=== PATIENT | male | born 1965 | race Caucasian/White ===

== ENCOUNTER → 2021-04-23 14:31 | Outpatient (REF) | payer MEDICARE, MEDICAID, SELFPAY ==
--- NOTE | 2021-04-23 14:40 | ECG_ITS ---
Test Reason : CONDUCTION DELAY Blood Pressure : / mmHG Vent. Rate : 085 BPM Atrial Rate : 085 BPM P-R Int : 212 ms QRS Dur : 104 ms QT Int : 354 ms P-R-T Axes : 072 047 037 degrees QTc Int : 421 ms Sinus rhythm with 1st degree A-V block Cannot rule out Anterior infarct , age undetermined Abnormal ECG When compared with ECG of 30-NOV-2019 16:30, No significant change was found Referred By: Zoltan Riley Electronically Signed By:LINDA MENDES MD
== END ==
LOC: HO.CARD 14:31
PROVIDERS: PCP Internal Medicine; Visit Provider Psychiatry & Neurology Psychiatry
DX: I45.9 Conduction disorder, unspecified (principal); Z51.81 Encounter for therapeutic drug level monitoring
CPT/HCPCS: 93005

== ENCOUNTER → 2022-10-01 12:12 | Outpatient (REF) | payer MEDICARE, MEDICAID, SELFPAY ==
--- NOTE | 2022-10-01 12:21 | ECG_ITS ---
Test Reason : F98.8 Blood Pressure : / mmHG Vent. Rate : 079 BPM Atrial Rate : 079 BPM P-R Int : 198 ms QRS Dur : 102 ms QT Int : 368 ms P-R-T Axes : 040 036 012 degrees QTc Int : 421 ms Normal sinus rhythm Cannot rule out Anterior infarct (cited on or before 23-APR-2021) Abnormal ECG When compared with ECG of 23-APR-2021 14:49, No significant change was found Referred By: Zoltan Riley Electronically Signed By:LINDA MENDES MD
== END ==
LOC: HO.CARD 12:12
PROVIDERS: PCP Family Medicine; Visit Provider Psychiatry & Neurology Psychiatry
DX: Z86.79 Personal history of other diseases of the circulatory system (principal); F98.8 Other specified behavioral and emotional disorders with onset usually occurring in childhood and adolescence
CPT/HCPCS: 93005

== ENCOUNTER → 2023-04-10 12:49 | Outpatient (BNVA) | payer MEDICARE, MEDICAID, SELFPAY | PROVIDERS: PCP Family Medicine; Visit Provider Psychiatry & Neurology Psychiatry ==

== ENCOUNTER 2023-06-01 14:02 | Outpatient (AMB) | payer OTHER, SELFPAY ==
--- NOTE | 2023-06-01 12:57 | A.OFFPSYCH_ITS ---
Intake Intake Visit Reasons: depression Allergies bee pollen [BEE STINGS] Allergy (Severe, Unverified 06/21/20 14:45) ANAPHYLAXIS morphine [MORPHINE] Allergy (Mild, Unverified 06/21/20 14:45) not effective- per pt. bupropion [From WELLBUTRIN] Adverse Reaction (Severe, Unverified 06/21/20 14:45) PATIENT BECOME DEPRESSED HPI- Psychiatric Chief Complaint: depression HPI Narrative: Patient is a 58-year-old male history of recurrent depression mood instability consistent with ADD and depression versus some atypical bipolar disorder question past substance induced mood instability now presenting status post surgery for acoustic neuroma. The patient had had balance problems and is status post a surgery at [facility] he he is generally doing okay has been home he is getting intensive physical therapy working on walking and balance in spite of above mood has generally been okay some periods of chronic dysphoria but is please with successful surgery. Current difficulties with attention concentration Past Psychiatric History: History of ADD and depression mood instability question drug-induced for Mental Status Exam Mental Status Exam Narrative: Mental Status Exam Narrative: Appearance: Sitting in chair bandage on head Behavior: Cooperative psychomotor: Speech: Clear hesitant somewhat slow Thought proccess logical Thought content: Gratitude for recent treatment Mood: Described as okay some anxiety Affect: Appropriate to mood SI:denies HI:denies VH/AH:none Delusions: Insight/judgment: Memory/cog: Impaired working attention and short-term memory at this time Telehealth Telehealth Location of provider rendering services: practice address Location of patient: address on file Patient Identification confirmed using: Name, : Yes Telehealth method: video Patient verbally consented to treatment: Yes Patient verbally consented to billing insurance company: Yes Minutes spent on Phone/Video with Pt.: 21 Assessment and Plan Assessment & Plan (1) ADD (attention deficit disorder) without hyperactivity: Status: Acute Code(s): F98.8 - Other specified behavioral and emotional disorders with onset usually occurring in childhood and adolescence (2) Major depression, recurrent, chronic: Status: Acute Code(s): F33.9 - Major depressive disorder, recurrent, unspecified (3) Status post excision of acoustic neuroma: Status: Acute Code(s): Z98.890 - Other specified postprocedural states; Z86.018 - Personal history of other benign neoplasm Plan S start him modafinil secondary to lethargy has been helpful previously. Continue lamotrigine discontinue if adverse effect patient call prior to next appointment if any mood related did or other physical changes Medications: New modafinil start 1/2 tab x 3 days then inc to 50 2 x day as tolerated 50 mg (1/2 x 100 mg) PO BID 30 tabs 1RF Counseling and coordination of Care Details-Self Mgmt counseling: Issues related to managing current medical difficulties Medication management counseling: Effectiveness and Dosing range Diagnosis and Prognosis Counseling: Impact of diagnosis on life functions Details: I spent [25] minutes reviewing the record, seeing the patient and documenting in the medical record. Counseling provided to the patient/caregiver as outlined below. Addressed patient/caregiver concerns regarding current medication regime including effective adherence. Addressed patient/caregiver concerns regarding diagnosis and prognosis including accuracy of diagnosis, prognosis over time, impact of diagnosis. Addressed patient/caregiver concerns regarding impact of recent stressors. [facility] Medical History (Updated 07/08/23 @ 16:40 by Zoltan Riley MD) Major depression, recurrent, chronic ADD (attention deficit disorder) without hyperactivity Surgical History (Updated 07/08/23 @ 16:40 by Zoltan Riley MD) Status post excision of acoustic neuroma Social History: Patient grew up with hyperactivity some difficulty in school has history of ADD. 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 Has been on disability has not been working. Chronic interpersonal difficulty with his no children has been quite active in recovery Substance History: History of the alcohol abuse and past cocaine sober times years Coding Level of Care Code Tele Est Pt Level 4 (36847) Diagnoses ADD (attention deficit disorder) without hyperactivity F98.8 Major depression, recurrent, chronic F33.9 Status post excision of acoustic neuroma Z98.890; Z86.018
== END 2023-06-01 14:03 | disposition home or self-care (01) ==
LOC: HO.HOP 14:02
PROVIDERS: PCP Family Medicine; Visit Provider Psychiatry & Neurology Psychiatry
DX: F33.1 Major depressive disorder, recurrent, moderate (principal); F98.8 Other specified behavioral and emotional disorders with onset usually occurring in childhood and adolescence; Z86.018 Personal history of other benign neoplasm
CPT/HCPCS: 99214

== ENCOUNTER → 2023-06-01 14:02 | Outpatient (BNVA) | payer OTHER, SELFPAY | PROVIDERS: PCP Family Medicine; Visit Provider Psychiatry & Neurology Psychiatry ==

== ENCOUNTER 2023-12-16 17:19 | Outpatient (AMB) | payer MEDICARE, MEDICAID, SELFPAY ==
--- NOTE | 2023-12-16 11:17 | MHC.OFFVISPS ---
Intake Intake Visit Reasons: depression Allergies bee pollen [BEE STINGS] Allergy (Severe, Unverified 06/21/20 14:45) ANAPHYLAXIS morphine [MORPHINE] Allergy (Mild, Unverified 06/21/20 14:45) not effective- per pt. bupropion [From WELLBUTRIN] Adverse Reaction (Severe, Unverified 06/21/20 14:45) PATIENT BECOME DEPRESSED Medication List - Last Reconciled 12/16/23 by Zoltan Riley MD amitriptyline mg PO aspirin 81 mg PO DAILY atorvastatin 20 mg PO DAILY clonazepam 1 mg PO BEDTIME PRN doxazosin 2 mg PO DAILY lamotrigine 200 mg PO BID lidocaine 5% 1 patch topical DAILY modafinil 50 mg (1/2 x 100 mg) PO BID omeprazole 40 mg PO BID HPI- Psychiatric Chief Complaint: depression HPI Narrative: pt has been doing ok looking to perhaps get job has recovered much from acoustic neuroma much better balance able to drive his had a recent CVA he has been caretaking home looking to become employed again will be having iron infusion patient continues to feel Lamictal is helpful was on modafinil previously has restarted at lower dose Past Psychiatric History: History of ADD and depression mood instability question drug-induced for Mental Status Exam Mental Status Exam Narrative: Mental Status Exam Narrative: Appear casually dressed Behavior: Cooperative psychomotor: Speech: Clear normal volume Thought proccess logical Thought content: Going back to work recent CVA his Mood: Described as okay Affect: Appropriate to mood SI:denies HI:denies VH/AH:none Delusions: Insight/judgment: Good insight Memory/cog: Intact as grossly observed Telehealth Telehealth Location of provider rendering services: practice address Location of patient: address on file Patient Identification confirmed using: Name, : Yes Telehealth method: video Patient verbally consented to treatment: Yes Patient verbally consented to billing insurance company: Yes Minutes spent on Phone/Video with Pt.: 21 Assessment and Plan Assessment & Plan (1) Major depression, recurrent, chronic: Status: Acute Code(s): F33.9 - Major depressive disorder, recurrent, unspecified (2) ADD (attention deficit disorder) without hyperactivity: Status: Acute Code(s): F98.8 - Other specified behavioral and emotional disorders with onset usually occurring in childhood and adolescence (3) Status post excision of acoustic neuroma: Status: Acute Code(s): Z98.890 - Other specified postprocedural states; Z86.018 - Personal history of other benign neoplasm Plan Continue Lamictal modafinil has generally not done well on antidepressants seems motivated engaged alert mood seems stable. He is looking to return to some form of work this has been longstanding somewhat of a block for him He does have chronic pain related to multiple surgeries neck and spine trying to sort out returned to work situation Medications: Refilled lamotrigine 200 mg PO BID 60 tabs 2RF Counseling and coordination of Care Medication management counseling: Effectiveness Diagnosis and Prognosis Counseling: Adequacy of current interventions Details: I spent [] minutes reviewing the record, seeing the patient and documenting in the medical record. Counseling provided to the patient/caregiver as outlined below. Addressed patient/caregiver concerns regarding current medication regime including effective adherence. Addressed patient/caregiver concerns regarding diagnosis and prognosis including accuracy of diagnosis, prognosis over time, impact of diagnosis. Addressed patient/caregiver concerns regarding impact of recent stressors. [facility] Medical History (Updated 07/08/23 @ 16:40 by Zoltan Riley MD) Major depression, recurrent, chronic ADD (attention deficit disorder) without hyperactivity Surgical History (Updated 07/08/23 @ 16:40 by Zoltan Riley MD) Status post excision of acoustic neuroma Social History: Patient grew up with hyperactivity some difficulty in school has history of ADD. 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 Has been on disability has not been working. Chronic interpersonal difficulty with his no children has been quite active in recovery Substance History: History of the alcohol abuse and past cocaine sober times years Coding Level of Care Code Tele Est Pt Level 3 (20401) Diagnoses Major depression, recurrent, chronic F33.9 ADD (attention deficit disorder) without hyperactivity F98.8 Status post excision of acoustic neuroma Z98.890; Z86.018
== END 2023-12-16 17:19 | disposition home or self-care (01) ==
LOC: HO.HOP 17:19
PROVIDERS: PCP Family Medicine; Visit Provider Psychiatry & Neurology Psychiatry
DX: F33.1 Major depressive disorder, recurrent, moderate (principal); F98.8 Other specified behavioral and emotional disorders with onset usually occurring in childhood and adolescence; Z86.018 Personal history of other benign neoplasm
CPT/HCPCS: 99213

== ENCOUNTER → 2023-12-16 17:19 | Outpatient (BNVA) | payer MEDICARE, MEDICAID, SELFPAY | PROVIDERS: PCP Family Medicine; Visit Provider Psychiatry & Neurology Psychiatry ==

== ENCOUNTER 2024-04-25 10:14 | Outpatient (AMB) | payer OTHER, SELFPAY ==
--- NOTE | 2024-04-25 10:33 | MHC.OFFVISPS ---
Intake Intake Visit Reasons: depression Allergies bee pollen [BEE STINGS] Allergy (Severe, Unverified 06/21/20 14:45) ANAPHYLAXIS morphine [MORPHINE] Allergy (Mild, Unverified 06/21/20 14:45) not effective- per pt. bupropion [From WELLBUTRIN] Adverse Reaction (Severe, Unverified 06/21/20 14:45) PATIENT BECOME DEPRESSED Medication List - Last Reconciled 04/25/24 by Zoltan Riley MD amitriptyline mg PO aspirin 81 mg PO DAILY atorvastatin 20 mg PO DAILY clonazepam 1 mg PO BEDTIME PRN lamotrigine 200 mg PO BID lidocaine 5% 1 patch topical DAILY modafinil 50 mg (1/2 x 100 mg) PO BID omeprazole 40 mg PO BID topiramate 25 mg PO BID ubrogepant (Ubrelvy) mg PO HPI- Psychiatric Chief Complaint: depression HPI Narrative: Pt seen in f/u mood has been down overwhelmed at times had cva able to walk around the house some periods of confusion easily overwhelmed has been having omgoing casey has been smoking mj has been taking topamax for CASEY by [facility] neuro can feel overwhelmed at times with his phy sx taking care of neelam his periods of feeling overwhelmed has not done well on antidep in the past Past Psychiatric History: History of ADD and depression mood instability question drug-induced for Mental Status Exam Mental Status Exam Narrative: Mental Status Exam Narrative: Appear casually dressed Behavior: Cooperative some hearing difficulty psychomotor: Speech: Clear normal volume Thought proccess logical Thought content: overwhelmed with casey pain Mood: Described as okay can be overwhelmed at times Affect: Appropriate to mood SI:denies states future oriented HI:denies VH/AH:none Delusions: Insight/judgment: Good insight Memory/cog: Intact as grossly observed Assessment and Plan Assessment & Plan (1) Major depression, recurrent, chronic: Status: Acute Code(s): F33.9 - Major depressive disorder, recurrent, unspecified (2) ADD (attention deficit disorder) without hyperactivity: Status: Acute Code(s): F98.8 - Other specified behavioral and emotional disorders with onset usually occurring in childhood and adolescence (3) Status post excision of acoustic neuroma: Status: Acute Code(s): Z98.890 - Other specified postprocedural states; Z86.018 - Personal history of other benign neoplasm Plan restart guanfacine 0.5-1 bedtime bp 130/74 p 72 cont lamictal discussed amitrip use of topamax for pain managed by nueuro and pcp future oriented guanfacine may be helpful sleep anxiety not an option for tms consuder spravato Medications: New guanfacine 0.5 - 1 mg (0.5 - 1 x 1 mg) PO BEDTIME 30 tabs 3RF Refilled lamotrigine 200 mg PO BID 60 tabs 2RF Counseling and coordination of Care Pt. Self Management counseling: Breathing and Med illness tx adherence Details-Self Mgmt counseling: issues related to chronic pain Details-Med Mgmt counseling: pt has been managing dealing with chronic pain issues Diagnosis and Prognosis Counseling: Adequacy of current interventions Details: I spent [38] minutes reviewing the record, seeing the patient and documenting in the medical record. Counseling provided to the patient/caregiver as outlined below. Addressed patient/caregiver concerns regarding current medication regime including effective adherence. Addressed patient/caregiver concerns regarding diagnosis and prognosis including accuracy of diagnosis, prognosis over time, impact of diagnosis. Addressed patient/caregiver concerns regarding impact of recent stressors. [facility] Medical History (Updated 07/08/23 @ 16:40 by Zoltan Riley MD) Major depression, recurrent, chronic ADD (attention deficit disorder) without hyperactivity Surgical History (Updated 07/08/23 @ 16:40 by Zoltan Riley MD) Status post excision of acoustic neuroma Social History: Patient grew up with hyperactivity some difficulty in school has history of ADD. 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 Has been on disability has not been working. Chronic interpersonal difficulty with his no children has been quite active in recovery Substance History: History of the alcohol abuse and past cocaine sober times years Coding Level of Care Code Est Pt Level 3 (98893) Therapy 30m w/E&M (45920) Diagnoses Major depression, recurrent, chronic F33.9 ADD (attention deficit disorder) without hyperactivity F98.8 Status post excision of acoustic neuroma Z98.890; Z86.018
== END 2024-04-25 14:44 | disposition home or self-care (01) ==
LOC: HO.HOP 10:14
PROVIDERS: PCP Family Medicine; Visit Provider Psychiatry & Neurology Psychiatry
DX: F33.9 Major depressive disorder, recurrent, unspecified (principal); F98.8 Other specified behavioral and emotional disorders with onset usually occurring in childhood and adolescence; Z98.890 Other specified postprocedural states; Z86.018 Personal history of other benign neoplasm
CPT/HCPCS: 90833; 99213

== ENCOUNTER → 2024-04-25 10:14 | Outpatient (BNVA) | payer OTHER, SELFPAY | PROVIDERS: PCP Family Medicine; Visit Provider Psychiatry & Neurology Psychiatry | DX: F33.9 Major depressive disorder, recurrent, unspecified (principal); F98.8 Other specified behavioral and emotional disorders with onset usually occurring in childhood and adolescence; Z98.890 Other specified postprocedural states; Z86.018 Personal history of other benign neoplasm | CPT/HCPCS: 99212 ==

== ENCOUNTER 2024-08-30 14:26 | Outpatient (AMB) | payer OTHER, SELFPAY ==
--- NOTE | 2024-08-30 15:21 | MHC.OFFVISPS ---
Intake Intake Visit Reasons: depression Allergies bee pollen [BEE STINGS] Allergy (Severe, Unverified 06/21/20 14:45) ANAPHYLAXIS morphine [MORPHINE] Allergy (Mild, Unverified 06/21/20 14:45) not effective- per pt. bupropion [From WELLBUTRIN] Adverse Reaction (Severe, Unverified 06/21/20 14:45) PATIENT BECOME DEPRESSED Medication List - Last Reconciled 08/30/24 by Zoltan Riley MD alfuzosin ER 10 mg PO DAILY amitriptyline mg PO aspirin 81 mg PO DAILY atorvastatin 20 mg PO DAILY clonazepam 1 mg PO BEDTIME PRN guanfacine 0.5 - 1 mg (0.5 - 1 x 1 mg) PO BEDTIME lamotrigine 200 mg PO BID lidocaine 5% 1 patch topical DAILY modafinil 50 mg (1/2 x 100 mg) PO BID omeprazole 40 mg PO BID testosterone 40.5 mg topical QAM topiramate 50 mg PO BID ubrogepant (Ubrelvy) mg PO HPI- Psychiatric Chief Complaint: depression HPI Narrative: Patient seen psychiatric follow-up. Patient has been under tremendous stress his who is status post CVA at times has somewhat bizarre behavior and poor judgment. Patient at times unsure what to do. He has discussed this it appears with his psychiatrist Dr. Dee Ortiz. He and his sleep separately they have chronic marital dissatisfaction. The patient has been trying to make his own apartment in the house. The patient has never really responded well to antidepressant treatment. He has done best on Lamictal and previously with modafinil for energy and help with focus the patient has been on disability times years. He is status post surgery for acoustic neuroma also has multiple chronic pain syndromes related to his spine Past Psychiatric History: History of ADD and depression mood instability question drug-induced for Mental Status Exam Mental Status Exam Narrative: Mental Status Exam Narrative: Appear casually dressed Behavior: Cooperative some hearing difficulty psychomotor: Speech: Clear normal volume Thought proccess logical Thought content: overwhelmed with living situation how to deal his who is status post CVA Intermittently hopeless helpless Mood: Depressed Affect: Appropriate to mood SI:denies states future oriented HI:denies VH/AH:none Delusions: Insight/judgment: Good insight Memory/cog: Intact as grossly observed Assessment and Plan Assessment & Plan (1) ADD (attention deficit disorder) without hyperactivity: Status: Acute Code(s): F98.8 - Other specified behavioral and emotional disorders with onset usually occurring in childhood and adolescence (2) Major depression, recurrent, chronic: Status: Acute Code(s): F33.9 - Major depressive disorder, recurrent, unspecified (3) Status post excision of acoustic neuroma: Status: Acute Code(s): Z98.890 - Other specified postprocedural states; Z86.018 - Personal history of other benign neoplasm Plan Restart modafinil continue lamotrigine clonazepam no evidence of abuse or tolerance Has not typically responded to antidepressants may benefit from consideration of spravato TMS was not helpful Would benefit from coaching/therapy to help deal with issues stress related to living with his who is now more erratic and dependent. Patient remains sober Medications: Changed From modafinil start 1/2 tab x 3 days then inc to 50 2 x day as tolerated 50 mg (1/2 x 100 mg) PO BID 30 tabs 1RF F98.8 - Other specified behavioral and emotional disorders with onset usually occurring in childhood and adolescence, F33.9 - Major depressive disorder, recurrent, unspecified To modafinil start 1/2 tab x 3 days then inc to 50 2 x day as tolerated if agitated stop 50 - 100 mg (0.5 - 1 x 100 mg) PO QAM 30 tabs 1RF F98.8 - Other specified behavioral and emotional disorders with onset usually occurring in childhood and adolescence, F33.9 - Major depressive disorder, recurrent, unspecified Counseling and coordination of Care Details-Self Mgmt counseling: Issues related to current stressors living with his disabled and his own sense of hopelessness helplessness Medication management counseling: Effectiveness and Side effects Diagnosis and Prognosis Counseling: Adequacy of current interventions Details: I spent [39] minutes reviewing the record, seeing the patient and documenting in the medical record. Counseling provided to the patient/caregiver as outlined below. Addressed patient/caregiver concerns regarding current medication regime including effective adherence. Addressed patient/caregiver concerns regarding diagnosis and prognosis including accuracy of diagnosis, prognosis over time, impact of diagnosis. Addressed patient/caregiver concerns regarding impact of recent stressors. [facility] Medical History (Updated 07/08/23 @ 16:40 by Zoltan Riley MD) Major depression, recurrent, chronic ADD (attention deficit disorder) without hyperactivity Surgical History (Updated 07/08/23 @ 16:40 by Zoltan Riley MD) Status post excision of acoustic neuroma Social History: Patient grew up with hyperactivity some difficulty in school has history of ADD. 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 Has been on disability has not been working. Chronic interpersonal difficulty with his no children has been quite active in recovery Substance History: History of the alcohol abuse and past cocaine sober times years Coding Level of Care Code Est Pt Level 3 (29676) Therapy 30m w/E&M (91236) Diagnoses ADD (attention deficit disorder) without hyperactivity F98.8 Major depression, recurrent, chronic F33.9 Status post excision of acoustic neuroma Z98.890; Z86.018
== END 2024-08-30 15:27 | disposition home or self-care (01) ==
LOC: HO.HOP 14:26
PROVIDERS: PCP Family Medicine; Visit Provider Psychiatry & Neurology Psychiatry
DX: F98.8 Other specified behavioral and emotional disorders with onset usually occurring in childhood and adolescence (principal); F33.9 Major depressive disorder, recurrent, unspecified; Z98.890 Other specified postprocedural states; Z86.018 Personal history of other benign neoplasm
CPT/HCPCS: 90833; 99213

== ENCOUNTER → 2024-08-30 14:26 | Outpatient (BNVA) | payer OTHER, SELFPAY | PROVIDERS: PCP Family Medicine; Visit Provider Psychiatry & Neurology Psychiatry | DX: F33.9 Major depressive disorder, recurrent, unspecified (principal); F98.8 Other specified behavioral and emotional disorders with onset usually occurring in childhood and adolescence; Z73.3 Stress, not elsewhere classified; Z63.0 Problems in relationship with spouse or partner; Z98.890 Other specified postprocedural states; Z86.018 Personal history of other benign neoplasm; Z71.89 Other specified counseling | CPT/HCPCS: 99212 ==

== ENCOUNTER 2024-11-28 16:21 | Inpatient (IN) | payer MEDICARE, OTHER, MEDICAID, SELFPAY ==
--- NOTE | ~2024-11-28 | CT_ITS ---
.EXAMINATION: CT HEAD WITHOUT CONTRAST CLINICAL INFORMATION: mse changes COMPARISON: CT dated February 26, 2018. TECHNIQUE: Contiguous axial imaging was performed from the skull base to vertex without intravenous administration of contrast. This CT examination was performed using dose optimization techniques as appropriate, variously including the following: *Automated exposure control *Adjustment of mA and/or kV according to patient size (this includes techniques or standardized protocols for targeted exams where dose is matched to indication/reason for exam; i.e. extremities or head) *Use of iterative reconstruction technique DLP: 871 mGy-cm FINDINGS: Status post right craniectomy and cranioplasty, right occipital and right mastoid. Well corticated irregularities in the left superior orbit. There is a 5 mm intracranial and likely extra-axial focal calcification in the left anterior cranial fossa. There is a microcystic encephalomalacia involving the left frontal lobe/frontal rectus and orbital frontal gyri. Focal encephalomalacia right frontal rectus gyrus. No acute intracranial hemorrhage, mass effect, midline shift, hydrocephalus or herniation. Calcified plaques in the V4 segments right vertebral artery and cavernous segments both ICAs. No air-fluid levels in the included paranasal sinuses. Tympanic cavities are aerated. Left mastoid cells are aerated and well pneumatized. Sellar/suprasellar region demonstrated no gross masses or focal hemorrhage. There is dehiscence versus noncalcified anterior margin of the sella turcica. Old traumatic deformity, nasal bones.. CT/CT head/brain wo IV con IMPRESSION: No acute intracranial hemorrhage. Probable old frontal contusions, left greater than right with old traumatic deformities, nasal bones and left frontal superior orbital wall Status post craniectomy and cranioplasty, right occipital posterior right mastoid. Electronically signed by: Gallito Song MD 12/05/2024 11:45 AM EST
[2024-11-28 16:34] VITALS: BP 130/72; PULSE 88; O2SAT 97
[2024-11-28 16:36] VITALS: BP 111/72; PULSE 87; RESP 16; TEMP 37.1; O2SAT 95; BMI 25.8
[2024-11-28 17:08] LABS: Appearance Urine Clear; Color Urine Yellow; Glucose Urine UA Negative (Negative); Leukocyte Esterase Urine Small (1+) (Negative); Nitrite Urine Negative (Negative); PH 6.5 (5.0-9.0); Specific Gravity - Urine 1.025 (1.005-1.025); UMIC TRIGGER UACC YES; Urine Blood Negative (Negative); Urine Ketones Negative (Negative); Urine Protein Trace mg/dL (Neg-Trace)
[2024-11-28 17:14] LABS: Bacteria Urine None Seen (None Seen); Hyaline Casts Urine 0-2 /LPF (0-2); RBC Urine 0-2 /HPF (0-2); Squamous Epithelial Cell Urine 0-2 /HPF (0-2); UACC Culture Trigger YES; WBC Urine 0-5 /HPF (0-5)
--- NOTE | 2024-11-28 17:48 | ED_ITS ---
HPI - Psych General Chief Complaint: Psychiatric Symptoms Stated Complaint: crisis depressed anxious thoughts, selfharm Time Seen by Provider: 11/28/24 17:34 Source: patient and EMS Mode of arrival: EMS Limitations: no limitations History of Present Illness ED Provider: DR. García HPI Narrative: A 59-year-old male brought in by EMS accompanied by the police for evaluation of depression and aggression. Patient stated that he has been taking care of his who had a stroke 15 months ago patient expressed difficulty to care for his and stressed out and anxious, stated that he found on her phone she is texting another person which made the patient more upset. No SI, no HI, no hallucination. Related Data Home Medications ?Medication ?Instructions ?Recorded ?Confirmed atorvastatin 20 mg tablet 20 mg PO DAILY 09/09/22 04/25/24 lidocaine 5 % topical patch 1 patch topical DAILY 09/09/22 09/09/22 omeprazole 40 mg capsule,delayed 40 mg PO BID 09/09/22 09/09/22 release amitriptyline 10 mg tablet mg PO 12/16/23 04/25/24 aspirin 81 mg tablet,delayed 81 mg PO DAILY 12/16/23 04/25/24 release ubrogepant 100 mg tablet (Ubrelvy) mg PO 04/25/24 04/25/24 alfuzosin 10 mg tablet,extended 10 mg PO DAILY 08/30/24 08/30/24 release 24 hr testosterone 40.5 mg topical QAM 08/30/24 08/30/24 topiramate 50 mg tablet 50 mg PO BID 08/30/24 08/30/24 Previous Rx's ?Medication ?Instructions ?Recorded guanfacine 1 mg tablet 0.5 - 1 mg (0.5 - 1 x 1 mg) PO 07/12/24 BEDTIME #30 tabs clonazepam 1 mg tablet 1 mg PO BEDTIME PRN insomnia #30 10/17/24 tabs lamotrigine 200 mg tablet 200 mg PO BID #120 tabs 11/10/24 modafinil 100 mg tablet 100 mg PO QAM #30 tabs 11/10/24 Allergies Allergy/AdvReac Type Severity Reaction Status Date / Time bee pollen [BEE STINGS] Allergy Severe ANAPHYLAXIS Verified 11/28/24 16:53 morphine [MORPHINE] Allergy Mild not Verified 11/28/24 16:53 effective- per pt. tizanidine Allergy Unknown Verified 11/28/24 16:53 bupropion [From WELLBUTRIN] AdvReac Severe PATIENT Verified 11/28/24 16:53 BECOME DEPRESSED Review of Systems Review of Systems: All other systems are reviewed and are negative Constitutional: Reports as per HPI and Reports no additional constitutional complaints Eyes: Reports as per HPI and Reports no additional eye complaints Reports system reviewed and no additional complaints, except as documented Cardiovascular: Reports as per HPI and Reports no additional cardiovascular complaints Respiratory: Reports as per HPI and Reports no additional respiratory complaints Gastrointestinal: Reports as per HPI and Reports no additional gastrointestinal complaints Genitourinary: Reports no additional female genitourinary complaints Musculoskeletal: Reports no additional musculoskeletal complaints Skin/Breast: Reports system reviewed and no additional complaints, except as docu Psychiatric: Reports no additional psychiatric complaints Endocrine: Reports no additional endocrine complaints Hematologic/Lymphatic: Reports no additional hematologic/lymphatic complaints Allergic/Immunologic: Reports no additional allergic/immunologic complaints Reports system reviewed and no additional complaints, except as documented and Reports Abnormal speech present [facility] Past Medical History Medical History Major depression, recurrent, 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 Blood pressure elevated. Heart rate normal. Respiratory rate normal. Temperature normal. Oxygen saturation normal. Appearance: Alert. Oriented X3. No acute distress. Head: Normal external exam. Normocephalic. Atraumatic. No Cochran signs noted. No raccoon eyes noted Eyes: PERRLA. EOMI. Conjunctiva and sclera normal. Eyelids normal. ENT: TM's Normal. Pharynx normal. Uvula midline. Moist mucous membranes. No trismus noted. No drooling noted. No muffled voice noted. Neck: Normal inspection. Neck supple. FROM. No adenopathy. Thyroid Normal. No meningeal signs. No neck mass noted. CVS: Normal heart rate and rhythm. Heart sound normal. No murmurs noted. Pulses normal throughout. Respiratory: No respiratory distress. Painless inspiration. Breath sounds normal. No wheezes/rales/rhonchi noted. Chest nontender. No accessory muscle usage noted or decreased air movement noted. Abdomen: Soft and nontender. Bowel sounds normal in all 4 quadrants. No distention noted. No organomegaly noted. No visible injury noted. Back: No CVA tenderness. Full range of motion noted. Skin: Skin warm and dry. Normal skin color. Normal skin turgor. No rashes/lesions/lacerations noted. Extremities: No lower extremity edema. Extremities exhibit normal range of motion. Extremities nontender. Neuro: Oriented X 3. Cranial nerve exam: II-XII are grossly intact No motor deficit. No sensory deficit. Reflexes normal. Patient Orientation: Person, Place, Time and Situation, okay hygiene and grooming. Fair eye contact, attentive, no tics or tremors. Level of Consciousness: Awake, Appropriate and Alert Patient Behavior: Appropriate, Guarded, Cooperative and Anxious Mood Description: Constricted, Blunted and Apprehensive Affect Description: Constricted, Blunted and Apprehensive Patient Cognition Impaired: No Ability to Follow Directions: Excellent Speech Pattern: Clear, Appropriate and Spontaneous Speech, nonpressured, spontaneous with regular rate and rhythm, normal volume and prosody. No dysarthria. Memory Description: Intact, Immediate Intact and Short Term Intact Hallucinations: None Delusions: Not Present Thought Process: Intact Thought Content: positive for Intact, positive for Logical, denies Suicidal Id eation and denies Homicidal Ideation. Depressive Symptoms: Not present. Judgement and Insight: Limited but adequate. Course Reevaluation(s) Reevaluation #1: 59-year-old male came in for evaluation of stress and depression with no SI or HI, will start physician observation, medical clearance and care team evaluation. Time: 19:00 Medical Decision Making Differential Diagnosis Differential Diagnoses: The differential diagnosis associated with the presentation includes (Electrolyte derangement, severe anemia, medical clearance, substance abuse.) Admission/Observation Consideration of admission/observation: Escalation of care including admission/observation considered Lab Data MDM Lab Attestation statement: I reviewed the patient's lab results. Labs: Lab Results 11/28/24 Range/Units 16:59 Urine Color Yellow Urine Appearance Clear Urine pH 6.5 (5.0-9.0) Ur Specific [place] 1.025 (1.005-1.025) Urine Protein Trace (Neg-Trace) mg/dL Urine Glucose (UA) Negative (Negative) mg/dL Urine Ketones Negative (Negative) mg/dL Urine Blood Negative (Negative) Urine Nitrite Negative (Negative) Ur Leukocyte Esterase Small (1+) H (Negative) Urine RBC 0-2 (0-2) /HPF Urine WBC 0-5 (0-5) /HPF Ur Squamous Epith Cells 0-2 (0-2) /HPF Urine Bacteria None Seen (None Seen) Hyaline Casts 0-2 (0-2) /LPF Discharge Plan Discharge Clinical Impression: Depression, ADD (attention deficit disorder) without hyperactivity Patient Disposition: Still a Patient Prescriptions: No Action guanfacine 1 mg tablet 0.5 - 1 mg PO BEDTIME Qty: 30 1RF clonazepam 1 mg tablet 1 mg PO BEDTIME PRN (Reason: insomnia) Qty: 30 1RF lamotrigine 200 mg tablet 200 mg PO BID Qty: 120 1RF modafinil 100 mg tablet 100 mg PO QAM Qty: 30 1RF lidocaine 5 % adhesive patch,medicated 1 patch topical DAILY omeprazole 40 mg capsule,delayed release(DR/EC) 40 mg PO BID atorvastatin 20 mg tablet 20 mg PO DAILY Ubrelvy 100 mg tablet PO amitriptyline 10 mg tablet PO aspirin 81 mg tablet,delayed release (DR/EC) 81 mg PO DAILY testosterone 20.25 mg/1.25 gram (1.62 %) gel in metered-dose pump 40.5 mg topical QAM alfuzosin 10 mg tablet extended release 24 hr 10 mg PO DAILY topiramate 50 mg tablet 50 mg PO BID Print Language: Georgian
[2024-11-28 17:54] LABS: Amphetamine Screen Urine Not Detected (Not Detect); Barbiturates, Urine Not Detected (Not Detect); Benzodiazepines Screen Urine Not Detected (Not Detect); Buprenorphine Scr Not Detected (Not Detect); Cannabinoid Screen Urine POSITIVE (Not Detect); Cocaine Screen Urine Not Detected (Not Detect); Fentanyl, urine Not Detected (Not Detect); Methadone Screen, Urine Not Detected (Not Detect); Opiate Screen Urine Not Detected (Not Detect); Oxycodone Screen Urine Not Detected (Not Detect); Phencyclidine Screen Urine Not Detected (Not Detect)
[2024-11-28 18:16] LABS: MANUAL DIFF FLAG NO
[2024-11-28 18:21] LABS: Basophils Absolute Auto 0.1 X10*3/uL (0.0-0.2); Basophils Percent Auto 0.9 % (0-2); Eosinophils Absolute Auto 0.2 X10*3/uL (0.0-0.4); Hematocrit 44.9 % (42.0-52.0); Hemoglobin 14.8 g/dl (14.0-18.0); Imm Gran Abs Auto 0.02 X10*3/uL (0.00-0.03); Imm Gran Pct Auto 0.3 % (0.0-0.4); Lymphocytes Absolute Auto 2.5 X10*3/uL (1.2-4.9); Lymphocytes Percent Auto 31.7 % (20-40); Mean Corpuscular Hemoglobin 29.2 pg (27.0-33.0); Mean Corpuscular Volume 88.6 fL (80.0-98.0); Mean Platelet Volume 10.1 fL (9.4-12.4); Monocytes Absolute Auto 0.5 X10*3/uL (0.1-1.2); Monocytes Percent Auto 6.5 % (2-11); Neutrophils Absolute Auto 4.7 x10*3/uL (2.0-8.3); Neutrophils Percent Auto 58.6 % (45-73); Platelet Count 216 X10*3/uL (160-400); Red Blood Count 5.07 X10*6/uL (4.60-5.80); Red Cell Distribution Width 13.7 % (11.0-16.0); White Blood Count 7.9 X10*3/uL (4.8-10.8)
[2024-11-28 18:36] LABS: Anion Gap 11 (12-20); Blood Urea Nitrogen 13 mg/dL (9-16); Calcium 9.3 mg/dL (8.4-10.2); Carbon Dioxide 24 mmol/L (22-29); Chloride 112 mmol/L (96-108); Creatinine Clr Calc Pharmacy 89.5; Estimated Glomerular Filt Rate > 60; Ethanol < 10 mg/dL; Glucose Random 121 mg/dL (60-115); Potassium 3.8 mmol/L (3.3-5.1); Sodium 143 mmol/L (135-145)
[2024-11-28] MEDS: Acetaminophen 325 MG TABLET 975 MG PO (19:15)
--- NOTE | 2024-11-28 20:20 | MHC.CM.ED ---
Addendum entered by Bibi Murphy 11/28/24 20:28: Pt states his has daily [employer] services. 2 hours daily. Original Note: Received consult from Dr. Marina. Pt is being cared for in [facility] and CARE team has recommended [facility]. Pt has concerns about his at home. She had a stroke 15 months ago and he has been her caregiver. He has concerns about her medications. CARE team state they will call his . No need for CM consult at this time. CM recommended police well check if there are concerns. Pt is requesting elder services, however patient is 58 years old. CM explained that Elder services will not manage her medications tonight and in the morning. Explained that his would need to come to the ED. Explained that services cannot be arranged for someone that is not a patient. Again stressed that his should come to the ED for care. CARE team will call . Care team is aware that CM will help if needed. Dr. Marina to cancel consult at this time.
--- OUTSIDE RECORDS SUMMARY | 2024-11-28 21:15 | XMS_ITS | Data Portability ---
Author Organization 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 The headaches improves with marijuana and Tylenol/NSAIDs which he uses multiple times per day. Patient likely has posttraumatic headaches with features of migraines complicated with rebound headaches from frequent NSAID use. 07/2023 MRI brain with and without contrast: Interval postoperative findings related to right suboccipital craniectomy for resection of a right vestibular schwannoma. A 3 mm enhancing focus at the fundus of the right internal auditory canal likely represents residual tumor. An additional area of heterogeneous T2 hyperintense signal and enhancement within the right jugular bulb possibly represents thrombus or less likely additional schwannoma/eber anglioma. Not available 07/22/2023 09:33:29 09/03/2023 09/03/2023 58yo m HLD, ADD, history of substance abuse (currently in recovery), depression, 2 cervical fusion, 2 lumbar fusion, 03/13/23 rt schwannoma removal and CSF leak presents with a new type of headaches that has been unrelenting since the surgery. The headaches improves with marijuana and Tylenol/NSAIDs which he had been using multiple times per day. Patient likely has posttraumatic headaches with features of migraines complicated with rebound headaches from frequent NSAID use. Good response to amitryp, will inc gently. 07/2023 MRI brain with and without contrast: Interval postoperative findings related to right suboccipital craniectomy for resection of a right vestibular schwannoma. A 3 mm enhancing focus at the fundus of the right internal auditory canal likely represents residual tumor. An additional area of heterogeneous T2 hyperintense signal and enhancement within the right jugular bulb possibly represents thrombus or less likely additional schwannoma/eber anglioma. Not available 09/03/2023 09:39:03 12/03/2023 12/03/2023 58yo m HLD, ADD, history of substance abuse (currently in recovery), depression, 2 cervical fusion, 2 lumbar fusion, 03/13/23 rt schwannoma removal and CSF leak presents with a new type of headaches that has been unrelenting since the surgery. The headaches improves with marijuana and Tylenol/NSAIDs which he had been using multiple times per day. Patient likely has posttraumatic headaches with features of migraines complicated with rebound headaches from frequent NSAID use. Good response to amitryp, but not now anymore. Will add topamax - SEs discussed; also discussed adding nerve blocks, but pt prefers PO meds for now as traveling here would be a problem. Sumatriptan with suboptimal response. Will switch to naratriptan. SEs discussed. 07/2023 MRI brain with and without contrast: Interval postoperative findings related to right suboccipital craniectomy for resection of a right vestibular schwannoma. A 3 mm enhancing focus at the fundus of the right internal auditory canal likely represents residual tumor. An additional area of heterogeneous T2 hyperintense signal and enhancement within the right jugular bulb possibly represents thrombus or less likely additional schwannoma/beer anglioma. Not available 12/03/2023 17:01:45 03/28/2024 03/28/2024 58yo m HLD, ADD, history of substance abuse (currently in recovery), depression, 2 cervical fusion, 2 lumbar fusion, 03/13/23 rt schwannoma removal and CSF leak presents with a new type of headaches that has been unrelenting since the surgery. The headaches improves with marijuana and Tylenol/NSAIDs which he had been using multiple times per day. Patient likely has posttraumatic headaches with features of migraines complicated with rebound headaches from frequent NSAID use. Good intial response to amitryp, but not on it anymore due to liver enzyme elevation. Increased topamax to 50mg/day about 3 days ago, will see how this would help with the CASEY. But now having daily 5/10 CASEY. Discussed adding nerve blocks, but pt prefers PO meds for now as traveling here would be a problem. 07/2023 MRI brain with and without contrast: Interval postoperative findings related to right suboccipital craniectomy for resection of a right vestibular schwannoma. A 3 mm enhancing focus at the fundus of the right internal auditory canal likely represents residual tumor. An additional area of heterogeneous T2 hyperintense signal and enhancement within the right jugular bulb possibly represents thrombus or less likely additional schwannoma/eber anglioma. Not available 03/28/2024 14:18:08 Plan of Treatment Reminders Order Date Submit Date Provider Last Modified By Organization Details Last Modified Time Details Appointments None recorded. Lab None recorded. Referral None recorded. Procedures None recorded. Surgeries None recorded. Imaging None recorded. Medication Orders topiramate 25 mg tablet 2023 024 [facility] #[id number], [address] [place] [address], [id number], 14:11:58 Ubrelvy 100 mg tablet 2023 024 [facility], [address] [place] [address], [address], 4 14:12:00 hydroxyzine HCl 10 mg tablet 2023 024 [facility], [address] [place] [address], [address], 4 14:11:59 amitriptyli ne 10 mg tablet 2023 024 [facility], [address] [place] [address], [address], 4 11:27:08 topiramate 25 mg tablet 2023 024 [facility] #0957, [address] [place] [address], [address], 4 15:30:01 naratriptan 2.5 mg tablet 2023 024 [facility], [address] [place] [address], [address], 4 11:31:19 amitriptyli ne 10 mg tablet 2022 023 [facility], [address] [place] [address], [address], 3 09:39:06 sumatriptan 100 mg tablet 2022 023 [facility] #0957, [address] [place] [address], [address], 4 11:31:29 amitriptyli ne 10 mg tablet 2022 023 [facility], [address] [place] [address], [address], 3 10:39:05 Patient TargetsNo targets recorded. Patient InstructionsNo instructions recorded. Reason for Referral None Reported. Results Created Date Observation Date Name Description Value Unit Range Abnormal Flag Note LastModifiedBy Organization Detail LastModifiedTime 07/09/20 23 03/17/2023 CT, brain , w/o contr ast No observ ation record ed. [email or web address] Not Available 2022 14:26:03 Result Notes None recorded. Problems Name Problem SNOMED Code Status Onset Date Resolution Date Notes Provider Name and Address Organization Details Recorded Time Posttraumatic headache 24917953 Active 2022 PARISA APPIAH MD [address] [place] [address], [phone], [facility] 3 10:32:30 Schwannoma 147283886 Active 2022 PARISA APPIAH MD [address] [place] [address], [phone] 8, [facility] 3 09:32:58 Drug withdrawal headache 85371569 Active 2022 PARISA APPIAH MD [address] [place] [address], [phone] 8, [facility] 3 09:33:14 Migraine 74494503 Active 2023 PARISA APPIAH MD [address] [place] [address], [phone] 8, [facility] 4 14:20:18 Problem Notes None recorded. Procedures Surgical History None recorded. Imaging Results Imaging Date Name Status LastModified by Organiz ation Details LastModified Time 03/17/2023 CT, brain, w/o contrast completed [email or web address] Information not available 07/09/2023 14:26:03 Procedure Notes None recorded. Medical Equipment None Reported. Allergies Allergen ID Allergen Name Allergen Category Reaction Reaction Severity Criticality Documentation Date Start Date Code Code System Note Provider Name and Address Organization Details Recorded Time [id number] bupropion Not available Not available Not available Not available 07/21/2023 95533 RxNitin APPIAH MD [address] [place] [address], [phone] 8, [facility] 3 09:56:32 [id number] tizanidin e medicatio n Not available Not available Not available 07/21/2023 [id number] RxNitin APPIAH MD [address] [place] [address], [phone] 8, [facility] 3 09:56:42 [id number] tamsulosi n medicatio n Not available Not available Not available 07/21/2023 [id number] RxNitin APPIAH MD [address] [place] [address], [address] 8, [facility] 3 09:56:53 Medications Name Sig Start Date Stop Date Status Note LastModified by Organization Details LastModified Time prednisone 10 mg tablet TAKE 2 TABS ON 03/29 AND 1 TAB ON 03/30 active Not Available Not Available No t Available atorvastati n 20 mg tablet TAKE 1 TABLET BY MOUTH EVERY DAY IN THE EVENING active Not Available Not Available No t Available lamotrigine 200 mg tablet TAKE 1 TABLET BY MOUTH TWICE A DAY active Not Available Not Available No t Available doxazosin 1 mg tablet TAKE 1 TABLET BY MOUTH EVERY DAY FOR 30 DAYS active Not Available Not Available No t Available sumatriptan 100 mg tablet TAKE 1/2 TO 1 TABLET AT ONSET OF MIGRAINE, LIMIT TO 2 TABS PER WEEK active Not Available Not Available No t Available prednisone 20 mg tablet TAKE 2 TABLET BY MOUTH DAILY FOR 2 DAYS active Not Available Not Available No t Available prednisone 5 mg tablet active Not Available Not Available Not Available clonazepam 1 mg tablet TAKE 1 TABLET (1 MG) ORALLY BEDTIME NEEDED FOR INSOMNIA active Not Available Not Available No t Available topiramate 25 mg tablet TAKE 1 TABLET TWICE A DAY BY ORAL ROUTE FOR 90 DAYS. active Not Available Not Available No t Available valacyclovi r 500 mg tablet active Not Available Not Available Not Available omeprazole 40 mg capsule,del ayed release TAKE 1 CAPSULE BY MOUTH TWICE A DAY DIRECTED active Not Available Not Available No t Available aspirin 81 mg tablet,martha yed release TAKE 1 TABLET BY MOUTH EVERY DAY active Not Available Not Available No t Available amoxicillin 500 mg tablet TAKE 1 TABLET BY MOUTH THREE TIMES A DAY UNTIL FINISHED active Not Available Not Available No t Available ketorolac 0.5 % eye drops active Not Available Not Available Not Available hydromorpho ne 2 mg tablet 07/21 completed Not Available Not Available Not Available famotidine 20 mg tablet TAKE 1 TABLET BY MOUTH TWICE A DAY active Not Available Not Available No t Available dexamethaso ne 1 mg tablet active Not Available Not Available Not Available amitriptyli ne 10 mg tablet TAKE 1 TABLET BY MOUTH AT BEDTIME FOR 1 WEEK, THEN INCREASE TO TAKE 2 TABLETS BY MOUTH AT BEDTIME 2023 active Not Available Not Available Not Avai lable meclizine 25 mg tablet active Not Available Not Available Not Available cephalexin 500 mg capsule TAKE 4 CAPSULES (2,000 MG TOTAL) BY MOUTH ONCE NEEDED 1 HOUR BEFORE DENTAL APPOINTME NT active Not Available Not Available No t Available lidocaine 5 % topical patch APPLY 1 PATCH EVERY DAY BY TOPICAL ROUTE DIRECTED active Not Available Not Available No t Available ibuprofen 200 mg tablet TAKE 2 TABLETS BY MOUTH EVERY 6 HOURS NEEDED FOR PAIN active Not Available Not Available No t Available Banophen 25 mg capsule TAKE 1 CAPSULE BY MOUTH 3 TIMES A DAY active Not Available Not Available No t Available bisacodyl 5 mg tablet,martha yed release TAKE 1 TABLET BY MOUTH DAILY NEEDED. active Not Available Not Available No t Available epinephrine 0.3 mg/0.3 mL injection, auto-inject or INJECT 0.3 MG NEEDED BY INJECTION ROUTE FOR 30 DAYS. active Not Available Not Available No t Available hydroxyzine HCl 10 mg tablet TAKE 1 TABLET BY MOUTH TWICE A DAY active Not Available Not Available No t Available ondansetron 4 mg disintegrat ing tablet active Not Available Not Available N ot Available fluticasone propionate 50 mcg/actuati on nasal spray,suspe nsion SPRAY 1 SPRAY INTO EACH NOSTRIL EVERY DAY DIRECTED active Not Available Not Available No t Available naratriptan 2.5 mg tablet TAKE 1 TABLET BY MOUTH EVERY DAY NEEDED FOR MIGRAINE MAX 2 TABS/WEEK active Not Available Not Available No t Available doxycycline hyclate 100 mg tablet TAKE 1 TAB BY MOUTH TWICE A DAY X 2 WEEKS, THEN TAKE 1 TABLET EVERY DAY active Not Available Not Available No t Available metoclopram janelle 10 mg tablet active Not Available Not Available Not Available doxazosin 2 mg tablet TAKE 1 TABLET BY MOUTH EVERY DAY active Not Available Not Available No t Available oxycodone 5 mg tablet TAKE 1 TABLET (5 MG TOTAL) BY MOUTH EVERY 4 HOURS NEEDED active Not Available Not Available No t Available modafinil 100 mg tablet START 1/2 TAB (50MG) DAILY X 3 DAYS THEN INCREASE TO 1/2 TABLET (50MG) 2 TIMES X DAY TOLERATED active Not Available Not Available No t Available neomycin 3.5 mg/g-polymy janay B 10,000 unit/g-dexa meth 0.1 % eye oint APPLY INTO BOTH EYES EVERY NIGHT active Not Available Not Available No t Available atomoxetine 40 mg capsule TAKE 1 CAPSULE BY MOUTH EVERY MORNING active Not Available Not Available No t Available alfuzosin ER 10 mg tablet,exte nded release 24 hr TAKE 1 TABLET BY MOUTH EVERYDAY AT BEDTIME active Not Available Not Available No t Available chlorhexidi ne gluconate 0.12 % mouthwash SWISH 15 ML (UNDILUTE D) BY MOUTH FOR 30 SECONDS, THEN SPIT (AFTER BREAKFAST AND BEFORE BEDTIME) active Not Available Not Available No t Available Ubrelvy 100 mg tablet TAKE 1 TABLET BY MOUTH NEEDED ONSET OF HEADACHE. MAY REPEAT ONCE. TOTAL DIALY DOSE IS 200 MG active Not Available Not Available No t Available Vitals None Recorded Social History None recorded. Functional Status None recorded. Mental Status None recorded. Family History Nothing Reported. Medical History No medical history recorded. Past Encounters Encounter ID Performer Location Encounter Start Date Encounter Closed Date Diagnosis/Indication Diagnosis SNOMED-CT Code Diagnosis ICD10 Code Diagnosis Note [id number] PARISA APPIAH MD [facility] [address] [place] [address] 07/21/2023 09:39:14 07/21/2023 12:02:03 Posttraumatic headache [id number] G44.309 Discussed options including trying oral medication s and nerve blocks. Patient would like to try the oral medication s 1st. We will try amitriptyl ine, side effects including drowsiness and weight gain discussed with the patient today.He has daily headaches so prefer not to use abortive medication s. However since he is continuing to use Tylenol or NSAID multiple times per day, after further discussion we decided to try sumatripta n as an abortive to see if he could limit the use of Tylenol/NS AIDs. I am hoping that the sumatripta n would abort his headache for the rest of the day so that he would not have to use Tylenol or NSAIDs. Patient will try this and let me know. Schwannoma [id number] D36 .10 He has a residual tumor on MRI. [place] [facility] Drug withd sofía headache 12201256 G44.40 Discussed management of rebound headaches. He will try to limit over-the-c ounter pain medication s as tolerated. - encouraged adequate hydration (64oz water) if no contraindi cations- discussed keeping a regular sleep schedule, exercise regularly and eating healthy (avoid MSG, artificial sweeteners ). I also provided a handout on how stress and environmen morales factors including diet can affect headaches, informatio n on proper sleep hygiene and a headache diary to keep track of her symptoms.- identify and avoid triggers- may use tinted eye glasses that are specific to filter out blue lights while using computers to reduce light sensitivit y. Also may change the computer setting to help reduce eye strain- use [employer] kevin to keep track of the barometric pressure changes and may use their earplugs ($20) to help with these changes- continue stress relieving activities - yoga (yoga kevin, yoga studio kevin), meditation (headspace kevin, calm kevin), tawana chi (tawana chi for beginners kevin)etc- discussed the pathophysi ology of migraines. Educated patient on rebound headache and limited abortive medication to less than 2 times per week. This visit was conducted using two-way, real-time telehealth video conference . The patient was in their home. Physician, Dr. Appiah was located at her home. Instructio ns were reviewed with the patient and verbal consent was obtained. I informed the patient that they can see me in person if needed. They are of moderate risk. I personally spent a total of 60 minutes on care for this patient on the date of the encounter. This includes face-to-fa ce time during the visit as well as non-face-t o-face time spent on chart review, documentat ion, and care coordinati on. Greater than 50% of this time as spent in discussing patient's symptoms, reviewing differenti al diagnosis, education, reassuranc e and coordinati ng care. This note was generated using a voice recognitio n program. Please excuse any transcript ion errors which may have been overlooked during review. Sometimes these errors may affect the content or meaning of a given sentence. Please be aware of such errors and do not hesitate to call our office for any clarificat ion [id number] PARISA APPIAH MD [facility]UR[facility]ICE [address] [place] [address] 09/03/2023 08:56:40 09/03/2023 10:14:51 Posttraumatic headache [id number] G44.309 Discussed options including trying oral medication s and nerve blocks. Patient with good improvemen t in intensity and freq with amitriptyl ine, will inc gently, side effects including drowsiness and weight gain discussed with the patient today.He has daily headaches so prefer not to use abortive medication s. However he is continuing to use naproxen daily. Discussed weaning himself off of naproxen slowly. Drug withd sofía headache [id number] G44.40 Discussed management of rebound headaches. He will try to limit over-the-c ounter pain medication s as tolerated. - encouraged adequate hydration (64oz water) if no contraindi cations- discussed keeping a regular sleep schedule, exercise regularly and eating healthy (avoid MSG, artificial sweeteners ). I also provided a handout on how stress and environmen morales factors including diet can affect headaches, informatio n on proper sleep hygiene and a headache diary to keep track of her symptoms.- identify and avoid triggers- may use tinted eye glasses that are specific to filter out blue lights while using computers to reduce light sensitivit y. Also may change the computer setting to help reduce eye strain- use [employer] kevin to keep track of the barometric pressure changes and may use their earplugs ($20) to help with these changes- continue stress relieving activities - yoga (yoga kevin, yoga studio kevin), meditation (headspace kevin, calm kevin), tawana chi (tawana chi for beginners kevin)etc- discussed the pathophysi ology of migraines. Educated patient on rebound headache and limited abortive medication to less than 2 times per week. This visit was conducted using two-way, real-time telehealth video conference . The patient was in their home. Physician, Dr. Appiah was located at her home. Instructio ns were reviewed with the patient and verbal consent was obtained. I informed the patient that they can see me in person if needed. They are of moderate risk. I personally spent a total of 45 minutes on care for this patient on the date of the encounter. This includes face-to-fa ce time during the visit as well as non-face-t o-face time spent on chart review, documentat ion, and care coordinati on. Greater than 50% of this time as spent in discussing patient's symptoms, reviewing differenti al diagnosis, education, reassuranc e and coordinati ng care. This note was generated using a voice recognitio n program. Please excuse any transcript ion errors which may have been overlooked during review. Sometimes these errors may affect the content or meaning of a given sentence. Please be aware of such errors and do not hesitate to call our office for any clarificat ion Schwannoma [id number] D36 .10 He has a residual tumor on MRI. [place] [facility] He may need another MRI sooner than 1 year. Pt will schedule an apt to discuss with surgeon. [id number] PARISA APPIAH MD [facility] [address] [place] [address] 12/03/2023 10:37:03 12/03/2023 17:24:10 Posttraumatic headache [id number] G44.309 Discussed options including trying oral medication s and nerve blocks. Patient with good initial improvemen t in intensity and freq with amitriptyl ine, will add topamax side effects including drowsiness and weight gain discussed with the patient today.He has daily headaches so prefer not to use abortive medication s. However he is continuing to use naproxen daily. Discussed weaning himself off of naproxen slowly. Drug withd sofía headache [id number] G44.40 Discussed management of rebound headaches. He will try to limit over-the-c ounter pain medication s as tolerated. - encouraged adequate hydration (64oz water) if no contraindi cations- discussed keeping a regular sleep schedule, exercise regularly and eating healthy (avoid MSG, artificial sweeteners ). I also provided a handout on how stress and environmen morales factors including diet can affect headaches, informatio n on proper sleep hygiene and a headache diary to keep track of her symptoms.- identify and avoid triggers- may use tinted eye glasses that are specific to filter out blue lights while using computers to reduce light sensitivit y. Also may change the computer setting to help reduce eye strain- use [employer] kevin to keep track of the barometric pressure changes and may use their earplugs ($20) to help with these changes- continue stress relieving activities - yoga (yoga kevin, yoga studio kevin), meditation (headspace kevin, calm kevin), tawana chi (tawana chi for beginners kevin)etc- discussed the pathophysi ology of migraines. Educated patient on rebound headache and limited abortive medication to less than 2 times per week. This visit was conducted using two-way, real-time telehealth video conference . The patient was in their home. Physician, Dr. Appiah was located at her home. Instructio ns were reviewed with the patient and verbal consent was obtained. I informed the patient that they can see me in person if needed. They are of moderate risk. I personally spent a total of 45 minutes on care for this patient on the date of the encounter. This includes face-to-fa ce time during the visit as well as non-face-t o-face time spent on chart review, documentat ion, and care coordinati on. Greater than 50% of this time as spent in discussing patient's symptoms, reviewing differenti al diagnosis, education, reassuranc e and coordinati ng care. This note was generated using a voice recognitio n program. Please excuse any transcript ion errors which may have been overlooked during review. Sometimes these errors may affect the content or meaning of a given sentence. Please be aware of such errors and do not hesitate to call our office for any clarificat ion Schwannoma [id number] D36 .10 He has a residual tumor on MRI. [place] [facility] He may need another MRI sooner than 1 year. Pt will schedule an apt to discuss with surgeon. [id number] PARISA APPIAH MD [facility] NEUR[facility] [address] [place] [address] 03/28/2024 12:57:06 03/28/2024 14:58:32 Posttraumatic headache [id number] G44.309 Discussed options including trying oral medication s and nerve blocks. Patient with good initial improvemen t in intensity and freq with amitriptyl ine, however discontinu ed it liver. Of note patient also take marijuana and Tylenol (patient reports that Tylenol is rare now). We have just increased Topamax to 25 mg b.i.d. side effects including drowsiness and weight loss discussed with the patient today. Liver enzyme elevation, so will avoid cyprohepta dine. Will add hydroxyzin e.He has daily headaches so prefer not to use abortive medication s. However he is continuing to use naproxen daily. Discussed weaning himself off of naproxen slowly. Tried sumatripta n and naratripta n with no response. Will try ubrelvy 100mg prn Drug withd sofía headache [id number] G44.40 Discussed management of rebound headaches. He will try to limit over-the-c ounter pain medication s as tolerated. - encouraged adequate hydration (64oz water) if no contraindi cations- discussed keeping a regular sleep schedule, exercise regularly and eating healthy (avoid MSG, artificial sweeteners ). I also provided a handout on how stress and environmen morales factors including diet can affect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
--- OUTSIDE RECORDS SUMMARY | 2024-11-28 21:16 | XMS_ITS | Patient Health Record ---
Author Organization [facility] Address [address] [place] [address] Support Name Relationship Address Phone JOB GALLEGOS Guarantor Unknown Reason For Referral No Information Medications Medication SIG (Take, Route, Frequency, Duration) Notes Start Date End Date Status AndroGel 75MG EXT CR ORAL QAM for -3 [facility] 05/12/2012 Active AndroGel 50MG JERMAINE External EVERY M ORNING for -3 [facility] 03/15/2012 Active Unique 180 MG 1 ORAL daily for -3 [facility] 02/20/2012 Active Adderall 30MG 1 ORAL DAILY for -3 [facility] 02/12/2012 Active Flonase 50MCG 2 Nasal daily for -3 [facility] 02/20/2012 Active LaMICtal 200MG 1 ORAL daily for -3 [facility] 02/12/2012 Active EpiPen 2-Diego 0.3 MG/0.3ML Intramuscula for -3 [facility] 02/02 Active Problems Problem Type SNOMED Code ICD Code Onset Dates Problem Status W/U Status Risk Notes Problem Hyperlipidemia (89455482) Other and unspecified hyperlipidemia (272.4) Active confirmed Major Problem Depressive disorder (51669730) Depressive disorder, not elsewhere classified (311) Active confirmed Major Problem Child attention deficit disorder (disorder) (481324919) Attention deficit disorder of childhood without mention of hyperactivity (314.00) Active confirmed Major Problem Essential hypertension (77410310) Unspecified essential hypertension (401.9) Active confirmed Major Problem Backache (413075056) Unspecified backache (724.5) Active confirmed Diag Problem Osteoarthritis (971088011) Osteoarthrosis, unspecified whether generalized or localized, unspecified site (715.90) Active confirmed Major Problem Joint pain (finding) (20451834) Pain in joint, site unspecified (489.40) Active confirmed Diag Problem Malaise and fatigue (886572812) Other malaise and fatigue (780.79) Active confirmed Diag Problem Cough (16070378) Cough (786.2) Active confirmed Diag Problem Allergy (925599856) Allergy, unspecified not elsewhere classified (995.3) Active confirmed Diag Plan Of Treatment No Information Insurance Providers Payer Name Payer Address Payer Phone Subscriber Number Group Number Insured Name Patient Relationship to Insured Coverage Start Date Coverage End Date [facility] [address] [facility] [place] [address] [id number] JOB BARRIOS Self - patient is the insured
--- OUTSIDE RECORDS SUMMARY | 2024-11-28 21:16 | XMS_ITS | Data Portability ---
Author Organization [facility], Main Office Address [address] [facility] [address] [place] [id number] Care Team Providers Care Ammunition Specialist Name Role Phone MAHAD BELCHER Orthopedic Surgeon [facility] Physi reba Therapist KELLEN COE Neurosurgeon [phone] COSMO RILEY Psychiatrist [facility] GASTRO[facility]OLOG[facility] E Business Project Manager [phone] [facility] (PEDS & ADULT) Sleep Medicine [facility] Pain Management DELMIS ANGELES Orthopedic Surgeon [employer] [place] [employer] Counselor ERIC MARQUIS Neurosurgeon WINSOME COLON Phys. Med. & Rehab [phone] RYAN DEGROOT Primary Care Provider [phone] ALMA RENEE Ship Painter Helper Anne Marie ALMANZA Raw Cheese Worker PARISA HOLGUIN Neurologist VERONIKA ASKEW Orthopedic Surgeon NIELS OWEN Neurosurgeon Assessment Encounter Date Assessment Date Assessment LastModified by Organization Details LastModified Time 03/11/2024 03/11/2024 Discussed with patient the signs/symptoms warranted for a return to office visit and/or an ER visit. Patient understood and agreed with the plan. Not available 03/10/2024 13:45:33 04/29/2024 04/29/2024 Most of the patient? s laboratory workup has been normal; however, due to his fatigue, I conducted an EKG that showed a questionable heart block and some non specific t-wave changes but seem to be old. To ensure safety, I have ordered a stress echocardiogram. It is reassuring he denies any symptoms like chest pain, shortness of breath, or palpitations, which. I am also contemplating the use of a development analyst but will consider waiting till his stress echo. There is a need to review his psychiatric medications and those prescribed for his headaches with a specialist, as they may influence the heart block. It? s unclear exactly which medications he is currently taking, and he has expressed a desire to reassess his medication regimen with a new neurologist, to whom I have referred him. I've requested that he obtains and shares his medical records, including imaging, as I currently lack access to them. Additionally, he is taking multiple medications for his headaches, so it seems prudent for a neurologist to tailor his treatment specifically. I have encouraged him to continue using his CPAP machine for sleep apnea, as it may be contributing to his fatigue. I also urged him to maintain regular follow-ups with his mental health provider, given the potential impact of mental health on his fatigue. While I have added some new tests to further explore his fatigue, his most recent lab work from February does not indicate a need for immediate repetition. I have spent 45 minutes on this encounter. The time documented represents time spent on the day of the encounter preparing for and completing the visit. Time spent performing a physical exam, obtaining history from the patient, counseling/educa ting the patient in possible diagnosis and treatment options. This time is independent of any additional procedures/diagn ostic testing/interpre tations. [email or web address] Not available 05/01/2024 23:46:38 05/10/2024 05/10/2024 Scalp Lump: Assessment: The patient describes a hard lump on the scalp with discomfort and occasional pain, affecting his sleep. Plan: Re-ordered ultrasound of the scalp. Per Patient requests a referral placed for a second opinion from Dr. Marquis. Borderline Testosterone: Assessment: Testosterone levels are on the lower side of normal, which the patient believes is the cause of his symptoms. Plan: No hormone replacement therapy indicated at this time. Recommended lifestyle modifications including regular exercise and improving sleep habits. Per his request a referral to a urologist will be placed to see if Testosterone replacement is needed, given his history of benign prostatic hyperplasia (BPH) and concerns regarding testosterone levels. [email or web address] Not available 05/10/2024 12:40:14 07/13/2024 07/13/2024 Ramesh recently underwent an MRI with his neurosurgical ENT team regarding his schwannoma, and he reports that the team in [place] did not find anything concerning. However, he continues to feel unsteady when walking. He mentioned that he raised this issue with his neurosurgeon, who suggested discussing vestibular therapy with me. Today, I attempted to perform the Moraima-Hallpike maneuver and the HINTS exam, but due to his cervical fusion, it was challenging to elicit any signs or symptoms of nystagmus, and none were observed during the exam. We reviewed his medications and noted that he was taking both alfuzosin and doxazosin. 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 The doxazosin was initially prescribed by me, and his urologist later added alfuzosin ER. I also performed an EKG, which showed no significant changes. A stress echo has already been ordered, and he is currently on the waiting list. I have asked my staff to follow up on the scheduling of this test. His previous lab work and neurological exams were reassuring. I went ahead and referred him to vestibular therapy, but caution is advised due to his cervical fusion. He has an upcoming neurology appointment, and I recommended that he discuss his ongoing symptoms with them. We can also consider a referral to ENT if needed, although he is already under the care of an ENT specialist for his schwannoma. I suggested he review his medications with both his psychiatrist and neurologist due to their sedating effects. His tinnitus has been longstanding and is well-known to his ENT specialist. I suggested considering tinnitus retraining therapy as a potential treatment option. I provided him with fall prevention strategies, given his increased risk of falls due to unsteadiness. Given the complexity of his medical history, it is crucial that he continue discussions with his neurologist, especially since he is also experiencing headaches. Regarding the sensation in the back of his scalp, he discussed this with his neurosurgeon, who did not express immediate concern, referencing a recent ultrasound that indicated it could be related to the screw from his previous surgery. However, his neurosurgeon has reached out to follow up on this matter. For his orthostatic symptoms, I emphasized the importance of staying hydrated. I will follow up with him once we have the results of his stress echo. I have spent 45 minutes on this encounter. The time documented represents time spent on the day of the encounter preparing for and completing the visit. Time spent performing a physical exam, obtaining history from the patient, counseling/educa ting the patient in possible diagnosis and treatment options. This time is independent of any additional procedures/diagn ostic testing/interpre tations. [email or web address] Not available 07/13/2024 19:19:08 Plan of Treatment Reminders Order Date Submit Date Provider Last Modified By Organization Details Last Modified Time Details Appointments None record ed. Lab hepati c functi on panel, serum 2023 [facility], [address], [place], [address], 12:06:33 borrel ia burgdo rferi IgG + IgM + total panel, IA, serum 2023 [facility] (Centralized Electronic Ordering - All Locations), Patient Can Go To The Location Of Their Choice, 12:06:37 testos terone , free + total, serum 2023 024 [facility] (Centralized Electronic Ordering - All Locations), Patient Can Go To The Location Of Their Choice, 12:06:36 shbg (sex hormon e-bind ing globul in), serum 2023 024 [facility] (Centralized Electronic Ordering - All Locations), Patient Can Go To The Location Of Their Choice, 12:06:37 urinal ysis, dipsti ck 2023 [email or web address] In-Office Order, Internal Use Only DO Not Attach Compendium DO Not Attach Compendium, Do Not Delete/merge, [id number] 4 11:01:47 urinal ysis, comple te 2023 024 [facility], [address], [address], [place], [address], 4 10:07:02 PSA, total, serum or plasma 2023 024 [facility], [address], [address], [place], [address], 4 08:16:43 Referral physic al therap ist referr al 2023 024 [facility], [address], [place], [address], 4 09:55:14 physic al therap ist referr al - Please see for BPPV 2023 024 Not available 4 12:42:07 physic al therap ist referr al - Please see for should er Laurence morales # of Visits : ` 2023 024 [email or web address] Not available 5 09:34:57 neurol ogical surgeo n referr viviana arrington to see Dr. Marquis for second opinio n. 2023 024 krys Marquis MD, [address], [facility] [address], [place], [address], 4 15:06:40 urolog ist referr viviana alvarado for low T. 2023 024 [email or web address] [facility], [address] [place], [address], 4 09:57:46 neurol ogist referr viviana cook for second opinio n.Bob royal for Dr. Timmons . 2023 024 krys [facility], [address] [place] [address], [place], [address], 4 14:43:58 Procedures None record ed. Surgeries None record ed. Imaging electr ocardi ogram 2023 024 [facility]ENTER In-Office Order, Internal Use Only DO Not Attach Compendium DO Not Attach Compendium, Do Not Delete/merge, [id number] 4 13:43:32 XR, should er 2023 024 [facility], [address] [place] [address], [address], 4 14:41:05 US, head, soft tissue - Refrigerator Crater ior right scalp hard lump that is crackl es and crunch 2023 024 krys [facility], [address] [place] [address], [address], 4 11:42:35 stress echoca rdiogr am - av block with t wave change s. 2023 024 blanca [facility] (Outt Non-Invasive Cardiology Scheduling), [address] [place] [address], [address], 5 15:24:44 electr ocardi ogram 2023 024 [email or web address] In-Office Order, Internal Use Only DO Not Attach Compendium DO Not Attach Compendium, Do Not Delete/merge, [id number] 4 15:37:43 Medication Orders meloxi cam 15 mg tablet 2023 024 CENTER [id number], [address] [place], [address], 4 11:53:11 Patient TargetsNo targets recorded. Patient Instructions Encounter Date Encounter Id Patient Instructions Last Modified By Organization Details Last Modified Time 03/11/2024 [id number] blood in the urine: care instructions Not available 03/11/2024 11:01:44 04/29/2024 [id number] headache: care instructions [email or web address] Not available 04/29/2024 15:32:55 heart blocks: care instructions [email or web address] Not available 04/29/2024 15:33:50 07/13/2024 [id number] dizziness: care instructions [email or web address] Not available 07/13/2024 11:40:48 orthostatic vitals* [email or web address] Not available 07/20/2024 08:40:56 benign paroxysmal positional vertigo (bppv): care instructions [email or web address] Not available 07/13/2024 11:40:48 Reason for Referral Neurologist Referral for Hea dacsandra patient looking for second opinion.Looking for Dr. Timmons. Referring Physician: Ryan Degroot [facility], Encounter Date: 04/29/2024 Urologist Referral for Testo sterone level below reference range patient concern for low T. Referring Physician: Ryan Degroot [facility], Encounter Date: 05/10/2024 Neurological Surgeon Referra l for Disorder of skull patient requesting to see Dr. Marquis for second opinion. Referring Physician: Ryan Degroot [facility], Encounter Date: 05/10/2024 Physical Therapist Referral for Pain of right shoulder joint Please see for shoulder painTotal # of Visits: ` Referring Physician: Family Isra Raya, Encounter Date: 05/25/2024 Physical Therapist Referral for Benign paroxysmal positional vertigo Please see for BPPV Referring Physician: Ryan Degroot [facility], Encounter Date: 07/13/2024 Physical Therapist Referral for At increased risk for falls Referring Physician: Ryan Degroot [facility], Encounter Date: 07/13/2024 Results Created Date Observation Date Name Description Value Unit Range Abnormal Flag Note LastModifiedBy Organization Detail LastModifiedTime 03/04/20 24 03/04/2024 CMP14 +EGFR glucose 92 mg/dL 70-99 Not Available [facility] ([facility]) [address] [facility], [place], [address], 03/07/2024 10:05:52 03/04/20 24 03/04/2024 CMP14 +EGFR BUN 15 mg/dL 8-27 Not Available [facility] ([facility]) [address] [place], [address], 03/07/2024 10:05:52 03/04/20 24 03/04/2024 CMP14 +EGFR creatinine 0.97 mg/dL 0.76-1 .27 Not Available [facility] ([facility]) [address] [facility], [place], [address], 03/07/2024 10:05:52 03/04/20 24 03/04/2024 CMP14 +EGFR eGFR 89 mL/mi n/1.7 3 >59 Not Available [facility] ([facility]) [address] [facility], [place], [address], 03/07/2024 10:05:52 03/04/20 24 03/04/2024 CMP14 +EGFR BUN/creatini ne ratio 15 10-24 Not Available [facility] ([facility]) [address] [place] [place], [address], 03/07/2024 10:05:52 03/04/20 24 03/04/2024 CMP14 +EGFR sodium 144 mmol/ L 134-14 4 Not Available [facility] ([facility]) [address] [facility], [place], [address], 03/07/2024 10:05:52 03/04/20 24 03/04/2024 CMP14 +EGFR potassium 4.9 mmol/ L 3.5-5. 2 Not Available [facility] ([facility]) [address] [place] [place], [address], 03/07/2024 10:05:52 03/04/20 24 03/04/2024 CMP14 +EGFR chloride 106 mmol/ L 96-106 Not Available [facility] ([facility]) [address] [place], [address], 03/07/2024 10:05:52 03/04/20 24 03/04/2024 CMP14 +EGFR carbon dioxide, total 24 mmol/ L Not Available [facility] ([facility]) [address], [place], [address], 03/07/2024 10:05:52 03/04/20 24 03/04/2024 CMP14 +EGFR calcium 9.3 mg/dL 8.6-10 .2 Not Available [facility] ([facility]) [address], [place], [address], 03/07/2024 10:05:52 03/04/20 24 03/04/2024 CMP14 +EGFR protein, total 6.5 g/dL 6.0-8. 5 Not Available [facility] ([facility]) [address] [facility], [place], [address], 03/07/2024 10:05:52 03/04/20 24 03/04/2024 CMP14 +EGFR albumin 4.5 g/dL 3.8-4. 9 Not Available [facility] ([facility]) [address] [facility], [place], [address], 03/07/2024 10:05:52 03/04/20 24 03/04/2024 CMP14 +EGFR globulin, total 2.0 g/dL 1.5-4. 5 Not Available [facility] ([facility]) [address] [facility], [place], [address], 03/07/2024 10:05:52 03/04/20 24 03/04/2024 CMP14 +EGFR A/G ratio 2.3 1.2-2. 2 above high normal Not Available [facility] ([facility]) [address] [facility], [place], [address], 03/07/2024 10:05:52 03/04/20 24 03/04/2024 CMP14 +EGFR bilirubin, total 0.5 mg/dL 0.0-1. 2 Not Available [facility] ([facility]) [address] [facility] [place], [address], 03/07/2024 10:05:52 03/04/20 24 03/04/2024 CMP14 +EGFR alkaline phosphatase 75 IU/L 44-121 Not Available [facility]) [address] [facility], [place], [address], 03/07/2024 10:05:52 03/04/20 24 03/04/2024 CMP14 +EGFR AST (SGOT) 37 IU/L 0-40 Not Available [facility] ([facility]) [address] [facility], [place], [address], 03/07/2024 10:05:52 03/04/20 24 03/04/2024 CMP14 +EGFR ALT (SGPT) 108 IU/L 0-44 above high normal Not Available [facility] ([facility]) [address] [place], [address], 03/07/2024 10:05:52 03/04/20 24 03/05/2024 CBC WITH DIFFE RENTI AL/PL ATELE T WBC 4.9 x10e3 /uL 3.4-10 .8 Not Available [facility] ([facility]) [address] [place], [address], 03/07/2024 10:05:54 03/04/20 24 03/05/2024 CBC WITH DIFFE RENTI AL/PL ATELE T RBC 5.31 x10e6 /uL 4.14-5 .80 Not Available [facility] ([facility]) [address] [place], [address], 03/07/2024 10:05:54 03/04/20 24 03/05/2024 CBC WITH DIFFE RENTI AL/PL ATELE T hemoglobin 15.1 g/dL 13.0-1 7.7 Not Available [facility] ([facility]) [address] [facility], [place], [address], 03/07/2024 10:05:54 03/04/20 24 03/05/2024 CBC WITH DIFFE RENTI AL/PL ATELE T hematocrit 48.7 % 37.5-5 1.0 Not Available [facility] ([facility]) [address] [facility], [place], [address], 03/07/2024 10:05:54 03/04/20 24 03/05/2024 CBC WITH DIFFE RENTI AL/PL ATELE T MCV 92 fL 79-97 Not Available [facility] ([facility]) [address] [facility], [place], [address], 03/07/2024 10:05:54 03/04/20 24 03/05/2024 CBC WITH DIFFE RENTI AL/PL ATELE T MCH 28.4 pg 26.6-3 3.0 Not Available [facility] ([facility]) [address] [facility], [place], [address], 03/07/2024 10:05:54 03/04/20 24 03/05/2024 CBC WITH DIFFE RENTI AL/PL ATELE T MCHC 31.0 g/dL 31.5-3 5.7 below low normal Not Available [facility] ([facility]) [address] [facility], [place], [address], 03/07/2024 10:05:54 03/04/20 24 03/05/2024 CBC WITH DIFFE RENTI AL/PL ATELE T RDW 14.6 % 11.6-1 5.4 Not Available [facility] ([facility]) [address] [facility], [place], [address], 03/07/2024 10:05:54 03/04/20 24 03/05/2024 CBC WITH DIFFE RENTI AL/PL ATELE T platelets 210 x10e3 /uL 150-45 0 Not Available [facility] ([facility]) [address] [facility], [place], [address], 03/07/2024 10:05:54 03/04/20 24 03/05/2024 CBC WITH DIFFE RENTI AL/PL ATELE T neutrophils 55 % not estab. Not Available [facility] ([facility]) [address] [facility], [place], [address], 03/07/2024 10:05:54 03/04/20 24 03/05/2024 CBC WITH DIFFE RENTI AL/PL ATELE T lymphs 35 % not estab. Not Available [facility] ([facility]) [address] [facility], [place], [address], 03/07/2024 10:05:54 03/04/20 24 03/05/2024 CBC WITH DIFFE RENTI AL/PL ATELE T monocytes 7 % not estab. Not Available [facility] ([facility]) [address] [facility], [place], [address], 03/07/2024 10:05:54 03/04/20 24 03/05/2024 CBC WITH DIFFE RENTI AL/PL ATELE T eos 2 % not estab. Not Available [facility] ([facility]) [address] [facility], [place], [address], 03/07/2024 10:05:54 03/04/20 24 03/05/2024 CBC WITH DIFFE RENTI AL/PL ATELE T basos 1 % not estab. Not Available [facility] ([facility]) [address] [facility], [place], [address], 03/07/2024 10:05:54 03/04/20 24 03/05/2024 CBC WITH DIFFE RENTI AL/PL ATELE T immature cells BRINE ROOM LABORER Not Available [facility] ([facility]) [address] [facility], [place], [address], 03/07/2024 10:05:54 03/04/20 24 03/05/2024 CBC WITH DIFFE RENTI AL/PL ATELE T neutrophils (absolute) 2.7 x10e3 /uL 1.4-7. 0 Not Available [facility] ([facility]) [address] [facility], [place], [address], 03/07/2024 10:05:54 03/04/20 24 03/05/2024 CBC WITH DIFFE RENTI AL/PL ATELE T lymphs (absolute) 1.7 x10e3 /uL 0.7-3. 1 Not Available [facility] ([facility]) [address] [facility], [place], [address], 03/07/2024 10:05:54 03/04/20 24 03/05/2024 CBC WITH DIFFE RENTI AL/PL ATELE T monocytes(ab solute) 0.4 x10e3 /uL 0.1-0. 9 Not Available [facility] ([facility]) [address] [facility], [place], [address], 03/07/2024 10:05:54 03/04/20 24 03/05/2024 CBC WITH DIFFE RENTI AL/PL ATELE T eos (absolute) 0.1 x10e3 /uL 0.0-0. 4 Not Available [facility] ([facility]) [address] [place], [address], 03/07/2024 10:05:54 03/04/20 24 03/05/2024 CBC WITH DIFFE RENTI AL/PL ATELE T baso (absolute) 0.1 x10e3 /uL 0.0-0. 2 Not Available [facility] ([facility]) [address] [place], [address], 03/07/2024 10:05:54 03/04/20 24 03/05/2024 CBC WITH DIFFE RENTI AL/PL ATELE T immature granulocytes 0 % not estab. Not Available [facility] ([facility]) [address] [place], [address], 03/07/2024 10:05:54 03/04/20 24 03/05/2024 CBC WITH DIFFE RENTI AL/PL ATELE T immature grans (abs) 0.0 x10e3 /uL 0.0-0. 1 Not Available [facility] ([facility]) [address] [facility], [place], [address], 03/07/2024 10:05:54 03/04/20 24 03/05/2024 CBC WITH DIFFE RENTI AL/PL ATELE T NRBC BRINE ROOM LABORER Not Available [facility] ([facility]) [address] [facility], [place], [address], 03/07/2024 10:05:54 03/04/20 24 03/05/2024 CBC WITH DIFFE RENTI AL/PL ATELE T hematology comments: BRINE ROOM LABORER Not Available [facility] ([facility]) [address] [facility], [place], [address], 03/07/2024 10:05:54 03/04/20 24 03/04/2024 LIPID PANEL cholesterol, total 154 mg/dL 100-19 9 Not Available [facility] ([facility]) [address] [facility], [place], [address], 03/07/2024 10:05:57 03/04/20 24 03/04/2024 LIPID PANEL triglyceride s 116 mg/dL 0-149 Not Available [facility]) [address] [facility], [place], [address], 03/07/2024 10:05:57 03/04/20 24 03/04/2024 LIPID PANEL HDL cholesterol 45 mg/dL >39 Not Available [facility]) [address] [facility], [place], [address], 03/07/2024 10:05:57 03/04/20 24 03/04/2024 LIPID PANEL VLDL cholesterol reba 21 mg/dL 5-40 Not Available [facility]) [address] [place], [address], 03/07/2024 10:05:57 03/04/20 24 03/04/2024 LIPID PANEL LDL chol calc ([facility]) 88 mg/dL 0-99 Not Available [facility]) [address] [place], [address], 03/07/2024 10:05:57 03/04/20 24 03/04/2024 LIPID PANEL comment: BRINE ROOM LABORER Not Available [facility] ([facility]) [address] [place], [address], 03/07/2024 10:05:57 03/04/20 24 03/04/2024 IRON AND TIBC iron bind.cap.(TI BC) 308 ug/dL 250-45 0 Not Available [facility] ([facility]) [address] [place], [address], 03/07/2024 10:05:57 03/04/20 24 03/04/2024 IRON AND TIBC UIBC 215 ug/dL 111-34 3 Not Available [facility] ([facility]) [address] [place], [address], 03/07/2024 10:05:57 03/04/20 24 03/04/2024 IRON AND TIBC iron 93 ug/dL 38-169 Not Available [facility] ([facility]) [address] [place], [address], 03/07/2024 10:05:57 03/04/20 24 03/04/2024 IRON AND TIBC iron saturation 30 % 15-55 Not Available [facility] ([facility]) [address] [place], [address], 03/07/2024 10:05:57 03/04/20 24 03/05/2024 HEMOG LOBIN A1C hemoglobin A1C 6.0 % 4.8-5. 6 above high normal Predi abete s: 5.7 - 6.4 Diabe leora: >6.4 Glyce chey contr ol for adult s with diabe leora: <7.0 Not Available [facility] ([facility]) [address] [place], [address], 03/07/2024 10:05:59 03/04/20 24 03/07/2024 SOLUB LE TRANS NACHO N VACUUM PLASTIC FORMING MACHINE OPERATOR TOR soluble transferrin receptor 16.5 nmol/ L 12.2-2 7.3 Not Available [facility] ([facility]) [address] [place], [address], 03/07/2024 10:05:59 03/04/20 24 03/04/2024 TSH RFX ON ABNOR MAL TO FREE T4 TSH 1.640 uIU/m L 0.450- 4.500 Not Available [facility] ([facility]) [address] [place], [address], 03/07/2024 10:06:00 03/04/20 24 03/04/2024 NACHO TIN ferritin 134 NG/mL 30-400 Not Available [facility] ([facility]) [address] [place], [address], 03/07/2024 10:06:01 03/04/20 24 03/05/2024 RETIC ULOCY TE COUNT reticulocyte count 1.2 % 0.6-2. 6 Not Available [facility] ([facility]) [address] [place], [address], 03/07/2024 10:06:02 03/11/20 24 03/12/2024 PROST ATE-S PECIF IC AG prostate specific Ag 2.4 NG/mL 0.0-4. 0 Brandee ECLIA metho dolog y. Accor ding to the Ameri can Urolo gical Assoc iatio n, Serum PSA shoul d decre ase and remai n at undet ectab le level s after radic al prost atect colleen. The AUA defin es bioch emica l recur rence as an initi al PSA value 0.2 ng/mL or great er follo wed by a subse quent confi rmato ry PSA value 0.2 ng/mL or great er. Value s obtai adalgisa with diffe rent assay metho ds or kits canno t be used inter [facility] eay . Resul ts canno t be inter prete d as absol ty evide nce of the prese nce or absen ce of [facility] se. Not Available [facility] ([facility]) [address] [facility], [place], [address], 03/12/2024 08:16:43 03/11/2003/12/2024 URINA LYSIS , COMPL ETE specific gravity 1.025 1.005- 1.030 Not Available [facility] ([facility]) [address] [place], [address], 03/15/2024 10:07:02 03/11/20 24 03/12/2024 URINA LYSIS , COMPL ETE pH 6.0 5.0-7. 5 Not Available [facility] ([facility]) [address] [place], [address], 03/15/2024 10:07:02 03/11/20 24 03/12/2024 URINA LYSIS , COMPL ETE urine-color Yellow yellow Not Available [facility] ([facility]) [address] [place], [address], 03/15/2024 10:07:02 03/11/20 24 03/12/2024 URINA LYSIS , COMPL ETE appearance Clear clear Not Available [facility] ([facility]) [address] [place], [address], 03/15/2024 10:07:02 03/11/20 24 03/12/2024 URINA LYSIS , COMPL ETE WBC esterase Negati ve negati ve Not Available [facility] ([facility]) [address] [place], [address], 03/15/2024 10:07:02 03/11/20 24 03/12/2024 URINA LYSIS , COMPL ETE protein Negati ve negati ve/tra ce Not Available [facility] ([facility]) [address] [place], [address], 03/15/2024 10:07:02 03/11/20 24 03/12/2024 URINA LYSIS , COMPL ETE glucose Negati ve negati ve Not Available [facility] ([facility]) [address] [place], [address], 03/15/2024 10:07:02 03/11/20 24 03/12/2024 URINA LYSIS , COMPL ETE ketones Negati ve negati ve Not Available [facility] ([facility]) [address] [place], [address], 03/15/2024 10:07:02 03/11/20 24 03/12/2024 URINA LYSIS , COMPL ETE occult blood Negati ve negati ve Not Available [facility] ([facility]) [address] [place], [address], 03/15/2024 10:07:02 03/11/20 24 03/12/2024 URINA LYSIS , COMPL ETE bilirubin Negati ve negati ve Not Available [facility] ([facility]) [address] [place], [address], 03/15/2024 10:07:02 03/11/20 24 03/12/2024 URINA LYSIS , COMPL ETE urobilinogen ,semi-qn 0.2 mg/dL 0.2-1. 0 Not Available [facility] ([facility]) [address] [place], [address], 03/15/2024 10:07:02 03/11/20 24 03/12/2024 URINA LYSIS , COMPL ETE nitrite, urine Negati ve negati ve Not Available [facility] ([facility]) [address] [facility], [place], [address], 03/15/2024 10:07:02 03/11/20 24 03/12/2024 URINA LYSIS , COMPL ETE microscopic examination Commen t Micro scopi c follo ws if indic ated. Not Available [facility] ([facility]) [address] [facility], [place], [address], 03/15/2024 10:07:02 03/11/20 24 03/12/2024 URINA LYSIS , COMPL ETE microscopic examination See below: Micro scopi c was indic ated and was perfo rmed. Not Available [facility] ([facility]) [address] [facility], [place], [address], 03/15/2024 10:07:02 03/11/20 24 03/12/2024 URINA LYSIS , COMPL ETE WBC None seen /hpf 0 - 5 Not Available [facility] ([facility]) [address] [facility], [place], [address], 03/15/2024 10:07:02 03/11/20 24 03/12/2024 URINA LYSIS , COMPL ETE RBC 0-2 /hpf 0 - 2 Not Available [facility] ([facility]) [address] [facility], [place], [address], 03/15/2024 10:07:02 03/11/20 24 03/12/2024 URINA LYSIS , COMPL ETE epithelial cells (non renal) 0-10 /hpf 0 - 10 Not Available [facility] ([facility]) [address] [facility], [place], [address], 03/15/2024 10:07:02 03/11/20 24 03/12/2024 URINA LYSIS , COMPL ETE epithelial cells (renal) [employer] Not Available [facility] ([facility]) [address] [facility], [place], [address], 03/15/2024 10:07:02 03/11/20 24 03/12/2024 URINA LYSIS , COMPL ETE casts None seen /lpf none seen Not Available [facility] ([facility]) [address], [place], [address], 03/15/2024 10:07:02 03/11/20 24 03/12/2024 URINA LYSIS , COMPL ETE cast type [employer] Not Available [facility] ([facility]) [address], [place], [address], 03/15/2024 10:07:02 03/11/20 24 03/12/2024 URINA LYSIS , COMPL ETE crystals [employer] Not Available [facility] ([facility]) [address] [facility], [place], [address], 03/15/2024 10:07:02 03/11/20 24 03/12/2024 URINA LYSIS , COMPL ETE crystal type [employer] Not Available [facility] ([facility]) [address], [place], [address], 03/15/2024 10:07:02 03/11/20 24 03/12/2024 URINA LYSIS , COMPL ETE mucus threads [employer] Not Available [facility] ([facility]) [address] [facility], [place], [address], 03/15/2024 10:07:02 03/11/20 24 03/12/2024 URINA LYSIS , COMPL ETE bacteria None seen none seen/f ew Not Available [facility] ([facility]) [address] [facility], [place], [address], 03/15/2024 10:07:02 03/11/20 24 03/12/2024 URINA LYSIS , COMPL ETE yeast [employer] Not Available [facility] ([facility]) [address] [facility], [place], [address], 03/15/2024 10:07:02 03/11/20 24 03/12/2024 URINA LYSIS , COMPL ETE trichomonas [employer] Not Available [facility] ([facility]) [address] [facility], [place], [address], 03/15/2024 10:07:02 03/11/20 24 03/12/2024 URINA LYSIS , COMPL ETE comment [employer] Not Available [facility] ([facility]) [address] [facility], [place], [address], 03/15/2024 10:07:02 03/11/20 24 03/11/2024 urina lysis , dipst ick Leukocytes Negati ve Not Available In-Office Order Internal Use Only DO Not Attach Compendium DO Not Attach Compendium, Do Not Delete/merge, 03/10/2024 13:45:36 03/11/20 24 03/11/2024 urina lysis , dipst ick Nitritie negati ve Not Available In-Office Order Internal Use Only DO Not Attach Compendium DO Not Attach Compendium, Do Not Delete/merge, 03/10/2024 13:45:36 03/11/20 24 03/11/2024 urina lysis , dipst ick Urobilinogen .2 Not Available In-Of fice Order Internal Use Only DO Not Attach Compendium DO Not Attach Compendium, Do Not Delete/merge, 03/10/2024 13:45:36 03/11/20 24 03/11/2024 urina lysis , dipst ick Protein Negati ve Not Available In-Office Order Internal Use Only DO Not Attach Compendium DO Not Attach Compendium, Do Not Delete/merge, 03/10/2024 13:45:36 03/11/20 24 03/11/2024 urina lysis , dipst ick pH 6.0 Not Available In-Office Order Internal Use Only DO Not Attach Compendium DO Not Attach Compendium, Do Not Delete/merge, 03/10/2024 13:45:36 03/11/20 24 03/11/2024 urina lysis , dipst ick Blood Negati ve Not Available In-Office Order Internal Use Only DO Not Attach Compendium DO Not Attach Compendium, Do Not Delete/merge, 03/10/2024 13:45:36 03/11/20 24 03/11/2024 urina lysis , dipst ick Specific [place] 1.020 Not Available In-Off ice Order Internal Use Only DO Not Attach Compendium DO Not Attach Compendium, Do Not Delete/merge, 03/10/2024 13:45:36 03/11/20 24 03/11/2024 urina lysis , dipst ick Ketone Negati ve Not Available In-Office Order Internal Use Only DO Not Attach Compendium DO Not Attach Compendium, Do Not Delete/merge, 03/10/2024 13:45:36 03/11/20 24 03/11/2024 urina lysis , dipst ick Bilirubin Negati ve Not Available In-Office Order Internal Use Only DO Not Attach Compendium DO Not Attach Compendium, Do Not Delete/merge, 03/10/2024 13:45:36 03/11/20 24 03/11/2024 urina lysis , dipst ick Glucose Negati ve Not Available In-Office Order Internal Use Only DO Not Attach Compendium DO Not Attach Compendium, Do Not Delete/merge, 03/10/2024 13:45:36 03/11/20 24 03/11/2024 urina lysis , dipst ick Appearance Clear Not Available In-Offi ce Order Internal Use Only DO Not Attach Compendium DO Not Attach Compendium, Do Not Delete/merge, 03/10/2024 13:45:36 03/11/20 24 03/11/2024 urina lysis , dipst ick Color Dark Yellow Not Available In-Office Order Internal Use Only DO Not Attach Compendium DO Not Attach Compendium, Do Not Delete/merge, 03/10/2024 13:45:36 05/03/20 24 05/03/2024 HEPAT IC FUNCT ION PANEL (7) protein, total 6.8 g/dL 6.0-8. 5 normal Not Available [facility] ([facility]) [address] [facility], [place], [address], 05/04/2024 12:06:32 05/03/20 24 05/03/2024 HEPAT IC FUNCT ION PANEL (7) albumin 4.4 g/dL 3.8-4. 9 normal Not Available [facility] ([facility]) [address] [facility], [place], [address], 05/04/2024 12:06:32 05/03/20 24 05/03/2024 HEPAT IC FUNCT ION PANEL (7) bilirubin, total 0.3 mg/dL 0.0-1. 2 normal Not Available [facility] ([facility]) [address] [facility], [place], [address], 05/04/2024 12:06:32 05/03/20 24 05/03/2024 HEPAT IC FUNCT ION PANEL (7) alkaline phosphatase 83 IU/L 44-121 normal Not Available [facility] ([facility]) [address] [facility], [place], [address], 05/04/2024 12:06:32 05/03/20 24 05/03/2024 HEPAT IC FUNCT ION PANEL (7) AST (SGOT) 15 IU/L 0-40 normal Not Available [facility] ([facility]) [address] [facility], [place], [address], 05/04/2024 12:06:32 05/03/20 24 05/03/2024 HEPAT IC FUNCT ION PANEL (7) ALT (SGPT) 25 IU/L 0-44 normal Not Available [facility] ([facility]) [address] [place], [address], 05/04/2024 12:06:32 05/03/20 24 05/04/2024 HEPAT IC FUNCT ION PANEL (7) bilirubin, direct 0.11 mg/dL 0.00-0 .40 normal Not Available [facility] ([facility]) [address] [place], [address], 05/04/2024 12:06:32 07/30/20 24 05/04/2024 TESTO STERO NE,FR EE AND TOTAL testosterone 317 NG/dL 264-91 6 normal Adult male refer ence inter channing is based on a popul ation of healt hy nonob miguelina males (BMI <30) betwe en 19 and 39 years old. Josafat gabriel et.al . JCEM 2017, 102;1 161-1 173. PMID: 25931 103. Not Available [facility] ([facility]) [address] [place], [address], 05/04/2024 12:06:36 05/03/20 24 05/04/2024 TESTO STERO NE,FR EE AND TOTAL free testosterone (direct) 4.5 pg/mL 6.6-18 .1 below low normal Not Available [facility] ([facility]) [address] [place], [address], 05/04/2024 12:06:36 05/03/20 24 05/04/2024 LYME DISEA SE SEROL OGY W/REF JG lyme total antibody anusha Negati ve negati ve Lyme antib odies not detec gala. Refle x testi ng is not indic ated. No labor atory evide nce of infec tion with B. burgd orfer i (Lyme disea se). Negat meenu resul ts may occur in patie nts recen tly infec gala (less than or equal to 14 days) with B. burgd orfer i. If recen t infec tion is suspe cted, repea t testi ng on a new sampl e colle cted in 7 to 14 days is recom toribio d. Not Available [facility] ([facility]) [address] [place], [address], 05/04/2024 12:06:36 05/03/20 24 05/04/2024 SEX HORM VERENICE NG GLOB, SERUM sex horm binding glob, serum 35.7 nmol/ L 19.3-7 6.4 Not Available [facility] ([facility]) [address] [place], [address], 05/04/2024 12:06:37 05/03/20 24 05/04/2024 HEPAT IC FUNCT ION PANEL (7) protein, total 6.8 g/dL 6.0-8. 5 normal Not Available [facility] ([facility]) [address] [place], [address], 05/04/2024 18:06:01 05/03/20 24 05/04/2024 HEPAT IC FUNCT ION PANEL (7) albumin 4.5 g/dL 3.8-4. 9 normal Not Available [facility] ([facility]) [address] [place], [address], 05/04/2024 18:06:01 05/03/20 24 05/04/2024 HEPAT IC FUNCT ION PANEL (7) bilirubin, total 0.3 mg/dL 0.0-1. 2 normal Not Available [facility] ([facility]) [address] [place] [place], [address], 05/04/2024 18:06:01 05/03/20 24 05/04/2024 HEPAT IC FUNCT ION PANEL (7) bilirubin, direct <0.10 mg/dL 0.00-0 .40 Not Available [facility] ([facility]) [address] [place] [place], [address], 05/04/2024 18:06:01 05/03/20 24 05/04/2024 HEPAT IC FUNCT ION PANEL (7) alkaline phosphatase 86 IU/L 44-121 normal Not Available [facility] ([facility]) [address] [place], [address], 05/04/2024 18:06:01 05/03/20 24 05/04/2024 HEPAT IC FUNCT ION PANEL (7) AST (SGOT) 15 IU/L 0-40 normal Not Available [facility] ([facility]) [address] [place], [address], 05/04/2024 18:06:01 05/03/20 24 05/04/2024 HEPAT IC FUNCT ION PANEL (7) ALT (SGPT) 24 IU/L 0-44 normal Not Available [facility] ([facility]) [address] [facility], [place], [address], 05/04/2024 18:06:01 05/03/20 24 05/04/2024 ACUTE HEPAT ITIS hep A Ab, IgM Negati ve negati ve Not Available [facility] ([facility]) [address] [facility], [place], [address], 05/04/2024 18:06:02 05/03/20 24 05/04/2024 ACUTE HEPAT ITIS HBsAg screen Negati ve negati ve Not Available [facility] ([facility]) [address] [facility], [place], [address], 05/04/2024 18:06:02 05/03/20 24 05/04/2024 ACUTE HEPAT ITIS hep B core Ab, IgM Negati ve negati ve Not Available [facility] ([facility]) [address] [facility], [place], [address], 05/04/2024 18:06:02 05/03/20 24 05/04/2024 ACUTE HEPAT ITIS HCV Ab Non Reacti ve non reacti ve Not Available [facility] ([facility]) [address] [facility], [place], [address], 05/04/2024 18:06:02 05/03/20 24 05/04/2024 ACUTE HEPAT ITIS interpretati on: Commen t Not infec gala with HCV unles s early or acute infec tion is suspe cted (whic h may be delay ed in an immun ocomp romis ed indiv idual ), or other evide nce exist s to indic ate HCV infec tion. Not Available [facility] ([facility]) [address] [facility], [place], [address], 05/04/2024 18:06:02 05/03/20 24 05/04/2024 ANTI- ROSALES H MUSCL E/BRYANNA OCHON D. actin (smooth muscle) antibody 15 units 0-19 Negat meenu 0 - 19 Weak posit meenu 20 - 30 Moder ate to stron g posit meenu >30 Actin Antib odies are found in 52-85 % of patie nts with autoi mmune hepat itis or chron ic activ e hepat itis and in 22% of patie nts with prima ry bilia ry cirrh osis. Not Available [facility] ([facility]) [address] [place], [address], 05/04/2024 18:06:02 05/03/20 24 05/04/2024 ANTI- ROSALES H MUSCL E/BRYANNA OCHON D. mitochondria l (M2) antibody <20.0 units 0.0-20 .0 Negat meenu 0.0 - 20.0 Equiv ocal 20.1 - 24.9 Posit meenu >24.9 Mitoc hondr ial (M2) Antib odies are found in 90-96 % of patie nts with prima ry bilia ry cirrh osis. Not Available [facility] ([facility]) [address] [place], [address], 05/04/2024 18:06:02 05/03/20 24 05/04/2024 GGT GGT 40 IU/L 0-65 normal Not Available [facility] ([facility]) [address] [place], [address], 05/04/2024 18:06:03 05/03/20 24 05/04/2024 CERUL OPLAS MIN ceruloplasmi n 23.1 mg/dL 16.0-3 1.0 Not Available [facility] ([facility]) [address] [place], [address], 05/04/2024 18:06:03 04/29/20 24 04/29/2024 elect alejandra chambersgr am No observ ation record ed. [email or web address] In-Office Order Internal Use Only DO Not Attach Compendium DO Not Attach Compendium, Do Not Delete/merge, [id number] 04/29/2024 16:41:54 04/29/20 cathy bowling am No observ ation record ed. barbara In-Office Order Internal Use Only DO Not Attach Compendium DO Not Attach Compendium, Do Not Delete/merge, [id number] 05/01/2024 16:35:43 05/10/20 24 11/06/2022 MRI, brain , w/wo contr ast No observ ation record ed. [email or web address] Not Available 2023 12:21:34 05/10/20 24 04/21/2024 CT, head + brain , w/o contr ast No observ ation record ed. [email or web address] Not Available 2023 12:21:34 05/10/20 24 03/30/2024 MRI, brain , w/wo contr ast No observ ation record ed. barbara Not Available 2023 12:21:33 05/10/20 24 04/21/2024 CT, venog joycelyn, head, w/wo contr ast No observ ation record ed. [email or web address] Not Available 2023 12:21:34 05/10/20 24 06/29/2023 MRI, brain , w/wo contr ast No observ ation record ed. barbara Not Available 2023 12:21:35 05/10/20 24 01/09/2023 MRI, cervi reba spine , w/o contr ast No observ ation record ed. [email or web address] Not Available 2023 12:21:35 05/10/20 24 06/11/2023 XR, skull No observ ation record ed. barbara [facility] [address] , [place], [address], 05/10/2024 12:21:10 05/10/20 24 04/05/2024 US, renal No observ ation record ed. barbara Not Available 2023 12:21:36 05/27/20 24 05/27/2024 XR, shoul mauro, 2 or more view Should er 2 Views Right, 2 views Reason : pain withou t recent injury . Histor y of should er injury 12 years ago. COMPAR MICHELA: 024 FINDIN GS: No fractu re or disloc ation. No arthri tic change of the glenoh umeral joint. Normal AC joint and portio ns of the clavic le includ ed on the exam. No calcif icatio n of the rotato r cuff. Partia lly visual ized ACDF hardwa re. IMPRES BIANKA: No acute fractu re or disloc ation seen involv ing the right should er. No interv al change . I have person ally review ed the images and I agree with this report . WSN: [id number] Orderi ng Physic charlotte: Rhiannon Degroot Dictat ed By: Case Garza MD Dictat ed Date/T darren: 2:35 pm Review ed By: Giorgio augustin MD, [place] Signed By: Giorgio augustin MD, [place] Signed Date/T darren: 2:40 pm Transc ribed By: ILEANA Transc ribed Date/T darren: 2:24 pm Patien t Class: Outpat ient [facility] (Outpt Imaging) [address] [place], [address], 05/30/2024 17:33:04 05/27/20 24 05/27/2024 XR, shoul mauro No observ [facility]ion [email or web address] [address] [place], [address], 05/27/2024 16:43:44 06/01/20 24 06/01/2024 US, head, soft tissu e No observ ation record ed. [email or web address] Not Available 2023 09:18:34 06/01/20 24 06/01/2024 US, head + neck, soft tissu e US Soft Tissue Head/N senait Reason : P13.1 OTHER INJURI ES TO SKULL; Clinic al Questi on(s): Other: COMPAR MICHELA: 024 CT head. 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 [employer] ed ultras ound was perfor med at area of palpab le concer n in the right event marketing assistant ior scalp, which corres ponds with a small pocket of fluid measur ing 0.9 x 0.3 x 0.9 cm, surrou nding a portio n of the cranio plasty plate. IMPRES BIANKA: Small pocket of fluid measur ing up to 0.9 cm surrou nding a portio n of the cranio plasty plate corres ponds with area of palpab le concer n in the right event marketing assistant ior scalp. WSN: [id number] Orderi ng Physic charlotte: Rhiannon Degroot Dictat ed By: Jonny Solorio MD Dictat ed Date/T darren: 3:34 pm Review ed By: Jonny Solorio MD Signed By: Jonny Solorio MD Signed Date/T darren: 3:34 pm Transc ribed By: ILEANA Transc ribed Date/T darren: 3:32 pm Patien t Class: Outpat ient [facility] ([facility]) [address] [place] [address], [address], 06/01/2024 18:31:03 07/13/20 24 07/13/2024 elect rocar diogr am No observ ation record ed. krys In-Office Order Internal Use Only DO Not Attach Compendium DO Not Attach Compendium, Do Not Delete/merge, [id number] 07/15/2024 13:43:51 07/13/20 elect rocar diogr am No observ ation record ed. [email or web address] In-Office Order Internal Use Only DO Not Attach Compendium DO Not Attach Compendium, Do Not Delete/merge, [id number] 07/15/2024 13:47:19 07/15/20 elect rocar diogr am No observ ation record ed. krys In-Office Order Internal Use Only DO Not Attach Compendium DO Not Attach Compendium, Do Not Delete/merge, [id number] 07/15/2024 13:43:36 Result Notes None recorded. Problems Name Problem SNOMED Code Status Onset Date Resolution Date Notes Provider Name and Address Organization Details Recorded Time Adult health examinat ion Completed 201305/15/2014 RECORDED 12/23/19 14 2:04PM BY HALEIGH STODDARD MA, ANNOTATI ON/ADDEN DUM Not Available [facility] 4 05:23:46 History of non-drug allergy 363333197 Completed 201205/15/2014 RECORDED 03/21/20 13 9:09AM BY HALEIGH STODDARD MA, ANNOTATI ON/ADDEN DUM Not Available [facility] 4 05:23:46 Follow-u p encounte r Completed 201305/15/2014 RECORDED 12/07/19 14 3:05PM BY GASPER DIETZ MA, ANNOTATI ON/ADDEN DUM Not Available [facility] 4 05:23:46 Impotenc e of organic origin Completed 201305/15/2014 RECORDED 02/08/20 14 11:20AM BY GASPER DIETZ MA, ANNOTATI ON/ADDEN DUM Not Available [facility] 4 05:23:46 Malaise and fatigue 295259796 Completed 201305/15/2014 RECORDED 12/23/19 14 2:04PM BY HALEIGH STODDARD MA, ANNOTATI ON/ADDEN DUM Not Available [facility] 4 05:23:46 Influenz a vaccine needed 25950020951 06 Completed 201205/15/2014 RECORDED 09/07/20 13 2:08PM BY GASPER DIETZ MA, OFFICE VISIT Not Available [facility] 4 05:23:46 Hyperlip idemia 68458445 Completed 201305/15/2014 RECORDED 02/08/20 14 11:20AM BY GASPER DIETZ MA, ANNOTATI ON/ADDEN DUM Not Available [facility] 4 05:23:46 Laborato ry procedur e performe d 573886449 Completed 201305/15/2014 RECORDED 02/08/20 14 11:20AM BY GASPER DIETZ MA, ANNOTATI ON/ADDEN DUM Not Available [facility] 4 05:23:47 Renewal of prescrip tion Completed 201205/15/2014 RECORDED 03/21/20 13 9:09AM BY HALEIGH STODDARD MA, ANNOTATI ON/ADDEN DUM Not Available [facility] 4 05:23:47 Nausea 230737138 Completed 201305/15/2014 RECORDED 12/23/19 14 2:04PM BY HALEIGH STODDARD MA, ANNOTATI ON/ADDEN DUM Not Available [facility] 4 05:23:47 Neoplasm of uncertai n behavior of skin 71373789 Completed 201305/15/2014 RECORDED 02/08/20 14 11:21AM BY GASPER DIETZ MA, ANNOTATI ON/ADDEN DUM Not Available [facility] 4 05:23:47 Knee pain Completed 201205/15/2014 RECORDED 09/27/20 13 7:52AM BY GASPER DIETZ MA, ANNOTATI ON/ADDEN DUM Not Available [facility] 4 05:23:47 Dyspnea 322685751 Completed 201305/15/2014 RECORDED 02/08/20 14 11:20AM BY GASPER DIETZ MA, ANNOTATI ON/ADDEN DUM Not Available [facility] 4 05:23:47 Hernia of anterior abdomina l wall 900898967 Completed 201305/15/2014 IMPRESSI ON: NOT SURE IF DIASTAIS RECTI OR VENTRAL HERNIA. SURGERY TO FURTHER ASSESS; RECORDED 02/08/20 14 11:22AM BY GASPER DIETZ MA, ANNOTATI ON/ADDEN DUM Not Available [facility] 4 05:23:47 Bipolar affectiv e disorder , current episode depressi on 444963569 Active 2021 Constance Benjamin, [place] null, [facility] 2 10:45:57 Alcohol abuse 92392989 Completed 03/02/2024 Ryan Degroot MD [address] [facility] [address], [place], [address] , [facility] 4 13:22:47 Constipa tion 01239169 Completed 03/02/2024 Ryan Degroot MD [address] [facility] [address], [place], [address] , [facility] 4 13:24:42 Cervical disc disorder 363923699 Active Not Available [facility] 3 13:13:41 Fatigue 14672707 Completed 03/02/2024 Ryan Degroot MD [address] [facility] [address], [place], [address] , [facility] 4 08:21:49 Muscle spasm of cervical muscle of neck 36947998487 4 Active Not Available [facility] 3 13:13:41 Greater trochant karma pain syndrome 0632092 Active Not Available [facility] 3 13:13:42 Acute allergic reaction 946031243 Completed 03/02/2024 Ryan Degroot MD [address] [facility] [address], [place], [address] , [facility] 4 13:22:58 Motion sickness 88956376 Active 2022 LILIANE Galarza, [facility] 4 13:08:31 Hyperlip idemia 48867456 Active 2021 LILIANE Galarza, [facility] 2 10:45:57 Puncture wound of finger 588702948 Completed 03/11/2022 Ryan Degroot MD [address] [facility] [address], [place], [address] , [facility] 2 18:09:28 History of cocaine abuse [id number] 9106 Active 2016 Not Available [facility] 3 13:13:41 Alcoholi c hepatiti s 426724875 Completed 201605/01/2024 Ryan Degroot MD [address] [facility] [address], [place], [address] , [facility] 4 23:28:46 Dependen ce on continuo us positive airway pressure ventilat ion 472123231 Active 2017 Not Available [facility] 3 13:13:41 Pederson' s esophagu s 849660819 Active 2017 Not Available [facility] 3 13:13:41 Elevated blood-pr essure reading without diagnosi s of hyperten bianka 786120539 Completed 201803/02/2024 Ryan Degroot MD [address] [facility] [address], [place], [address] , [facility] 4 13:24:49 Lumbar radiculo alvarado 350333798 Active 2018 Not Available [facility] 3 13:13:41 Pain in lower limb 47201214 Completed 201803/11/2022 Ryan Degroot MD [address] [facility] [address], [place], [address] , [facility] 2 18:09:41 Allergic rhinitis 05484586 Active 2019 Not Available [facility] 3 13:13:42 Primary erectile dysfunct ion 870828607 Completed 202003/11/2022 Ryan Degroot MD [address] [facility] [address], [place], [address] , [facility] 2 18:09:33 Dyspnea on exertion 19570252 Active 2020 Not Available [facility] 3 13:13:42 Attentio n deficit hyperact ivity disorder , predomin antly inattent meenu type 76177367 Active 2020 Barrett Lloyd PA-C [address] [facility] [address], [place], [address] , [facility] 1 15:25:23 Iron deficien cy anemia 01519272 Completed 202105/01/2024 Ryan Degroot MD [address] [facility] [address], [place], [address] , [facility] 4 23:27:26 Microcyt osis 756643204 Completed 202003/02/2024 Ryan Degroot MD [address] [facility] [address], [place], [address] , 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 84639096482 9105 Active 2021 Dottie Moyer MA null, [facility] 3 14:28:12 History of cervical spine fusion 06007003429 Active 2022 Not Available [facility] 3 13:13:41 Dizzines s 449047942 Active 2022 cannot be billed with benign paropzys mal position al vertigo Hemalatha Lujan yessenia, [facility] 4 13:46:52 Bilatera l tinnitus 91688753254 02 Active 2022 Not Available [facility] 3 13:13:42 Encephal omalacia 42703728 Active 2022 Not Available [facility] 3 13:13:42 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 729167110 Active 2022 Not Available [facility] 3 13:13:42 Schwanno liliane 468622843 Active 2022 LILIANE Galarza, [facility] 4 13:08:31 Adult health examinat ion Completed 201304/18/2014 RECORDED 12/23/19 14 2:04PM BY HALEIGH STODDARD MA, QUINTON ON/ADDEN DUM Not Available [facility] 4 14:04:15 Anxiety state 887749387 Active 2013 LILIANE Jiménez, [facility] 8 11:13:34 Arthropa thy of knee joint 867568720 Active 2013 Not Available [facility] 3 13:13:41 History of non-drug allergy 768361418 Completed 201204/18/2014 RECORDED 03/21/20 13 9:09AM BY HALEIGH STODDARD MA, ANNOTATI ON/ADDEN DUM Not Available [facility] 4 14:04:15 Bipolar I disorder 063640069 Completed 201303/02/2024 Ryan Degroot MD [address] [address], [place], [address] , [facility] 4 13:24:16 Chronic pain syndrome 208321735 Active 2013 Not Available [facility] 3 13:13:41 Follow-u p encounte r Completed 201304/18/2014 RECORDED 12/07/19 14 3:05PM BY GASPER DIETZ MA, ANNOTATI ON/ADDEN DUM Not Available [facility] 4 14:04:15 Impotenc e of organic origin Completed 201304/18/2014 RECORDED 02/08/20 14 11:20AM BY GASPER DIETZ MA, QUINTON ON/ADDEN DUM Not Available [facility] 4 14:04:15 Malaise and fatigue 784119221 Completed 201304/18/2014 RECORDED 12/23/19 14 2:04PM BY HALEIGH STODDARD MA, QUINTON ON/ADDEN DUM Not Available [facility] 4 14:04:15 Influenz a vaccine needed 29846943760 06 Completed 201204/18/2014 RECORDED 09/07/20 13 2:08PM BY GASPER DIETZ MA, OFFICE VISIT Not Available [facility] 4 14:04:15 Gastroes ophageal reflux disease 827759843 Completed 202103/02/2024 Ryan Degroot MD [address] [facility] [address], [place], [address] , [facility] 4 13:24:53 Gastroes ophageal reflux disease 481752218 Completed 201304/18/2014 RECORDED 02/08/20 14 11:22AM BY GASPER DIETZ MA, ESPERANZAATI ON/ADDEN DUM Ryan Degroot MD [address] [facility] [address], [place], [address] , [facility] 4 13:24:53 History of peptic ulcer 510632054 Active 2013 Not Available [facility] 3 13:13:41 Hyperlip idemia 62599857 Completed 201304/18/2014 RECORDED 02/08/20 14 11:20AM BY GASPER DIETZ MA, ANNOTATI ON/ADDEN DUM Not Available [facility] 4 14:04:16 Testicul ar hypofunc tion 916276307 Completed 201303/11/2022 Ryan Degroot MD [address] [facility] [address], [place], [address] , [facility] 2 18:09:22 Laborato ry procedur e performe d 871719482 Completed 201304/18/2014 RECORDED 02/08/20 14 11:20AM BY GASPER DIETZ MA, ANNOTATI ON/ADDEN DUM Not Available [facility] 4 14:04:16 Single major depressi ve episode Active 2013 Not Available [facility] 3 13:13:41 Renewal of prescrip tion Completed 201204/18/2014 RECORDED 03/21/20 13 9:09AM BY HALEIGH STODDARD MA, ANNOTATI ON/ADDEN DUM Not Available [facility] 4 14:04:16 Nausea 401667130 Completed 201304/18/2014 RECORDED 12/23/19 14 2:04PM BY HALEIGH STODDARD MA, ANNOTATI ON/ADDEN DUM Not Available [facility] 4 14:04:16 Neoplasm of uncertai n behavior of skin 28609923 Completed 201304/18/2014 RECORDED 02/08/20 14 11:21AM BY GASPER DIETZ MA, ANNOTATI ON/ADDEN DUM Not Available [facility] 4 14:04:16 Obsessiv e-compul sive disorder 265041067 Active 2013 Gasper lema MA null, [facility] 8 11:13:33 Obstruct meenu sleep apnea syndrome 72558475 Active 2013 LILIANE Jiménez, [facility] 8 11:13:55 Knee pain Completed 201204/18/2014 RECORDED 09/27/20 13 7:52AM BY GASPER DIETZ MA, ANNOTATI ON/ADDEN DUM Not Available [facility] 4 14:04:17 Dyspnea 609915164 Completed 201304/18/2014 RECORDED 02/08/20 14 11:20AM BY GASPER DIETZ MA, ANNOTATI ON/ADDEN DUM Not Available [facility] 4 14:04:17 Hernia of anterior abdomina l wall 548539613 Completed 201304/18/2014 IMPRESSI ON: NOT SURE IF DIASTAIS RECTI OR VENTRAL HERNIA. SURGERY TO FURTHER ASSESS; RECORDED 02/08/20 14 11:22AM BY GASPER DIETZ MA, ANNOTATI ON/ADDEN DUM Not Available [facility] 4 14:04:17 Cervical arthriti s 755655290 Active 2022 severe b/l C3/C4, and right C4-C5, mild/mod b/l C7-T1 Not Available [facility] 3 13:13:41 Prediabe leora 304741934 Active 2022 Ryan Degroot MD [address], [place], [address] , 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 4 13:25:44 Cerebros armin fluid otorrhea 21796302 Completed 202203/02/2024 Ryan Degroot MD [address], [place], [address] , [facility] 4 13:24:26 Nondepen dent alcohol abuse in joneatrium healthrene n 494529904 Active 2023 Ryan Degroot MD [address], [place], [address] , [facility] 4 08:21:14 History of alcoholi c hepatiti s 75722046022 634970 Active 2023 Ryan Degroot MD [address], [place], [address] , [facility] 4 23:28:43 Problem Notes None recorded. 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 completed Nathaly Miner [facility] 2 09:11:29 01/20 revision of left total prosthetic knee arthroplasty completed Nathaly Miner [facility] 2 13:34:54 06/18 Hemorrhoidectomy completed Daniela Morales [facility] 1 14:36:46 03/18 injection into lumbar epidural space completed Daniela Morales [facility] 1 16:00:07 03/12 capsule endoscopy completed Daniela Morales [facility] 1 15:59:04 01/09 excision of cervical intervertebral disc completed Alpa Dixon RN [facility] 1 13:18:07 12/19 Colonoscopy completed Daniela Morales [facility] 1 11:34:41 12/19 esophagogastroduodenoscopy completed Fausto Morales [facility] 1 11:34:57 12/21 injection completed Daniela Morales [facility] 9 11:29:11 07/27 local anesthetic lesser occipital nerve block completed Gasper lema MA [facility] 8 15:01:36 07/27 injection of anesthetic agent into greater occipital nerve completed Gasper lema MA [facility] 8 15:02:03 05/26 injection into lumbar epidural space completed Daniela Morales [facility] 8 13:28:20 03/31 Njx aa&/strd gr ocpl nrv completed Lara Whiteside [facility] 8 11:52:06 03/18 Inject trigger points 3/> completed Lara Whiteside [facility] 8 16:26:41 01/22 Incise nerve back of head completed Mellisa Morales [facility] 8 15:11:51 07/02 Total knee arthroplasty completed Gasper lema MA [facility] 7 13:45:59 01/16 Arthrd ant kwame/xoral c1-c2 completed Rosa Isela Newsome MA [facility] 6 15:22:00 01/03 Arthrd ant ntrbd min dsc lum completed Gasper lema MA [facility] 6 15:12:38 10/03 Joint Injection completed Mitch Womack MD [address] [facility] [address], [facility] [place], [address] , [facility] 5 09:46:19 09/18 Corticosteroid Injection completed Mitch Womack MD [address], [place], [address] , [facility] 5 10:51:43 01/22 Corticosteroid Injection completed Mitch Womack MD [address], [place], [address] , [facility] 5 10:34:10 10/11 Joint Injection completed Mitch Womack MD [address], [place], [address] , [facility] 5 10:34:01 08/05 Arthrd ant kwame/xoral c1-c2 completed Gasper lema MA [facility] 5 09:40:12 10/05 Arthrd ant ntrbd min dsc lum completed Gasper lema MA [facility] 5 09:40:12 Cholecystectomy completed Gasper lema MA [facility] 4 14:25:22 Carpal tunnel surgery completed Lauren Morgan [facility] 1 08:08:15 Tracheostomy completed Luna Godoy MA [facility] 1 14:18:22 Eye Surgery completed Luna Godoy MA [facility] 1 14:18:22 Imaging Results Imaging Date Name Status LastModified by Organization Details LastModified Time 04/29/2024 electrocardiogram completed [email or web address] In- Office Order Internal Use Only DO Not Attach Compendium DO Not Attach Compendium, Do Not Delete/merge, [id number] 04/29/2024 16:41:54 04/29/2024 electrocardiogram completed [email or web address] In-Offi ce Order Internal Use Only DO Not Attach Compendium DO Not Attach Compendium, Do Not Delete/merge, [id number] 05/01/2024 16:35:43 11/06/2022 MRI, brain, w/wo contrast completed Information not available 05/10/2024 12:21:34 04/21/2024 CT, head + brain, w/o contrast completed Information not available 05/10/2024 12:21:34 03/30/2024 MRI, brain, w/wo contrast completed Information not available 05/10/2024 12:21:33 04/21/2024 CT, venogram, head, w/wo contrast completed Information not available 05/10/2024 12:21:34 06/29/2023 MRI, brain, w/wo contrast completed Information not available 05/10/2024 12:21:35 01/09/2023 MRI, cervical spine, w/o contrast completed Information not available 05/10/2024 12:21:35 06/11/2023 XR, skull completed [email or web address] [facility] [address] [place], [address], 05/10/2024 12:21:10 04/05/2024 US, renal completed Information no t available 05/10/2024 12:21:36 05/27/2024 XR, shoulder, 2 or more view completed [facility] [address] [place], [address], 05/30/2024 17:33:04 05/27/2024 XR, shoulder completed [email or web address] [facility] [address] [facility], [place], [address], 05/27/2024 16:43:44 06/01/2024 US, head, soft tissue completed [email or web address] Information not available 06/02/2024 09:18:34 06/01/2024 US, head + neck, soft tissue completed [facility] ([facility] [address] [place], [address], 06/01/2024 18:31:03 07/13/2024 electrocardiogram completed [email or web address] In-Offi ce Order Internal Use Only DO Not Attach Compendium DO Not Attach Compendium, Do Not Delete/merge, [id number] 07/15/2024 13:43:51 07/13/2024 electrocardiogram completed [email or web address] In- Office Order Internal Use Only DO Not Attach Compendium DO Not Attach Compendium, Do Not Delete/merge, [id number] 07/15/2024 13:47:19 07/15/2024 electrocardiogram completed [email or web address] In-Offi ce Order Internal Use Only DO Not Attach Compendium DO Not Attach Compendium, Do Not Delete/merge, [id number] 07/15/2024 13:43:36 Procedure Notes None recorded. Medical Equipment None Reported. Allergies Allergen ID Allergen Name Allergen Category Reaction Reaction Severity Criticality Documentation Date Start Date Code Code System Note Provider Name and Address Organization Details Recorded Time 72078 honey bee venom environme nt anaphylax is Not available Not available 05/15/20142021 08254 7 RxNorm Other react ions and sever ities : 'Unkn own'. LILIANE Galarza [facility] 4 10:00:42 54723 tamsulosi n medicatio n Not available Not available Not available 09/04/20212021 52848 RxNorm Other react ions and sever ities : 'Hypo tensi on'. LILIANE Galarza [facility] 4 10:00:42 33849 tizanidin e medicatio n Not available Not available Not available 09/04/20212021 41770 RxNorm Other react ions and sever ities : 'Hypo tensi on'. LILIANE Galarza [facility] 4 10:00:42 76342 honey bee venom medicatio n anaphylax is Not available Not available 02/21/2022 91845 7 RxNorm LILIANE Galarza [facility] 4 13:07:59 99645 bupropion Not available other severe Not available 03/12/20222013 33542 RxNorm LILIANE Galarza [facility] 2 10:53:22 76586 bupropion hydrochlo ride medicatio n Not available Not available Not available 12/23/20232022 34436 4 RxNorm LILIANE Galarza, [facility] 4 13:08:38 5023 No known allergy (situatio n) Not available Not available Not available Not available 04/18/20142011 89877 6003 SNOMED COMME NT: RECOR DED 10/12 11:26 AM BY FRANCE LEMA MA, ANNOT ATION /ADDE NDUM; LILIANE Galaraz, [facility] 4 13:07:59 5024 Wellbutri n medicatio n other severe Not available 04/18/20142013 90652 RxNorm LILIANE Galarza, [facility] 4 13:07:59 Medications Name Sig Start Date Stop Date Status Note LastModified by Organization Details LastModified Time meloxicam 15 mg tabs active Not Available Not Available Not Available gabapenti n 400 mg caps 1 po three times daily active Not Available Not Available No t Available amphetami ne/dextro amphetami ne 15 mg tabs active Not Available Not Available Not Available omeprazol e 40 mg cpdr active Not Available Not Available Not Available vyvanse 30 mg caps active Not Available Not Available Not Available epipen 2-lele 0.3 mg/0.3ml soaj 04/19 completed Not Available Not Available Not Available naltrexon e hcl 50 mg tabs 1 po daily, as needed active Not Available Not Available No t Available vyvanse 20 mg caps 1 po daily active Not Available Not Available No t Available lithium carbonate 150 mg caps active Not Available Not Available Not Available escitalop joycelyn oxalate 10 mg tabs 1 po daily active Not Available Not Available No t Available transderm -scop 1 mg/3days pt72 as needed active Not Available Not Available No t Available liothyron ine sodium 25 mcg tabs active Not Available Not Available Not Available aripipraz ole 10 mg tabs 1 po daily 10/15 completed Not Available Not Available Not Available clonidine hcl 0.1 mg tabs as needed active Not Available Not Available No t Available brintelli x 20 mg tabs 1 po daily active Not Available Not Available No t Available gabapenti n 300 mg caps active Not Available Not Available Not Available clonazepa m 0.5 mg tabs active Not Available Not Available Not Available guanfacin e hcl 1 mg tabs active Not Available Not Available Not Available lithium carbonate er 300 mg tbcr active Not Available Not Available Not Available oxycodone hcl 10 mg tabs active Not Available Not Available Not Available gabapenti n 600 mg tabs active Not Available Not Available Not Available lamotrigi ne 150 mg tabs 1 po daily active Not Available Not Available No t Available carisopro dol 350 mg tablet TAKE 1 TABLET THREE TIMES A DAY 10/15 completed Not Available Not Available Not Available celecoxib 200 mg capsule TAKE 1 CAPSULE BY MOUTH TWICE A DAY 10/21 completed Not Available Not Available Not Available cyclobenz aprine 10 mg tablet 02/04 completed Not Available Not Available Not Available Miralax 17 gram/dose oral powder Take 17 g every day by oral route for 30 days. 08/03 completed patient is having issues with constipa tion and said you prescrib ed this medicati on for him some years ago for the same issue Not Available Not Available Not Available lamotrigi ne 150 mg tablet Take 2 tablets every day by oral route for 30 days. 07/09 completed Not Available Not Available Not Available clonidine HCl 0.1 mg tablet Take 1 tablet every day by oral route at dinner for 30 days. 08/03 completed Not Available Not Available Not Available prednison e 10 mg tablet 07/06 completed Not Available Not Available Not Available venlafaxi ne ER 75 mg capsule,e xtended release 24 hr Take 1 capsule every day by oral route for 30 days. 10/14 completed Not Available Not Available Not Available gabapenti n 600 mg tablet active Not Available Not Available Not Available atorvasta tin 20 mg tablet TAKE 1 TABLET BY MOUTH EVERY DAY IN THE EVENING 2024 active Not Available Not Available Not Avai lable lamotrigi ne 200 mg tablet TAKE 1 TABLET BY MOUTH TWICE A DAY active Not Available Not Available No t Available tizanidin e 2 mg tablet TAKE 1 TAB BY MOUTH EVERY 6 HOURS NEEDED FOR PAIN 09/04 completed Not Available Not Available Not Available Adderall 15 mg tablet Take 1 tablet twice a day by oral route. active Not Available Not Available No t Available Vitamin C 500 mg tablet TAKE 1 TABLET BY MOUTH EVERY DAY 11/15 completed Not Available Not Available Not Available trazodone 50 mg tablet 08/03 completed Not Available Not Available Not Available polyethyl millicent glycol 3350 17 gram oral powder packet Take 17 g by oral route as needed. active Not Available Not Available No t Available cetirizin e 10 mg tablet Take 10 mg by oral route. 03/11 completed Not Available Not Available Not Available doxazosin 1 mg tablet TAKE 1 TABLET BY MOUTH EVERY DAY FOR 30 DAYS active Not Available Not Available No t Available aspirin 325 mg tablet Take by oral route for 14 days. 05/09 completed Not Available Not Available Not Available ibuprofen 800 mg tablet TAKE ONE TABLET THREE TIMES A DAY NEEDED OPPOSITE OF NARCOTIC S 01/22 completed per discharg e summary Not Available Not Available Not Available methylphe nidate 10 mg tablet 02/04 completed Not Available Not Available Not Available ranitidin e 300 mg tablet Take 1 tablet every day by oral route at bedtime for 30 days. 11/13 completed Not Available Not Available Not Available sumatript an 100 mg tablet TAKE 1/2 TO 1 TABLET AT ONSET OF MIGRAINE , LIMIT TO 2 TABS PER WEEK 07/13 completed Not Available Not Available Not Available tretinoin 0.025 % topical cream Apply 1 applicat ion every day by topical route for 30 days. 09/04 completed Not Available Not Available Not Available ondansetr on HCl 8 mg tablet 05/25 completed Not Available Not Available Not Available meloxicam 15 mg tablet TAKE 1 TABLET EVERY DAY BY ORAL ROUTE WITH MEAL(S) FOR 30 DAYS. 07/13 completed Not Available Not Available Not Available naltrexon e 50 mg tablet Take 1 tablet every day by oral route as needed for 30 days. 07/09 completed Not Available Not Available Not Available prednison e 20 mg tablet TAKE 2 TABLET BY MOUTH DAILY FOR 2 DAYS 12/22 completed Not Available Not Available Not Available clonazepa m 0.5 mg tablet Take 2 tablets every day by oral route at bedtime for 30 days. 04/19 completed Not Available Not Available Not Available prednison e 5 mg tablet Take 1 tablet every day by oral route. 06/10 completed Not Available Not Available Not Available clonazepa m 1 mg tablet TAKE 1 TABLET BY MOUTH AT BEDTIME NEEDED FOR INSOMNIA active Not Available Not Available No t Available venlafaxi ne ER 150 mg capsule,e xtended release 24 hr 08/03 completed Not Available Not Available Not Available topiramat e 25 mg tablet TAKE 1 TABLET TWICE A DAY BY ORAL ROUTE FOR 90 DAYS. 07/13 completed Not Available Not Available Not Available tretinoin 0.05 % topical cream Apply 1 applicat ion every day by topical route for 30 days. active Not Available Not Available No t Available valacyclo vir 500 mg tablet Take 1 tablet every 12 hours by oral route. 03/11 completed Not Available Not Available Not Available sulfameth oxazole 800 mg-trimet hoprim 160 mg tablet Take 1 tablet every 12 hours by oral route for 14 days. 09/04 completed Not Available Not Available Not Available peg-elect rolyte solution 420 gram oral solution TAKE DIRECTED 12/31 completed Not Available Not Available Not Available omeprazol e 40 mg capsule,d elayed release 40 mg by oral route. 07/06 completed Not Available Not Available Not Available aspirin 81 mg tablet,de layed release TAKE 1 TABLET BY MOUTH EVERY DAY 2024 active Not Available Not Available Not Avai lable tramadol 50 mg tablet TAKE 1 TABLET EVERY 12 HOURS NEEDED FOR MODERATE PAIN 10/21 completed Not Available Not Available Not Available acetamino phen 500 mg tablet Take 500 mg every 4 hours by oral route. 12/22 completed Not Available Not Available Not Available sildenafi l 100 mg tablet 30 MINUTES PRIOR TO INTERCOU RSE, PRN 09/07 completed RECORDED 09/07/20 13 2:12PM BY GASPER DIETZ MA, OFFICE VISIT; Not Available Not Available Not Available amoxicill in 500 mg tablet TAKE 1 TABLET BY MOUTH THREE TIMES A DAY UNTIL FINISHED 10/21 completed Not Available Not Available Not Available lamotrigi ne 25 mg tablet Take 2 tablets every day by oral route for 30 days. 07/09 completed Not Available Not Available Not Available oxycodone 15 mg tablet Take 1 tablet 4 times a day by oral route for 30 days. 2014 active Not Available Not Available Not Avai lable nortripty line 25 mg capsule 08/03 completed Not Available Not Available Not Available oxycodone -acetamin ophen 5 mg-325 mg tablet active Not Available Not Available Not Available hydrocort isone 2.5 % topical cream with perineal applicato r APPLY A THIN LAYER TO THE AFFECTED AREA(S) BY TOPICAL ROUTE 2 4 TIMES DAILY NEEDED 12/22 completed Not Available Not Available Not Available hydromorp daysi 2 mg tablet Take 1 tablet every 4 hours by oral route as needed. 12/22 completed Not Available Not Available Not Available famotidin e 20 mg tablet TAKE 1 TABLET BY MOUTH TWICE A DAY 04/29 completed Not Available Not Available Not Available amitripty line 25 mg tablet 08/03 completed Not Available Not Available Not Available modafinil 200 mg tablet Take 200 mg twice a day by oral route. 07/13 completed on hold Not Available Not Available Not Available oxycodone -acetamin ophen 10 mg-325 mg tablet Take 1 tablet 3 times a day by oral route. 2013 active Not Available Not Available Not Avai lable tamsulosi n 0.4 mg capsule TAKE ONE CAPSULE DAILY 09/04 completed Not Available Not Available Not Available gabapenti n 800 mg tablet Take 1 tablet 3 times a day by oral route for 30 days. 08/03 completed Not Available Not Available Not Available dicyclomi ne 20 mg tablet 04/19 completed Not Available Not Available Not Available Synthroid 25 mcg tablet Take 1 tablet every day by oral route. active Not Available Not Available No t Available dexametha sone 1 mg tablet 06/10 completed Not Available Not Available Not Available amitripty line 10 mg tablet 2 po q hs active Not Available Not Available No t Available meclizine 25 mg tablet Take 1 tablet 3 times a day by oral route as needed. 12/22 completed Not Available Not Available Not Available baclofen 10 mg tablet 11/15 completed Not Available Not Available Not Available cephalexi n 500 mg capsule 2000 mg every 24 hours by oral route. 03/12 completed Not Available Not Available Not Available ferrous sulfate 325 mg (65 mg iron) tablet Take 1 tablet every day by oral route. 05/14 completed Not Available Not Available Not Available lidocaine 5 % topical patch Apply by topical route for 30 days. active Not Available Not Available No t Available guanfacin e 1 mg tablet TAKE 1/2 TO 1 TABLET BY MOUTH AT BEDTIME active Not Available Not Available No t Available Effexor 37.5 mg tablet Take 1 tablet twice a day by oral route as directed for 30 days. 08/03 completed Not Available Not Available Not Available ibuprofen 200 mg tablet po prn active Not Available Not Available Not Available docusate sodium 100 mg capsule 100 mg twice a day by oral route. 07/06 completed Not Available Not Available Not Available Senokot 8.6 mg tablet 2 {tbl}s twice a day by oral route. 07/06 completed Not Available Not Available Not Available gabapenti n 300 mg capsule Take 1 capsule twice a day by oral route for 30 days. 10/21 completed Not Available Not Available Not Available Banophen 25 mg capsule TAKE 1 CAPSULE BY MOUTH 3 TIMES A DAY 12/22 completed Not Available Not Available Not Available aspirin,b uffered (calcium carb-mag- aluminum) 81 mg oral del rel tablet 81 mg twice a day by oral route. 03/05 completed Not Available Not Available Not Available bisacodyl 5 mg tablet,de layed release 5 mg every 24 hours by oral route. 07/06 completed Not Available Not Available Not Available gabapenti n 100 mg capsule Take 3.5 capsules 3 times a day by oral route. 07/09 completed Not Available Not Available Not Available Transderm -Scop 1 mg over 3 days transderm al patch Apply 1 patch every 72 hours by transder mal route as needed. 04/19 completed Not Available Not Available Not Available epinephri ne 0.3 mg/0.3 mL injection , auto-inje ctor INJECT 0.3 MG NEEDED BY INJECTIO N ROUTE FOR 30 DAYS. active Not Available Not Available No t Available oxycodone -acetamin ophen 7.5 mg-325 mg tablet TAKE ONE TABLET EVERY 6 HOURS NEEDED FOR PAIN 07/04 completed Not Available Not Available Not Available methylpre dnisolone 4 mg tablets in a dose pack TAKE 6 TABLETS ON DAY 1 DIRECTED ON PACKAGE AND DECREASE BY 1 TAB EACH DAY FOR A TOTAL OF 6 DAYS 05/09 completed Not Available Not Available Not Available clomipram ine 25 mg capsule 10/14 completed Not Available Not Available Not Available hydromorp daysi 4 mg tablet Take by oral route for 4 days. 10/21 completed Not Available Not Available Not Available hydroxyzi ne HCl 10 mg tablet TAKE 1 TABLET BY MOUTH TWICE A DAY active Not Available Not Available No t Available guanfacin e 2 mg tablet Take 0.5 tablets every day by oral route at bedtime. 03/12 completed Not Available Not Available Not Available ondansetr on 4 mg disintegr ating tablet Place 4 mg every 6 hours by oral route as needed. 05/25 completed Not Available Not Available Not Available fluticaso ne propionat e 50 mcg/actua tion nasal spray,[employer] pension SPRAY 1 SPRAY INTO EACH NOSTRIL EVERY DAY DIRECTED 2023 active Not Available Not Available Not Avai lable naratript an 2.5 mg tablet TAKE 1 TABLET BY MOUTH EVERY DAY NEEDED FOR MIGRAINE MAX 2 TABS/WEE K 07/13 completed Not Available Not Available Not Available doxycycli ne hyclate 100 mg tablet TAKE 1 TABLET BY MOUTH TWICE A DAY FOR 2 WEEKS, THEN TAKE 1 TABLET EVERY DAY active Not Available Not Available No t Available docusate sodium 100 mg tablet Take 1 tablet twice a day by oral route as directed . 10/21 completed Not Available Not Available Not Available metoclopr amide 10 mg tablet 10 mg every 6 hours by oral route. 07/06 completed Not Available Not Available Not Available doxazosin 2 mg tablet TAKE 1 TABLET BY MOUTH EVERY DAY active Not Available Not Available No t Available amoxicill in 875 mg-potass ium clavulana te 125 mg tablet Take 1 tablet twice a day by oral route for 5 days. 04/19 completed Not Available Not Available Not Available Adderall 10 mg tablet Take 1 tablet twice a day by oral route. active Not Available Not Available No t Available oxycodone 5 mg tablet Take by oral route for 3 days. 06/10 completed Not Available Not Available Not Available modafinil 100 mg tablet 1po bid 07/13 completed 05/10/24 STILL ON HOLD Not Available Not Available Not Available Fish Oil 500 mg capsule Take by oral route. active Not Available Not Available No t Available neomycin 3.5 mg/g-poly myxin B 10,000 unit/g-de xameth 0.1 % eye oint APPLY INTO BOTH EYES EVERY NIGHT 03/26 completed Not Available Not Available Not Available Lexapro 10 mg tablet Take 1 tablet every day by oral route. active Not Available Not Available No t Available atomoxeti ne 18 mg capsule Take 1 capsule every day by oral route for 90 days. 11/15 completed Not Available Not Available Not Available atomoxeti ne 40 mg capsule 1 {capsule } by oral route. 12/22 completed Not Available Not Available Not Available atomoxeti ne 60 mg capsule Take 1 capsule every day by oral route for 90 days. 03/12 completed on hold Not Available Not Available Not Available Vitamin D3 25 mcg (1,000 unit) tablet Take 1 tablet 4 times a day by oral route. active Not Available Not Available No t Available alfuzosin ER 10 mg tablet,ex tended release 24 hr TAKE 1 TABLET BY MOUTH EVERYDAY AT BEDTIME active Not Available Not Available No t Available topiramat e 50 mg tablet Take 1 tablet twice a day by oral route for 30 days. 11/13 completed Not Available Not Available Not Available senna 8.6 mg capsule Take 2 capsules every day by oral route. 03/11 completed Not Available Not Available Not Available AndroGel 1 % 12.5 mg/1.25 gram per pump actuation transderm al gel DAILY active RECORDED 09/15/20 12 5:10PM BY LISA KEITA, ANNOTATI ON/ADDEN DUM; Not Available Not Available Not Available duloxetin e 30 mg capsule,d elayed release DAILY 12/22 completed RECORDED 12/23/19 14 2:08PM BY HALEIGH STODDARD MA, OFFICE VISIT; Not Available Not Available Not Available Cymbalta 60 mg capsule,d elayed release DAILY 12/06 completed RECORDED 12/07/19 14 3:13PM BY GASPER DIETZ MA, OFFICE VISIT; Not Available Not Available Not Available chlorhexi dine gluconate 0.12 % mouthwash SWISH 15 ML (UNDILUT ED) BY MOUTH FOR 30 SECONDS, THEN SPIT (AFTER BREAKFAS T AND BEFORE BEDTIME) 10/21 completed Not Available Not Available Not Available acetamino phen 500 mg , 2 tabs by mouth every 8 hours 02/21 completed Not Available Not Available Not Available dexametha sone 1 mg see taper 06/10 completed Not Available Not Available Not Available hydromorp daysi 2 mg , 1 to 2 tablets by mouth every 4 hours as needed 02/21 completed Not Available Not Available Not Available B Complex active Not Available Not Radha ilable Not Available bupropion HCl DAILY 12/22 completed RECORDED 12/23/19 14 2:08PM BY HALEIGH STODDARD MA, OFFICE VISIT;PE R PSYCHIAT RY Not Available Not Available Not Available multivita min active Not Available Not Available Not Available Adderall DAILY 09/07 completed RECORDED 09/07/20 13 2:14PM BY GASPER DIETZ MA, OFFICE VISIT;PS YCH PRESCRIB ES Not Available Not Available Not Available Multivita min 50 Plus Take 1 tablet daily active Not Available Not Available No t Available tretinoin -emollien t cmb9-skin cleanser 1 0.05 % topical combo pack 03/12 completed Not Available Not Available Not Available melatonin 300 mcg tablet Take 1 tablet every day by oral route at bedtime. active Not Available Not Available No t Available Vyvanse 30 mg capsule Take 1 capsule every day by oral route for 30 days. 08/03 completed Not Available Not Available Not Available Vyvanse 50 mg capsule 08/03 completed Not Available Not Available Not Available oxycodone 10 mg tablet Take 1 tablet twice a day by oral route for 30 days. 2014 active Not Available Not Available Not Avai lable ibuprofen 800 mg tablet-ir ritants counter irritants combo no.2 kit 800 mg every 8 hours by miscell. route. 01/22 completed Not Available Not Available Not Available Lamictal XR 300 mg tablet,ex tended release Take 1 tablet every day by oral route. active Not Available Not Available No t Available testoster one 20.25 mg/1.25 gram per pump act.(1.62 %) transderm al gel USE 2 PUMPS TOPICALL Y DAILY DIRECTED 07/13 completed Not Available Not Available Not Available oxycodone 5 mg tablet,or al ONLY (not feeding tubes) 5 mg every 4 hours by oral route. 07/06 completed Not Available Not Available Not Available AndroGel 1.62 % (20.25 mg/1.25 gram) transderm al gel packet Apply 1 packet every day by transder mal route. active Not Available Not Available No t Available Linzess 290 mcg capsule Take 1 capsule every day by oral route as needed for 30 days. 07/09 completed Not Available Not Available Not Available L-Methylf olate 15 mg tablet Take 1 tablet every day by oral route. active Not Available Not Available No t Available Super B Maxi Complex active Not Available Not Available Not Available Vraylar 1.5 mg capsule TAKE 1 CAPSULE BY MOUTH EVERY DAY 05/14 completed Not Available Not Available Not Available Trintelli x 20 mg tablet Take 1 tablet every day by oral route in the morning. 11/13 completed Not Available Not Available Not Available Linzess 72 mcg capsule 02/04 completed Not Available Not Available Not Available lidocaine 5 % topical patch-adh esive silicone combo pack 05/25 completed Not Available Not Available Not Available Ubrelvy 100 mg tablet TAKE 1 TABLET BY MOUTH NEEDED ONSET OF HEADACHE . MAY REPEAT ONCE. TOTAL DIALY DOSE IS 200 MG 07/13 completed Not Available Not Available Not Available Fluzone Quad (PF) 60 mcg (15 mcg x 4)/0.5 mL IM syringe PHARMACY ADMINIST ERED 11/15 completed Not Available Not Available Not Available lidocaine 5 % topical patch-zaki stic bandage, combinati on package 03/12 completed Not Available Not Available Not Available Vitals Date Recorded Body height Body mass index (BMI) Body weight Heart rate Oxygen saturation Oxygen saturation in Arterial blood by Pulse oximetry Body temperature Systolic blood pressure Diastolic blood pressure Provider Name and Address Organization Details Last Updated DateTime 4 170.18 cm 28.9 kg/m2 89797.4 g 64 /min 97 % 97 % 98.3 [degF] 147 mm[Hg] 73 mm[Hg] Ivana Hough LPN [facility] 4 10:45:52 Date Recorded Body height Body mass index (BMI) Body weight Heart rate Oxygen saturation Oxygen saturation in Arterial blood by Pulse oximetry Body temperature Systolic blood pressure Diastolic blood pressure Provider Name and Address Organization Details Last Updated DateTime 4 170.18 cm 28.2 kg/m2 91636.6 3 g 81 /min 96 % 96 % 98.5 [degF] 117 mm[Hg] 79 mm[Hg] Lorena Hager MA [facility] 4 14:28:25 Date Recorded Body height Body mass index (BMI) Body weight Heart rate Oxygen saturation Oxygen saturation in Arterial blood by Pulse oximetry Body temperature Systolic blood pressure Diastolic blood pressure Provider Name and Address Organization Details Last Updated DateTime 4 170.18 cm 28.3 kg/m2 66066.2 2 g 90 /min 97 % 97 % 98 [degF] 136 mm[Hg] 72 mm[Hg] Gasper degroot MA [facility] 4 11:27:22 Date Recorded Body height Body mass index (BMI) Body weight Oxygen saturation Oxygen saturation in Arterial blood by Pulse oximetry Heart rate Body temperature Systolic blood pressure Diastolic blood pressure Provider Name and Address Organization Details Last Updated DateTime 4 170.18 cm 28.2 kg/m2 28809.0 3 g 97 % 97 % 90 /min 98.3 [degF] 119 mm[Hg] 69 mm[Hg] Constance Benjamin MA [facility] 4 09:58:53 Date Recorded Body height Body mass index (BMI) Body weight Heart rate Oxygen saturation Oxygen saturation in Arterial blood by Pulse oximetry Body temperature Provider Name and Address Organization Details Last Updated DateTime 4 170.18 cm 28 kg/m2 42816.0 3 g 87 /min 96 % 96 % 97.9 [degF] Gasper degroot MA [facility] 4 11:26:14 Date Recorded Heart rate Heart rate Heart rate Systolic blood pressure Diastolic blood pressure Systolic blood pressure Diastolic blood pressure Systolic blood pressure Diastolic blood pressure Provider Name and Address Organization Details Last Updated DateTime 4 75 /min 83 /min 78 /min 132 mm[Hg] 86 mm[Hg] 120 mm[Hg] 66 mm[Hg] 100 mm[Hg] 60 mm[Hg] Shannon aguilar MA [facility] 4 12:42:12 Date Recorded Systolic blood pressure Diastolic blood pressure Provider Name and Address Organization Details Last Updated DateTime 07/13/2024 124 mm[Hg] 62 mm[Hg] Ryan Degroot MD [address], [address], [facility] 07/13/2024 11:40:35 Social History Question Answer Notes LastModified by Organizat ion Details LastModified Time Tobacco Smoking Status Never Smoker Gasper Gonzalez MA null, [facility] 05/15/2014 14:16:23 Do You Have An Advance Directive? Yes HCP Information not available 06/04/2022 What Is Your Level Of Alcohol Consumption? None Information not available 11/21/2020 Is Blood Transfusion Acceptable In An Emergency? Yes Information not available 09/18/2015 What Is Your Level Of Caffeine Consumption? None Information not available 11/21/2020 How Much Tobacco Do You Chew? None Information not available 09/18/2015 Are You Currently Employed? No Disability Information not available 05/15/2014 What Type Of Diet Are You Following? REGULAR Enjoys Baking Information not available 11/16/2018 Which Illicit Or Recreational Drugs Have You Used? Cocaine (hospital Visit 05/29/2017) [email or web address] Information not available 06/01/2017 Do You Or Have You Ever Used E-cigarettes Or Vape? Never Used Electronic Cigarettes Information not available 06/04/2022 What Is Your Occupation? Former [employer] Information not available 11/21/2020 Live Alone Or With Others? With Others (Myla) Information not available 06/04/2022 Do You Take Precautions To Prevent Distracted Driving? Yes Information not available 09/18/2015 How Often Do You Need To Have Someone Help You When You Read Instructions, Pamphlets, Or Other Written Material From Your Doctor Or Pharmacy? Never Information not available 09/18/2015 Have You Served In The ? No Information not available 10/14/2018 Have You Or Anyone In Your Household Had Any Of The Following Symptoms In The Last 14 Days: Sore Throat, Cough, Chills, Body Aches For Unknown Reasons, Shortness Of Breath For Unknown Reasons, Loss Of Smell, Loss Of Taste, Fever At Or Greater Than 100 Degrees Fahrenheit? No Information not available 11/21/2020 Are You Or Anyone In Your Household A Health Care Provider Or Emergency Responder? No Information not available 11/21/2020 To The Best Of Your Knowledge Have You Been In Close Proximity To Any Individual Who Tested Positive For COVID-19? No Information not available 11/21/2020 *AWV ONLY* Are You Presently Prescribed Opioid Medication By PCP Or Specialist? If YES -Provider Assess The Benefit For Other, Non-opioid Pain Therapies Instead, Even If The Patient Does Not Have OUD But Is Possibly At Risk. No Information not available 11/21/2020 Have You Recently Traveled To A COVID-19 High Risk Area Or Gathering In The Last 10 Days? No Information not available 11/21/2020 What Was The Date Of Your Most Recent Tobacco Screening? 03/02/2024 [email or web address] Information not available 03/02/2024 How Many Children Do You Have? 0 Information not available 11/21/2020 Do You Use Protection During Sex? No Information not available 09/18/2015 Seat Belts Used Routinely Yes Information not available 06/04/2022 Are You Sexually Active? Yes Information not available 05/15/2014 Smoke Alarm In Home Yes Information not available 06/04/2022 At What Age Did You Start Smoking Tobacco? 0 Information not available 09/18/2015 Are You Passively Exposed To Smoke? No Information not available 09/18/2015 Do You Or Have You Ever Used Smokeless Tobacco? Never Used Smokeless Tobacco Information not available 11/21/2020 How Much Tobacco Do You Smoke? No Information not available 05/15/2014 Do You Use Any Illicit Or Recreational Drugs? No Information not available 05/10/2024 Do You Use Sunscreen Routinely? Yes Information not available 11/21/2020 How Many Years Have You Smoked Tobacco? 0 Information not available 09/18/2015 Do You Or Have You Ever Used Any Other Forms Of Tobacco Or Nicotine? No Information not available 06/04/2022 Sex: Unknown Functional Status Question Answer Note LastModified by Organization D etails LastModified Time Are you able to walk? YESASSIST Information not available 06/04/2022 Are you able to care for yourself? Yes Information not available 05/15/2014 What is your exercise level? None Information not available 11/21/2020 Mental Status None recorded. Family History Relationship Description Onset Age of this Age Resolved Age Notes LastModified by Organization Details LastModified Time Mother Malignant neoplasm of uterus Not available 2021 08:28:52 Mother Malignant neoplasm of skin Not available 2021 08:28:52 Mother Essential hypertension Not available 08:28:52 Mother Cerebrovascu lar accident [email or web address] Not available 06/2018 11:54:52 Sister Congestive heart failure 68 70 [email or web address] Not available 2017 11:53:58 Medical History Condition Response Depression N Headaches/Migraines N Arthritis N Acid Reflux (GERD) N Ear or Hearing Problems N Allergies N Head Injury/Concussion N ADHD Y High Cholesterol Y Anemia N Mental Illness N Reflux/GERD N Immunizations Vaccine Type Date Status Note Provider Nam e and Address Organization Details Recorded Time Influenza, split virus, quadrivalent, preservative 0 completed Not Available [facility] 07/06/2023 15:35:09 COVID-19, mRNA, LNP-S, PF, 30 mcg/0.3 mL dose 1 completed Not Available [facility] 07/06/2023 15:35:09 COVID-19, mRNA, LNP-S, PF, 30 mcg/0.3 mL dose 1 completed Not Available [facility] 07/06/2023 15:35:09 Influenza, split virus, quadrivalent, PF 0 completed Not Available [facility] 07/06/2023 15:35:09 Influenza, MDCK, trivalent, PF 5 completed [facility] 07/06/2023 15:35:09 pneumococcal polysaccharide PPV23 5 completed Not Available [facility] 07/06/2023 15:35:09 Influenza, split virus, quadrivalent, PF 7 completed Not Available [facility] 07/06/2023 15:35:09 Influenza, split virus, quadrivalent, PF 9 completed Not Available [facility] 07/06/2023 15:35:09 Influenza, split virus, trivalent, PF 4 completed Not Available [facility] 07/06/2023 15:35:09 Influenza, split virus, quadrivalent, PF 7 completed Not Available [facility] 07/06/2023 15:35:09 COVID-19, mRNA, LNP-S, PF, 30 mcg/0.3 mL dose, gonzalo-sucrose 2 completed Not Available [facility] 07/06/2023 15:35:09 Tdap 6 completed Not Available [facility] 07/06/2023 15:35:09 Influenza, split virus, quadrivalent, PF 1 completed Not Available [facility] 07/06/2023 15:35:09 Influenza, split virus, quadrivalent, PF 8 completed Not Available [facility] 07/06/2023 15:35:09 Influenza, MDCK, quadrivalent, PF 2 completed [facility] 07/06/2023 15:35:09 COVID-19, mRNA, LNP-S, bivalent, PF, 50 mcg/0.5 mL or 25mcg/0.25 mL dose 2 completed Not Available [facility] 07/06/2023 15:35:09 Influenza, MDCK, quadrivalent, PF 3 completed LILIANE Galarza, [facility] 03/02/2024 13:06:31 COVID-19, mRNA, LNP-S, PF, gonzalo-sucrose, 30 mcg/0.3 mL 3 completed LILIANE Galarza, [facility] 03/02/2024 13:06:31 Influenza, split virus, trivalent, preservative 3 completed Not Available [facility] 07/06/2023 15:35:09 Influenza, split virus, trivalent, PF 4 completed Ryan Degroot MD [address], [address], [facility] 07/13/2024 19:08:38 Past Encounters Encounter ID Performer Location Encounter Start Date Encounter Closed Date Diagnosis/Indication Diagnosis SNOMED-CT Code Diagnosis ICD10 Code Diagnosis Note [id number] [facility] [address] [facility] [place] [address] 09/15/2012 00:00:00 [id number] [facility] [facility] [address] [facility] [place] [address] 11/15/2012 00:00:00 [id number] [employer] [facility] [address] [facility] [place] [address] 09/07/2013 00:00:00 [id number] [employer] [facility] [address] [facility] [place] [address] 09/19/2013 00:00:00 [id number] [employer] [facility] [address] [facility] [place] [address] 09/27/2013 00:00:00 [id number] [facility] [facility] [address] [facility] [place] [address] 10/12/2013 00:00:00 [id number] [employer] [facility] [address] [facility] [place], [place] [address] 12/06/2013 00:00:00 [id number] [employer] [address] [facility] [place], [place] [address] 12/22/2013 00:00:00 [id number] [employer] [address] [facility] [place], [place] [address] 02/07/2014 00:00:00 [id number] Gasper lema MA Main Office [address] [facility] [address] [place] [address] 05/15/2014 13:56:41 05/15/2014 14:49:22 Obstructive sleep apnea syndrome [id number] Noted to have history of CHRISTINA which is being treated with CPAP. Also wiht deviated septum. Difficulty tolerating the CPAP. [id number] Mitch Womack MD Main Office [address] [facility] [address] [place] [address] 07/31/2014 10:52:18 07/31/2014 11:08:05 Needs influenza immunization [id number] Haleigh Cesaroit Main Office [address] [place] [address] [place] [address] 08/07/2014 13:16:48 08/07/2014 14:21:04 Pre-surgery evaluation [id number] Dr. Coe on August 17, 2014. Anterior cervical spinal fusion. Cervical d isc disorder [id number] [facility] [id number] Mitch Womack MD Main Office [address] [facility] [address] [place] [address] 08/28/2014 11:33:42 08/28/2014 12:28:29 Chronic pain syndrome 579220800 Cervical d isc disorder 230075565 [id number] Nora Orozco Main Office [address] [address] [place] [address] 09/11/2014 13:53:41 09/11/2014 14:35:44 Cervical disc disorder 039797195 [id number] Laura Yeung Main Office [address] [address] [place] [address] 10/11/2014 09:27:38 10/11/2014 10:37:11 Greater trochanteric pain syndrome 8184558 [id number] Mitch Womack MD Main Office [address] [address] [place] [address] 10/25/2014 10:44:41 10/25/2014 11:32:04 Chronic pain syndrome 879104192 Gastroesop hageal reflux disease 619476726 [id number] Haleigh Stoddard Main Office [address] [address] [place] [address] 01/22/2015 09:48:59 01/22/2015 10:52:19 Chronic pain syndrome 911855066 Greater tr ochanteric pain syndrome 3099338 Acute carmen rgic reaction 691390981 [id number] Mitch Womack MD Main Office [address] [address] [place] [address] 08/08/2015 13:29:33 08/15/2015 12:40:59 [id number] Mitch Womack MD Main Office [address] [address] [place] [address] 09/18/2015 10:12:30 09/18/2015 10:55:10 Greater trochanteric pain syndrome 6414158 M70.62 Exposure t o sexually transmissible disorder 277516828 Z20.2 [id number] Mitch Womack MD Main Office [address] [address] [place] [address] 10/03/2015 09:27:44 10/03/2015 09:59:31 Greater trochanteric pain syndrome 9711722 M70.62 [id number] Mitch Womack MD Main Office [address] [address] [place] [address] 02/21/2016 15:01:01 02/21/2016 16:05:33 Adult health examination 783132822 Z00.00 Single ekaterina or depressive episode 911450472 F32.9 Acute carmen rgic reaction 450414334 T78.40XD Bee sting allergy Administra tion of diphtheria, pertussis, and tetanus vaccine 456990754 Z23 Cervical d isc disorder 509476089 M50.90 Hyperlipidemia 69303823 E78.0 Fatigue 69885496 R53.83 [id number] Mitch Womack MD Main Office [address] [address] [place] [address] 02/25/2016 15:08:20 02/25/2016 16:22:23 Puncture wound of finger 351366165 S61.231A Cervical d isc disorder 358039675 M50.90 [id number] Mitch Womack MD Main Office [address] [address] [place] [address] 10/15/2016 13:31:16 10/15/2016 14:48:55 Needs influenza immunization 179324549 Z23 Arthropath y of knee joint 218688094 M12.862 Fatigue 01241401 R53.83 [id number] Mitch Womack MD Main Office [address] [address] [place] [address] 06/02/2017 11:01:14 06/03/2017 14:32:44 [id number] Mitch Womack MD Main Office [address] [address] [place] [address] 08/03/2017 13:36:48 08/03/2017 14:43:20 Needs influenza immunization 630644286 Z23 Chronic te nsion-type headache 538080987 G44.229 [id number] Mitch Womack MD Main Office [address] [address] [place] [address] 08/11/2017 10:32:48 08/11/2017 11:17:47 Right inguinal hernia 269240972 K40.90 + noticeable bulging on right, mildly tender. Hernia of abdominal wall 796442304 K43.6 Ventral hernia, has been presents for years according to patient, + tender to palpation, causing pain now. Most visible if he is flexing abd muscles/ trying to sit from a prone position. Arthropath y of knee joint 550840971 M12.861 Chronic knee pain, establishe d with [facility] but needs a referral due to new insurance. [id number] Mitch Womack MD Main Office [address] [address] [place] [address] 11/13/2017 10:53:46 11/13/2017 12:14:24 Adult health examination 972028623 Z00.00 Obstructiv e sleep apnea syndrome 23593429 G47.33 Hyperlipidemia 75847212 E78.5 Major depr essive disorder 012874655 F32.[address] Riley for psych [id number] Estrada Rahman MD Main Office [address] [facility] [address] [place] [address] 04/19/2018 10:39:33 04/19/2018 11:52:43 Iron deficiency anemia 91884919 D50.9 WIll confirm results and start iron/vitma in C. Confirm H. pylori clearance. Reassess labs in 2-3 months and investigat e further (refer back to GI) if labs are persistent ly abnormal. History of bacterial infection 1577696006 39873 Z86.19 Chronic gastritis 253611 9 K29.50 On high dose PPI. If stool is heme positive, pt will need to f/u with GI. [id number] Malinda perez Main Office [address] [address] [place] [address] 07/09/2018 08:28:08 07/09/2018 09:20:43 Needs influenza immunization 362609436 Z23 Constipation 58420933 K5 9.09 Anemia 409161354 D64.89 will recheck labs. [id number] Mitch Womack MD Main Office [address] [address] [place] [address] 10/14/2018 13:51:11 10/14/2018 15:05:03 Frontal headache 026779235 R51 Continue with pain management for now, to see neuro, ? candidate for botox. Will use medical marijuana as needed as this provides pain relief. Consider massage, stretching . Check ESR to R/O temporal arteritits . Recommend opthalmolo gy ov, pt will make appt himself. Radicular syndrome of lower limbs 31022603 M54.10 continue with pain mgt who has been treating, will review with neurologis t at upcoming ov. [id number] Hemalatha Lujan Main Office [address] [address] [place] [address] 11/16/2018 09:35:17 11/16/2018 10:33:22 Adult health examination 958341430 Z00.00 HM UTD Gastroesop hageal reflux disease 941965345 K21.9 will increase med to BID to see if it helps. Chronic he adache disorder 122926466 G43.719 Having chronic daily headaches, has neuro appt next month but has been on daily headche meds before without success. He notes headache is debilitati ng and he does vape medical marijuana as needed. Anemia 430665173 D64.89 H/H normal but iron still low will recheck labs in 6 months. patient to re-start iron daily. Hyperlipidemia 44154494 E78.5 Muscle spa sm of cervical muscle of neck 4280238888 04 M62.838 chronic neck pain, hx cervical fusion. tried intensive PT but it was making sx worse. Chronic pain syndrome 37 0929661 G89.4 Chronic pain that he notes is debilitati ng. Has had multiple injections and seen pain management in the past. Suggest he contact pain management again. Arthropath y of knee joint 643844045 M12.861 Chronic knee pain, establishe d with [facility] but needs a referral due to new insurance. 2 patellofem oral replacemen ts- wont do full replacemen ts. Cervical d isc disorder 372830351 M50.90 History of spinal fusion 5775834793 9107 Z98.1 lumbar abd cervical. has chronic nerve damage and pain, left leg, left foot, headaches. Hip pain 96231901 M25.55 1 M25.552 bilateral hip pain due to back pain, he wonders if he can get injections today but Dr. Womack is not in today. He will call pain management . [id number] Sheri Lloyd PA-C Main Office [address] [facility] [address] [place] [address] 02/04/2019 09:06:41 02/04/2019 10:00:51 Elevated blood-pressure reading without diagnosis of hypertension 982594317 R03.0 Pt. will test BP and notify us if over 140/90 range. F/u will be set up. Iron defic iency anemia 44315714 D50.9 stable labs. Last colonoscop y was unremarkab le last year. Continue Ferrous sulfate. [id number] Mitch Womack MD Main Office [address] [facility] [address] [place] [address] 04/08/2019 10:45:14 04/08/2019 12:12:13 Hepatitis C screening 457643543 Z11.59 Lumbar radiculopathy 128 123592 M54.16 Left S1 distributi on [id number] Sheri Lloyd PA-C Main Office [address] [facility] [address] [place] [address] 06/24/2019 08:48:34 06/24/2019 10:05:22 Chronic pain syndrome 383491721 G89.4 Lumbar radiculopathy 128 318496 M54.16 L5-S1 radiculopa thy, multiple back surgeries. Will start gabapentin at 300 mg at HS for 1 week and increase to 300 mg BID. F/u 1 month. PT. will be referred to Dr. Marquis for neurosurgi reba eval. [id number] Dolly Meyers Main Office [address] [address] [place] [address] 07/06/2019 10:36:42 07/06/2019 11:15:54 Needs influenza immunization 949323754 Z23 [id number] Mitch Womack MD Main Office [address] [address] [place] [address] 08/08/2019 10:25:40 08/08/2019 11:26:35 Pain in lower limb 30556541 M79.604 M79.605 Lumbar radiculopathy 128 196779 M54.16 [id number] Rosa Isela Newsome MA Main Office [address] [address] [place] [address] 08/22/2019 15:14:54 08/22/2019 16:39:09 Cervical disc disorder 154034204 M50.90 Pt. is having evaluation restarted based on cessation of his disability by the employer. Camila Johnson. hand weakness. Pt. is seeing Dr. Friedman for occipital botox injections . Will be asked to address this issue with her and see if he needs to be referred for PT/OT to try to strengthen the arm/hand. Might need nerve conduction study. Pt. is in agreement with this referral. [id number] [facility] [address] [address] [place] [address] 11/16/2020 07:19:49 11/20/2020 14:35:47 Loss of appetite 16259140 R63.0 Fatigue 24010617 R53.83 Screening for cardiovascular system disease 514673524 Z13.6 Primary er ectile dysfunction 411912508 N52.9 Dyspnea on exertion 6084 5006 R06.09 [id number] Barrett Lloyd PA-C Main Office [address] [facility] [address] [place] [address] 11/21/2020 14:03:52 11/21/2020 16:21:25 Adult health examination 267816929 Z00.00 Hyperlipidemia 27903884 E78.5 stable, cont med as dir Anxiety state 559122536 F41.1 see below Varicella vaccination 68 547380 Z23 History of spinal fusion 5654371042 9107 Z98.1 cervical & lumbar - seen by Dr. Marquis - rev last note 07.23 - pt c/o worsening sxs L hand and L foot - last seen by pmr . - will get second opinion c pssp Body mass index 30+ - obesity 690843563 E66.9 Z68.30 Major depr essive disorder 790498057 F32.2 scored very high on aye/phq - cont med as per psychiatri st, cont counsellor bi-wkly - pt very worried about his acute on chronic musculoske letal problems as well as recent WILKINS / newly dx'd ELISABETH Attention deficit hyperactivity disorder, predominantly inattentive type 59278260 F90.0 cont stimulant as per psychiatri st Dyspnea on exertion 6084 5006 R06.09 pending stress test, will get ekg today - will give copy to pt to give to psychiatri (who had asked for it) ---- ekg c no acute changes, no sig. change from ekg 11..14 Iron defic iency anemia 64202265 D50.9 occ brbpr - will get gi re-eval -- meanwhile, rec otc iron supp c vit c 500mg daily, as well as colace 1 tab qd ---- ? ELISABETH contributi ng to above WILKINS [id number] Mitch Womack MD Telehealt h [address] [facility] [address] [place] [address] 12/14/2020 08:28:36 12/17/2020 10:41:29 Bipolar affective disorder, current episode depression 113321273 F31.30 Nausea and vomiting 1693 1999 R11.2 Arthropath y of knee joint 727606445 M12.862 [id number] Ryan Degroot MD Main Office [address] [facility] [address] [place] [address] 12/31/2020 13:47:43 12/31/2020 14:45:30 Pre-surgery testing 966160006 Z01.89 1. Pre-Surgic al Evaluation /Surgical Clearance for cervical fusion scheduled for 01/09/21 under general anesthesia . -- Clinical cardiac predictor( s): Anemia, HLD, CHRISTINA -- Surgical risk level: Moderate -- Functional Status: EXCELLENT -- Revised Cardiac Risk Index (RCRI) for Pre-Operat meenu Risk: 0 -- ANDERS Score: 0 % Risk of myocardial infarction or cardiac arrest, intraopera tively or up to 30 days post-op -- Vitals and previous labs reviewed -- Imaging: Not indicated -- EKG: Not indicated -- Labs ordered per previous PCP (CBC, BMP, PT/PTT/INR ) and for anemia. -- Informed patient NPO at midnight -- Advised to avoid aspirin and NSAIDS -- Plan of care discussed with patient. -- Medical clearance: Stable to proceed for procedure. Patient is at low/modera te risk for cardiopulm onary complicati ons with planned procedure based on comorbidit ies, good exertional tolerance and overall procedure risk.Patie nt should be followed up with Hematology after surgery for chronic anemia. I discussed case with dietitian consultant hematologi st Dr. Vides 01/01/21 who reviewed his labs and felt he can precede with procedure and be followed up after referral was placed. Anemia due to unknown mechanism 71927939 D64.9 Patient has labs pending from PCP this includes CBC will have additional labs ordered to evaluate anemia further. Addendum 01/01/21, labs reviewed, still suggesting some anemia case discussed with dietitian consultant hematologfelicia Vides 01/01/21 as patient has been on Iron since 2018 and still has anemia, hematologfelicia chamberlain advised patient can proceed but should be followed up sometime after his surgery thus a referral was placed as he has long standing anemia with changes in RBC morphology , has been on iron since 2018, has had GI workup EGD and colonoscop y most recent in 2020 (esophagit is and hemorrhoid ). He has been on correction PPI tx as he also has hx GERD and H. Pylori (completed tx). Has had GI work up has hx of barrets (resolved) , followed by GI, was also refered to colorectal in 2019 for hemorrhoid . He continues to have persistent anemia I think anemia could be due to other possible hematologi reba disorder? and hence the referral. I don't see any colorectal notes will have medical records follow up as he was refered by GI. [id number] Barrett Lloyd PA-C Main Office [address] [facility] [address] [place] [address] 05/09/2021 13:40:07 05/09/2021 14:24:58 Increased frequency of urination 444371828 R35.0 negative urinary dipstick makes uti less likely, unlikely bph c no nocturia, so suspect his sxs are d/t underlying constipati on - see below Constipation 86699205 K5 9.00 mild - moderate - see above - trial c mag citrate or senna x 1-2 nights to see if helps c bowel function and then improves above sxs - then resume colace as dir, stay well hydrated if no sig help then consider further w/u for both - TH visit next wk did have nl colon 3.21 [id number] [facility] [facility] [address] [place] [address] 05/14/2021 08:26:04 05/14/2021 15:13:03 Constipation 25133764 K59.00 no sig help senna, prog getting worse - rec mag citrate to see if this helps to clean him out and then improve his sxs - then resume colace as dir (1-2 tabs qd), stay well hydrated, and consider senna 1-2 tabs hs prn no bm x 2 days if no sig help then call us - consider further w/u for both bowels and urine did have nl colon 3.21 [id number] Barrett Lloyd [facility] [address] [facility] [address] [place] [address] 05/21/2021 13:12:30 05/21/2021 16:03:30 Lower abdominal pain 29637821 R10.[address] a/p to further evaluate lower abd pain, constipati on, change in stool quality, hematochez ia Constipation 30161920 K5 9.00 rec increase miralax to bid, and if no sig bm by day then take prn 1-2 senna hs Change in stool consistency 963355179 R19.5 did have last colon 3.21, but see above - will check CT a/p for further eval Hematochezia 635206776 K 92.[address] above Hemorrhoids 92035499 K64 .9 internal and external - no sig help c otc - will give stronger steroid cream and get colorectal eval [id number] Laura Valdez RN Main Office [address] [place] [address] 06/21/2021 09:57:43 07/18/2021 10:49:09 [id number] Davion Melton MD Main Office [address] [place] [address] 07/04/2021 10:57:49 07/04/2021 12:03:43 Needs influenza immunization 071007384 Z23 Orthostati c hypotension 26779295 I95.1 He was instructed to hold his tamsulosin and tizanidine and increase his fluid and salt intake and follow hi blood pressure. He will return in 2 weeks but will call sooner if he experience s near-synco pe or syncope. Syncope 289229112 R55 May have been secondary to meds given to him after his surgery. (tizanidin e and tamsulosin ). [id number] Davion Melton MD Tele[facility] [address] [address] [place] [address] 07/25/2021 12:22:18 07/25/2021 14:08:59 Acute prostatitis 93831333 N41.0 Will treat empiricall y and will refer to urology if no improvemen t. Near syncope 699102458 R 55 He has not had any further episodes after stopping the tizanidine and tamsulosin . [id number] Barrett Lloyd PA-C Main Office [address] [place] [address] 09/04/2021 10:56:10 09/04/2021 12:26:03 Fatigue 98068413 R53.83 Iron defic iency anemia 63551932 D50.9 seen by gi and hem - cont f/u c specialist s, will recheck labs d/t worsening of fatigue Sleep apnea 38946697 G47 .30 h/o apnea > 10 yrs ago - recalls AHI 6 - will get re-eval - ? cause of his fatigue Pain of le ft knee region 1834012585 53963 M25.562 s/p arthroscop y c neos recently - now c crepitus, pt concerned - enc pt to cont f/u c neos, but consider 2nd opinion if no resolution of pt concerns Constipation 82136240 K5 9.00 better lately on miralax qd [id number] Ryan Degroot MD Main Office [address] [facility] [address] [place] [address] 01/23/2022 13:10:53 01/27/2022 10:36:43 [id number] Ryan Degroot MD Main Office [address] [facility] [address] [place] [address] 02/21/2022 12:54:57 02/21/2022 13:37:20 Allergic reaction to bee sting 179200904 T63.444S Greater tr ochanteric pain syndrome 0826171 M70.61 M70.62 Postoperative visit 1836 23883 Z09 Cont care as per ortho. History of left total knee replacement 5683152570 170015 Z96.652 Doing well, good mobility Fatigue 66045139 R53.83 Hyperlipidemia 40245347 E78.5 Nocturia 802393548 R35.1 Anemia due to unknown mechanism 87166736 D64.9 Patient has labs pending from PCP this includes CBC will have additional labs ordered to evaluate anemia further. Addendum 01/01/21, labs reviewed, still suggesting some anemia case discussed with dietitian consultant james Vides 01/01/21 as patient has been on Iron since 2018 and still has anemia, james chamberlain advised patient can proceed but should be followed up sometime after his surgery thus a referral was placed as he has long standing anemia with changes in RBC morphology , has been on iron since 2018, has had GI workup EGD and colonoscop y most recent in 2020 (esophagit is and hemorrhoid ). He has been on correction PPI tx as he also has hx GERD and H. Pylori (completed tx). Has had GI work up has hx of barrets (resolved) , followed by GI, was also refered to colorectal in 2019 for hemorrhoid . He continues to have persistent anemia I think anemia could be due to other possible hematologi reba disorder? and hence the referral. I don't see any colorectal notes will have medical records follow up as he was refered by GI. [id number] Ryan Degroot MD Main Office [address] [facility] [place] [address] 03/12/2022 10:28:58 03/12/2022 11:24:02 Adult health examination 727441574 Z00.00 Patient was counseled on healthy diet, exercise and nutrition due to Body mass index is 28.9 kg/m??. Last PSADate: 09/17/12Re sult: 1.2Plan: ordered, reminded to do labs Last Colonoscop y:Date: 12/19/20Res ult: 5mm polypPlan: Per GI repeat 5yrs Vaccines:T dAP: 02/20/16Shi ngrix: Script providedPC V20: not dueInfluen za: 07/04/21Cov id: 12/27/20, 01/17/21, note had 1 booster, advised to get second booster. Reminder to get routine labs today Immunizati on status reviewed. Will screen based on risk factors. Regular dental and ophtho care advised as well as seat belt and sunscreen use. Distracted driving discussed. Medication reconciled . Varicella vaccination 68 422184 Z23 Bipolar af fective disorder, current episode depression 783168763 F31.30 Follows therapist. Denies homicidal or suicidal Ideation. Body mass index 25-29 - overweight 579659572 E66.3 Z68.25 - Diet and exercise discussed- Encouraged to loose weight- Avoid starchy and fatty food- Encouraged use of green vegetables and fruits Overweight 330228895 E66 .3 Allergic rhinitis 436249 04 J30.9 cw to use flonase. Arthropath y of knee joint 640364985 M12.862 Hyperlipidemia 91080569 E78.5 [id number] Ryan Degroot MD Main Office [address] [place] [address] 05/08/2022 10:23:08 05/10/2022 13:32:15 [id number] Ryan Degroot MD Main Office [address] [facility] [address] [place] [address] 05/22/2022 08:52:16 05/22/2022 16:03:37 [id number] Hemalatha Lujan Main Office [address] [facility] [address] [place] [address] 06/04/2022 08:28:41 06/05/2022 10:01:08 Transition of care from emergency department to self-care 8210194914 57553 Z76.89 ED notes reviewed. Lightheadedness 57912812 8 R42 worked up in ED, suspected dehydratio n, symptoms resolved.I suspect sx multifacto rial.Given reassuring MRI finding, I do not suspect sinister pathology. Cw hydration. Questions and concerned addressed. Nausea 309609342 R11.0 EPS signs risk discussed. [id number] Estrada Rahman MD Main Office [address] [facility] [address] [place] [address] 10/21/2022 14:17:23 10/21/2022 15:12:11 Encephalomalacia 56652227 G93.89 Has history of head injury as likely explanatio n. History of cervical spine fusion 0601855156 101 Z98.1 Last MRI showed possible disease progressio n outside of hardware from previous fusion. Need to make sure this has not progressed . Dizziness 771798026 R42 Question is this is cardiogeni c vs neurogenic . Based on history and exam findings I am more concerned for neurologic process. Will rule out inner ear disease and cervical spine stenosis with imaging. If unremarkab le and episodes recur will consider cardiac assessemen t. Bilateral tinnitus 30256 72089 102 H93.13 Has ENT appt scheduled. No previous IAC imaging done. Unsteady w hen standing 497910387 R26.81 Concern for cervical spine stenosis. [id number] Ryan Degroot MD Main Office [address] [facility] [address] [place] [address] 03/24/2023 11:44:06 03/26/2023 17:40:46 [id number] Ryan Degroot MD Main Office [address] [facility] [address] [place] [address] 06/10/2023 14:59:29 06/10/2023 15:25:20 Skin lesion 68653481 L98.9 [id number] Sheridian Lolyd PA-C Main Office [address] [facility] [address] [place] [address] 12/23/2023 13:00:02 12/23/2023 13:29:44 Benign prostatic hyperplasia with outflow obstruction 671693067 N40.1 recommend to see urologist due to ongoing issues with urination. Check uronalysis and reflex culture. Dysuria-fr equency syndrome 3077491 R30.0 [id number] Ryan Degroot MD Main Office [address] [facility] [address] [place] [address] 03/02/2024 13:03:18 03/02/2024 13:50:45 Adult health examination 785367153 Z00.00 Patient was counseled on healthy diet, exercise and nutrition due to Body mass index is 29.1 kg/m??. Last PSADate: 03/19/22Res ult: 2.5Plan: followed by urologist Last Colonoscop y:Date: 12/19/20Res ult: 5mm polypPlan: Per GI repeat 5yrs Vaccines:T dAP: 02/21/16Zos ter Rec: Script provided [id number] : not [id number]: 08/14/15, Likely given 2/2 to hx of etoh use.Influe nza: yearly flu encouraged Covid: encourage updated vaccineRSV : Script given. Reminder to get routine labs today Immunizati on status reviewed. Will screen based on risk factors. Regular dental and ophtho care advised as well as seat belt and sunscreen use. Distracted driving discussed. Medication reconciled . Varicella vaccination 68 387556 Z23 Bipolar af fective disorder, current episode depression 731082968 F31.30 Denies homicidal or suicidal Ideation.E ncouraged, psychother apy. Body mass index 25-29 - overweight 428810716 E66.3 Z68.25 - Diet and exercise discussed- Encouraged to loose weight- Avoid starchy and fatty food- Encouraged use of green vegetables and fruits Overweight 731445267 E66 .3 Hyperlipidemia 21717700 E78.5 Pederson's esophagus 3029 07415 K22.70 Benign pro static hyperplasia with outflow obstruction 235434254 N40.1 Iron defic iency anemia 76557579 D50.9 Prediabetes 131975611 R7 3.03 Fatigue 95918904 R53.83 Z00.00 Administra tion of viral vaccine 39605944 Z29.11 Skin lesion 67149413 L98 .9 [id number] LISA BELTRE Main Office [address] [address] [place] [address] 03/11/2024 10:34:07 03/11/2024 11:04:39 Blood in urine 40614859 R31.9 x1yr of noticing a pink hue in his urine-symp toms of urinary urgency-de nies of any dysuria, increase frequency, or trauma to the area-A1C of 6.0, eGFR of 89-will order PSA-follow s with urology; has an US of the prostate next week [id number] Ryan Degroot MD Main Office [address] [address] [place] [address] 04/29/2024 14:22:41 04/29/2024 15:37:43 Cervico-occipital neuralgia [id number] M54.81 Headache 81195866 R51.9 Fatigue 34383036 R53.83 Z00.00 Nondepende nt alcohol abuse in remission [id number] F10.11 Abnormal l iver function 35756562 K76.89 Reminded to get labs done. EKG: T wave abnormal 164 518806 R94.31 First degr ee atrioventricular block [id number] I44.0 [id number] Hemalatha Lujan Main Office [address] [address] SHY ABEBA LILIANE [address] 05/10/2024 11:11:23 05/10/2024 12:07:47 Testosterone level below reference range 367375892 R89.1 Disorder of skull 275564 008 P13.1 [id number] Ryan Degroot MD Main Office [address] [address] SH[place] ABEBA LILIANE [phone] 05/25/2024 09:50:48 05/25/2024 10:28:38 Pain of right shoulder joint [id number] 1310138 M25.511 -He will use otc tylenol 1gm every 6hr as needed.-Me loxicam prn for break through pain.-Also advised otc lidocane patch.-Tx per ortho. Transition of care from emergency department to self-care [id number] 61565 Z76.89 ED notes reviewed. [id number] Ryan Degroot MD Main Office [address] [facility] [place] [address] 07/13/2024 11:16:20 07/13/2024 12:42:07 Unsteady when walking 74742523 R26.89 Benign par oxysmal positional vertigo 953526445 H81.10 Dizziness 403719776 R42 Bilateral tinnitus 56649 85169 102 H93.13 Unsteady w hen standing 815711383 R26.81 At [facility] ed risk for falls 612622403 Z91.81 Needs infl uenza immunization 917959264 Z23 19 YEARS AND OLDER ONLY Health Concerns Section Related Observation LastModified by Organization Detai ls LastModified Time None Recorded Concern Status LastModified by Organization Details LastModified Time None Recorded Advance Directives Directive Y: HCP Payers Encounter Date Sequence Insurance Name Policy Number Policy Rich Covered Member ID Rich Member ID Guarantor Name 03/11/2024 1 [facility] - DOS ON OR AFTER 2023 - ONE CARE (MEDICARE REPLACEMENT/AD VANTAGE - HMO) Gene A Archambeau [id number] Gene A Archambeau 04/29/2024 1 [facility] [employer] - DOS ON OR AFTER 2023 - ONE CARE (MEDICARE REPLACEMENT/AD VANTAGE - HMO) Gene A Archambeau [id number] Gene A Archambeau 05/10/2024 1 [facility] [employer] - DOS ON OR AFTER 2023 - ONE CARE (MEDICARE REPLACEMENT/AD VANTAGE - HMO) Gene A Archambeau [id number] Gene A Archambeau 05/25/2024 1 [facility] - DOS ON OR AFTER 2023 - ONE CARE (MEDICARE REPLACEMENT/AD VANTAGE - HMO) Ramesh Thomas Archambeau [id number] Ramesh Thomas Archambeau 07/13/2024 1 [facility] - DOS ON OR AFTER 2023 - ONE CARE (MEDICARE REPLACEMENT/AD VANTAGE - HMO) Ramesh Thomas Archambeau [id number] Ramesh Thomas Archambeau Notes Date Note Type Note Provider Name and Address Organization Details Recorded Time 03/11/2024 text/html Ramesh is a 59yr o ld M who presents for pink hue in his urine. Noticed a like hue of pink in his urine x1yr. Symptoms of increase urgency and a weak stream. Pt requests PSA labs. Follows with urology and is scheduled to have US performed on Thursday. Denies of any changes in medication, trauma to the area, dysuria, or increase in frequency. LISA BELTRE [address] [address], [place], [address], [facility] 03/11/2024 11:09:45 04/29/2024 text/html FatigueReported bypatient.Severity:sle ep at 11, wakes up a few time has christina does not use CPAP. Context:problems/stres s at work or home Modifying Factors:taking vitamins;new stressors in life Associated Symptoms:no drug/alcohol withdrawal; no anxiety; no snoring; no recent change in weight;depressionNotes :Notes sleep could be better.HeadacheReporte d bypatient.Location:occ ipital Quality:not the worst headache ever;not similar to previous headaches Onset/Timing:still present; occur daily Aggravating factors:cough, sneezing. Alleviating factors:resting. Associated Symptoms:no vomiting; no sensitivity to light; no confusion; no slurred speech; no preceeding aura; no double vision; normal feeling/sensation; no motor paralysis; no dizziness; no nosebleeds; no hoarseness; no sore throat;nausea;loss of hearing(Old on right side.)Notes:cough sneeze, palpable Ramesh presents today to discuss various health concerns, with his most pressing issue being headaches. He has been under the care of a neurologist but wishes to switch to a more local provider. Post-surgery for a schwannoma, he has experienced headaches that originate from the back of his head and move to the front, which are intermittent and palpable upon touch. These headaches can be severe and debilitating. He has undergone multiple imaging studies post-surgery, which he reports have been mostly normal, although specific results are not available at this time. Aaron also confirms regular use of his CPAP machine for sleep apnea and has followed up with his neurosurgeon, who advised continuing care under a neurologist. Additionally, he is under psychiatric care with Gala Riley for his mental health; his bipolar disorder is considered a working diagnosis, with ongoing assessments indicating potential ADHD, anxiety, and depression. He denies any thoughts of self-harm or harming others. He notes occasional sleep disturbances, compounded by home stressors, particularly caring for his who suffered a stroke. Regarding his headaches, Aaron notes exacerbation during coughing and sneezing. He was previously sent to the emergency room to rule out a CSF leak, which was not confirmed. Ryan Degroot MD [address], [address], [facility] 05/01/2024 23:46:58 05/10/2024 text/html The patient pres ents with concerns of low testosterone, characterized by significant fatigue and reduced energy levels. He reports a noticeable decrease in muscle mass and concurrent depressive symptoms. Additionally, the patient experiences compromised sleep quality, which he attributes to pain in the skull. Despite these symptoms, he denies any loss of libido. He mentions ongoing headaches, which have impeded his ability to exercise. Although he is currently under the care of a neurologist, he seeks a second opinion regarding his headaches. He also reports a palpable hard lump measuring 2 x 2 centimeters located approximately 2 inches distal to a surgical scar on his scalp. The lump produces a crackling sound when manipulated, suggestive of possible postoperative subcutaneous emphysema. He has had an X-ray and MRI performed, and previously, an ultrasound was ordered but not completed. Hemalatha casas [facility] 05/18/2024 14:20:17 05/25/2024 text/html Emergency Depart ment Follow-Up RecordReported bypatient.Discharge Informationname of ED [facility]; emergency department discharge date: (Please enter in format 'MM/DD/YYYY') (05/16/24); date of follow-up phone call: (Please enter in format 'MM/DD/YYYY') (05/25/24)Notes:The patient is scheduled to see a neurologist for headaches in July. A second opinion with a neurosurgeon was declined per neurosurgeon for his scalp lump. The patient plans to follow up with his previous neurosurgeon, with an appointment scheduled on 06/30. An ultrasound has been ordered and is scheduled for next week for his skull. He will be seeing a urologist this Thursday for concerns of low testosterone. The patient injured his rigth shoulder and is under the care of Dr. Askew, with an MRI scheduled for the followed by a planned injection. He had an X-ray and initially sought care in the ED after waking up with pain. Ryan Degroot MD [address], [address], [facility] 05/25/2024 10:31:40 07/13/2024 text/html DizzinessReporte d bypatient.Quality:unst eadiness Severity:some effect on daily activities Duration:intermittent episodes lasting:; second Onset/Timing:actual date of onset: Context:non-smoker Associated Symptoms:no double vision; no dysphagia; no slurred speech; no blurred vision; no vision changes; no foggy vision; no blindness; no spots in field of vision; no eye pain; no hearing loss; no difficulty understanding speech; no ear discharge; no pressure in ears; no earache; no syncope; no loss of consciousness; no vomiting; no weak limbs; no facial numbness; no difficulty with speech; no tingling around the mouth; normal stools; no sensation of heart racing; no history of hypertension; no history of diabetes; no seizure; no facial weakness; no tingling of fingers; no audible eye movements;anxiety or unsteady feelings;headache;naus ea;history of falls The patient presented for evaluation due to balance issues over the last four months, feeling off-balance. He has difficulty catching himself if he is about to fall and feels less coordinated. His symptoms improved after schwannoma surgery but have recently worsened. He has had no falls but has experienced some stumbling, which occurs irrespective of the time of day. The patient describes his symptoms as unsteadiness without associated dizziness or leg weakness. He notes that uneven surfaces exacerbate his symptoms. He denies experiencing vertigo, changes in vision, or significant leg pain. There has been a recent change in his medications, and he has no family history of memory concerns. Socially, he lives in a two-story home but sleeps on the main floor and does not consume alcohol. Despite these challenges, he maintains functionality in his daily activities. Neurologically, he experiences headaches but no loss of consciousness, numbness, or tingling sensations down his legs. He denies chest pain, palpitations, and hearing loss, but reports tinnitus and no visual impairments. Psychiatrically, he reports some depression but no anxiety and follows up with a psychotherapist. He has an ENT in [place] and has had an MRI, which he reports looked good. He has discussed these issues with his ENT, who was not concerned, and his neurosurgeon has recommended vestibular therapy for this. Ryan Degroot MD [address] [facility] [address], [place], [address], [facility] 07/13/2024 19:22:41
--- NOTE | 2024-11-28 21:53 | PC.NURSE ---
Patient needed to be physically restrained due to head banging and continuously wrapping things around head and neck. PO meds had previously been offered and patient told nurse she would shove them down my fucking throat if offered again. Patient was then found in the bathroom with brenton wrapped around neck; did willingly leave the bathroom with securities presence. However once patient entered room, patient began head banging and spitting at staff. At that point patient was physically moved onto a mattress on the bed, and restrained. Medications: Lorazepam, Haldol, and Benadryl were administered in both left and right thigh. At this exact time patient continues to be disruptive by banging the sides of the bed and screaming. Patient is a 1:1 will continue to evaluate the need for restraints and or more medication.
--- NOTE | 2024-11-29 | ECG_ITS ---
Test Reason : qtc check Blood Pressure : */* mmHG Vent. Rate : 61 BPM Atrial Rate : 61 BPM P-R Int : 222 ms QRS Dur : 102 ms QT Int : 392 ms P-R-T Axes : 75 16 21 degrees QTcB Int : 394 ms Sinus rhythm with sinus arrhythmia with 1st degree A-V block Septal infarct (cited on or before 23-Apr-2021) Abnormal ECG When compared with ECG of 01-Oct-2022 12:28, Questionable change in initial forces of Septal leads Referred By: Gloria García Electronically Signed By: ALINA DAMON
[2024-11-29] MEDS: clonazePAM 1 MG TABLET PO ×2 (00:48→21:22)
[2024-11-29] MEDS: lamoTRIgine 100 MG TABLET 200 MG PO ×3 (00:50→21:17)
[2024-11-29 01:28] VITALS: BP 103/53; PULSE 68; RESP 17; TEMP 36.6; O2SAT 98
--- NOTE | 2024-11-29 07:59 | PC.NURSE ---
Assumed care of patient at 0645, patient appears to be in no apparent distress this am, sitting up on couch eating breakfast. Continue plan of care for IPLOC
[2024-11-29] MEDS: Aspirin Enteric Coated 81 MG TABLET.DR PO (08:43)
[2024-11-29] MEDS: modafiniL 100 MG TABLET PO (08:43)
[2024-11-29] MEDS: Atorvastatin Calcium 20 MG TABLET PO (08:43)
[2024-11-29] MEDS: Acetaminophen 325 MG TABLET 975 MG PO (08:43)
--- NOTE | 2024-11-29 09:44 | MHC.CARE ---
Call from Jerad at [facility], patient's coverage ended 11/04/24 and will restart 12/03/24. No other information available.
[2024-11-29 11:15] VITALS: RESP 16
--- NOTE | 2024-11-29 11:27 | MHC.CARE ---
Elder protective worker [facility] [phone] ext. [phone] called reporting concerns for patients ?s safety as she visited with him today 11/29/24 in behavioral POD and he reported suicidal ideation as well as homicidal ideation towards his . She reports she can be reached at above number for additional collateral information.
[2024-11-29] MEDS: Ondansetron ODT 4 MG TAB.RAPDIS TRANSLINGU (13:16)
[2024-11-29 14:50] VITALS: BP 156/76; PULSE 58; RESP 16; TEMP 36.9; O2SAT 98
[2024-11-29 15:25] VITALS: BMI 25.8
--- NOTE | 2024-11-29 15:30 | PC.ADMIT ---
Addendum entered by Ramona Marie RN 11/29/24 16:14: Admission completed. Legals signed. Safety tool & treatment plan completed. No current SI or HI at this time. Original Note: Ramesh is a 59yr old man, admitted from [facility] after calling crisis with reports of worsening depression and HI towards his . 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 Utox positive for THC, pt is not a smoker and declines flu shot. Skin/safety check performed, scars noted on right lower abdomen, upper and lower back. 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 Pt sees Dr Riley and has a PCP but denies seeing a therapist. Pt has PMH of ADD and MDD. Pt has a signed an accepted CV and is on 15min checks. Admission to be completed by oncoming RN
[2024-11-29] MEDS: hydrOXYzine HCL 25 MG TABLET PO (16:19)
[2024-11-29] MEDS: Acetaminophen 325 MG TABLET 650 MG PO ×2 (16:19→21:22)
[2024-11-29 20:00] VITALS: BP 152/78; PULSE 68; RESP 16; TEMP 37.3; O2SAT 98
[2024-11-30] MEDS: Acetaminophen 325 MG TABLET 650 MG PO ×3 (06:16→22:07)
[2024-11-30] MEDS: Ondansetron ODT 4 MG TAB.RAPDIS TRANSLINGU ×2 (08:22→16:31)
[2024-11-30 08:38] LABS: Estimated Average Glucose 120 mg/dL; Hemoglobin A1C 165.2375 umol/L; Hemoglobin A1c % 5.8 % (<6.0); Total Hemoglobin (HGBA1C) 4108.8712 umol/L
[2024-11-30 08:51] LABS: Cholesterol 192 mg/dL (<200); HDL Cholesterol 43 mg/dL (>40); LDL Cholesterol Calculated 119 mg/dL (<100); Magnesium 1.9 mg/dL (1.6-2.6); Triglycerides 152 mg/dL (<150)
[2024-11-30] MEDS: Atorvastatin Calcium 20 MG TABLET PO (08:54)
[2024-11-30] MEDS: Aspirin Enteric Coated 81 MG TABLET.DR PO (08:54)
[2024-11-30] MEDS: lamoTRIgine 100 MG TABLET 200 MG PO ×2 (08:54→21:13)
[2024-11-30] MEDS: modafiniL 100 MG TABLET PO (08:55)
[2024-11-30 08:56] VITALS: BP 137/79; PULSE 71; RESP 18; TEMP 36.9; O2SAT 97
[2024-11-30 09:06] LABS: Free T4 (Free Thyroxine) 0.91 ng/dL (0.71-1.85); Thyroid Stimulating Hormone 1.07 uIU/mL (0.32-4.0)
[2024-11-30] MEDS: hydrOXYzine HCL 25 MG TABLET PO (09:06)
[2024-11-30 09:23] LABS: Folate 5.3 ng/mL (> or = 4.0); Vitamin B12 545 pg/mL (200-900)
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
[2024-11-30] MEDS: OLANZapine 5 MG TABLET PO ×2 (15:42→21:14)
[2024-11-30 20:00] VITALS: BP 152/78; PULSE 75; TEMP 37.1; O2SAT 96
[2024-11-30] MEDS: clonazePAM 1 MG TABLET PO (21:13)
[2024-12-01] MEDS: Acetaminophen 325 MG TABLET 650 MG PO ×3 (06:22→19:03)
[2024-12-01] MEDS: Ondansetron ODT 4 MG TAB.RAPDIS TRANSLINGU (06:23)
[2024-12-01 07:00] VITALS: BMI 25.6
[2024-12-01 08:45] VITALS: BP 127/73; PULSE 83; RESP 18; TEMP 37.1; O2SAT 97
[2024-12-01] MEDS: Aspirin Enteric Coated 81 MG TABLET.DR PO (09:05)
[2024-12-01] MEDS: lamoTRIgine 100 MG TABLET 200 MG PO ×2 (09:05→21:10)
[2024-12-01] MEDS: Atorvastatin Calcium 20 MG TABLET PO (09:05)
--- NOTE | 2024-12-01 14:28 | HO.PSYCHPN ---
Subjective Subjective Date of Service: 12/01/24 Reason For Visit: RECURRENT MAJOR DEPRESSION Subjective Notes: Conditional Voluntary Healthcare Proxy: No Guardianship: No Medical Problems Affecting Mental Status: No Interim History: Zyprexa not helpful with anxiety. Will trial Depakote. Care review with Dr. Riley. Discussed consulting an patent prosecution attorney for advice on his rights and to discuss what he wants for himself. Pt agrees. Medication Compliance: Yes Side effects from medications: No Attending Groups: Intermittent Review of Systems chronic headache Review of Systems Review of Systems chronic headache Mental Status Exam Mental Status Exam Patient Appearance: Appropriate Patient Orientation: Person, Place, Time and Situation Level of Consciousness: Alert Patient Behavior: Talkative and Good Eye Contact Mood Description: Depressed Affect Description: Flat Patient Cognition Impaired: No Ability to Follow Directions: Good Speech Pattern: Spontaneous Speech Memory Description: Intact Hallucinations: None Delusions: Not Present Thought Process: Rumination Thought Content: positive for Circumstantial, positive for Perseveration and positive for Suicidal Ideation Depressive Symptoms: Increased Anxiety, Increased Irritability and Thoughts of /Suicide Judgement: Fair Diagnostics Vital Signs (24Hr): Vital Signs - 24 hr 11/30/24 20:00 12/01/24 08:45 Temperature 98.7 F 98.7 F Pulse Rate 75 83 Respiratory Rate 18 Blood Pressure 152/78 H 127/73 Pulse Oximetry 96 97 Oxygen Delivery Method Room Air Room Air BMI result Body Mass Index 25.6 Labs 11/28/24 18:11 11/28/24 18:11 Labs: Laboratory Results - last 48 hr 11/30/24 08:11 Estimat Average Glucose 120 Hemoglobin A1c % 5.8 Magnesium 1.9 Triglycerides 152 H Cholesterol 192 LDL Cholesterol, Calc 119 H HDL Cholesterol 43 Vitamin B12 545 Folate 5.3 TSH 1.07 Free T4 0.91 Medications Medications Current Medications Acetaminophen (Acetaminophen 325 Mg Tablet) 650 mg PO Q6H PRN PRN Reason: Headache/Pain, Scale 1-10 Last Admin: 12/01/24 13:01 Dose: 650 mg Al Hydroxide/Mg Hydroxide (Magnesium Hydrox/Alum Hydrox 30 Ml Oral.Susp) 30 ml PO Q6H PRN PRN Reason: Heartburn/Nausea Aspirin (Aspirin Enteric Coated 81 Mg Tablet.) 81 mg PO DAILY [facility] Last Admin: 12/01/24 09:05 Dose: 81 mg Atorvastatin Calcium (Atorvastatin Calcium 20 Mg Tablet) 20 mg PO DAILY [facility] Last Admin: 12/01/24 09:05 Dose: 20 mg Clonazepam (Clonazepam 1 Mg Tablet) 1 mg PO BEDTIME PRN PRN Reason: insomnia Last Admin: 11/30/24 21:13 Dose: 1 mg Clonidine HCl (Clonidine Hcl 0.1 Mg Tablet) 0.1 mg PO BID PRN; Protocol PRN Reason: severe anxiety Hydroxyzine HCl (Hydroxyzine Hcl 25 Mg Tablet) 25 mg PO Q6H PRN PRN Reason: mild anxiety Last Admin: 11/30/24 09:06 Dose: 25 mg Lamotrigine (Lamotrigine 100 Mg Tablet) 200 mg PO BID [facility] Last Admin: 12/01/24 09:05 Dose: 200 mg Magnesium Hydroxide (Milk Of Magnesia 30 Ml Oral.Susp) 30 ml PO DAILY PRN PRN Reason: Constipation Modafinil (Modafinil 100 Mg Tablet) 100 mg PO DAILY [facility] Last Admin: 12/01/24 09:50 Dose: Not Given Nicotine Polacrilex (Nicotine Polacrilex 2 Mg Gum) 4 mg BUCCAL Q2H PRN PRN Reason: Nicotine Cravings Non-Formulary Medication (Guanfacine) 0.5 mg PO BEDTIME [facility] Olanzapine (Olanzapine 5 Mg Tablet) 5 mg PO Q4H PRN PRN Reason: agitation, anxiety Last Admin: 11/30/24 21:14 Dose: 5 mg Ondansetron HCl (Ondansetron Odt 4 Mg Tab.Rapdis) 4 mg TRANSLINGU Q6H PRN PRN Reason: Nausea and Vomiting Last Admin: 12/01/24 06:23 Dose: 4 mg Trazodone HCl (Trazodone Hcl 50 Mg Tablet) 50 mg PO BEDTIME MRX1 PRN PRN Reason: Insomnia Allergies Allergies Allergy/AdvReac Type Severity Reaction Status Date / Time bee pollen [BEE STINGS] Allergy Severe ANAPHYLAXIS Verified 11/28/24 16:53 morphine [MORPHINE] Allergy Mild not Verified 11/28/24 16:53 effective- per pt. tizanidine Allergy Unknown Verified 11/28/24 16:53 bupropion [From WELLBUTRIN] AdvReac Severe PATIENT Verified 11/28/24 16:53 BECOME DEPRESSED Assessment & Plan Assessment & Plan (1) ADD (attention deficit disorder) without hyperactivity: Status: Acute Code(s): F98.8 - Other specified behavioral and emotional disorders with onset usually occurring in childhood and adolescence (2) Major depression, recurrent, chronic: Status: Acute Code(s): F33.9 - Major depressive disorder, recurrent, unspecified Plan 12/01/24: DC Olanzapine Depakote 125 mg tid Neuro consult-chronic headache Reason for continued inpatient stay Substantial Risk for: rapid decompensation Time Spent With Patient Time: Total time managing care of this patient today ____ minutes.
[2024-12-01 15:09] VITALS: BP 123/71
[2024-12-01] MEDS: cloNIDine HCL 0.1 MG TABLET PO (15:09)
[2024-12-01 19:51] VITALS: BP 124/70; PULSE 70; RESP 18; TEMP 36.4; O2SAT 97
[2024-12-01] MEDS: clonazePAM 1 MG TABLET PO (21:10)
[2024-12-01] MEDS: Divalproex Sodium Sprinkles 125 MG CAP.DR.SPR PO (21:10)
[2024-12-01] MEDS: hydrOXYzine HCL 25 MG TABLET PO (21:11)
[2024-12-02 08:27] VITALS: BP 137/67; PULSE 74; TEMP 36.8; O2SAT 98
--- NOTE | 2024-12-02 09:01 | HO.PSYCHPN ---
Subjective Subjective Date of Service: 12/02/24 Reason For Visit: RECURRENT MAJOR DEPRESSION Subjective Notes: Conditional Voluntary Medical Problems Affecting Mental Status: No Interim History: Patient seen psychiatric follow-up. Patient denies thoughts of self-harm denies that he threatened his stating he had called asking for help was worried that something bad would happen because of her behavior. Patient anxious ruminating somewhat irritable and depressed. Agreeable to Depakote trial history of chronic depression. Denies any use of stimulants anabolic steroids or drugs or alcohol. Medication Compliance: Yes Mental Status Exam Mental Status Exam Patient Appearance: Well Grooomed and Appropriate Patient Orientation: Person and Situation Level of Consciousness: Awake and Appropriate Patient Behavior: Guarded Mood Description: Calm Affect Description: Constricted Patient Cognition Impaired: Yes Ability to Follow Directions: Good Speech Pattern: Clear Hallucinations: None Delusions: Not Present Thought Process: Distracted and Slowed Thinking Thought Content: positive for Circumstantial Judgement: Fair Diagnostics Vital Signs (24Hr): Vital Signs - 24 hr 12/01/24 15:09 12/01/24 19:51 12/02/24 08:27 Temperature 97.5 F 98.3 F Pulse Rate 70 74 Respiratory Rate 18 Blood Pressure 123/71 124/70 137/67 Pulse Oximetry 97 98 Oxygen Delivery Method Room Air Room Air BMI result Body Mass Index 25.6 Labs 11/28/24 18:11 11/28/24 18:11 Labs: Laboratory Results - last 48 hr 11/30/24 08:11 Vitamin B12 545 Folate 5.3 TSH 1.07 Free T4 0.91 Medications Medications Current Medications Acetaminophen (Acetaminophen 325 Mg Tablet) 650 mg PO Q6H PRN PRN Reason: Headache/Pain, Scale 1-10 Last Admin: 12/01/24 19:03 Dose: 650 mg Al Hydroxide/Mg Hydroxide (Magnesium Hydrox/Alum Hydrox 30 Ml Oral.Susp) 30 ml PO Q6H PRN PRN Reason: Heartburn/Nausea Aspirin (Aspirin Enteric Coated 81 Mg Tablet.) 81 mg PO DAILY [facility] Last Admin: 12/01/24 09:05 Dose: 81 mg Atorvastatin Calcium (Atorvastatin Calcium 20 Mg Tablet) 20 mg PO DAILY [facility] Last Admin: 12/01/24 09:05 Dose: 20 mg Clonazepam (Clonazepam 1 Mg Tablet) 1 mg PO BEDTIME PRN PRN Reason: insomnia Last Admin: 12/01/24 21:10 Dose: 1 mg Clonidine HCl (Clonidine Hcl 0.1 Mg Tablet) 0.1 mg PO BID PRN; Protocol PRN Reason: severe anxiety Last Admin: 12/01/24 15:09 Dose: 0.1 mg Divalproex Sodium (Divalproex Sodium Sprinkles 125 Mg ) 125 mg PO TID [facility] Last Admin: 12/01/24 21:10 Dose: 125 mg Hydroxyzine HCl (Hydroxyzine Hcl 25 Mg Tablet) 25 mg PO Q6H PRN PRN Reason: mild anxiety Last Admin: 12/01/24 21:11 Dose: 25 mg Lamotrigine (Lamotrigine 100 Mg Tablet) 200 mg PO BID [facility] Last Admin: 12/01/24 21:10 Dose: 200 mg Magnesium Hydroxide (Milk Of Magnesia 30 Ml Oral.Susp) 30 ml PO DAILY PRN PRN Reason: Constipation Modafinil (Modafinil 100 Mg Tablet) 100 mg PO DAILY [facility] Last Admin: 12/01/24 09:50 Dose: Not Given Nicotine Polacrilex (Nicotine Polacrilex 2 Mg Gum) 4 mg BUCCAL Q2H PRN PRN Reason: Nicotine Cravings Non-Formulary Medication (Guanfacine) 0.5 mg PO BEDTIME [facility] Ondansetron HCl (Ondansetron Odt 4 Mg Tab.Rapdis) 4 mg TRANSLINGU Q6H PRN PRN Reason: Nausea and Vomiting Last Admin: 12/01/24 06:23 Dose: 4 mg Trazodone HCl (Trazodone Hcl 50 Mg Tablet) 50 mg PO BEDTIME MRX1 PRN PRN Reason: Insomnia Allergies Allergies Allergy/AdvReac Type Severity Reaction Status Date / Time bee pollen [BEE STINGS] Allergy Severe ANAPHYLAXIS Verified 11/28/24 16:53 morphine [MORPHINE] Allergy Mild not Verified 11/28/24 16:53 effective- per pt. tizanidine Allergy Unknown Verified 11/28/24 16:53 bupropion [From WELLBUTRIN] AdvReac Severe PATIENT Verified 11/28/24 16:53 BECOME DEPRESSED Assessment & Plan Assessment & Plan (1) ADD (attention deficit disorder) without hyperactivity: Status: Acute Code(s): F98.8 - Other specified behavioral and emotional disorders with onset usually occurring in childhood and adolescence (2) Major depression, recurrent, chronic: Status: Acute Code(s): F33.9 - Major depressive disorder, recurrent, unspecified Plan 12/01/24: DC Olanzapine Depakote 125 mg tid Neuro consult-chronic headache Patient educated on: diagnosis, medication risk/benefits and therapeutic strategies Informed Consent: understands Reason for continued inpatient stay Substantial Risk for: inability to function and rapid decompensation Time Spent With Patient Time: Total time managing care of this patient today ____ minutes.
[2024-12-02] MEDS: Aspirin Enteric Coated 81 MG TABLET.DR PO (09:08)
[2024-12-02] MEDS: Atorvastatin Calcium 20 MG TABLET PO (09:08)
[2024-12-02] MEDS: lamoTRIgine 100 MG TABLET 200 MG PO ×2 (09:08→21:31)
[2024-12-02] MEDS: Divalproex Sodium Sprinkles 125 MG CAP.DR.SPR PO ×3 (09:08→21:31)
[2024-12-02 11:28] VITALS: BP 126/77
[2024-12-02] MEDS: cloNIDine HCL 0.1 MG TABLET PO (11:28)
[2024-12-02] MEDS: Acetaminophen 325 MG TABLET 650 MG PO ×2 (12:52→21:42)
[2024-12-02 20:00] VITALS: BP 154/81; PULSE 81; TEMP 36.9; O2SAT 99
[2024-12-02] MEDS: clonazePAM 1 MG TABLET PO (21:31)
[2024-12-03] MEDS: Acetaminophen 325 MG TABLET 650 MG PO ×3 (05:33→21:37)
[2024-12-03] MEDS: Atorvastatin Calcium 20 MG TABLET PO (08:19)
[2024-12-03] MEDS: lamoTRIgine 100 MG TABLET 200 MG PO ×2 (08:19→21:38)
[2024-12-03] MEDS: Aspirin Enteric Coated 81 MG TABLET.DR PO (08:19)
[2024-12-03] MEDS: Divalproex Sodium Sprinkles 125 MG CAP.DR.SPR PO ×3 (08:19→21:37)
[2024-12-03 08:23] VITALS: BP 145/81; PULSE 84; RESP 16; TEMP 36.8; O2SAT 98
--- NOTE | 2024-12-03 10:36 | P.PNPSI_ITS ---
Subjective Subjective Date of Service: 12/03/24 Reason For Visit: RECURRENT MAJOR DEPRESSION Subjective Notes: Conditional Voluntary Interim History: The nursing staff reported that the patient has refused his Provigil and his anxiety is better. His , who has TBI for the last 15 months, has called several times. On interview, he reported that he feels better now that he has refused his Provigil, better on the anxiety. No oversedation with the addition of Depakote. Pleasant, cooperative, able to make his needs known. Mental Status Exam Mental Status Exam Patient Appearance: Appropriate Patient Orientation: Person and Situation Level of Consciousness: Awake and Appropriate Patient Behavior: Guarded and Passive Mood Description: Withdrawn and Appropriate Affect Description: Constricted Patient Cognition Impaired: Yes Ability to Follow Directions: Good Speech Pattern: Clear Hallucinations: None Delusions: Not Present Thought Process: Distracted and Linear Thought Content: positive for [place] and positive for Circumstantial Judgement: Fair Diagnostics Vital Signs (24Hr): Vital Signs - 24 hr 12/02/24 11:28 12/02/24 20:00 12/03/24 08:23 Temperature 98.5 F 98.2 F Pulse Rate 81 84 Respiratory Rate 16 Blood Pressure 126/77 154/81 H 145/81 H Pulse Oximetry 99 98 Oxygen Delivery Method Room Air Room Air BMI result Body Mass Index 25.6 Labs 11/28/24 18:11 11/28/24 18:11 Medications Medications Current Medications Acetaminophen (Acetaminophen 325 Mg Tablet) 650 mg PO Q6H PRN PRN Reason: Headache/Pain, Scale 1-10 Last Admin: 12/03/24 05:33 Dose: 650 mg Al Hydroxide/Mg Hydroxide (Magnesium Hydrox/Alum Hydrox 30 Ml Oral.Susp) 30 ml PO Q6H PRN PRN Reason: Heartburn/Nausea Aspirin (Aspirin Enteric Coated 81 Mg Tablet.) 81 mg PO DAILY [facility] Last Admin: 12/03/24 08:19 Dose: 81 mg Atorvastatin Calcium (Atorvastatin Calcium 20 Mg Tablet) 20 mg PO DAILY [facility] Last Admin: 12/03/24 08:19 Dose: 20 mg Clonazepam (Clonazepam 1 Mg Tablet) 1 mg PO BEDTIME PRN PRN Reason: insomnia Last Admin: 12/02/24 21:31 Dose: 1 mg Clonidine HCl (Clonidine Hcl 0.1 Mg Tablet) 0.1 mg PO BID PRN; Protocol PRN Reason: severe anxiety Last Admin: 12/02/24 11:28 Dose: 0.1 mg Divalproex Sodium (Divalproex Sodium Sprinkles 125 Mg ) 125 mg PO TID [facility] Last Admin: 12/03/24 08:19 Dose: 125 mg Hydroxyzine HCl (Hydroxyzine Hcl 25 Mg Tablet) 25 mg PO Q6H PRN PRN Reason: mild anxiety Last Admin: 12/01/24 21:11 Dose: 25 mg Lamotrigine (Lamotrigine 100 Mg Tablet) 200 mg PO BID [facility] Last Admin: 12/03/24 08:19 Dose: 200 mg Magnesium Hydroxide (Milk Of Magnesia 30 Ml Oral.Susp) 30 ml PO DAILY PRN PRN Reason: Constipation Modafinil (Modafinil 100 Mg Tablet) 100 mg PO DAILY [facility] Last Admin: 12/03/24 08:20 Dose: Not Given Nicotine Polacrilex (Nicotine Polacrilex 2 Mg Gum) 4 mg BUCCAL Q2H PRN PRN Reason: Nicotine Cravings Non-Formulary Medication (Guanfacine) 0.5 mg PO BEDTIME [facility] Ondansetron HCl (Ondansetron Odt 4 Mg Tab.Rapdis) 4 mg TRANSLINGU Q6H PRN PRN Reason: Nausea and Vomiting Last Admin: 12/01/24 06:23 Dose: 4 mg Trazodone HCl (Trazodone Hcl 50 Mg Tablet) 50 mg PO BEDTIME MRX1 PRN PRN Reason: Insomnia Allergies Allergies Allergy/AdvReac Type Severity Reaction Status Date / Time bee pollen [BEE STINGS] Allergy Severe ANAPHYLAXIS Verified 11/28/24 16:53 morphine [MORPHINE] Allergy Mild not Verified 11/28/24 16:53 effective- per pt. tizanidine Allergy Unknown Verified 11/28/24 16:53 bupropion [From WELLBUTRIN] AdvReac Severe PATIENT Verified 11/28/24 16:53 BECOME DEPRESSED Assessment & Plan Assessment & Plan (1) ADD (attention deficit disorder) without hyperactivity: Status: Acute Code(s): F98.8 - Other specified behavioral and emotional disorders with onset usually occurring in childhood and adolescence (2) Major depression, recurrent, chronic: Status: Acute Code(s): F33.9 - Major depressive disorder, recurrent, unspecified Plan 12/01/24: DC Olanzapine Depakote 125 mg tid Neuro consult-chronic headache 12/03: Hold Provigil. Rest the same Reason for continued inpatient stay Substantial Risk for: inability to function, rapid decompensation and med/psych decompensation Time Spent With Patient Time: Total time managing care of this patient today __20__ minutes.
[2024-12-03 11:19] VITALS: BP 134/77
[2024-12-03] MEDS: cloNIDine HCL 0.1 MG TABLET PO (11:19)
[2024-12-03 20:00] VITALS: BP 140/74; PULSE 78; TEMP 37; O2SAT 99
[2024-12-04] MEDS: Acetaminophen 325 MG TABLET 650 MG PO ×3 (02:41→21:12)
[2024-12-04 08:00] VITALS: BP 149/78; PULSE 74; RESP 16; TEMP 36.7; O2SAT 98
[2024-12-04] MEDS: Divalproex Sodium Sprinkles 125 MG CAP.DR.SPR PO ×3 (08:10→21:09)
[2024-12-04] MEDS: lamoTRIgine 100 MG TABLET 200 MG PO ×2 (08:10→21:09)
[2024-12-04] MEDS: Atorvastatin Calcium 20 MG TABLET PO (08:10)
[2024-12-04] MEDS: Aspirin Enteric Coated 81 MG TABLET.DR PO (08:10)
--- NOTE | 2024-12-04 12:16 | HO.PSYCHPN ---
Subjective Subjective Date of Service: 12/04/24 Reason For Visit: RECURRENT MAJOR DEPRESSION Subjective Notes: Conditional Voluntary Interim History: The nursing staff reported the patient had been complaining of headaches. The nausea has already resolved. On interview the patient reports that he is feeling better since modafinil was held, he complains of constant headaches that in his case his chronic due to status post surgery. We discussed options and he agreed to alternate ibuprofen and Tylenol. Mental Status Exam Mental Status Exam Patient Appearance: Well Grooomed and Appropriate Patient Orientation: Person and Situation Level of Consciousness: Awake and Appropriate Patient Behavior: Guarded Mood Description: Calm Affect Description: Constricted Patient Cognition Impaired: Yes Ability to Follow Directions: Good Speech Pattern: Clear Hallucinations: None Delusions: Not Present Thought Process: Distracted and Slowed Thinking Thought Content: positive for Circumstantial Judgement: Fair Diagnostics Vital Signs (24Hr): Vital Signs - 24 hr 12/03/24 20:00 12/04/24 08:00 Temperature 98.6 F 98.1 F Pulse Rate 78 74 Respiratory Rate 16 Blood Pressure 140/74 H 149/78 H Pulse Oximetry 99 98 Oxygen Delivery Method Room Air Room Air BMI result Body Mass Index 25.6 Labs 11/28/24 18:11 11/28/24 18:11 Medications Medications Current Medications Acetaminophen (Acetaminophen 325 Mg Tablet) 650 mg PO Q6H PRN PRN Reason: Headache/Pain, Scale 1-10 Last Admin: 12/04/24 10:08 Dose: 650 mg Al Hydroxide/Mg Hydroxide (Magnesium Hydrox/Alum Hydrox 30 Ml Oral.Susp) 30 ml PO Q6H PRN PRN Reason: Heartburn/Nausea Aspirin (Aspirin Enteric Coated 81 Mg Tablet.) 81 mg PO DAILY [facility] Last Admin: 12/04/24 08:10 Dose: 81 mg Atorvastatin Calcium (Atorvastatin Calcium 20 Mg Tablet) 20 mg PO DAILY [facility] Last Admin: 12/04/24 08:10 Dose: 20 mg Clonazepam (Clonazepam 1 Mg Tablet) 1 mg PO BEDTIME PRN PRN Reason: insomnia Last Admin: 12/02/24 21:31 Dose: 1 mg Clonidine HCl (Clonidine Hcl 0.1 Mg Tablet) 0.1 mg PO BID PRN; Protocol PRN Reason: severe anxiety Last Admin: 12/03/24 11:19 Dose: 0.1 mg Divalproex Sodium (Divalproex Sodium Sprinkles 125 Mg ) 125 mg PO TID [facility] Last Admin: 12/04/24 08:10 Dose: 125 mg Hydroxyzine HCl (Hydroxyzine Hcl 25 Mg Tablet) 25 mg PO Q6H PRN PRN Reason: mild anxiety Last Admin: 12/01/24 21:11 Dose: 25 mg Lamotrigine (Lamotrigine 100 Mg Tablet) 200 mg PO BID [facility] Last Admin: 12/04/24 08:10 Dose: 200 mg Magnesium Hydroxide (Milk Of Magnesia 30 Ml Oral.Susp) 30 ml PO DAILY PRN PRN Reason: Constipation Modafinil (Modafinil 100 Mg Tablet) 100 mg PO DAILY [facility] Last Admin: 12/03/24 08:20 Dose: Not Given Nicotine Polacrilex (Nicotine Polacrilex 2 Mg Gum) 4 mg BUCCAL Q2H PRN PRN Reason: Nicotine Cravings Non-Formulary Medication (Guanfacine) 0.5 mg PO BEDTIME [facility] Ondansetron HCl (Ondansetron Odt 4 Mg Tab.Rapdis) 4 mg TRANSLINGU Q6H PRN PRN Reason: Nausea and Vomiting Last Admin: 12/01/24 06:23 Dose: 4 mg Trazodone HCl (Trazodone Hcl 50 Mg Tablet) 50 mg PO BEDTIME MRX1 PRN PRN Reason: Insomnia Allergies Allergies Allergy/AdvReac Type Severity Reaction Status Date / Time bee pollen [BEE STINGS] Allergy Severe ANAPHYLAXIS Verified 11/28/24 16:53 morphine [MORPHINE] Allergy Mild not Verified 11/28/24 16:53 effective- per pt. tizanidine Allergy Unknown Verified 11/28/24 16:53 bupropion [From WELLBUTRIN] AdvReac Severe PATIENT Verified 11/28/24 16:53 BECOME DEPRESSED Assessment & Plan Assessment & Plan (1) ADD (attention deficit disorder) without hyperactivity: Status: Acute Code(s): F98.8 - Other specified behavioral and emotional disorders with onset usually occurring in childhood and adolescence (2) Major depression, recurrent, chronic: Status: Acute Code(s): F33.9 - Major depressive disorder, recurrent, unspecified Plan 12/01/24: DC Olanzapine Depakote 125 mg tid Neuro consult-chronic headache 12/03: Hold Provigil. Rest the same 3 keep same treatment, add ibuprofen 800 mg p.o. q.8 PRNs severe pain Reason for continued inpatient stay Substantial Risk for: inability to function, rapid decompensation and med/psych decompensation Time Spent With Patient Time: Total time managing care of this patient today _20___ minutes.
[2024-12-04] MEDS: Ibuprofen 800 MG TABLET PO (16:17)
[2024-12-04] MEDS: hydrOXYzine HCL 25 MG TABLET PO (16:18)
[2024-12-04 19:44] VITALS: BP 138/78; PULSE 93; TEMP 37.1; O2SAT 97
[2024-12-04] MEDS: clonazePAM 1 MG TABLET PO (21:09)
[2024-12-05] MEDS: Ibuprofen 800 MG TABLET PO ×3 (02:51→20:32)
[2024-12-05] MEDS: hydrOXYzine HCL 25 MG TABLET PO ×2 (02:51→20:33)
[2024-12-05] MEDS: Acetaminophen 325 MG TABLET 650 MG PO (07:33)
[2024-12-05 08:15] VITALS: BP 165/83; PULSE 88; RESP 16; TEMP 36.6; O2SAT 98
[2024-12-05] MEDS: Divalproex Sodium Sprinkles 125 MG CAP.DR.SPR PO ×3 (08:47→20:33)
[2024-12-05] MEDS: Aspirin Enteric Coated 81 MG TABLET.DR PO (08:47)
[2024-12-05] MEDS: lamoTRIgine 100 MG TABLET 200 MG PO ×2 (08:47→20:31)
[2024-12-05] MEDS: Atorvastatin Calcium 20 MG TABLET PO (08:47)
--- NOTE | 2024-12-05 09:39 | P.PNPSI_ITS ---
Subjective Subjective Date of Service: 12/05/24 Reason For Visit: RECURRENT MAJOR DEPRESSION Subjective Notes: Conditional Voluntary Healthcare Proxy: No Guardianship: No Medical Problems Affecting Mental Status: No Interim History: I cannot go home to that. Something will have to be done with her. CAT completed. Provigil on hold as pt is increasingly anxious. Depakote takes the edge off . Clonidine helps. Feeling supported by OP team and by IP team, feeling understood and appreciateive of ideas shared with him to help him to be protected. No med changes today per pt request. Medication Compliance: Yes Side effects from medications: No Attending Groups: Yes Review of Systems Acute medical concerns: No Medical Review of Systems: unchanged Review of Systems Review of Systems chronic headaches, trialing Ibuprofen Mental Status Exam Mental Status Exam Patient Appearance: Well Grooomed and Appropriate Patient Orientation: Person and Situation Level of Consciousness: Awake and Appropriate Patient Behavior: Guarded Mood Description: Calm Affect Description: Constricted Patient Cognition Impaired: Yes Ability to Follow Directions: Good Speech Pattern: Clear Hallucinations: None Delusions: Not Present Thought Process: Distracted and Slowed Thinking Thought Content: positive for Circumstantial Judgement: Fair Diagnostics Vital Signs (24Hr): Vital Signs - 24 hr 12/04/24 19:44 12/05/24 08:15 Temperature 98.7 F 97.8 F Pulse Rate 93 88 Respiratory Rate 16 Blood Pressure 138/78 165/83 H Pulse Oximetry 97 98 Oxygen Delivery Method Room Air Room Air BMI result Body Mass Index 25.6 Labs 11/28/24 18:11 11/28/24 18:11 Medications Medications Current Medications Acetaminophen (Acetaminophen 325 Mg Tablet) 650 mg PO Q6H PRN PRN Reason: Headache/Pain, Scale 1-10 Last Admin: 12/05/24 07:33 Dose: 650 mg Al Hydroxide/Mg Hydroxide (Magnesium Hydrox/Alum Hydrox 30 Ml Oral.Susp) 30 ml PO Q6H PRN PRN Reason: Heartburn/Nausea Aspirin (Aspirin Enteric Coated 81 Mg Tablet.) 81 mg PO DAILY [facility] Last Admin: 12/05/24 08:47 Dose: 81 mg Atorvastatin Calcium (Atorvastatin Calcium 20 Mg Tablet) 20 mg PO DAILY [facility] Last Admin: 12/05/24 08:47 Dose: 20 mg Clonazepam (Clonazepam 1 Mg Tablet) 1 mg PO BEDTIME PRN PRN Reason: insomnia Last Admin: 12/04/24 21:09 Dose: 1 mg Clonidine HCl (Clonidine Hcl 0.1 Mg Tablet) 0.1 mg PO BID PRN; Protocol PRN Reason: severe anxiety Last Admin: 12/03/24 11:19 Dose: 0.1 mg Divalproex Sodium (Divalproex Sodium Sprinkles 125 Mg ) 125 mg PO TID [facility] Last Admin: 12/05/24 08:47 Dose: 125 mg Hydroxyzine HCl (Hydroxyzine Hcl 25 Mg Tablet) 25 mg PO Q6H PRN PRN Reason: mild anxiety Last Admin: 12/05/24 02:51 Dose: 25 mg Ibuprofen (Ibuprofen 800 Mg Tablet) 800 mg PO Q8H PRN PRN Reason: Pain, Severe (Pain Scale 7-10) Last Admin: 12/05/24 02:51 Dose: 800 mg Lamotrigine (Lamotrigine 100 Mg Tablet) 200 mg PO BID [facility] Last Admin: 12/05/24 08:47 Dose: 200 mg Magnesium Hydroxide (Milk Of Magnesia 30 Ml Oral.Susp) 30 ml PO DAILY PRN PRN Reason: Constipation Modafinil (Modafinil 100 Mg Tablet) 100 mg PO DAILY [facility] Last Admin: 12/03/24 08:20 Dose: Not Given Nicotine Polacrilex (Nicotine Polacrilex 2 Mg Gum) 4 mg BUCCAL Q2H PRN PRN Reason: Nicotine Cravings Non-Formulary Medication (Guanfacine) 0.5 mg PO BEDTIME [facility] Ondansetron HCl (Ondansetron Odt 4 Mg Tab.Rapdis) 4 mg TRANSLINGU Q6H PRN PRN Reason: Nausea and Vomiting Last Admin: 12/01/24 06:23 Dose: 4 mg Trazodone HCl (Trazodone Hcl 50 Mg Tablet) 50 mg PO BEDTIME MRX1 PRN PRN Reason: Insomnia Allergies Allergies Allergy/AdvReac Type Severity Reaction Status Date / Time bee pollen [BEE STINGS] Allergy Severe ANAPHYLAXIS Verified 11/28/24 16:53 morphine [MORPHINE] Allergy Mild not Verified 11/28/24 16:53 effective- per pt. tizanidine Allergy Unknown Verified 11/28/24 16:53 bupropion [From WELLBUTRIN] AdvReac Severe PATIENT Verified 11/28/24 16:53 BECOME DEPRESSED Assessment & Plan Assessment & Plan (1) ADD (attention deficit disorder) without hyperactivity: Status: Acute Code(s): F98.8 - Other specified behavioral and emotional disorders with onset usually occurring in childhood and adolescence (2) Major depression, recurrent, chronic: Status: Acute Code(s): F33.9 - Major depressive disorder, recurrent, unspecified Plan 12/01/24: DC Olanzapine Depakote 125 mg tid Neuro consult-chronic headache 12/03: Hold Provigil. Rest the same 12/04 keep same treatment, add ibuprofen 800 mg p.o. q.8 PRNs severe pain 12/05 Continue current plan of care Reason for continued inpatient stay Substantial Risk for: rapid decompensation Time Spent With Patient Time: Total time managing care of this patient today ____ minutes.
[2024-12-05 19:49] VITALS: BP 126/67; PULSE 88; TEMP 36.9; O2SAT 99
[2024-12-05] MEDS: clonazePAM 1 MG TABLET PO (20:33)
[2024-12-06] MEDS: Ibuprofen 800 MG TABLET PO ×2 (06:21→15:38)
[2024-12-06 08:04] VITALS: BP 158/79; PULSE 88; RESP 16; TEMP 36.8; O2SAT 98
[2024-12-06] MEDS: Aspirin Enteric Coated 81 MG TABLET.DR PO (08:57)
[2024-12-06] MEDS: lamoTRIgine 100 MG TABLET 200 MG PO ×2 (08:57→21:27)
[2024-12-06] MEDS: Divalproex Sodium Sprinkles 125 MG CAP.DR.SPR PO ×2 (08:57→15:39)
[2024-12-06] MEDS: Acetaminophen 325 MG TABLET 650 MG PO (08:57)
[2024-12-06] MEDS: Atorvastatin Calcium 20 MG TABLET PO (08:57)
--- NOTE | 2024-12-06 10:52 | P.CNNE_ITS ---
History of Present Illness Data of Consult Service Date: 12/06/24 Primary Care Provider: None Physician HPI Reason for consult: Headache 59 years old man with history of left frontal injury resulting in craniotomy and according to his report, right acoustic neuroma surgery last year, was complaining of chronic headaches. Pain was all around the head on both sides. Sometime it was more in the occipital region. When it was mild, it was about for over 10 and sometime much more. It was there all the time. Review of Systems 2 Review of Systems: He was admitted on psych floor with depression. [facility] Past Medical History Medical History Major depression, recurrent, chronic ADD (attention deficit disorder) without hyperactivity Surgical History Surgical History Status post excision of acoustic neuroma Social History Social History Household Members: Spouse Housing: House Do you presently have visiting nurse or other home services: No Patient Tobacco Use Status: Never used Tobacco Smoked in Last 30 Days: No e-Cigarette/Vaping Use: Never Used Patient Interested in Nicotine Replacement: No Patient Given Instructions on How to Stop Smoking: No Second Hand Smoke Exposure: No Use of substances other than those prescribed or required for medical reasons: Yes Substance Use Type: Marijuana Substance Use Frequency: Daily Last Used Substance: Just Prior to Admission Currently Displaying Signs/Symptoms of Drug Intoxication Withdrawal: No Any prior treatment program specific to substance use: No Have you been hit, kicked, punched, or otherwise hurt by someone within the past year? If so, by whom?: No Do you feel safe in your current relationship?: No Current Relationship Is there a partner from a previous relationship who is making you feel unsafe now?: No Are you made to feel afraid or neglected: No Advance Directives: No Advance Directives Information Provided: No Do you have thoughts of harming others: None Do you have a plan to hurt others: No Plan Recently lost weight without trying: Yes How much weight loss: 14-23 pounds Eating poorly because of decreased appetite: Yes Nutrition screen score: 5 Nutrition Risks: No Nutritional Risk Poor oral hygiene: No service: No Sexual orientation: Straight/Heterosexual Meds Allergies Allergy/AdvReac Type Severity Reaction Status Date / Time bee pollen [BEE STINGS] Allergy Severe ANAPHYLAXIS Verified 11/28/24 16:53 morphine [MORPHINE] Allergy Mild not Verified 11/28/24 16:53 effective- per pt. tizanidine Allergy Unknown Verified 11/28/24 16:53 bupropion [From WELLBUTRIN] AdvReac Severe PATIENT Verified 11/28/24 16:53 BECOME DEPRESSED Active Medications: Current Medications Acetaminophen (Acetaminophen 325 Mg Tablet) 650 mg PO Q6H PRN PRN Reason: Headache/Pain, Scale 1-10 Last Admin: 12/06/24 08:57 Dose: 650 mg Al Hydroxide/Mg Hydroxide (Magnesium Hydrox/Alum Hydrox 30 Ml Oral.Susp) 30 ml PO Q6H PRN PRN Reason: Heartburn/Nausea Aspirin (Aspirin Enteric Coated 81 Mg Tablet.) 81 mg PO DAILY [facility] Last Admin: 12/06/24 08:57 Dose: 81 mg Atorvastatin Calcium (Atorvastatin Calcium 20 Mg Tablet) 20 mg PO DAILY [facility] Last Admin: 12/06/24 08:57 Dose: 20 mg Clonazepam (Clonazepam 1 Mg Tablet) 1 mg PO BEDTIME PRN PRN Reason: insomnia Last Admin: 12/05/24 20:33 Dose: 1 mg Clonidine HCl (Clonidine Hcl 0.1 Mg Tablet) 0.1 mg PO BID PRN; Protocol PRN Reason: severe anxiety Last Admin: 12/03/24 11:19 Dose: 0.1 mg Divalproex Sodium (Divalproex Sodium Sprinkles 125 Mg Cap.) 125 mg PO TID [facility] Last Admin: 12/06/24 08:57 Dose: 125 mg Hydroxyzine HCl (Hydroxyzine Hcl 25 Mg Tablet) 25 mg PO Q6H PRN PRN Reason: mild anxiety Last Admin: 12/05/24 20:33 Dose: 25 mg Ibuprofen (Ibuprofen 800 Mg Tablet) 800 mg PO Q8H PRN PRN Reason: Pain, Severe (Pain Scale 7-10) Last Admin: 12/06/24 06:21 Dose: 800 mg Lamotrigine (Lamotrigine 100 Mg Tablet) 200 mg PO BID [facility] Last Admin: 12/06/24 08:57 Dose: 200 mg Magnesium Hydroxide (Milk Of Magnesia 30 Ml Oral.Susp) 30 ml PO DAILY PRN PRN Reason: Constipation Modafinil (Modafinil 100 Mg Tablet) 100 mg PO DAILY [facility] Last Admin: 12/03/24 08:20 Dose: Not Given Nicotine Polacrilex (Nicotine Polacrilex 2 Mg Gum) 4 mg BUCCAL Q2H PRN PRN Reason: Nicotine Cravings Non-Formulary Medication (Guanfacine) 0.5 mg PO BEDTIME [facility] Ondansetron HCl (Ondansetron Odt 4 Mg Tab.Rapdis) 4 mg TRANSLINGU Q6H PRN PRN Reason: Nausea and Vomiting Last Admin: 12/01/24 06:23 Dose: 4 mg Trazodone HCl (Trazodone Hcl 50 Mg Tablet) 50 mg PO BEDTIME MRX1 PRN PRN Reason: Insomnia Home Medications ?Medication ?Instructions ?Recorded ?Confirmed ?Last Taken ?Type atorvastatin 20 mg tablet 20 mg PO DAILY 09/09/22 11/28/24 11/28/24 History aspirin 81 mg tablet,delayed 81 mg PO DAILY 12/16/23 11/28/24 11/28/24 History release Physical Exam 2 Vital Signs: Vital Signs: Last Vital Signs Temp 98.2 F 12/06/24 08:04 Pulse 88 12/06/24 08:04 Resp 16 12/06/24 08:04 BP 158/79 H 12/06/24 08:04 Pulse Ox 98 12/06/24 08:04 O2 Del Method Room Air 12/06/24 08:04 BMI result Body Mass Index 25.6 Neuro: Other: He is alert and awake with normal spontaneity of speech fluency comprehension and affect. Face is symmetrical. There was no focal arm or leg weakness. Plantars are flexor. Deep tendon reflexes are trace to absent. Extraocular muscles were intact. Visual palacio are full. Speech is normal. Results Labs 11/28/24 18:11 11/28/24 18:11 Labs: Noncontrast head CT revealed a large area of chronic encephalomalacia and left frontal lobe with evidence of craniotomy. Microbiology Microbiology Results: Microbiology 11/28/24 17:31 Urine clean catch - Clean Catch Midstream Urine Culture - Final No growth. Assessment and Plan (1) Chronic tension type headache: Qualifiers: Intractability: intractable Qualified Code(s): G44.221 - Chronic tension-type headache, intractable Status: Acute I recommend starting topiramate 25 mg at night and after weak maybe twice a day if headache would continue. This type of headaches with significant depression and history of encephalomalacia and craniotomy a not easy to treat. Procedures Date of Service Date of Service: 12/06/24
[2024-12-06 11:03] VITALS: BP 134/72
[2024-12-06] MEDS: cloNIDine HCL 0.1 MG TABLET PO (11:03)
--- NOTE | 2024-12-06 16:20 | HO.PSYCHPN ---
Subjective Subjective Date of Service: 12/06/24 Reason For Visit: RECURRENT MAJOR DEPRESSION Subjective Notes: Conditional Voluntary Healthcare Proxy: No Guardianship: No Medical Problems Affecting Mental Status: No Interim History: I don't feel safe to go home with her there. Review of CAT Scan Pt given legal resources collected by out pt team Discussed titration of Valproate which he is agreeable with Pt does not feel he can discharge safely with in the home. Medication Compliance: Yes Side effects from medications: No Attending Groups: Yes Review of Systems Acute medical concerns: No Review of Systems Review of Systems chronic headache pain-increasing Valproate to attempt to assist with mgt of this sx. Mental Status Exam Mental Status Exam Patient Appearance: Well Grooomed and Appropriate Patient Orientation: Person and Situation Level of Consciousness: Awake and Appropriate Patient Behavior: Guarded Mood Description: Calm Affect Description: Constricted Patient Cognition Impaired: Yes Ability to Follow Directions: Good Speech Pattern: Clear Hallucinations: None Delusions: Not Present Thought Process: Distracted and Slowed Thinking Thought Content: positive for Circumstantial Judgement: Fair Diagnostics Vital Signs (24Hr): Vital Signs - 24 hr 12/05/24 19:49 12/06/24 08:04 12/06/24 11:03 Temperature 98.4 F 98.2 F Pulse Rate 88 88 Respiratory Rate 16 Blood Pressure 126/67 158/79 H 134/72 Pulse Oximetry 99 98 Oxygen Delivery Method Room Air Room Air BMI result Body Mass Index 25.6 Labs 11/28/24 18:11 11/28/24 18:11 Imaging Radiology Impressions: [facility] Impressions Head CT 12/05/24 10:10 IMPRESSION: No acute intracranial hemorrhage. Probable old frontal contusions, left greater than right with old traumatic deformities, nasal bones and left frontal superior orbital wall Status post craniectomy and cranioplasty, right occipital posterior right mastoid. Electronically signed by: Gallito Song MD 12/05/2024 11:45 AM [facility] Medications Medications Current Medications Acetaminophen (Acetaminophen 325 Mg Tablet) 650 mg PO Q6H PRN PRN Reason: Headache/Pain, Scale 1-10 Last Admin: 12/06/24 08:57 Dose: 650 mg Al Hydroxide/Mg Hydroxide (Magnesium Hydrox/Alum Hydrox 30 Ml Oral.Susp) 30 ml PO Q6H PRN PRN Reason: Heartburn/Nausea Aspirin (Aspirin Enteric Coated 81 Mg Tablet.) 81 mg PO DAILY [facility] Last Admin: 12/06/24 08:57 Dose: 81 mg Atorvastatin Calcium (Atorvastatin Calcium 20 Mg Tablet) 20 mg PO DAILY [facility] Last Admin: 12/06/24 08:57 Dose: 20 mg Clonazepam (Clonazepam 1 Mg Tablet) 1 mg PO BEDTIME PRN PRN Reason: insomnia Last Admin: 12/05/24 20:33 Dose: 1 mg Clonidine HCl (Clonidine Hcl 0.1 Mg Tablet) 0.1 mg PO BID PRN; Protocol PRN Reason: severe anxiety Last Admin: 12/06/24 11:03 Dose: 0.1 mg Divalproex Sodium (Divalproex Sodium Sprinkles 125 Mg Cap.) 250 mg PO TID [facility] Hydroxyzine HCl (Hydroxyzine Hcl 25 Mg Tablet) 25 mg PO Q6H PRN PRN Reason: mild anxiety Last Admin: 12/05/24 20:33 Dose: 25 mg Ibuprofen (Ibuprofen 800 Mg Tablet) 800 mg PO Q8H PRN PRN Reason: Pain, Severe (Pain Scale 7-10) Last Admin: 12/06/24 15:38 Dose: 800 mg Lamotrigine (Lamotrigine 100 Mg Tablet) 200 mg PO BID [facility] Last Admin: 12/06/24 08:57 Dose: 200 mg Magnesium Hydroxide (Milk Of Magnesia 30 Ml Oral.Susp) 30 ml PO DAILY PRN PRN Reason: Constipation Modafinil (Modafinil 100 Mg Tablet) 100 mg PO DAILY [facility] Last Admin: 12/03/24 08:20 Dose: Not Given Nicotine Polacrilex (Nicotine Polacrilex 2 Mg Gum) 4 mg BUCCAL Q2H PRN PRN Reason: Nicotine Cravings Non-Formulary Medication (Guanfacine) 0.5 mg PO BEDTIME [facility] Ondansetron HCl (Ondansetron Odt 4 Mg Tab.Rapdis) 4 mg TRANSLINGU Q6H PRN PRN Reason: Nausea and Vomiting Last Admin: 12/01/24 06:23 Dose: 4 mg Trazodone HCl (Trazodone Hcl 50 Mg Tablet) 50 mg PO BEDTIME MRX1 PRN PRN Reason: Insomnia Allergies Allergies Allergy/AdvReac Type Severity Reaction Status Date / Time bee pollen [BEE STINGS] Allergy Severe ANAPHYLAXIS Verified 11/28/24 16:53 morphine [MORPHINE] Allergy Mild not Verified 11/28/24 16:53 effective- per pt. tizanidine Allergy Unknown Verified 11/28/24 16:53 bupropion [From WELLBUTRIN] AdvReac Severe PATIENT Verified 11/28/24 16:53 BECOME DEPRESSED Assessment & Plan Assessment & Plan (1) Major depression, recurrent, chronic: Status: Acute Code(s): F33.9 - Major depressive disorder, recurrent, unspecified (2) ADD (attention deficit disorder) without hyperactivity: Status: Acute Code(s): F98.8 - Other specified behavioral and emotional disorders with onset usually occurring in childhood and adolescence Plan 12/06/24: Increase Depakote to 250 mg tid Topamax recommended at HS by neurology is initiated as well. Reason for continued inpatient stay Substantial Risk for: rapid decompensation and med/psych decompensation Time Spent With Patient Time: Total time managing care of this patient today ____ minutes.
[2024-12-06 19:57] VITALS: BP 151/75; PULSE 88; TEMP 36.9; O2SAT 98
[2024-12-06] MEDS: clonazePAM 1 MG TABLET PO (21:27)
[2024-12-06] MEDS: Divalproex Sodium Sprinkles 125 MG CAP.DR.SPR 250 MG PO (21:27)
[2024-12-06] MEDS: Topiramate 25 MG TABLET PO (21:27)
[2024-12-07] MEDS: Ibuprofen 800 MG TABLET PO ×3 (01:53→21:16)
[2024-12-07 08:00] VITALS: BP 157/85; PULSE 87; TEMP 36.6; O2SAT 99
[2024-12-07] MEDS: Divalproex Sodium Sprinkles 125 MG CAP.DR.SPR 250 MG PO ×3 (08:52→21:16)
[2024-12-07] MEDS: lamoTRIgine 100 MG TABLET 200 MG PO ×2 (08:53→21:16)
[2024-12-07] MEDS: Aspirin Enteric Coated 81 MG TABLET.DR PO (08:53)
[2024-12-07] MEDS: Atorvastatin Calcium 20 MG TABLET PO (08:53)
[2024-12-07] MEDS: Acetaminophen 325 MG TABLET 650 MG PO ×2 (09:02→15:05)
[2024-12-07 19:04] VITALS: BP 151/91
[2024-12-07] MEDS: cloNIDine HCL 0.1 MG TABLET PO (19:04)
[2024-12-07 19:54] VITALS: BP 153/90; PULSE 97; TEMP 37.1; O2SAT 97
--- NOTE | 2024-12-07 19:59 | PC.NURSE ---
Clonazepam 1mg, PO, was administered at approximately 2150 on 12/03/24 at approximately 2150 by this clinical writer.
[2024-12-07] MEDS: clonazePAM 1 MG TABLET PO (21:16)
[2024-12-07] MEDS: Topiramate 25 MG TABLET PO (21:16)
--- NOTE | 2024-12-07 22:14 | HO.PSYCHPN ---
Subjective Subjective Date of Service: 12/07/24 Reason For Visit: RECURRENT MAJOR DEPRESSION Subjective Notes: Conditional Voluntary Healthcare Proxy: No Guardianship: No Interim History: Patient anxious ruminating in somewhat difficult situation where he is frequently cast to get it at home and his who appears to not have capacity he states has been quite intrusive and threatening him. Feels blunted depressed less labile has felt somewhat paralyzed Mental Status Exam Mental Status Exam Patient Appearance: Well Grooomed and Appropriate Patient Orientation: Person and Situation Level of Consciousness: Awake, Appropriate and Alert Patient Behavior: Talkative and Good Eye Contact Mood Description: Constricted and Flat Affect Description: Constricted Patient Cognition Impaired: Yes Ability to Follow Directions: Good Speech Pattern: Clear Hallucinations: None Delusions: Not Present Thought Process: Intact and Goal Oriented Thought Content: positive for Intact, positive for Circumstantial and positive for Goal Oriented Judgement: Good Diagnostics Vital Signs (24Hr): Vital Signs - 24 hr 12/07/24 08:00 12/07/24 19:04 12/07/24 19:54 Temperature 97.9 F 98.8 F Pulse Rate 87 97 Blood Pressure 157/85 H 151/91 H 153/90 H Pulse Oximetry 99 97 Oxygen Delivery Method Room Air Room Air BMI result Body Mass Index 25.6 Labs 11/28/24 18:11 12/08/24 08:15 Imaging Radiology Impressions: [facility] Impressions Head CT 12/05/24 10:10 IMPRESSION: No acute intracranial hemorrhage. Probable old frontal contusions, left greater than right with old traumatic deformities, nasal bones and left frontal superior orbital wall Status post craniectomy and cranioplasty, right occipital posterior right mastoid. Electronically signed by: Gallito Song MD 12/05/2024 11:45 AM [facility] Medications Medications Current Medications Acetaminophen (Acetaminophen 325 Mg Tablet) 650 mg PO Q6H PRN PRN Reason: Headache/Pain, Scale 1-10 Last Admin: 12/07/24 15:05 Dose: 650 mg Al Hydroxide/Mg Hydroxide (Magnesium Hydrox/Alum Hydrox 30 Ml Oral.Susp) 30 ml PO Q6H PRN PRN Reason: Heartburn/Nausea Aspirin (Aspirin Enteric Coated 81 Mg Tablet.) 81 mg PO DAILY [facility] Last Admin: 12/07/24 08:53 Dose: 81 mg Atorvastatin Calcium (Atorvastatin Calcium 20 Mg Tablet) 20 mg PO DAILY [facility] Last Admin: 12/07/24 08:53 Dose: 20 mg Clonazepam (Clonazepam 1 Mg Tablet) 1 mg PO BEDTIME PRN PRN Reason: insomnia Last Admin: 12/07/24 21:16 Dose: 1 mg Clonidine HCl (Clonidine Hcl 0.1 Mg Tablet) 0.1 mg PO BID PRN; Protocol PRN Reason: severe anxiety Last Admin: 12/07/24 19:04 Dose: 0.1 mg Divalproex Sodium (Divalproex Sodium Sprinkles 125 Mg ) 250 mg PO TID [facility] Last Admin: 12/07/24 21:16 Dose: 250 mg Hydroxyzine HCl (Hydroxyzine Hcl 25 Mg Tablet) 25 mg PO Q6H PRN PRN Reason: mild anxiety Last Admin: 12/05/24 20:33 Dose: 25 mg Ibuprofen (Ibuprofen 800 Mg Tablet) 800 mg PO Q8H PRN PRN Reason: Pain, Severe (Pain Scale 7-10) Last Admin: 12/07/24 21:16 Dose: 800 mg Lamotrigine (Lamotrigine 100 Mg Tablet) 200 mg PO BID [facility] Last Admin: 12/07/24 21:16 Dose: 200 mg Magnesium Hydroxide (Milk Of Magnesia 30 Ml Oral.Susp) 30 ml PO DAILY PRN PRN Reason: Constipation Modafinil (Modafinil 100 Mg Tablet) 100 mg PO DAILY [facility] Last Admin: 12/03/24 08:20 Dose: Not Given Nicotine Polacrilex (Nicotine Polacrilex 2 Mg Gum) 4 mg BUCCAL Q2H PRN PRN Reason: Nicotine Cravings Non-Formulary Medication (Guanfacine) 0.5 mg PO BEDTIME [facility] Ondansetron HCl (Ondansetron Odt 4 Mg Tab.Rapdis) 4 mg TRANSLINGU Q6H PRN PRN Reason: Nausea and Vomiting Last Admin: 12/01/24 06:23 Dose: 4 mg Topiramate (Topiramate 25 Mg Tablet) 25 mg PO BEDTIME [facility] Last Admin: 12/07/24 21:16 Dose: 25 mg Trazodone HCl (Trazodone Hcl 50 Mg Tablet) 50 mg PO BEDTIME MRX1 PRN PRN Reason: Insomnia Allergies Allergies Allergy/AdvReac Type Severity Reaction Status Date / Time bee pollen [BEE STINGS] Allergy Severe ANAPHYLAXIS Verified 11/28/24 16:53 morphine [MORPHINE] Allergy Mild not Verified 11/28/24 16:53 effective- per pt. tizanidine Allergy Unknown Verified 11/28/24 16:53 bupropion [From WELLBUTRIN] AdvReac Severe PATIENT Verified 11/28/24 16:53 BECOME DEPRESSED Assessment & Plan Assessment & Plan (1) ADD (attention deficit disorder) without hyperactivity: Status: Acute Code(s): F98.8 - Other specified behavioral and emotional disorders with onset usually occurring in childhood and adolescence (2) Major depression, recurrent, chronic: Status: Acute Code(s): F33.9 - Major depressive disorder, recurrent, unspecified Plan 12/01/24: DC Olanzapine Depakote 125 mg tid Neuro consult-chronic headache 12/07/2024 Continue Depakote check levels encourage patient reaching out to outside resources for post discharge denies active SI is flat dysphoric constricted history of SI encourage solid planning and support Patient educated on: diagnosis and therapeutic strategies Informed Consent: understands Reason for continued inpatient stay Substantial Risk for: inability to function and rapid decompensation Time Spent With Patient Time: Total time managing care of this patient today ____ minutes.
[2024-12-08] MEDS: Ibuprofen 800 MG TABLET PO ×3 (05:21→23:53)
[2024-12-08 07:00] VITALS: BMI 26.1
[2024-12-08 08:00] VITALS: BP 120/72; PULSE 80; RESP 16; TEMP 36.8; O2SAT 97
[2024-12-08 08:40] LABS: Valproate 33.8 mcg/mL (50.0-100.0)
[2024-12-08 08:43] LABS: Alanine Aminotransferase 28 U/L (0-40); Albumin Level 4.3 g/dL (3.5-5.0); Alkaline Phosphatase 63 U/L (39-117); Anion Gap 11 (12-20); Aspartate Amino Transferase 27 U/L (5-37); Bilirubin Total 0.7 mg/dL (0.0-1.0); Blood Urea Nitrogen 22 mg/dL (9-16); Calcium 9.6 mg/dL (8.4-10.2); Carbon Dioxide 27 mmol/L (22-29); Chloride 109 mmol/L (96-108); Creatinine Clr Calc Pharmacy 85.4; Estimated Glomerular Filt Rate > 60; Glucose Fasting 98 mg/dL (60-99); Potassium 4.5 mmol/L (3.3-5.1); Sodium 142 mmol/L (135-145); Total Protein 7.3 g/dL (6.5-8.0)
[2024-12-08] MEDS: Atorvastatin Calcium 20 MG TABLET PO (09:27)
[2024-12-08] MEDS: lamoTRIgine 100 MG TABLET 200 MG PO ×2 (09:27→21:45)
[2024-12-08] MEDS: Aspirin Enteric Coated 81 MG TABLET.DR PO (09:27)
[2024-12-08] MEDS: Divalproex Sodium Sprinkles 125 MG CAP.DR.SPR 250 MG PO ×3 (09:27→21:45)
[2024-12-08] MEDS: Acetaminophen 325 MG TABLET 650 MG PO ×2 (11:37→21:49)
--- NOTE | 2024-12-08 13:22 | P.PNPSI_ITS ---
Subjective Subjective Date of Service: 12/08/24 Reason For Visit: RECURRENT MAJOR DEPRESSION Subjective Notes: Conditional Voluntary Healthcare Proxy: No Guardianship: No Medical Problems Affecting Mental Status: No Interim History: Pt discussed wanting to discharge 12/09 to the [facility] in [place], spend time at the mall this weekend and reconnect with [place] police next week who were a support for him prior to admission. Pt has called two of the attorneys listed to discuss his situation. Reviewed recent message from , reporting no diabetic supplies, no allergy med, no food and her report of having filed a [facility] report against him. Pt reports all supplies are in the house, allergy meds were denied by insurance so Rx was discontinued and pt has done a great deal of grocery shopping for so she should have adequate food resources. He will contact a friend and ask them to leave $100 check in the mail box for her. He worries as he believes is being scammed by another man for money on a consistent basis and as her rep payee he is attempting to be protective, however, her consistent requests for funds are for this man vs her personal needs. Medication Compliance: Yes Side effects from medications: No Attending Groups: Yes Review of Systems Acute medical concerns: No Review of Systems Review of Systems Denies Mental Status Exam Mental Status Exam Patient Appearance: Well Grooomed and Appropriate Patient Orientation: Person and Situation Level of Consciousness: Awake and Appropriate Patient Behavior: Guarded Mood Description: Calm Affect Description: Constricted Patient Cognition Impaired: Yes Ability to Follow Directions: Good Speech Pattern: Clear Hallucinations: None Delusions: Not Present Thought Process: Distracted and Slowed Thinking Thought Content: positive for Circumstantial Judgement: Fair Diagnostics Vital Signs (24Hr): Vital Signs - 24 hr 12/07/24 19:04 12/07/24 19:54 12/08/24 08:00 Temperature 98.8 F 98.2 F Pulse Rate 97 80 Respiratory Rate 16 Blood Pressure 151/91 H 153/90 H 120/72 Pulse Oximetry 97 97 Oxygen Delivery Method Room Air Room Air BMI result Body Mass Index 26.1 Labs 11/28/24 18:11 12/08/24 08:15 Labs: Laboratory Results - last 48 hr 12/08/24 08:15 Sodium 142 Potassium 4.5 Chloride 109 H Carbon Dioxide 27 Anion Gap 11 L BUN 22 H Creatinine 0.86 Estim Creat Clear Calc 85.4 Estimated GFR > 60 Fasting Glucose 98 Calcium 9.6 Total Bilirubin 0.7 AST 27 ALT 28 Alkaline Phosphatase 63 Total Protein 7.3 Albumin 4.3 Valproic Acid 33.8 L Imaging Radiology Impressions: [facility] Impressions Head CT 12/05/24 10:10 IMPRESSION: No acute intracranial hemorrhage. Probable old frontal contusions, left greater than right with old traumatic deformities, nasal bones and left frontal superior orbital wall Status post craniectomy and cranioplasty, right occipital posterior right mastoid. Electronically signed by: Gallito Song MD 12/05/2024 11:[address] [facility] Medications Medications Current Medications Acetaminophen (Acetaminophen 325 Mg Tablet) 650 mg PO Q6H PRN PRN Reason: Headache/Pain, Scale 1-10 Last Admin: 12/08/24 11:37 Dose: 650 mg Al Hydroxide/Mg Hydroxide (Magnesium Hydrox/Alum Hydrox 30 Ml Oral.Susp) 30 ml PO Q6H PRN PRN Reason: Heartburn/Nausea Aspirin (Aspirin Enteric Coated 81 Mg Tablet.) 81 mg PO DAILY [facility] Last Admin: 12/08/24 09:27 Dose: 81 mg Atorvastatin Calcium (Atorvastatin Calcium 20 Mg Tablet) 20 mg PO DAILY [facility] Last Admin: 12/08/24 09:27 Dose: 20 mg Clonazepam (Clonazepam 1 Mg Tablet) 1 mg PO BEDTIME PRN PRN Reason: insomnia Last Admin: 12/07/24 21:16 Dose: 1 mg Clonidine HCl (Clonidine Hcl 0.1 Mg Tablet) 0.1 mg PO BID PRN; Protocol PRN Reason: severe anxiety Last Admin: 12/07/24 19:04 Dose: 0.1 mg Divalproex Sodium (Divalproex Sodium Sprinkles 125 Mg ) 250 mg PO TID [facility] Last Admin: 12/08/24 09:27 Dose: 250 mg Hydroxyzine HCl (Hydroxyzine Hcl 25 Mg Tablet) 25 mg PO Q6H PRN PRN Reason: mild anxiety Last Admin: 12/05/24 20:33 Dose: 25 mg Ibuprofen (Ibuprofen 800 Mg Tablet) 800 mg PO Q8H PRN PRN Reason: Pain, Severe (Pain Scale 7-10) Last Admin: 12/08/24 05:21 Dose: 800 mg Lamotrigine (Lamotrigine 100 Mg Tablet) 200 mg PO BID [facility] Last Admin: 12/08/24 09:27 Dose: 200 mg Magnesium Hydroxide (Milk Of Magnesia 30 Ml Oral.Susp) 30 ml PO DAILY PRN PRN Reason: Constipation Modafinil (Modafinil 100 Mg Tablet) 100 mg PO DAILY [facility] Last Admin: 12/03/24 08:20 Dose: Not Given Nicotine Polacrilex (Nicotine Polacrilex 2 Mg Gum) 4 mg BUCCAL Q2H PRN PRN Reason: Nicotine Cravings Ondansetron HCl (Ondansetron Odt 4 Mg Tab.Rapdis) 4 mg TRANSLINGU Q6H PRN PRN Reason: Nausea and Vomiting Last Admin: 12/01/24 06:23 Dose: 4 mg Topiramate (Topiramate 25 Mg Tablet) 25 mg PO BEDTIME [facility] Last Admin: 12/07/24 21:16 Dose: 25 mg Trazodone HCl (Trazodone Hcl 50 Mg Tablet) 50 mg PO BEDTIME MRX1 PRN PRN Reason: Insomnia Allergies Allergies Allergy/AdvReac Type Severity Reaction Status Date / Time bee pollen [BEE STINGS] Allergy Severe ANAPHYLAXIS Verified 11/28/24 16:53 morphine [MORPHINE] Allergy Mild not Verified 11/28/24 16:53 effective- per pt. tizanidine Allergy Unknown Verified 11/28/24 16:53 bupropion [From WELLBUTRIN] AdvReac Severe PATIENT Verified 11/28/24 16:53 BECOME DEPRESSED Assessment & Plan Assessment & Plan (1) ADD (attention deficit disorder) without hyperactivity: Status: Acute Code(s): F98.8 - Other specified behavioral and emotional disorders with onset usually occurring in childhood and adolescence (2) Major depression, recurrent, chronic: Status: Acute Code(s): F33.9 - Major depressive disorder, recurrent, unspecified Plan 12/01/24: DC Olanzapine Depakote 125 mg tid Neuro consult-chronic headache 12/08/24- Continue regime Continue to discuss discharge planning with pt, encourage pt to remain inpt for the weekend. Reason for continued inpatient stay Substantial Risk for: rapid decompensation Time Spent With Patient Time: Total time managing care of this patient today ____ minutes.
[2024-12-08 18:20] VITALS: BP 130/79
[2024-12-08] MEDS: cloNIDine HCL 0.1 MG TABLET PO (18:20)
[2024-12-08 20:00] VITALS: BP 153/84; PULSE 100; TEMP 36.9; O2SAT 96
[2024-12-08] MEDS: clonazePAM 1 MG TABLET PO (21:45)
[2024-12-08] MEDS: Topiramate 25 MG TABLET PO (21:46)
[2024-12-09] MEDS: Acetaminophen 325 MG TABLET 650 MG PO ×3 (04:15→21:20)
[2024-12-09 08:16] VITALS: BP 109/62; PULSE 95; RESP 16; TEMP 36.7; O2SAT 94
[2024-12-09] MEDS: Divalproex Sodium Sprinkles 125 MG CAP.DR.SPR 250 MG PO ×3 (08:36→21:20)
[2024-12-09] MEDS: lamoTRIgine 100 MG TABLET 200 MG PO ×2 (08:36→21:20)
[2024-12-09] MEDS: Ibuprofen 800 MG TABLET PO ×2 (08:37→17:08)
[2024-12-09] MEDS: Aspirin Enteric Coated 81 MG TABLET.DR PO (08:37)
[2024-12-09] MEDS: Atorvastatin Calcium 20 MG TABLET PO (08:37)
[2024-12-09] MEDS: hydrOXYzine HCL 25 MG TABLET PO (09:20)
--- NOTE | 2024-12-09 15:45 | P.PNPSI_ITS ---
Subjective Subjective Date of Service: 12/09/24 Reason For Visit: RECURRENT MAJOR DEPRESSION Subjective Notes: Conditional Voluntary Healthcare Proxy: No Guardianship: No Medical Problems Affecting Mental Status: No Interim History: Reports feeling some improvement. States he made contact with [facility] police dispatcher who was supportive to him CARE SUPPORT REPRESENTATIVE and felt supported by this contact. Review of contacts prior to admit. Review of letter received from [facility], Gerber Mercer [phone]. Planning discharge next week to a friends home, [facility]. Will continue medication regime today. Medication Compliance: Yes Side effects from medications: No Attending Groups: Yes Review of Systems Acute medical concerns: No Review of Systems Review of Systems Denies Mental Status Exam Mental Status Exam Patient Appearance: Well Grooomed and Appropriate Patient Orientation: Person and Situation Level of Consciousness: Awake, Appropriate and Alert Patient Behavior: Talkative and Good Eye Contact Mood Description: Calm Affect Description: Constricted Patient Cognition Impaired: Yes Ability to Follow Directions: Good Speech Pattern: Clear Hallucinations: None Delusions: Not Present Thought Process: Intact and Goal Oriented Thought Content: positive for Intact, positive for Circumstantial and positive for Goal Oriented Judgement: Good Diagnostics Vital Signs (24Hr): Vital Signs - 24 hr 12/08/24 18:20 12/08/24 20:00 12/09/24 08:16 Temperature 98.5 F 98.0 F Pulse Rate 100 95 Respiratory Rate 16 Blood Pressure 130/79 153/84 H 109/62 Pulse Oximetry 96 94 Oxygen Delivery Method Room Air Room Air BMI result Body Mass Index 26.1 Labs 11/28/24 18:11 12/08/24 08:15 Labs: Laboratory Results - last 48 hr 12/08/24 08:15 Sodium 142 Potassium 4.5 Chloride 109 H Carbon Dioxide 27 Anion Gap 11 L BUN 22 H Creatinine 0.86 Estim Creat Clear Calc 85.4 Estimated GFR > 60 Fasting Glucose 98 Calcium 9.6 Total Bilirubin 0.7 AST 27 ALT 28 Alkaline Phosphatase 63 Total Protein 7.3 Albumin 4.3 Valproic Acid 33.8 L Imaging Radiology Impressions: ITS Impressions Head CT 12/05/24 10:10 IMPRESSION: No acute intracranial hemorrhage. Probable old frontal contusions, left greater than right with old traumatic deformities, nasal bones and left frontal superior orbital wall Status post craniectomy and cranioplasty, right occipital posterior right mastoid. Electronically signed by: Gallito Song MD 12/05/2024 11:45 AM [facility] Medic[place] Medications Current Medications Acetaminophen (Acetaminophen 325 Mg Tablet) 650 mg PO Q6H PRN PRN Reason: Headache/Pain, Scale 1-10 Last Admin: 12/09/24 11:02 Dose: 650 mg Al Hydroxide/Mg Hydroxide (Magnesium Hydrox/Alum Hydrox 30 Ml Oral.Susp) 30 ml PO Q6H PRN PRN Reason: Heartburn/Nausea Aspirin (Aspirin Enteric Coated 81 Mg Tablet.) 81 mg PO DAILY [facility] Last Admin: 12/09/24 08:37 Dose: 81 mg Atorvastatin Calcium (Atorvastatin Calcium 20 Mg Tablet) 20 mg PO DAILY [facility] Last Admin: 12/09/24 08:37 Dose: 20 mg Clonazepam (Clonazepam 1 Mg Tablet) 1 mg PO BEDTIME PRN PRN Reason: insomnia Last Admin: 12/08/24 21:45 Dose: 1 mg Clonidine HCl (Clonidine Hcl 0.1 Mg Tablet) 0.1 mg PO BID PRN; Protocol PRN Reason: severe anxiety Last Admin: 12/08/24 18:20 Dose: 0.1 mg Divalproex Sodium (Divalproex Sodium Sprinkles 125 Mg Cap.) 250 mg PO TID [facility] Last Admin: 12/09/24 08:36 Dose: 250 mg Hydroxyzine HCl (Hydroxyzine Hcl 25 Mg Tablet) 25 mg PO Q6H PRN PRN Reason: mild anxiety Last Admin: 12/09/24 09:20 Dose: 25 mg Ibuprofen (Ibuprofen 800 Mg Tablet) 800 mg PO Q8H PRN PRN Reason: Pain, Severe (Pain Scale 7-10) Last Admin: 12/09/24 08:37 Dose: 800 mg Lamotrigine (Lamotrigine 100 Mg Tablet) 200 mg PO BID [facility] Last Admin: 12/09/24 08:36 Dose: 200 mg Magnesium Hydroxide (Milk Of Magnesia 30 Ml Oral.Susp) 30 ml PO DAILY PRN PRN Reason: Constipation Modafinil (Modafinil 100 Mg Tablet) 100 mg PO DAILY [facility] Last Admin: 12/03/24 08:20 Dose: Not Given Nicotine Polacrilex (Nicotine Polacrilex 2 Mg Gum) 4 mg BUCCAL Q2H PRN PRN Reason: Nicotine Cravings Ondansetron HCl (Ondansetron Odt 4 Mg Tab.Rapdis) 4 mg TRANSLINGU Q6H PRN PRN Reason: Nausea and Vomiting Last Admin: 12/01/24 06:23 Dose: 4 mg Topiramate (Topiramate 25 Mg Tablet) 25 mg PO BEDTIME [facility] Last Admin: 12/08/24 21:46 Dose: 25 mg Trazodone HCl (Trazodone Hcl 50 Mg Tablet) 50 mg PO BEDTIME MRX1 PRN PRN Reason: Insomnia Allergies Allergies Allergy/AdvReac Type Severity Reaction Status Date / Time bee pollen [BEE STINGS] Allergy Severe ANAPHYLAXIS Verified 11/28/24 16:53 morphine [MORPHINE] Allergy Mild not Verified 11/28/24 16:53 effective- per pt. tizanidine Allergy Unknown Verified 11/28/24 16:53 bupropion [From WELLBUTRIN] AdvReac Severe PATIENT Verified 11/28/24 16:53 BECOME DEPRESSED Assessment & Plan Assessment & Plan (1) ADD (attention deficit disorder) without hyperactivity: Status: Acute Code(s): F98.8 - Other specified behavioral and emotional disorders with onset usually occurring in childhood and adolescence (2) Major depression, recurrent, chronic: Status: Acute Code(s): F33.9 - Major depressive disorder, recurrent, unspecified Plan 12/01/24: DC Olanzapine Depakote 125 mg tid Neuro consult-chronic headache 12/08/24- Continue regime Continue to discuss discharge planning with pt, encourage pt to remain inpt for the weekend. 12/09/24: Continue regime Reason for continued inpatient stay Substantial Risk for: rapid decompensation Time Spent With Patient Time: Total time managing care of this patient today ____ minutes.
[2024-12-09 20:00] VITALS: BP 137/73; PULSE 100; RESP 20; TEMP 36.9; O2SAT 97
[2024-12-09] MEDS: diphenhydrAMINE HCL 25 MG CAPSULE PO (20:08)
[2024-12-09] MEDS: clonazePAM 1 MG TABLET PO (21:21)
[2024-12-09] MEDS: Topiramate 25 MG TABLET PO (21:21)
[2024-12-10] MEDS: diphenhydrAMINE HCL 25 MG CAPSULE PO ×3 (00:58→21:04)
[2024-12-10] MEDS: Ibuprofen 800 MG TABLET PO ×3 (01:00→21:03)
[2024-12-10] MEDS: Acetaminophen 325 MG TABLET 650 MG PO ×2 (04:30→18:11)
[2024-12-10 08:00] VITALS: BP 137/78; PULSE 97; TEMP 36.9; O2SAT 98
[2024-12-10] MEDS: lamoTRIgine 100 MG TABLET 200 MG PO ×2 (09:31→21:03)
[2024-12-10] MEDS: Divalproex Sodium Sprinkles 125 MG CAP.DR.SPR 250 MG PO ×3 (09:31→21:03)
[2024-12-10] MEDS: Atorvastatin Calcium 20 MG TABLET PO (09:33)
[2024-12-10] MEDS: Aspirin Enteric Coated 81 MG TABLET.DR PO (09:33)
--- NOTE | 2024-12-10 10:14 | P.PNPSI_ITS ---
Subjective Subjective Date of Service: 12/10/24 Reason For Visit: RECURRENT MAJOR DEPRESSION Subjective Notes: Conditional Voluntary Interim History: Patient was seen and discussed in rounds today. Records and plans were reviewed. He continues to be guarded and isolative. He is having lot of flu symptoms in light of others on the unit and a test for flu, COVID and RSV ordered. Sleeping adequately. He has been seen to be little brighter. No SI. Review of Systems Review of Systems Flu symptoms Yes all other systems are reviewed and are negative Mental Status Exam Mental Status Exam Narrative: in today's visit he is alert, pleasant and interactive. He was in bed. Speech is normal. Moderate eye contact. Affect is constricted. No signs of psychosis. Cognitively intact. No SI. Judgment is intact Diagnostics Vital Signs (24Hr): Vital Signs - 24 hr 12/09/24 20:00 Temperature 98.4 F Pulse Rate 100 Respiratory Rate 20 Blood Pressure 137/73 Pulse Oximetry 97 Oxygen Delivery Method Room Air BMI result Body Mass Index 26.1 Labs 11/28/24 18:11 12/08/24 08:15 Imaging Radiology Impressions: ITS Impressions Head CT 12/05/24 10:10 IMPRESSION: No acute intracranial hemorrhage. Probable old frontal contusions, left greater than right with old traumatic deformities, nasal bones and left frontal superior orbital wall Status post craniectomy and cranioplasty, right occipital posterior right mastoid. Electronically signed by: Gallito Song MD 12/05/2024 11:45 AM [facility] Medic[place] Medications Current Medications Acetaminophen (Acetaminophen 325 Mg Tablet) 650 mg PO Q6H PRN PRN Reason: Headache/Pain, Scale 1-10 Last Admin: 12/10/24 04:30 Dose: 650 mg Al Hydroxide/Mg Hydroxide (Magnesium Hydrox/Alum Hydrox 30 Ml Oral.Susp) 30 ml PO Q6H PRN PRN Reason: Heartburn/Nausea Aspirin (Aspirin Enteric Coated 81 Mg Tablet.) 81 mg PO DAILY [facility] Last Admin: 12/10/24 09:33 Dose: 81 mg Atorvastatin Calcium (Atorvastatin Calcium 20 Mg Tablet) 20 mg PO DAILY [facility] Last Admin: 12/10/24 09:33 Dose: 20 mg Clonazepam (Clonazepam 1 Mg Tablet) 1 mg PO BEDTIME PRN PRN Reason: insomnia Last Admin: 12/09/24 21:21 Dose: 1 mg Clonidine HCl (Clonidine Hcl 0.1 Mg Tablet) 0.1 mg PO BID PRN; Protocol PRN Reason: severe anxiety Last Admin: 12/08/24 18:20 Dose: 0.1 mg Diphenhydramine HCl (Diphenhydramine Hcl 25 Mg Capsule) 25 mg PO TID PRN PRN Reason: Allergic Reaction Last Admin: 12/10/24 00:58 Dose: 25 mg Divalproex Sodium (Divalproex Sodium Sprinkles 125 Mg ) 250 mg PO TID [facility] Last Admin: 12/10/24 09:31 Dose: 250 mg Ibuprofen (Ibuprofen 800 Mg Tablet) 800 mg PO Q8H PRN PRN Reason: Pain, Severe (Pain Scale 7-10) Last Admin: 12/10/24 10:03 Dose: 800 mg Lamotrigine (Lamotrigine 100 Mg Tablet) 200 mg PO BID [facility] Last Admin: 12/10/24 09:31 Dose: 200 mg Magnesium Hydroxide (Milk Of Magnesia 30 Ml Oral.Susp) 30 ml PO DAILY PRN PRN Reason: Constipation Modafinil (Modafinil 100 Mg Tablet) 100 mg PO DAILY [facility] Last Admin: 12/03/24 08:20 Dose: Not Given Nicotine Polacrilex (Nicotine Polacrilex 2 Mg Gum) 4 mg BUCCAL Q2H PRN PRN Reason: Nicotine Cravings Ondansetron HCl (Ondansetron Odt 4 Mg Tab.Rapdis) 4 mg TRANSLINGU Q6H PRN PRN Reason: Nausea and Vomiting Last Admin: 12/01/24 06:23 Dose: 4 mg Topiramate (Topiramate 25 Mg Tablet) 25 mg PO BEDTIME [facility] Last Admin: 12/09/24 21:21 Dose: 25 mg Trazodone HCl (Trazodone Hcl 50 Mg Tablet) 50 mg PO BEDTIME MRX1 PRN PRN Reason: Insomnia Allergies Allergies Allergy/AdvReac Type Severity Reaction Status Date / Time bee pollen [BEE STINGS] Allergy Severe ANAPHYLAXIS Verified 11/28/24 16:53 morphine [MORPHINE] Allergy Mild not Verified 11/28/24 16:53 effective- per pt. tizanidine Allergy Unknown Verified 11/28/24 16:53 bupropion [From WELLBUTRIN] AdvReac Severe PATIENT Verified 11/28/24 16:53 BECOME DEPRESSED Assessment & Plan Assessment & Plan (1) ADD (attention deficit disorder) without hyperactivity: Status: Acute Code(s): F98.8 - Other specified behavioral and emotional disorders with onset usually occurring in childhood and adolescence (2) Major depression, recurrent, chronic: Status: Acute Code(s): F33.9 - Major depressive disorder, recurrent, unspecified Plan 12/01/24: DC Olanzapine Depakote 125 mg tid Neuro consult-chronic headache 12/07/2024 Continue Depakote check levels encourage patient reaching out to outside resources for post discharge denies active SI is flat dysphoric constricted history of SI encourage solid planning and support 12/10/24: Continue current plans and regimen Reason for continued inpatient stay Substantial Risk for: med/psych decompensation Time Spent With Patient Time: Total time managing care of this patient today ____ minutes.
[2024-12-10 11:20] LABS: Influenza A PCR POSITIVE (Negative); Influenza B PCR NEGATIVE (Negative); Resp Syncy Virus RNA Qual PCR NEGATIVE (Negative); SARS COV2 PCR INHOUSE NEGATIVE (Negative)
[2024-12-10] MEDS: Ondansetron ODT 4 MG TAB.RAPDIS TRANSLINGU ×2 (14:57→21:03)
[2024-12-10] MEDS: Throat Lozenge, Medicated LOZENGE 1 LOZENGE MUCOUS MEM (14:57)
[2024-12-10] MEDS: guaiFENesin 100 MG/5 ML 5 ML LIQUID PO (14:57)
[2024-12-10 18:09] VITALS: TEMP 38.3
[2024-12-10 18:11] VITALS: BP 113/70
[2024-12-10] MEDS: cloNIDine HCL 0.1 MG TABLET PO (18:11)
[2024-12-10 19:43] VITALS: BP 126/60; PULSE 100; RESP 16; TEMP 38.6; O2SAT 93
[2024-12-10] MEDS: Topiramate 25 MG TABLET PO (21:03)
[2024-12-10] MEDS: clonazePAM 1 MG TABLET PO (21:04)
[2024-12-11 08:21] VITALS: BP 125/70; PULSE 94; TEMP 37; O2SAT 94
--- NOTE | 2024-12-11 08:59 | HO.PSYCHPN ---
Subjective Subjective Date of Service: 12/11/24 Reason For Visit: RECURRENT MAJOR DEPRESSION Subjective Notes: Conditional Voluntary Interim History: Patient was seen and discussed in rounds today. Records and plans were reviewed. He continues to have flu symptoms but feels that he is improving. Had a better night. Eating and sleeping adequately. No other complaints. No side effects. No SI. Review of Systems Review of Systems Upper respiratory symptoms Yes all other systems are reviewed and are negative Diagnostics Vital Signs (24Hr): Vital Signs - 24 hr 12/10/24 08:00 12/10/24 18:09 12/10/24 18:11 Temperature 98.4 F 100.9 F H Pulse Rate 97 Respiratory Rate Blood Pressure 137/78 113/70 Pulse Oximetry 98 Oxygen Delivery Method Room Air 12/10/24 19:43 12/11/24 08:21 Temperature 101.4 F H 98.6 F Pulse Rate 100 94 Respiratory Rate 16 Blood Pressure 126/60 125/70 Pulse Oximetry 93 94 Oxygen Delivery Method Room Air Room Air BMI result Body Mass Index 26.1 Labs 11/28/24 18:11 12/08/24 08:15 Labs: Laboratory Results - last 48 hr 12/10/24 10:00 Influenza Type A (PCR) POSITIVE A Influenza Type B (PCR) NEGATIVE RSV RNA Qual (PCR) NEGATIVE SARS-CoV-2 RNA (RT-PCR) NEGATIVE Imaging Radiology Impressions: ITS Impressions Head CT 12/05/24 10:10 IMPRESSION: No acute intracranial hemorrhage. Probable old frontal contusions, left greater than right with old traumatic deformities, nasal bones and left frontal superior orbital wall Status post craniectomy and cranioplasty, right occipital posterior right mastoid. Electronically signed by: Gallito Song MD 12/05/2024 11:45 AM [facility] Medications Medications Current Medications Acetaminophen (Acetaminophen 325 Mg Tablet) 650 mg PO Q6H PRN PRN Reason: Headache/Pain, Scale 1-10 Last Admin: 12/10/24 18:11 Dose: 650 mg Al Hydroxide/Mg Hydroxide (Magnesium Hydrox/Alum Hydrox 30 Ml Oral.Susp) 30 ml PO Q6H PRN PRN Reason: Heartburn/Nausea Aspirin (Aspirin Enteric Coated 81 Mg Tablet.) 81 mg PO DAILY [facility] Last Admin: 12/10/24 09:33 Dose: 81 mg Atorvastatin Calcium (Atorvastatin Calcium 20 Mg Tablet) 20 mg PO DAILY [facility] Last Admin: 12/10/24 09:33 Dose: 20 mg Benzocaine (Throat Lozenge, Medicated Lozenge) 1 lozenge MUCOUS MEM Q2H PRN PRN Reason: Sore Throat Last Admin: 12/10/24 14:57 Dose: 1 lozenge Clonazepam (Clonazepam 1 Mg Tablet) 1 mg PO BEDTIME PRN PRN Reason: insomnia Last Admin: 12/10/24 21:04 Dose: 1 mg Clonidine HCl (Clonidine Hcl 0.1 Mg Tablet) 0.1 mg PO BID PRN; Protocol PRN Reason: severe anxiety Last Admin: 12/10/24 18:11 Dose: 0.1 mg Diphenhydramine HCl (Diphenhydramine Hcl 25 Mg Capsule) 25 mg PO TID PRN PRN Reason: Allergic Reaction Last Admin: 12/10/24 21:04 Dose: 25 mg Divalproex Sodium (Divalproex Sodium Sprinkles 125 Mg Cap.Spr) 250 mg PO TID [facility] Last Admin: 12/10/24 21:03 Dose: 250 mg Guaifenesin (Guaifenesin 100 Mg/5 Ml 5 Ml Liquid) 5 ml PO Q4H PRN PRN Reason: Cough Last Admin: 12/10/24 14:57 Dose: 5 ml Ibuprofen (Ibuprofen 800 Mg Tablet) 800 mg PO Q8H PRN PRN Reason: Pain, Severe (Pain Scale 7-10) Last Admin: 12/10/24 21:03 Dose: 800 mg Lamotrigine (Lamotrigine 100 Mg Tablet) 200 mg PO BID [facility] Last Admin: 12/10/24 21:03 Dose: 200 mg Magnesium Hydroxide (Milk Of Magnesia 30 Ml Oral.Susp) 30 ml PO DAILY PRN PRN Reason: Constipation Modafinil (Modafinil 100 Mg Tablet) 100 mg PO DAILY [facility] Last Admin: 12/03/24 08:20 Dose: Not Given Nicotine Polacrilex (Nicotine Polacrilex 2 Mg Gum) 4 mg BUCCAL Q2H PRN PRN Reason: Nicotine Cravings Ondansetron HCl (Ondansetron Odt 4 Mg Tab.Rapdis) 4 mg TRANSLINGU Q6H PRN PRN Reason: Nausea and Vomiting Last Admin: 12/10/24 21:03 Dose: 4 mg Topiramate (Topiramate 25 Mg Tablet) 25 mg PO BEDTIME [facility] Last Admin: 12/10/24 21:03 Dose: 25 mg Trazodone HCl (Trazodone Hcl 50 Mg Tablet) 50 mg PO BEDTIME MRX1 PRN PRN Reason: Insomnia Allergies Allergies Allergy/AdvReac Type Severity Reaction Status Date / Time bee pollen [BEE STINGS] Allergy Severe ANAPHYLAXIS Verified 11/28/24 16:53 morphine [MORPHINE] Allergy Mild not Verified 11/28/24 16:53 effective- per pt. tizanidine Allergy Unknown Verified 11/28/24 16:53 bupropion [From WELLBUTRIN] AdvReac Severe PATIENT Verified 11/28/24 16:53 BECOME DEPRESSED Assessment & Plan Assessment & Plan (1) ADD (attention deficit disorder) without hyperactivity: Status: Acute Code(s): F98.8 - Other specified behavioral and emotional disorders with onset usually occurring in childhood and adolescence (2) Major depression, recurrent, chronic: Status: Acute Code(s): F33.9 - Major depressive disorder, recurrent, unspecified Plan 12/01/24: DC Olanzapine Depakote 125 mg tid Neuro consult-chronic headache 12/07/2024 Continue Depakote check levels encourage patient reaching out to outside resources for post discharge denies active SI is flat dysphoric constricted history of SI encourage solid planning and support 12/10/24: Continue current plans and regimen 12/11: Continue current regimen and plans Reason for continued inpatient stay Substantial Risk for: med/psych decompensation Time Spent With Patient Time: Total time managing care of this patient today ____ minutes.
[2024-12-11] MEDS: Divalproex Sodium Sprinkles 125 MG CAP.DR.SPR 250 MG PO ×3 (09:14→22:30)
[2024-12-11] MEDS: Aspirin Enteric Coated 81 MG TABLET.DR PO (09:14)
[2024-12-11] MEDS: Atorvastatin Calcium 20 MG TABLET PO (09:14)
[2024-12-11] MEDS: lamoTRIgine 100 MG TABLET 200 MG PO ×2 (09:14→22:31)
[2024-12-11] MEDS: Acetaminophen 325 MG TABLET 650 MG PO ×3 (09:17→22:40)
[2024-12-11] MEDS: Throat Lozenge, Medicated LOZENGE 1 LOZENGE MUCOUS MEM (09:17)
[2024-12-11] MEDS: guaiFENesin 100 MG/5 ML 5 ML LIQUID PO ×3 (09:18→22:40)
[2024-12-11] MEDS: diphenhydrAMINE HCL 25 MG CAPSULE PO ×3 (09:21→22:42)
[2024-12-11] MEDS: Ibuprofen 800 MG TABLET PO (18:24)
[2024-12-11 20:00] VITALS: BP 128/69; PULSE 89; TEMP 37; O2SAT 96
[2024-12-11] MEDS: Topiramate 25 MG TABLET PO (22:32)
[2024-12-11] MEDS: clonazePAM 1 MG TABLET PO (22:42)
[2024-12-12] MEDS: diphenhydrAMINE HCL 25 MG CAPSULE PO ×3 (02:32→20:06)
[2024-12-12] MEDS: Ondansetron ODT 4 MG TAB.RAPDIS TRANSLINGU ×3 (02:32→17:22)
[2024-12-12] MEDS: Acetaminophen 325 MG TABLET 650 MG PO ×3 (07:29→22:02)
[2024-12-12 08:00] VITALS: BP 143/76; PULSE 94; RESP 20; TEMP 37.1; O2SAT 96
[2024-12-12] MEDS: Divalproex Sodium Sprinkles 125 MG CAP.DR.SPR 250 MG PO ×3 (08:55→22:01)
[2024-12-12] MEDS: Aspirin Enteric Coated 81 MG TABLET.DR PO (08:55)
[2024-12-12] MEDS: Atorvastatin Calcium 20 MG TABLET PO (08:56)
[2024-12-12] MEDS: lamoTRIgine 100 MG TABLET 200 MG PO ×2 (08:56→22:02)
[2024-12-12] MEDS: guaiFENesin 100 MG/5 ML 5 ML LIQUID PO ×2 (10:08→20:06)
[2024-12-12] MEDS: Ibuprofen 800 MG TABLET PO (10:08)
--- NOTE | 2024-12-12 11:03 | P.PNPSI_ITS ---
Subjective Subjective Date of Service: 12/12/24 Reason For Visit: RECURRENT MAJOR DEPRESSION Subjective Notes: Conditional Voluntary Healthcare Proxy: No Guardianship: No Medical Problems Affecting Mental Status: No Interim History: Pt positive for influenza over the weekend. Team has filed a [facility] report on behalf of pt's . Pt today is not feeling well physically. He did discuss wanting discharge this week, although housing plans are not firm. He does not have a place to live at this time, however, his friend, Krishna Herbert, has family who may be able to rent pt an apartment. Pt denies SI,HI, AH,VH. He has no sx of acute gabriel or psychosis Medication Compliance: Yes Side effects from medications: No Attending Groups: Yes Review of Systems Acute medical concerns: No Review of Systems Review of Systems Flu sx Mental Status Exam Mental Status Exam Patient Appearance: Fatigued and Appropriate Patient Orientation: Person, Place, Time and Situation Level of Consciousness: Alert Patient Behavior: Appropriate, Talkative, Cooperative and Good Eye Contact Mood Description: Constricted Affect Description: Constricted Patient Cognition Impaired: No Ability to Follow Directions: Good Speech Pattern: Spontaneous Speech Memory Description: Intact Hallucinations: None Delusions: Not Present Thought Process: Goal Oriented Thought Content: positive for Goal Oriented and positive for Suicidal Ideation (denies) Depressive Symptoms: Increased Fatigue Judgement: Good Diagnostics Vital Signs (24Hr): Vital Signs - 24 hr 12/11/24 20:00 12/12/24 08:00 Temperature 98.6 F 98.7 F Pulse Rate 89 94 Respiratory Rate 20 Blood Pressure 128/69 143/76 H Pulse Oximetry 96 96 Oxygen Delivery Method Room Air Room Air BMI result Body Mass Index 26.1 Labs 11/28/24 18:11 12/08/24 08:15 Labs: Laboratory Results - last 48 hr 12/10/24 10:00 Influenza Type A (PCR) POSITIVE A Influenza Type B (PCR) NEGATIVE RSV RNA Qual (PCR) NEGATIVE SARS-CoV-2 RNA (RT-PCR) NEGATIVE Imaging Radiology Impressions: ITS Impressions Head CT 12/05/24 10:10 IMPRESSION: No acute intracranial hemorrhage. Probable old frontal contusions, left greater than right with old traumatic deformities, nasal bones and left frontal superior orbital wall Status post craniectomy and cranioplasty, right occipital posterior right mastoid. Electronically signed by: Gallito Song MD 12/05/2024 11:45 AM [facility] Medications Medications Current Medications Acetaminophen (Acetaminophen 325 Mg Tablet) 650 mg PO Q6H PRN PRN Reason: Headache/Pain, Scale 1-10 Last Admin: 12/12/24 07:29 Dose: 650 mg Al Hydroxide/Mg Hydroxide (Magnesium Hydrox/Alum Hydrox 30 Ml Oral.Susp) 30 ml PO Q6H PRN PRN Reason: Heartburn/Nausea Aspirin (Aspirin Enteric Coated 81 Mg Tablet.) 81 mg PO DAILY [facility] Last Admin: 12/12/24 08:55 Dose: 81 mg Atorvastatin Calcium (Atorvastatin Calcium 20 Mg Tablet) 20 mg PO DAILY [facility] Last Admin: 12/12/24 08:56 Dose: 20 mg Benzocaine (Throat Lozenge, Medicated Lozenge) 1 lozenge MUCOUS MEM Q2H PRN PRN Reason: Sore Throat Last Admin: 12/11/24 09:17 Dose: 1 lozenge Clonazepam (Clonazepam 1 Mg Tablet) 1 mg PO BEDTIME PRN PRN Reason: insomnia Last Admin: 12/11/24 22:42 Dose: 1 mg Clonidine HCl (Clonidine Hcl 0.1 Mg Tablet) 0.1 mg PO BID PRN; Protocol PRN Reason: severe anxiety Last Admin: 12/10/24 18:11 Dose: 0.1 mg Diphenhydramine HCl (Diphenhydramine Hcl 25 Mg Capsule) 25 mg PO TID PRN PRN Reason: Allergic Reaction Last Admin: 12/12/24 08:59 Dose: 25 mg Divalproex Sodium (Divalproex Sodium Sprinkles 125 Mg ) 250 mg PO TID [facility] Last Admin: 12/12/24 08:55 Dose: 250 mg Guaifenesin (Guaifenesin 100 Mg/5 Ml 5 Ml Liquid) 5 ml PO Q4H PRN PRN Reason: Cough Last Admin: 12/12/24 10:08 Dose: 5 ml Ibuprofen (Ibuprofen 800 Mg Tablet) 800 mg PO Q8H PRN PRN Reason: Pain, Severe (Pain Scale 7-10) Last Admin: 12/12/24 10:08 Dose: 800 mg Lamotrigine (Lamotrigine 100 Mg Tablet) 200 mg PO BID [facility] Last Admin: 12/12/24 08:56 Dose: 200 mg Magnesium Hydroxide (Milk Of Magnesia 30 Ml Oral.Susp) 30 ml PO DAILY PRN PRN Reason: Constipation Modafinil (Modafinil 100 Mg Tablet) 100 mg PO DAILY [facility] Last Admin: 12/03/24 08:20 Dose: Not Given Nicotine Polacrilex (Nicotine Polacrilex 2 Mg Gum) 4 mg BUCCAL Q2H PRN PRN Reason: Nicotine Cravings Ondansetron HCl (Ondansetron Odt 4 Mg Tab.Rapdis) 4 mg TRANSLINGU Q6H PRN PRN Reason: Nausea and Vomiting Last Admin: 12/12/24 08:59 Dose: 4 mg Topiramate (Topiramate 25 Mg Tablet) 25 mg PO BEDTIME [facility] Last Admin: 12/11/24 22:32 Dose: 25 mg Trazodone HCl (Trazodone Hcl 50 Mg Tablet) 50 mg PO BEDTIME MRX1 PRN PRN Reason: Insomnia Allergies Allergies Allergy/AdvReac Type Severity Reaction Status Date / Time bee pollen [BEE STINGS] Allergy Severe ANAPHYLAXIS Verified 11/28/24 16:53 morphine [MORPHINE] Allergy Mild not Verified 11/28/24 16:53 effective- per pt. tizanidine Allergy Unknown Verified 11/28/24 16:53 bupropion [From WELLBUTRIN] AdvReac Severe PATIENT Verified 11/28/24 16:53 BECOME DEPRESSED Assessment & Plan Assessment & Plan (1) ADD (attention deficit disorder) without hyperactivity: Status: Acute Code(s): F98.8 - Other specified behavioral and emotional disorders with onset usually occurring in childhood and adolescence (2) Major depression, recurrent, chronic: Status: Acute Code(s): F33.9 - Major depressive disorder, recurrent, unspecified Plan 12/01/24: DC Olanzapine Depakote 125 mg tid Neuro consult-chronic headache 12/07/2024 Continue Depakote check levels encourage patient reaching out to outside resources for post discharge denies active SI is flat dysphoric constricted history of SI encourage solid planning and support 12/10/24: Continue current plans and regimen 12/11: Continue current regimen and plans 12/12: Continue current regime Discharge this week. Pt is looking at housing opportunities. Reason for continued inpatient stay Substantial Risk for: rapid decompensation Time Spent With Patient Time: Total time managing care of this patient today ____ minutes.
[2024-12-12 12:39] VITALS: BP 111/72
[2024-12-12] MEDS: cloNIDine HCL 0.1 MG TABLET PO ×2 (12:39→17:20)
[2024-12-12] MEDS: Milk of Magnesia 30 ML ORAL.SUSP PO (15:31)
[2024-12-12 17:20] VITALS: BP 134/71
[2024-12-12 20:00] VITALS: BP 117/62; PULSE 89; TEMP 36.8; O2SAT 88
[2024-12-12] MEDS: Topiramate 25 MG TABLET PO (22:02)
[2024-12-12] MEDS: clonazePAM 1 MG TABLET PO (22:02)
[2024-12-13] MEDS: Ibuprofen 800 MG TABLET PO (03:40)
[2024-12-13] MEDS: guaiFENesin 100 MG/5 ML 5 ML LIQUID PO (06:29)
[2024-12-13] MEDS: Acetaminophen 325 MG TABLET 650 MG PO (06:33)
[2024-12-13 08:17] VITALS: BP 108/58; PULSE 88; RESP 18; TEMP 37.4; O2SAT 93
[2024-12-13] MEDS: Aspirin Enteric Coated 81 MG TABLET.DR PO (09:35)
[2024-12-13] MEDS: lamoTRIgine 100 MG TABLET 200 MG PO (09:35)
[2024-12-13] MEDS: Divalproex Sodium Sprinkles 125 MG CAP.DR.SPR 250 MG PO (09:35)
[2024-12-13] MEDS: Atorvastatin Calcium 20 MG TABLET PO (09:35)
--- NOTE | 2024-12-13 09:50 | HO.PSYCHPN ---
Subjective Subjective Reason For Visit: RECURRENT MAJOR DEPRESSION Diagnostics Vital Signs (24Hr): Vital Signs - 24 hr 12/12/24 12:39 12/12/24 17:20 12/12/24 20:00 Temperature 98.2 F Pulse Rate 89 Respiratory Rate Blood Pressure 111/72 134/71 117/62 Pulse Oximetry 88 L Oxygen Delivery Method Room Air 12/13/24 08:17 Temperature 99.3 F Pulse Rate 88 Respiratory Rate 18 Blood Pressure 108/58 L Pulse Oximetry 93 Oxygen Delivery Method Room Air BMI result Body Mass Index 26.1 Labs 11/28/24 18:11 12/08/24 08:15 Imaging Radiology Impressions: ITS Impressions Head CT 12/05/24 10:10 IMPRESSION: No acute intracranial hemorrhage. Probable old frontal contusions, left greater than right with old traumatic deformities, nasal bones and left frontal superior orbital wall Status post craniectomy and cranioplasty, right occipital posterior right mastoid. Electronically signed by: Gallito Song MD 12/05/2024 11:45 AM [facility] Medications Medications Current Medications Acetaminophen (Acetaminophen 325 Mg Tablet) 650 mg PO Q6H PRN PRN Reason: Headache/Pain, Scale 1-10 Last Admin: 12/13/24 06:33 Dose: 650 mg Al Hydroxide/Mg Hydroxide (Magnesium Hydrox/Alum Hydrox 30 Ml Oral.Susp) 30 ml PO Q6H PRN PRN Reason: Heartburn/Nausea Aspirin (Aspirin Enteric Coated 81 Mg Tablet.Dr) 81 mg PO DAILY PENDING SALE TO [facility] Last Admin: 12/13/24 09:35 Dose: 81 mg Atorvastatin Calcium (Atorvastatin Calcium 20 Mg Tablet) 20 mg PO DAILY PENDING SALE TO [facility] Last Admin: 12/13/24 09:35 Dose: 20 mg Benzocaine (Throat Lozenge, Medicated Lozenge) 1 lozenge MUCOUS MEM Q2H PRN PRN Reason: Sore Throat Last Admin: 12/11/24 09:17 Dose: 1 lozenge Clonazepam (Clonazepam 1 Mg Tablet) 1 mg PO BEDTIME PRN PRN Reason: insomnia Last Admin: 12/12/24 22:02 Dose: 1 mg Clonidine HCl (Clonidine Hcl 0.1 Mg Tablet) 0.1 mg PO BID PRN; Protocol PRN Reason: severe anxiety Last Admin: 12/12/24 17:20 Dose: 0.1 mg Diphenhydramine HCl (Diphenhydramine Hcl 25 Mg Capsule) 25 mg PO TID PRN PRN Reason: Allergic Reaction Last Admin: 12/12/24 20:06 Dose: 25 mg Divalproex Sodium (Divalproex Sodium Sprinkles 125 Mg ) 250 mg PO TID PENDING SALE TO [facility] Last Admin: 12/13/24 09:35 Dose: 250 mg Guaifenesin (Guaifenesin 100 Mg/5 Ml 5 Ml Liquid) 5 ml PO Q4H PRN PRN Reason: Cough Last Admin: 12/13/24 06:29 Dose: 5 ml Ibuprofen (Ibuprofen 800 Mg Tablet) 800 mg PO Q8H PRN PRN Reason: Pain, Severe (Pain Scale 7-10) Last Admin: 12/13/24 03:40 Dose: 800 mg Lamotrigine (Lamotrigine 100 Mg Tablet) 200 mg PO BID PENDING SALE TO [facility] Last Admin: 12/13/24 09:35 Dose: 200 mg Magnesium Hydroxide (Milk Of Magnesia 30 Ml Oral.Susp) 30 ml PO DAILY PRN PRN Reason: Constipation Last Admin: 12/12/24 15:31 Dose: 30 ml Modafinil (Modafinil 100 Mg Tablet) 100 mg PO DAILY PENDING SALE TO [facility] Last Admin: 12/03/24 08:20 Dose: Not Given Nicotine Polacrilex (Nicotine Polacrilex 2 Mg Gum) 4 mg BUCCAL Q2H PRN PRN Reason: Nicotine Cravings Ondansetron HCl (Ondansetron Odt 4 Mg Tab.Rapdis) 4 mg TRANSLINGU Q6H PRN PRN Reason: Nausea and Vomiting Last Admin: 12/12/24 17:22 Dose: 4 mg Topiramate (Topiramate 25 Mg Tablet) 25 mg PO BEDTIME PENDING SALE TO [facility] Last Admin: 12/12/24 22:02 Dose: 25 mg Trazodone HCl (Trazodone Hcl 50 Mg Tablet) 50 mg PO BEDTIME MRX1 PRN PRN Reason: Insomnia Allergies Allergies Allergy/AdvReac Type Severity Reaction Status Date / Time bee pollen [BEE STINGS] Allergy Severe ANAPHYLAXIS Verified 11/28/24 16:53 morphine [MORPHINE] Allergy Mild not Verified 11/28/24 16:53 effective- per pt. tizanidine Allergy Unknown Verified 11/28/24 16:53 bupropion [From WELLBUTRIN] AdvReac Severe PATIENT Verified 11/28/24 16:53 BECOME DEPRESSED Assessment & Plan Assessment & Plan (1) ADD (attention deficit disorder) without hyperactivity: Status: Acute Code(s): F98.8 - Other specified behavioral and emotional disorders with onset usually occurring in childhood and adolescence (2) Major depression, recurrent, chronic: Status: Acute Code(s): F33.9 - Major depressive disorder, recurrent, unspecified Plan 12/01/24: DC Olanzapine Depakote 125 mg tid Neuro consult-chronic headache 12/07/2024 Continue Depakote check levels encourage patient reaching out to outside resources for post discharge denies active SI is flat dysphoric constricted history of SI encourage solid planning and support 12/10/24: Continue current plans and regimen 12/11: Continue current regimen and plans Time Spent With Patient Time: Total time managing care of this patient today ____ minutes.
[2024-12-13] MEDS: Ondansetron ODT 4 MG TAB.RAPDIS TRANSLINGU (11:59)
--- NOTE | 2024-12-13 19:00 | P.DS_ITS ---
DS: Providers Provider Date of admission: 11/29/24 12:49 Primary care physician: None Physician Consults: 12/01/24 18:28 Consult to Neurology Routine Consulting Provider: [facility] Reason for consultation: s/p acoustic neuroma,chr headache, mood changes DS: Diagnosis Discharge Diagnosis (1) ADD (attention deficit disorder) without hyperactivity: Status: Acute (2) Major depression, recurrent, chronic: Status: Acute DS: Medications Discharge Medications Home Medications: Previous Rx's ?Medication ?Instructions ?Recorded lamotrigine 200 mg tablet 200 mg PO BID #120 tabs 11/10/24 acetaminophen 325 mg tablet 650 mg (2 x 325 mg) PO Q6H PRN 12/13/24 Headache/Pain, Scale 1-10 #0 tabs aspirin 81 mg tablet,delayed 81 mg PO DAILY #30 tabs 12/13/24 release atorvastatin 20 mg tablet 20 mg PO DAILY #30 tabs 12/13/24 clonazepam 1 mg tablet 1 mg PO BEDTIME PRN insomnia #30 12/13/24 tabs clonidine HCl 0.1 mg tablet 0.1 mg PO BID PRN severe anxiety 12/13/24 #14 tabs diphenhydramine HCl 25 mg capsule 25 mg PO TID PRN Allergic Reaction 12/13/24 (Banophen) #30 caps divalproex 125 mg capsule,delayed 250 mg (2 x 125 mg) PO TID #90 caps 12/13/24 release sprinkle ibuprofen 800 mg tablet 800 mg PO Q8H PRN Pain, Severe 12/13/24 (Pain Scale 7-10) #0 tabs topiramate 25 mg tablet 25 mg PO BEDTIME #30 tabs 12/13/24 Data Data Completed and Pending Completed studies during hospitalization [Text1]: 12/08/24 12/10/24 08:15 10:00 Sodium 142 Potassium 4.5 Chloride 109 H Carbon Dioxide 27 Anion Gap 11 L BUN 22 H Creatinine 0.86 Estim Creat Clear Calc 85.4 Estimated GFR > 60 Fasting Glucose 98 Calcium 9.6 Total Bilirubin 0.7 AST 27 ALT 28 Alkaline Phosphatase 63 Total Protein 7.3 Albumin 4.3 Valproic Acid 33.8 L Influenza Type A (PCR) POSITIVE A Influenza Type B (PCR) NEGATIVE RSV RNA Qual (PCR) NEGATIVE SARS-CoV-2 RNA (RT-PCR) NEGATIVE 11/28/24 17:31 Urine clean catch - Clean Catch Midstream Urine Culture - Final No growth. Imaging Diagnostic Imaging Impressions Head CT 12/05/24 10:10 IMPRESSION: No acute intracranial hemorrhage. Probable old frontal contusions, left greater than right with old traumatic deformities, nasal bones and left frontal superior orbital wall Status post craniectomy and cranioplasty, right occipital posterior right mastoid. Electronically signed by: Gallito Song MD 12/05/2024 11:45 AM [facility] DS: Summary Time Spent with Patient Time attestation: Total time managing care of this patient today ____ minutes. Discharge Plan Discharge Anticipated Discharge Date/Time: 12/13/24 14:00 Patient Disposition: Home, Self-Care Discharge Diagnosis: Recurrent Major Depression ADHD Referrals: Psychiatry with Dr. Riley [Other] - 12/28/24 1:30 pm (This appointment is in person. ) [facility] Hospitalization Program [Other] - 01/12/25 11:00 am (You have been placed on the cancellation list as well. ) Zoltan Riley MD [Physician] - 12/28/24 1:30 pm Physician,None [Primary Care Provider] - 1 Week Discharge Medications: New clonidine HCl 0.1 mg Tablet 0.1 mg PO BID PRN (Reason: severe anxiety) Qty: 14 0RF Protocol: Hold for SBP< HOLD for SBP < : 90 acetaminophen 325 mg Tablet 650 mg PO Q6H PRN (Reason: Headache/Pain, Scale 1-10) Qty: 0 0RF ibuprofen 800 mg Tablet 800 mg PO Q8H PRN (Reason: Pain, Severe (Pain Scale 7-10)) Qty: 0 0RF topiramate 25 mg Tablet 25 mg PO BEDTIME Qty: 30 0RF diphenhydramine HCl [Banophen] 25 mg Capsule 25 mg PO TID PRN (Reason: Allergic Reaction) Qty: 30 0RF divalproex 125 mg Capsule, Delayed Rel Sprinkle 250 mg PO TID Qty: 90 0RF Continued lamotrigine 200 mg tablet 200 mg PO BID Qty: 120 1RF atorvastatin 20 mg tablet 20 mg PO DAILY Qty: 30 0RF clonazepam 1 mg tablet 1 mg PO BEDTIME PRN (Reason: insomnia) Qty: 30 1RF aspirin 81 mg tablet,delayed release (DR/EC) 81 mg PO DAILY Qty: 30 0RF Discontinued guanfacine 1 mg tablet 0.5 - 1 mg PO BEDTIME Qty: 30 1RF modafinil 100 mg tablet 100 mg PO QAM Qty: 30 1RF Discharge Orders: Discharge Order (Routine); Ordered 12/13/24 Ordered By: Suzie Lott Diet: Advance to usual diet Activity on Discharge: As tolerated Stand Alone Forms: Patient Portal Discharge page, Community Support Print Language: Wolof Care Plan Goals: Mood and Behavioral Stabilization Health Concerns: Mood and Behavioral Stabilization Plan of Treatment: Please have your labs drawn this week. We have provided a lab slip. Take medications as directed Attend scheduled appointments Call, return as needed Assessment: Treies SI,HI,AH,VH No sx of gabriel, psychosis Gene plans to live in an apt that his friend's sister owns in [place] He has a referral to [facility] which has been submitted Discharge Date/Time: 12/13/24 13:19
== END 2024-12-13 13:19 | disposition home or self-care (01) | DRG 885 ==
LOC: HO.ED 11-29 10:26 → HO.PM5 11-29 12:59
PROVIDERS: Psychiatry & Neurology Psychiatry; Social Worker; Admitting Provider Clinical Nurse Specialist Psychiatric/Mental Health, Adult; Emergency Provider Emergency Medicine; Visit Provider Clinical Nurse Specialist Psychiatric/Mental Health, Adult
DX: F33.9 Major depressive disorder, recurrent, unspecified (principal); F98.8 Other specified behavioral and emotional disorders with onset usually occurring in childhood and adolescence; G44.221 Chronic tension-type headache, intractable; J10.1 Influenza due to other identified influenza virus with other respiratory manifestations; Z79.82 Long term (current) use of aspirin; Z79.899 Other long term (current) drug therapy
CPT/HCPCS: 0241U; 36415; 70450; 80048; 80053; 80061; 80164; 80307; 81001; 82607; 82746; 83036; 83735; 84439; 84443; 85025; 87086; 93005; 99285; S9485

== ENCOUNTER → 2024-11-29 11:11 | Outpatient (BNV) | payer MEDICARE, MEDICAID, SELFPAY | PROVIDERS: Admitting Provider Clinical Nurse Specialist Psychiatric/Mental Health, Adult; Emergency Provider Emergency Medicine; Visit Provider Internal Medicine | DX: I44.0 Atrioventricular block, first degree (principal); R94.31 Abnormal electrocardiogram [ECG] [EKG] | CPT/HCPCS: 93010 ==

== ENCOUNTER 2024-11-29 12:49 | Outpatient (BNV) | payer OTHER, SELFPAY | END 2024-12-05 10:10 | PROVIDERS: Admitting Provider Clinical Nurse Specialist Psychiatric/Mental Health, Adult; Emergency Provider Emergency Medicine; Visit Provider Radiology Diagnostic Radiology | DX: F98.8 Other specified behavioral and emotional disorders with onset usually occurring in childhood and adolescence (principal); F33.9 Major depressive disorder, recurrent, unspecified | CPT/HCPCS: 70450 ==

== ENCOUNTER → 2024-11-29 12:49 | Outpatient (BNV) | payer OTHER, SELFPAY | PROVIDERS: Admitting Provider Clinical Nurse Specialist Psychiatric/Mental Health, Adult; Emergency Provider Emergency Medicine; Visit Provider Psychiatry & Neurology Neurology | DX: G44.221 Chronic tension-type headache, intractable (principal) | CPT/HCPCS: 99222 ==

== ENCOUNTER → 2024-11-29 12:49 | Outpatient (BNV) | payer MEDICARE, MEDICAID, SELFPAY | PROVIDERS: Admitting Provider Clinical Nurse Specialist Psychiatric/Mental Health, Adult; Emergency Provider Emergency Medicine; Visit Provider Clinical Nurse Specialist Psychiatric/Mental Health, Adult | DX: F33.9 Major depressive disorder, recurrent, unspecified (principal); F98.8 Other specified behavioral and emotional disorders with onset usually occurring in childhood and adolescence | CPT/HCPCS: 90792; 99231; 99232 ==

== ENCOUNTER → 2024-11-29 12:49 | Outpatient (BNV) | payer OTHER, SELFPAY | PROVIDERS: Admitting Provider Clinical Nurse Specialist Psychiatric/Mental Health, Adult; Emergency Provider Emergency Medicine; Visit Provider Psychiatry & Neurology Psychiatry | DX: F33.2 Major depressive disorder, recurrent severe without psychotic features (principal); F98.8 Other specified behavioral and emotional disorders with onset usually occurring in childhood and adolescence | CPT/HCPCS: 99232 ==

== ENCOUNTER 2025-03-14 10:09 | Outpatient (REF) | payer OTHER, SELFPAY ==
--- OUTSIDE RECORDS SUMMARY | 2025-03-14 11:41 | XMS_ITS | Data Portability ---
Author Organization [facility], Main Office Address [address] [facility] [address] [place] [id number] Care Team Providers Care Aws Solution Architect Name Role Phone MAHAD BELCHER Orthopedic Surgeon [facility] Physi reba Therapist KELLEN COE Neurosurgeon [phone] COSMO RILEY Psychiatrist [facility] GASTROENTEROLOGY Developer Evangelist [phone] [facility] NEURODIAGNOSTICS & SLEEP CENTER (PEDS & ADULT) Sleep Medicine [facility] PAIN MANAGEMENT SERVICES Pain Management DELMIS ANGELES Orthopedic Surgeon FINESSE [place] Supervisor Screen Making ERIC MARUQIS Neurosurgeon WINSOME COLON Phys. Med. & Rehab [phone] RYAN DEGROOT Primary Care Provider ALMA RENEE Desizing Machine Operator Anne Marie ALMANZA Surveillance Dual Rate Officer PARISA HOLGUIN Neurologist VERONIKA ASKEW Orthopedic Surgeon NIELS OWEN Neurosurgeon Assessment Encounter Date Assessment Date Assessment LastModified by Organization Details LastModified Time 04/29/2024 04/29/2024 Most of the patient? s [...] am also contemplating the use of a monitor technician but will consider waiting till his stress [...] [email or web address] Not available 05/10/2024 12:40:14 07/13/2024 07/13/2024 Gene recently underwent an MRI with his neurosurgical ENT team regarding his schwannoma, and he reports that the team in [place] did not find anything concerning. However, he continues to feel unsteady when walking. He mentioned that he raised this issue with his neurosurgeon, who suggested discussing vestibular therapy with me. Today, I attempted to perform the Manlius-Hallpike maneuver and the HINTS exam, but due [...] of any additional procedures/diagn ostic testing/interpre tations. barbara Not available 07/13/2024 19:19:08 Plan of Treatment Reminders Order Date Submit Date Provider Last Modified By Organization Details Last Modified Time Details Appointments [email or web address] 2024 10:30A M Ryan Degroot MD Not available Not available Not available Lab CBC w/ auto diff 2024 025 [facility], [address] [place], [address], 01/27/2025 12:07:05 BMP, serum or plasma 2024 025 PAULO [facility], [address] [place], [address], 01/27/2025 12:07:06 TSH, ultra- sensit meenu, serum 2024 025 PAULO [facility], [address] [place], [address], 01/27/2025 12:07:06 hepati c functi on panel, serum 2023 024 PAULO [facility], [address] [place], [address], 05/04/2024 12:06:33 borrel ia burgdo rferi IgG + IgM + total panel, IA, serum 2023 024 PALUO [facility] (Centralized Electronic Ordering - All Locations), Patient Can Go To The Location Of Their Choice, [address] 05/04/2024 12:06:37 testos terone , free + total, serum 2023 024 PAULO [facility] (Centralized Electronic Ordering - All Locations), Patient Can Go To The Location Of Their Choice, [address] 05/04/2024 12:06:36 shbg (sex hormon e-bind ing globul in), serum 2023 024 PAULO [facility] (Centralized Electronic Ordering - All Locations), Patient Can Go To The Location Of Their Choice, [address] 05/04/2024 12:06:37 Referral physic al therap ist referr al 2023 024 [email or web address] [facility], [address], [place], [address], 08/10/2024 09:55:14 physic al therap ist referr al - Please see for BPPV 2023 024 [email or web address] Not available 01/09/2025 10:26:09 physic al therap ist referr al - Please see for should fanny nielsen # of Visits : ` 2023 024 [email or web address] Not available 11/22/2024 09:34:57 neurol ogical surgeo n referr viviana arrington to see Dr. Marquis for second opinio n. 2023 024 [email or web address] Marquis MD, [address], [place], [address], 06/02/2024 15:06:40 urolog ist referr viviana del rosario low T. 2023 024 [email or web address] [facility], [address] [place], [address], 06/08/2024 09:57:46 neurol ogist referr viviana cook for second opinio n.Bob ing for Dr. Timmons . 2023 024 [email or web address] [facility], [address] [facility] [address], [place], [address], 06/02/2024 14:43:58 Procedures None record ed. Surgeries None record ed. Imaging electr ocardi ogram 2023 024 [email or web address] In-Office Order, Internal Use Only DO Not Attach Compendium DO Not Attach Compendium, Do Not Delete/merge, [id number] 07/15/2024 13:43:32 XR, should er 2023 024 [facility], [facility] [place], [address], 05/27/2024 14:41:05 US, head, soft tissue - Space Operations Officer ior right scalp hard lump that is crackl es and crunch 2023 024 krys [facility], [address] [place], [address], 05/17/2024 11:42:35 stress echoca rdiogr am - av block with t wave change s. 2023 024 tosin luna [facility] (Outt Non-Invasive Cardiology Scheduling), [facility] [place], [address], 11/11/2024 15:24:44 electr ocardi ogram 2023 024 [email or web address] In-Office Order, Internal Use Only DO Not Attach Compendium DO Not Attach Compendium, Do Not Delete/merge, [id number] 04/29/2024 15:37:43 Medication Orders meloxi cam 15 mg tablet 2023 024 [place] [id number], [address] [place], [address], 07/13/2024 11:53:11 Patient TargetsNo targets recorded. Patient Instructions Encounter Date Encounter Id Patient Instructions Last Modified By Organization Details Last Modified Time 04/29/2024 [id number] headache: care instructions [email or web address] Not available 04/29/2024 15:32:55 heart blocks: care instructions [email or web address] Not available 04/29/2024 15:33:50 07/13/2024 [id number] dizziness: care instructions [email or web address] Not available 07/13/2024 11:40:48 orthostatic vitals* [email or web address] Not available 07/20/2024 08:40:56 benign paroxysmal positional vertigo (bppv): care instructions barbara Not available 07/13/2024 11:40:48 Reason for Referral Neurologist Referral for Dianne sauceda patient looking for second opinion.Looking for Dr. Timmons. Referring Physician: Ryan Degroot [facility], Encounter Date: 04/29/2024 Urologist Referral for Testo sterone level below reference range patient concern for low T. Referring Physician: Ryan Degroot [facility], Encounter Date: 05/10/2024 Neurological Surgeon Sarira christiane for Disorder of skull patient requesting to see Dr. Marquis for second opinion. Referring Physician: Ryan Degroot [facility], Encounter Date: 05/10/2024 Physical Therapist Referral for Pain of right shoulder joint Please see for shoulder painTotal # of Visits: ` Referring Physician: Ryan Degroot [facility], Encounter Date: 05/25/2024 Physical Therapist Referral for Benign paroxysmal positional vertigo Please see for BPPV Referring Physician: Ryan Degroot [facility], Encounter Date: 07/13/2024 Physical Therapist Referral for At increased risk for falls Referring Physician: Ryan Degroot [facility], Encounter Date: 07/13/2024 Results Created Date Observation Date Name Description Value Unit Range Abnormal Flag Note LastModifiedBy Organization Detail LastModifiedTime 05/03/20 24 05/03/2024 HEPAT IC FUNCT ION PANEL (7) protein, total 6.8 g/dL 6.0-8. 5 normal Not Available [facility] ([facility]) [address] [facility], [place], [address], 05/04/2024 12:06:32 05/03/20 24 05/03/2024 HEPAT IC FUNCT ION PANEL (7) albumin 4.4 g/dL 3.8-4. 9 normal Not Available [facility] ([facility]) [address] [place], [address], 05/04/2024 12:06:32 05/03/20 24 05/03/2024 HEPAT IC FUNCT ION PANEL (7) bilirubin, total 0.3 mg/dL 0.0-1. 2 normal Not Available [facility] ([facility]) [address] [place], [address], 05/04/2024 12:06:32 05/03/20 24 05/03/2024 HEPAT IC FUNCT ION PANEL (7) alkaline phosphatase 83 IU/L 44-121 normal Not Available [facility] ([facility]) [address] [place], [address], 05/04/2024 12:06:32 05/03/20 24 05/03/2024 HEPAT IC FUNCT ION PANEL (7) AST (SGOT) 15 IU/L 0-40 normal Not Available [facility] ([facility]) [address] [place], [address], 05/04/2024 12:06:32 05/03/20 24 05/03/2024 HEPAT IC FUNCT ION PANEL (7) ALT (SGPT) 25 IU/L 0-44 normal Not Available [facility] ([facility]) [address] [place], [address], 05/04/2024 12:06:32 05/03/20 24 05/04/2024 HEPAT IC FUNCT ION PANEL (7) bilirubin, direct 0.11 mg/dL 0.00-0 .40 normal Not Available [facility] ([facility]) [address] [place], [address], 05/04/2024 12:06:32 05/03/20 24 05/04/2024 TESTO STERO NE,FR EE AND TOTAL testosterone 317 NG/dL 264-91 6 normal Adult male refer ence inter channing is based on a popul ation of healt hy nonob miguelina males (BMI <30) betwe en 19 and 39 years old. hadley Roberts.al . JCEM 2017, 102;1 161-1 173. PMID: 55611 103. Not Available [facility] ([facility]) [address], [place], [address], 05/04/2024 12:06:36 05/03/20 24 05/04/2024 TESTO STERO NE,FR EE AND TOTAL free testosterone (direct) 4.5 pg/mL 6.6-18 .1 below low normal Not Available [facility] ([facility]) [address], [place], [address], 05/04/2024 12:06:36 05/03/20 24 05/04/2024 LYME DISEA [...] is recom toribio d. Not Available [facility] ([facility]) [address], [place], [address], 05/04/2024 12:06:36 05/03/20 24 05/04/2024 SEX HORM VERENICE NG GLOB, SERUM sex horm binding glob, serum 35.7 nmol/ L 19.3-7 6.4 Not Available [facility] ([facility]) [address], [place], [address], 05/04/2024 12:06:37 05/03/20 24 05/04/2024 HEPAT IC FUNCT ION PANEL (7) protein, total 6.8 g/dL 6.0-8. 5 normal Not Available [facility] ([facility]) [address] [place], [address], 05/04/2024 18:06:01 05/03/20 24 05/04/2024 HEPAT IC FUNCT ION PANEL (7) albumin 4.5 g/dL 3.8-4. 9 normal Not Available [facility] ([facility]) [address] [facility], [address], 05/04/2024 18:06:01 05/03/20 24 05/04/2024 HEPAT IC FUNCT ION PANEL (7) bilirubin, total 0.3 mg/dL 0.0-1. 2 normal Not Available [facility] ([facility]) [address] [place], [address], 05/04/2024 18:06:01 05/03/20 24 05/04/2024 HEPAT IC FUNCT ION PANEL (7) bilirubin, direct <0.10 mg/dL 0.00-0 .40 Not Available [facility] ([facility]) [address] [place], [address], 05/04/2024 18:06:01 05/03/20 24 05/04/2024 HEPAT IC FUNCT ION PANEL (7) alkaline phosphatase 86 IU/L 44-121 normal Not Available [facility] ([facility]) [address] [place], [address], 05/04/2024 18:06:01 05/03/20 24 05/04/2024 HEPAT IC FUNCT ION PANEL (7) AST (SGOT) 15 IU/L 0-40 normal Not Available [facility] ([facility]) [address] [place], [address], 05/04/2024 18:06:01 05/03/20 24 05/04/2024 HEPAT IC FUNCT ION PANEL (7) ALT (SGPT) 24 IU/L 0-44 normal Not Available [facility] ([facility]) [address], [place], [address], 05/04/2024 18:06:01 05/03/20 24 05/04/2024 ACUTE HEPAT ITIS hep A Ab, IgM Negati ve negati ve Not Available [facility] ([facility]) [address], [place], [address], 05/04/2024 18:06:02 05/03/20 24 05/04/2024 ACUTE HEPAT ITIS HBsAg screen Negati ve negati ve Not Available [facility] ([facility]) [address], [place], [address], 05/04/2024 18:06:02 05/03/20 24 05/04/2024 ACUTE HEPAT ITIS hep B core Ab, IgM Negati ve negati ve Not Available [facility] ([facility]) [address], [place], [address], 05/04/2024 18:06:02 05/03/20 24 05/04/2024 ACUTE HEPAT ITIS HCV Ab Non Reacti ve non reacti ve Not Available [facility] ([facility]) [address], [place], [address], 05/04/2024 18:06:02 05/03/20 24 05/04/2024 ACUTE HEPAT ITIS interpretati on: Commen t Not infec gala with HCV unles s early or acute infec tion is suspe cted (whic h may be delay ed in an immun ocomp romis ed indiv idual ), or other evide nce exist s to indic ate HCV infec tion. Not Available [facility] ([facility]) [address], [place], [address], 05/04/2024 18:06:02 05/03/20 24 05/04/2024 ANTI- ROSALES [...] bilia ry cirrh osis. Not Available [facility] ([facility]) [address] [place], [address], 05/04/2024 18:06:02 05/03/2005/04/2024 ANTI- ROSALES H MUSCL E/BRYANNA OCHON D. mitochondria l (M2) antibody <20.0 units 0.0-20 .0 Negat meenu 0.0 - 20.0 Equiv ocal 20.1 - 24.9 Posit meenu >24.9 Mitoc hondr ial (M2) Antib odies are found in 90-96 % of patie nts with prima ry bilia ry cirrh osis. Not Available [facility] ([facility]) [address] [place], [address], 05/04/2024 18:06:02 05/03/20 24 05/04/2024 GGT GGT 40 IU/L 0-65 normal Not Available [facility] ([facility]) [address] [place], [address], 05/04/2024 18:06:03 05/03/2005/04/2024 CERUL OPLAS MIN ceruloplasmi n 23.1 mg/dL 16.0-3 1.0 Not Available [facility] ([facility]) [address] [place], [address], 05/04/2024 18:06:03 01/27/20 25 01/27/2025 CBC WITH DIFFE RENTI AL/PL ATELE T WBC 6.8 x10e3 /uL 3.4-10 .8 normal Not Available [facility] ([facility]) [address] [place], [address], 01/27/2025 12:07:05 01/27/2001/27/2025 CBC WITH DIFFE RENTI AL/PL ATELE T RBC 5.43 x10e6 /uL 4.14-5 .80 normal Not Available [facility] ([facility]) [address], [place], [address], 01/27/2025 12:07:05 01/27/2001/27/2025 CBC WITH DIFFE RENTI AL/PL ATELE T hemoglobin 16.1 g/dL 13.0-1 7.7 normal Not Available [facility] ([facility]) [address] [place], [address], 01/27/2025 12:07:05 01/27/2001/27/2025 CBC WITH DIFFE RENTI AL/PL ATELE T hematocrit 49.4 % 37.5-5 1.0 normal Not Available [facility] ([facility]) [address] [place], [address], 01/27/2025 12:07:05 01/27/2001/27/2025 CBC WITH DIFFE RENTI AL/PL ATELE T MCV 91 fL 79-97 normal Not Available [facility] ([facility]) [address] [place], [address], 01/27/2025 12:07:05 01/27/2001/27/2025 CBC WITH DIFFE RENTI AL/PL ATELE T MCH 29.7 pg 26.6-3 3.0 normal Not Available [facility] ([facility]) [address] [place], [address], 01/27/2025 12:07:05 01/27/2001/27/2025 CBC WITH DIFFE RENTI AL/PL ATELE T MCHC 32.6 g/dL 31.5-3 5.7 normal Not Available [facility] ([facility]) [address] [place], [address], 01/27/2025 12:07:05 01/27/2001/27/2025 CBC WITH DIFFE RENTI AL/PL ATELE T RDW 14.2 % 11.6-1 5.4 Not Available [facility] ([facility]) [address], [place], [address], 01/27/2025 12:07:05 01/27/2001/27/2025 CBC WITH DIFFE RENTI AL/PL ATELE T platelets 281 x10e3 /uL 150-45 0 normal Not Available [facility] ([facility]) [address], [place], [address], 01/27/2025 12:07:05 01/27/2001/27/2025 CBC WITH DIFFE RENTI AL/PL ATELE T neutrophils 60 % not estab. normal Not Available [facility] ([facility]) [address], [place], [address], 01/27/2025 12:07:05 01/27/2001/27/2025 CBC WITH DIFFE RENTI AL/PL ATELE T lymphs 31 % not estab. normal Not Available [facility] ([facility]) [address], [place], [address], 01/27/2025 12:07:05 01/27/2001/27/2025 CBC WITH DIFFE RENTI AL/PL ATELE T monocytes 7 % not estab. normal Not Available [facility] ([facility]) [address], [place], [address], 01/27/2025 12:07:05 01/27/2001/27/2025 CBC WITH DIFFE RENTI AL/PL ATELE T eos 1 % not estab. normal Not Available [facility] ([facility]) [address] [facility], [place], [address], 01/27/2025 12:07:05 01/27/20 25 01/27/2025 CBC WITH DIFFE RENTI AL/PL ATELE T basos 1 % not estab. normal Not Available [facility] ([facility]) [address] [place], [address], 01/27/2025 12:07:05 01/27/20 25 01/27/2025 CBC WITH DIFFE RENTI AL/PL ATELE T immature cells ORTHOPEDIC SHOES SALESPERSON Not Available [facility] ([facility]) [address] [place], [address], 01/27/2025 12:07:05 01/27/2001/27/2025 CBC WITH DIFFE RENTI AL/PL ATELE T neutrophils (absolute) 4.0 x10e3 /uL 1.4-7. 0 normal Not Available [facility] ([facility]) [address] [place], [address], 01/27/2025 12:07:05 01/27/20 25 01/27/2025 CBC WITH DIFFE RENTI AL/PL ATELE T lymphs (absolute) 2.1 x10e3 /uL 0.7-3. 1 normal Not Available [facility] ([facility]) [address] [place], [address], 01/27/2025 12:07:05 01/27/20 25 01/27/2025 CBC WITH DIFFE RENTI AL/PL ATELE T monocytes(ab solute) 0.5 x10e3 /uL 0.1-0. 9 normal Not Available [facility] ([facility]) [address] [place], [address], 01/27/2025 12:07:05 01/27/2001/27/2025 CBC WITH DIFFE RENTI AL/PL ATELE T eos (absolute) 0.1 x10e3 /uL 0.0-0. 4 normal Not Available [facility] ([facility]) [address] [place], [address], 01/27/2025 12:07:05 01/27/20 25 01/27/2025 CBC WITH DIFFE RENTI AL/PL ATELE T baso (absolute) 0.1 x10e3 /uL 0.0-0. 2 normal Not Available [facility] ([facility]) [address] [place], [address], 01/27/2025 12:07:05 01/27/20 25 01/27/2025 CBC WITH DIFFE RENTI AL/PL ATELE T immature granulocytes 0 % not estab. Not Available [facility] ([facility]) [address] [place], [address], 01/27/2025 12:07:05 01/27/2001/27/2025 CBC WITH DIFFE RENTI AL/PL ATELE T immature grans (abs) 0.0 x10e3 /uL 0.0-0. 1 Not Available [facility] ([facility]) [address] [place], [address], 01/27/2025 12:07:05 01/27/20 25 01/27/2025 CBC WITH DIFFE RENTI AL/PL ATELE T NRBC ORTHOPEDIC SHOES SALESPERSON Not Available [facility] ([facility]) [address] [place], [address], 01/27/2025 12:07:05 01/27/20 25 01/27/2025 CBC WITH DIFFE RENTI AL/PL ATELE T hematology comments: ORTHOPEDIC SHOES SALESPERSON Not Available [facility] ([facility]) [address] [place], [address], 01/27/2025 12:07:05 01/27/2001/27/2025 BASIC METAB OLIC PANEL (8) glucose 118 mg/dL 70-99 above high normal Not Available [facility] ([facility]) [address] [place], [address], 01/27/2025 12:07:06 01/27/20 25 01/27/2025 BASIC METAB OLIC PANEL (8) BUN 11 mg/dL 8-27 normal Not Available [facility] ([facility]) [address] [place], [address], 01/27/2025 12:07:06 01/27/2001/27/2025 BASIC METAB OLIC PANEL (8) creatinine 0.85 mg/dL 0.76-1 .27 normal Not Available [facility] ([facility]) [address] [place], [address], 01/27/2025 12:07:06 01/27/2001/27/2025 BASIC METAB OLIC PANEL (8) eGFR 99 mL/mi n/1.7 3 >59 normal Not Available [facility] ([facility]) [address] [place], [address], 01/27/2025 12:07:06 01/27/2001/27/2025 BASIC METAB OLIC PANEL (8) BUN/creatini ne ratio 13 10-24 normal Not Available [facility] ([facility]) [address] [place], [address], 01/27/2025 12:07:06 01/27/2001/27/2025 BASIC METAB OLIC PANEL (8) sodium 143 mmol/ L 134-14 4 normal Not Available [facility] ([facility]) [address] [place], [address], 01/27/2025 12:07:06 01/27/2001/27/2025 BASIC METAB OLIC PANEL (8) potassium 4.1 mmol/ L 3.5-5. 2 normal Not Available [facility] ([facility]) [address] [place], [address], 01/27/2025 12:07:06 01/27/2001/27/2025 BASIC METAB OLIC PANEL (8) chloride 108 mmol/ L 96-106 above high normal Not Available [facility] ([facility]) [address] [place], [address], 01/27/2025 12:07:06 01/27/2001/27/2025 BASIC METAB OLIC PANEL (8) carbon dioxide, total 18 mmol/ L 20-29 below low normal Not Available [facility] ([facility]) [address] [facility] [address], [place], [address], 01/27/2025 12:07:06 01/27/2001/27/2025 BASIC METAB OLIC PANEL (8) calcium 9.8 mg/dL 8.6-10 .2 normal Not Available [facility] ([facility]) [address] [address], [place], [address], 01/27/2025 12:07:06 01/27/2001/27/2025 TSH RFX ON ABNOR MAL TO FREE T4 TSH 0.700 uIU/m L 0.450- 4.500 normal Not Available [facility] ([facility]) [address], [place], [address], 01/27/2025 12:07:06 04/29/2004/29/2024 elect rocar diogr am No observ ation record ed. [email or web address] In-Office Order Internal Use Only DO Not Attach Compendium DO Not Attach Compendium, Do Not Delete/merge, [id number] 04/29/2024 16:41:54 04/29/20 elect rocar diogr am No observ ation record ed. [email or web address] In-Office Order Internal Use Only DO Not Attach Compendium DO Not Attach Compendium, Do Not Delete/merge, [id number] 05/01/2024 16:35:43 05/10/20 24 11/06/2022 MRI, brain , w/wo contr ast No observ ation record ed. [email or web address] Not Available 2023 12:21:34 05/10/20 24 04/21/2024 CT, head + brain , w/o contr ast No observ ation record ed. [email or web address] Not Available 2023 12:21:34 08/06/03/30/2024 MRI, brain , w/wo contr ast No observ ation record ed. [email or web address] Not Available 2023 12:21:33 05/10/20 24 04/21/2024 CT, venog joycelyn, head, w/wo contr ast No observ ation record ed. [email or web address] Not Available 2023 12:21:34 05/10/20 24 06/29/2023 MRI, brain , w/wo contr ast No observ ation record ed. [email or web address] Not Available 2023 12:21:35 05/10/20 24 01/09/2023 MRI, cervi reba spine , w/o contr ast No observ ation record ed. [email or web address] Not Available 2023 12:21:35 05/10/20 24 06/11/2023 XR, skull No observ ation record ed. barbara [facility] [address] , [place], [address], 05/10/2024 12:21:10 05/10/20 24 04/05/2024 US, renal No observ ation record ed. [email or web address] Not Available 2023 12:21:36 05/27/20 24 05/27/2024 [...] I agree with this report . WSN: [id number] Orderi ng Physic charlotte: Rhiannon Degroot Dictat ed By: Greg SINGH, Case schmid Dictat ed Date/T darren: 2:35 pm Review ed By: Giorgio augustin MD, [place] Signed By: Giorgio augustin MD, [place] Signed Date/T darren: 2:40 pm Transc ribed By: ILEANA Transc ribed Date/T darren: 2:24 pm Patien t Class: Outpat ient PAULO [facility] (Outpt Imaging) [address], [place], [address], 05/30/2024 17:33:04 05/27/20 24 05/27/2024 XR, shoul mauro No observ ation record ed. [email or web address] [address], [place], [address], 05/27/2024 16:43:44 06/01/20 24 06/01/2024 US, head, soft tissu e No observ ation record ed. [email or web address] Not Available 2023 09:18:34 06/01/2006/01/2024 US, head + neck, soft tissu e US Soft Tissue Head/N senait Reason : P13.1 OTHER INJURI ES TO SKULL; Clinic al Questi on(s): Other: COMPAR MICHELA: 024 CT head. 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 Target ed ultras ound was perfor med at area of palpab le concer n in the right grey washer ior scalp, which corres ponds with a small pocket of fluid measur ing 0.9 x 0.3 x 0.9 cm, surrou nding a portio n of the cranio plasty plate. IMPRES BIANKA: Small pocket of fluid measur ing up to 0.9 cm surrou nding a portio n of the cranio plasty plate corres ponds with area of palpab le concer n in the right grey washer ior scalp. WSN: [id number] Orderi ng Physic charlotte: Rhiannon Degroot Dictat ed By: Elisha clark MD, Jonny Harrell ed Date/T darren: 3:34 pm Review ed By: Jonny Solorio MD Signed By: Jonny Solorio MD Signed Date/T darren: 3:34 pm Transc ribed By: ILEANA Transc ribed Date/T darren: 3:32 pm Patien t Class: Outpat ient [facility] (Outpt Imaging) [address] , [place], [address], 06/01/2024 18:31:03 07/13/20 24 07/13/2024 elect rocar diogr am No observ ation record ed. krys In-Office Order Internal Use Only DO Not Attach Compendium DO Not Attach Compendium, Do Not Delete/merge, [id number] 07/15/2024 13:43:51 07/13/20 elect rocar diogr am No observ ation record ed. [email or web address] In-Office Order Internal Use Only DO Not Attach Compendium DO Not Attach Compendium, Do Not Delete/merge, [id number] 07/15/2024 13:47:19 07/15/20 elect rocar diogr am No observ ation record ed. krys In-Office Order Internal Use Only DO Not Attach Compendium DO Not Attach Compendium, Do Not Delete/merge, [id number] 07/15/2024 13:43:36 Result Notes None recorded. Problems Name Problem SNOMED Code Status Onset Date Resolution Date Notes Provider Name and Address Organization Details Recorded Time Adult health examinat ion Completed 201305/15/2014 RECORDED 12/23/19 14 2:04PM BY YISEL HOLT MA, QUINTON ON/ADDEN DUM Not Available [facility] 4 05:23:46 History of non-drug allergy 428007597 Completed 201205/15/2014 RECORDED 03/21/20 13 9:09AM BY YISEL HOLT MA, QUINTON ON/ADDEN DUM Not Available [facility] 4 05:23:46 Follow-u p encounte r Completed 201305/15/2014 RECORDED 12/07/19 14 3:05PM BY GASPERMANI DIETZ MA, ANNOTATI ON/ADDEN DUM Not Available [facility] 4 05:23:46 Impotenc e of organic origin Completed 201305/15/2014 RECORDED 02/08/20 14 11:20AM BY GASPER DIETZ MA, ANNOTATI ON/ADDEN DUM Not Available [facility] 4 05:23:46 Malaise and fatigue 859031402 Completed 201305/15/2014 RECORDED 12/23/19 14 2:04PM BY YISEL HOLT MA, ANNOTATI ON/ADDEN DUM Not Available [facility] 4 05:23:46 Influenz a vaccine needed 54740886248 06 Completed 201205/15/2014 RECORDED 09/07/20 13 2:08PM BY GASPER DIETZ MA, OFFICE VISIT Not Available [facility] 4 05:23:46 Hyperlip idemia 40927973 Completed 201305/15/2014 RECORDED 02/08/20 14 11:20AM BY GASPER DIETZ MA, ANNOTATI ON/ADDEN DUM Not Available [facility] 4 05:23:46 Laborato ry procedur e performe d 742296110 Completed 201305/15/2014 RECORDED 02/08/20 14 11:20AM BY GASPER DIETZ MA, ANNOTATI ON/ADDEN DUM Not Available [facility] 4 05:23:47 Renewal of prescrip tion Completed 201205/15/2014 RECORDED 03/21/20 13 9:09AM BY YISEL HOLT MA, ANNOTATI ON/ADDEN DUM Not Available [facility] 4 05:23:47 Nausea 147066991 Completed 201305/15/2014 RECORDED 12/23/19 14 2:04PM BY YISEL HOLT MA, ANNOTATI ON/ADDEN DUM Not Available [facility] 4 05:23:47 Neoplasm of uncertai n behavior of skin 90690890 Completed 201305/15/2014 RECORDED 02/08/20 14 11:21AM BY GASPER DIETZ MA, ANNOTATI ON/ADDEN DUM Not Available [facility] 4 05:23:47 Knee pain Completed 201205/15/2014 RECORDED 09/27/20 13 7:52AM BY GASPER DIETZ MA, ANNOTATI ON/ADDEN DUM Not Available [facility] 4 05:23:47 Dyspnea 145071760 Completed 201305/15/2014 RECORDED 02/08/20 14 11:20AM BY GASPER DIETZ MA, ANNOTATI ON/ADDEN DUM Not Available [facility] 4 05:23:47 Hernia of anterior abdomina l wall 601047263 Completed 201305/15/2014 IMPRESSI ON: NOT SURE IF DIASTAIS RECTI OR VENTRAL HERNIA. SURGERY TO FURTHER ASSESS; RECORDED 02/08/20 14 11:22AM BY GASPER DIETZ MA, ANNOTATI ON/ADDEN DUM Not Available [facility] 4 05:23:47 Bipolar affectiv e disorder , current episode depressi on 630982178 Active 2021 Constance Benjamin MA [facility], [facility] 2 10:45:57 Harmful pattern of use of alcohol 93119272 Completed 03/02/2024 Ryan Degroot MD [address], [place], [address] , [facility] 4 13:22:47 Constipa tion 59258326 Completed 03/02/2024 Ryan Degroot MD [address] [facility] [address], [place], [address] , [facility] 4 13:24:42 Cervical disc disorder 334876231 Active Not Available [facility] 3 13:13:41 Fatigue 17179048 Completed 03/02/2024 Ryan Degroot MD [address] [facility] [address], [place], [address] , [facility] 4 08:21:49 Muscle spasm of cervical muscle of neck 30222500646 4 Active Not Available [facility] 3 13:13:41 Greater trochant karma pain syndrome 8312409 Active Not Available [facility] 3 13:13:42 Acute allergic reaction 177746573 Completed 03/02/2024 Ryan Degroot MD [address] [address], [place], [address] , [facility] 4 13:22:58 Motion sickness 58415382 Active 2022 LILIANE Galarza, [facility] 4 13:08:31 Hyperlip idemia 57412319 Active 2021 LILIANE Galarza, [facility] 2 10:45:57 Puncture wound of finger 190400552 Completed 03/11/2022 Ryan Degroot MD [address] [facility] [address], [place], [address] , [facility] 2 18:09:28 History of cocaine abuse 90985111850 9106 Active 2016 Not Available [facility] 3 13:13:41 Alcoholi c hepatiti s 958254502 Completed 201605/01/2024 Ryan Degroot MD [address] [address], [address] , [facility] 4 23:28:46 Dependen ce on continuo us positive airway pressure ventilat ion 904373868 Active 2017 Not Available [facility] 3 13:13:41 Pederson' s esophagu s 254840620 Active 2017 Not Available [facility] 3 13:13:41 Elevated blood-pr essure reading without diagnosi s of hyperten bianka 655176813 Completed 201803/02/2024 Ryan Degroot MD [address] [facility] [address], [address] , [facility] 4 13:24:49 Lumbar radiculo alvarado 168892302 Active 2018 Not Available [facility] 3 13:13:41 Pain in lower limb 36211273 Completed 201803/11/2022 Ryan Degroot MD [address] [facility] [address], [place], [address] , [facility] 2 18:09:41 Allergic rhinitis 05650057 Active 2019 Not Available [facility] 3 13:13:42 Primary erectile dysfunct ion 530002516 Completed 202003/11/2022 Ryan Degroot MD [address] [facility] [address], [place], [address] , [facility] 2 18:09:33 Dyspnea on exertion 35647744 Active 2020 Not Available [facility] 3 13:13:42 Attentio n deficit hyperact ivity disorder , predomin antly inattent meenu type 75198986 Active 2020 Barrett Lloyd PA-C [address], [place], [address] , [facility] 1 15:25:23 Iron deficien cy anemia 66645646 Completed 202105/01/2024 Ryan Degroot MD [address], [place], [address] , [facility] 4 23:27:26 Microcyt osis 714518850 Completed 202003/02/2024 Ryan Degroot MD [address] [facility] [address], [place], [address] , 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 81048889006 9105 Active 2021 Dottie Moyer MA null, [facility] 3 14:28:12 History of cervical spine fusion 42175302519 Active 2022 Not Available [facility] 3 13:13:41 Dizzines s 482653746 Active 2022 cannot be billed with benign paropzys mal position al vertigo Hemalatha Lujan null, [facility] 4 13:46:52 Bilatera l tinnitus 44412573271 02 Active 2022 Not Available [facility] 3 13:13:42 Encephal omalacia 08075215 Active 2022 Not Available [facility] 3 13:13:42 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 872987508 Active 2022 Not Available [facility] 3 13:13:42 Schwanno liliane 892823646 Active 2022 Constance Benjamin MA null, [facility] 4 13:08:31 Adult health examinat ion Completed 201304/18/2014 RECORDED 12/23/19 14 2:04PM BY YISEL HOLT MA, ANNOTATI ON/ADDEN DUM Not Available [facility] 4 14:04:15 Anxiety state 300980422 Active 2013 Gasper lema MA null, [facility] 8 11:13:34 Arthropa thy of knee joint 756053380 Active 2013 Not Available [facility] 3 13:13:41 History of non-drug allergy 923338482 Completed 201204/18/2014 RECORDED 03/21/20 13 9:09AM BY YISEL HOLT MA, ANNOTATI ON/ADDEN DUM Not Available [facility] 4 14:04:15 Bipolar I disorder 919501272 Completed 201303/02/2024 Ryan Degroot MD [address] [address], [place], [address] , [facility] 4 13:24:16 Chronic pain syndrome 230210282 Active 2013 Not Available [facility] 3 13:13:41 Follow-u p encounte r Completed 201304/18/2014 RECORDED 12/07/19 14 3:05PM BY GASPER DIETZ MA, ANNOTATI ON/ADDEN DUM Not Available [facility] 4 14:04:15 Impotenc e of organic origin Completed 201304/18/2014 RECORDED 02/08/20 14 11:20AM BY GASPER DIETZ MA, ANNOTATI ON/ADDEN DUM Not Available [facility] 4 14:04:15 Malaise and fatigue 752707719 Completed 201304/18/2014 RECORDED 12/23/19 14 2:04PM BY YISEL HOLT MA, ESPERANZAATI ON/ADDEN DUM Not Available [facility] 4 14:04:15 Influenz a vaccine needed 49670833684 06 Completed 201204/18/2014 RECORDED 09/07/20 13 2:08PM BY GASPER DIETZ MA, OFFICE VISIT Not Available [facility] 4 14:04:15 Gastroes ophageal reflux disease 129333734 Completed 202103/02/2024 Ryan Degroot MD [address], [place], [address] , [facility] 4 13:24:53 Gastroes ophageal reflux disease 154226765 Completed 201304/18/2014 RECORDED 02/08/20 14 11:22AM BY GASPER DIETZ MA, QUINTON ON/ADDEN DUM Ryan Degroot MD [address], [place], [address] , [facility] 4 13:24:53 History of peptic ulcer 915230715 Active 2013 Not Available [facility] 3 13:13:41 Hyperlip idemia 38395754 Completed 201304/18/2014 RECORDED 02/08/20 14 11:20AM BY GASPER DIETZ MA, QUINTON ON/ADDEN DUM Not Available [facility] 4 14:04:16 Testicul ar hypofunc tion 474010346 Completed 201303/11/2022 Ryan Degroot MD [address], [place], [address] , [facility] 2 18:09:22 Laborato ry procedur e performe d 288798216 Completed 201304/18/2014 RECORDED 02/08/20 14 11:20AM BY GASPRE DIETZ MA, ANNOTATI ON/ADDEN DUM Not Available [facility] 4 14:04:16 Single major depressi ve episode Active 2013 Not Available [facility] 3 13:13:41 Renewal of prescrip tion Completed 201204/18/2014 RECORDED 03/21/20 13 9:09AM BY YISEL HOLT MA, ANNOTATI ON/ADDEN DUM Not Available [facility] 4 14:04:16 Nausea 653872952 Completed 201304/18/2014 RECORDED 12/23/19 14 2:04PM BY YISEL HOLT MA, ANNOTATI ON/ADDEN DUM Not Available [facility] 4 14:04:16 Neoplasm of uncertai n behavior of skin 03064896 Completed 201304/18/2014 RECORDED 02/08/20 14 11:21AM BY GASPER DIETZ MA, ESPERANZAATI ON/ADDEN DUM Not Available [facility] 4 14:04:16 Obsessiv e-compul sive disorder 645842405 Active 2013 LILIANE Jiménez, [facility] 8 11:13:33 Obstruct meenu sleep apnea syndrome 72769348 Active 2013 LILIANE Jiménez, [facility] 8 11:13:55 Knee pain Completed 201204/18/2014 RECORDED 09/27/20 13 7:52AM BY GASPER DIETZ MA, ANNOTATI ON/ADDEN DUM Not Available [facility] 4 14:04:17 Dyspnea 036687740 Completed 201304/18/2014 RECORDED 02/08/20 14 11:20AM BY GASPER DIETZ MA, ANNOTATI ON/ADDEN DUM Not Available [facility] 4 14:04:17 Hernia of anterior abdomina l wall 909183349 Completed 201304/18/2014 IMPRESSI ON: NOT SURE IF DIASTAIS RECTI OR VENTRAL HERNIA. SURGERY TO FURTHER ASSESS; RECORDED 02/08/20 14 11:22AM BY GASPER DIETZ MA, ANNOTATI ON/ADDEN DUM Not Available [facility] 4 14:04:17 Cervical arthriti s 514317885 Active 2022 severe b/l C3/C4, and right C4-C5, mild/mod b/l C7-T1 Not Available [facility] 3 13:13:41 Prediabe leora 060168830 Active 2022 Ryan Degroot MD [address], [place], [address] , 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 4 13:25:44 Cerebros armin fluid otorrhea 27914946 Completed 202203/02/2024 Ryan Degroot MD [address], [place], [address] , [facility] 4 13:24:26 Nondepen dent harmful pattern of use of alcohol in [facility] n 753778561 Active 2023 Ryan Degroot MD [address], [place], [address] , [facility] 4 08:21:14 History of alcoholi c hepatiti s 25352823091 885485 Active 2023 Ryan Degroot MD [address], [place], [address] , [facility] 4 23:28:43 Gastroes ophageal reflux disease 346284045 Active 2021 DAGO Colón, [facility] 5 13:51:30 Iron deficien cy anemia 69340006 Active 2021 Celeste Herman CPPM null, [facility] 5 13:51:30 Problem Notes None recorded. Procedures Surgical History Date Name Laterality Status Provider Name and Address Organization Details Recorded Time 05/21 arthroplasty of right knee completed Monica Dixon RN [facility] 3 09:53:21 05/20 revision of right total prosthetic knee arthroplasty completed Nathaly Miner [facility] 2 09:11:29 01/20 revision of left total prosthetic knee arthroplasty completed Nathaly Miner [facility] 2 13:34:54 06/18 Hemorrhoidectomy completed Daniela Morales [facility] 1 14:36:46 03/18 injection into lumbar epidural space completed Daniela Morales [facility] 1 16:00:07 03/12 capsule endoscopy completed Daniela Morales [facility] 1 15:59:04 01/09 excision of cervical intervertebral disc completed Alpa Dixon RN [facility] 1 13:18:07 12/19 Colonoscopy completed Daniela Morales [facility] 1 11:34:41 12/19 esophagogastroduodenoscopy completed Fausto Morales [facility] 1 11:34:57 12/21 injection completed Danielalior Morales [facility] 9 11:29:11 07/27 local anesthetic lesser occipital nerve block completed Gasper lema MA [facility] 8 15:01:36 07/27 injection of anesthetic agent into greater occipital nerve completed Gasper lema MA [facility] 8 15:02:03 05/26 injection into lumbar epidural space completed Daniela Morales [facility] 8 13:28:20 03/31 Njx aa&/strd gr ocpl nrv completed Lara Whiteside [facility] 8 11:52:06 03/18 Inject trigger points 3/> completed Lara Whiteside [facility] 8 16:26:41 01/22 Incise nerve back of head completed Mellisa Morales [facility] 8 15:11:51 07/02 Total knee arthroplasty completed Gasper lema MA [facility] 7 13:45:59 01/16 Arthrd ant kwame/xoral c1-c2 completed Rosa Isela Newsome MA [facility] 6 15:22:00 01/03 Arthrd ant ntrbd min dsc lum completed Gasper lema MA [facility] 6 15:12:38 10/03 Joint Injection completed Mitch Womack MD [address], [place], [address] , [facility] 5 09:46:19 09/18 Corticosteroid Injection completed Mitch Womack MD [address] [facility] [facility] [address], [place], [address] , [facility] 5 10:51:43 01/22 Corticosteroid Injection completed Mitch Womack MD [address] [facility] [facility] [address], [place], [address] , [facility] 5 10:34:10 10/11 Joint Injection completed Mitch Womack MD [address], [place], [address] , [facility] 5 10:34:01 08/05 Arthrd ant kwame/xoral c1-c2 completed Gasper lema, LILIANE [facility] 5 09:40:12 10/05 Arthrd ant ntrbd min dsc lum completed Gasper lema MA [facility] 5 09:40:12 Cholecystectomy completed Gasper lema MA [facility] 4 14:25:22 Carpal tunnel surgery completed Lauren Morgan [facility] 1 08:08:15 Tracheostomy completed Luna Godoy MA [facility] 1 14:18:22 Eye Surgery completed Luna Godoy MA [facility] 1 14:18:22 Imaging Results None recorded. Procedure Notes None recorded. Medical Equipment None Reported. Allergies Allergen ID Allergen Name Allergen Category Reaction Reaction Severity Criticality Documentation Date Start Date Code Code System Note Provider Name and Address Organization Details Recorded Time 27727 honey bee venom environme nt anaphylax is Not available Not available 05/15/20142021 95854 7 RxNorm Other react ions and sever ities : 'Unkn own'. DAGO Colón [facility] 5 13:52:08 27493 tamsulosi n medicatio n Not available Not available Not available 09/04/20212021 41687 RxNorm Other react ions and sever ities : 'Hypo tensi on'. DAGO Colón [facility] 5 13:52:08 88457 tizanidin e medicatio n Not available Not available Not available 09/04/20212021 41781 RxNorm Other react ions and sever ities : 'Hypo tensi on'. DAGO Colón, [facility] 5 13:52:08 58042 honey bee venom medicatio n anaphylax is Not available Not available 02/21/2022 17577 7 RxNorm LILIANE Galarza, [facility] 4 13:07:59 36668 bupropion Not available other severe Not available 03/12/20222013 28827 RxNorm LILIANE Galarza, [facility] 2 10:53:22 82729 bupropion hydrochlo ride medicatio n Not available Not available Not available 12/23/20232022 99035 4 [facility] 4 13:08[facility]38 5023 No known allergy (situatio n) Not available Not available Not available Not available 04/18/20142011 13693 6003 SNOMED COMME NT: RECOR DED 10/12 11:26 AM BY FRANCE LEMA MA, ANNOT ATION /ADDE NDUM; DAGO Colón, [facility] 5 13:52:08 5024 Wellbutri n medicatio n other severe Not available 04/18/20142013 25793 RxNorm LILIANE Galarza, [facility] 4 13:07:59 Medications Name Sig Start Date [...] 1 TABLET BY MOUTH TWICE A DAY 01/25 completed Not Available Not Available Not Available tizanidin e 2 mg tablet TAKE [...] summary Not Available Not Available Not Available nystatin 100,000 unit/gram topical ointment PLEASE SEE ATTACHED FOR DETAILED DIRECTIO NS active Not Available Not Available No t Available methylphe nidate 10 mg tablet 02/04 [...] TAKE 1 TABLET BY MOUTH EVERY DAY AT BEDTIME NEEDED FOR INSOMNIA active Not [...] completed Not Available Not Available Not Available propranol ol 10 mg tablet TAKE 1 TABLET BY MOUTH EVERY DAY AT BEDTIME FOR 1 WEEK THEN INCREASE TO TWICE A DAY 01/25 completed Not Available Not Available Not Available [...] 10 mg tablet 2 po q hs 01/25 completed Not Available Not Available Not Available meclizine 25 mg tablet Take 1 [...] Available guanfacin e 1 mg tablet TAKE 1/2-1 TABLET BY MOUTH AT BEDTIME active Not Available Not Available No t Available Effexor 37.5 mg tablet Take 1 tablet twice a day by oral route as directed for 30 days. 08/03 completed Not Available Not Available Not Available BD Luer-Nathan Syringe 3 mL 25 gauge x 1 USE DIRECTED FOR TESTOSTE ABE INJECTIO NS active Not Available Not Available No t Available ibuprofen 200 mg tablet po prn [...] Not Available No t Available testoster one cypionate 200 mg/mL intramusc ular oil INJECT 0.5 ML INTRAMUS CULARLY ONE TIME PER WEEK SINGLE USE VIALS active Not Available Not Available No t [...] 1 TABLET BY MOUTH TWICE A DAY 01/25 completed Not Available Not Available Not Available guanfacin e 2 mg tablet Take [...] Not Available Not Available No t Available naratript an 2.5 mg tablet TAKE 1 TABLET BY MOUTH EVERY DAY NEEDED FOR MIGRAINE MAX 2 TABS/WEE K 07/13 completed Not Available Not Available Not Available doxycycli ne hyclate 100 mg tablet TAKE 1 TABLET BY MOUTH TWICE A DAY FOR 2 WEEKS, THEN TAKE 1 TABLET EVERY DAY 01/25 completed Not Available Not Available Not Available docusate sodium 100 mg tablet Take [...] Available Not Available modafinil 100 mg tablet TAKE 1 TABLET BY MOUTH EVERY MORNING active Not Available Not Available No t Available Fish Oil 500 mg capsule Take [...] day by oral route for 90 days. 02/11 /2021 completed Not Available Not Available Not Available [...] Not Available Not Available No t Available eletripta n 20 mg tablet TAKE 1 TABLET BY MOUTH ONCE NEEDED FOR MIGRAINE HEADACHE . MAY REPEAT DOSE ONCE IN 2 HOURS 01/25 completed Not Available Not Available Not Available alfuzosin ER 10 mg tablet,ex tended release 24 hr TAKE 1 TABLET BY MOUTH EVERYDAY AT BEDTIME 01/25 completed Not Available Not Available Not Available topiramat e 50 mg tablet TAKE 1 TABLET BY MOUTH TWICE A DAY 01/25 completed Not Available Not Available Not Available senna 8.6 mg capsule Take 2 capsules every day by oral route. 03/11 completed Not Available Not Available Not Available AndroGel 1 % 12.5 mg/1.25 gram per pump actuation transderm al gel DAILY active RECORDED 09/15/20 12 5:10PM BY LISA KEITA, ANNOTATI ON/SHEBA DUM; Not Available Not Available Not Available duloxetin e 30 mg capsule,d elayed release DAILY 12/22 completed RECORDED 12/23/19 14 2:08PM BY YISEL HOLT MA, OFFICE VISIT; Not Available Not Available [...] 12/22 completed RECORDED 12/23/19 14 2:08PM BY YISEL HOLT MA, OFFICE VISIT;PE R PSYCHIAT RY Not Available Not Available Not Available multivita min active Not Available Not Available Not Available Adderall DAILY 09/07 completed RECORDED 09/07/20 13 2:14PM BY GASPER DIETZ MA, OFFICE VISIT;PS YCH PRESCRIB ES Not Available Not Available Not Available Multivita min 50 Plus Take 1 tablet daily active Not Available Not Available No t Available sodium fluoride 1.1 %-potassi um nitrate 5 % dental paste USE 2-3X/AMANDA LY, SPIT OUT EXCESS DO NOT RINSE WITH WATER. NO EATING OR DRINKING FOR 45 MIN AFTER. active Not Available Not Available No t [...] per pump act.(1.62 %) transderm al gel APPLY 4 PUMPS TOPICALL Y ONCE DAILY DIRECTED (ICD: E29.1) PA REQUIRED 01/25 completed Not Available Not Available Not Available [...] and Address Organization Details Last Updated DateTime 5 170.18 cm 25.2 kg/m2 12318.3 7 g 104 /min 96 % 96 % 98.3 [degF] 143 mm[Hg] 75 mm[Hg] Lorena Hager MA [facility] 5 15:09:55 Date Recorded Body height Body mass index (BMI) Body weight Heart rate Oxygen saturation Oxygen saturation in Arterial blood by Pulse oximetry Body temperature Systolic blood pressure Diastolic blood pressure Provider Name and Address Organization Details Last Updated DateTime 4 170.18 cm 28.2 kg/m2 58818.6 3 g 81 /min 96 % 96 % 98.5 [degF] 117 mm[Hg] 79 mm[Hg] Lorena Hager MA [facility] 4 14:28:25 Date Recorded Body height Body mass index (BMI) Body weight Heart rate Oxygen saturation Oxygen saturation in Arterial blood by Pulse oximetry Body temperature Systolic blood pressure Diastolic blood pressure Provider Name and Address Organization Details Last Updated DateTime 4 170.18 cm 28.3 kg/m2 15051.2 2 g 90 /min 97 % 97 % 98 [degF] 136 mm[Hg] 72 mm[Hg] Gasper degroot MA [facility] 4 11:27:22 Date Recorded Body height Body mass index (BMI) Body weight Oxygen saturation Oxygen saturation in Arterial blood by Pulse oximetry Heart rate Body temperature Systolic blood pressure Diastolic blood pressure Provider Name and Address Organization Details Last Updated DateTime 4 170.18 cm 28.2 kg/m2 98462.0 3 g 97 % 97 % 90 /min 98.3 [degF] 119 mm[Hg] 69 mm[Hg] Constance Benjamin MA [facility] 4 09:58:53 Date Recorded Systolic blood pressure Diastolic blood pressure Provider Name and Address Organization Details Last Updated DateTime 07/13/2024 124 mm[Hg] 62 mm[Hg] Ryan Degroot MD [address] [address], [place], [address], [facility] 07/13/2024 11:40:35 Date Recorded Heart rate Heart rate Heart rate Systolic blood pressure Diastolic blood pressure Systolic blood pressure Diastolic blood pressure Systolic blood pressure Diastolic blood pressure Provider Name and Address Organization Details Last Updated DateTime 4 75 /min 83 /min 78 /min 132 mm[Hg] 86 mm[Hg] 120 mm[Hg] 66 mm[Hg] 100 mm[Hg] 60 mm[Hg] Rodricktori Maria Luisa aguilar MA [facility] 4 12:42:12 Date Recorded Body height Body mass index (BMI) Body weight Heart rate Oxygen saturation Oxygen saturation in Arterial blood by Pulse oximetry Body temperature Provider Name and Address Organization Details Last Updated DateTime 4 170.18 cm 28 kg/m2 13757.0 3 g 87 /min 96 % 96 % 97.9 [degF] Gasper degroot MA [facility] 4 11:26:14 Social History Question Answer Notes LastModified by Organizat ion Details LastModified Time Tobacco Smoking Status Never Smoker LILIANE Alvarado [facility] 05/15/2014 14:16:23 Do You Have An Advance Directive? Yes HCP Information not available 06/04/2022 Is Blood Transfusion Acceptable In An Emergency? Yes Information not available 09/18/2015 What Is Your Level Of Caffeine Consumption? None Information not available 11/21/2020 How Much Tobacco Do You Chew? None Information not available 09/18/2015 What Type Of Diet Are You Following? REGULAR Enjoys Baking Information not available 11/16/2018 Which Illicit Or Recreational Drugs Have You Used? Cocaine (hospital Visit 05/29/2017 ) [email or web address] Information not available 06/01/2017 Live Alone Or With Others? With Others [...] Of Your Most Recent Tobacco Screening? 03/02/2024 [email or web address] Information not available 03/02/2024 How Many Children [...] To Smoke? No Information not available 09/18/2015 How Much Tobacco Do You Smoke? No Information not available 05/15/2014 Do You Use Sunscreen Routinely? Yes Information not available 11/21/2020 How Many Years Have You Smoked Tobacco? 0 Information not available 09/18/2015 Sex: Unknown Functional Status Question Answer Note LastModified by Organizat ion Details LastModified Time Do you use any illicit or recreational drugs? No Information not available 05/10/2024 Do you or have you ever used any other forms of tobacco or nicotine? No Information not available 06/04/2022 What is your level of alcohol consumption? None Information not available 11/21/2020 Do you or have you ever used smokeless tobacco? Never used smokeless tobacco Information not available 11/21/2020 Are you currently employed? No disability Information not available 05/15/2014 Are you able to walk? YESASSIST Information not available 06/04/2022 Are you able to care for yourself? 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 Never used electronic cigarettes Information not available 06/04/2022 What is your exercise level? None Information [...] Response Depression N Headaches/Migraines N Arthritis N Head Injury/Concussion N Acid Reflux (GERD) N ADHD Y High Cholesterol Y Ear or Hearing Problems N Anemia N Mental Illness N Allergies N Reflux/GERD N Immunizations Vaccine Type Date Status Note Provider Nam e and Address Organization Details Recorded Time Influenza, split virus, quadrivalent, preservative 0 completed Not Available [facility] 07/06/2023 15:35:09 COVID-19, mRNA, LNP-S, PF, 30 mcg/0.3 mL dose 1 completed Not Available [facility] 07/06/2023 15:35:09 COVID-19, mRNA, LNP-S, PF, 30 mcg/0.3 mL dose 1 completed Not Available [facility] 07/06/2023 15:35:09 Influenza, split virus, quadrivalent, PF 0 completed Not Available [facility] 07/06/2023 15:35:09 Influenza, MDCK, trivalent, PF 5 completed Not Available [facility] 07/06/2023 15:35:09 pneumococcal polysaccharide PPV23 5 completed Not Available [facility] 07/06/2023 15:35:09 Influenza, split virus, quadrivalent, PF 7 completed Not Available [facility] 07/06/2023 15:35:09 Influenza, split virus, quadrivalent, PF 9 completed Not Available [facility] 07/06/2023 15:35:09 Influenza, split virus, trivalent, PF 4 completed Not Available [facility] 07/06/2023 15:35:09 Influenza, split virus, quadrivalent, PF 7 completed Not Available [facility] 07/06/2023 15:35:09 COVID-19, mRNA, LNP-S, PF, 30 mcg/0.3 mL dose, gonzalo-sucrose 2 completed Not Available [facility] 07/06/2023 15:35:09 Tdap 6 completed Not Available [facility] 07/06/2023 15:35:09 Influenza, split virus, quadrivalent, PF 1 completed Not Available [facility] 07/06/2023 15:35:09 Influenza, split virus, quadrivalent, PF 8 completed Not Available [facility] 07/06/2023 15:35:09 Influenza, MDCK, quadrivalent, PF 2 completed Not Available [facility] 07/06/2023 15:35:09 COVID-19, mRNA, LNP-S, bivalent, PF, 50 mcg/0.5 mL or 25mcg/0.25 mL dose 2 completed Not Available [facility] 07/06/2023 15:35:09 Influenza, MDCK, quadrivalent, PF 3 completed Constance Benjamin MA [facility] 03/02/2024 13:06:31 COVID-19, mRNA, LNP-S, PF, gonzalo-sucrose, 30 mcg/0.3 mL 3 completed Constance Benjamin MA null, [facility] 03/02/2024 13:06:31 Influenza, split virus, trivalent, preservative 3 completed Not Available [facility] 07/06/2023 15:35:09 Influenza, split virus, trivalent, PF 4 completed Ryan Degroot MD [address], [address] 07/13/[facility]24 19:08:38 Past Encounters Encounter ID Performer Location Encounter Start Date Encounter Closed Date Diagnosis/Indication Diagnosis SNOMED-CT Code Diagnosis ICD10 Code Diagnosis Note [id number] autoEComm erce [id number] [facility] [place] [address] 09/15/2012 00:00:00 [id number] autoEComm erce [id number] [facility] [place] [address] 11/15/2012 00:00:00 [id number] autoEComm erce [id number] [facility] [place] [address] 09/07/2013 00:00:00 [id number] autoEComm erce [id number] [facility] [place] [address] 09/19/2013 00:00:00 [id number] autoEComm erce [id number] [facility] [place] [address] 09/27/2013 00:00:00 [id number] autoEComm erce [id number] [facility] [place] [address] 10/12/2013 00:00:00 [id number] autoEComm erce [id number] [facility] [place] [address] 12/06/2013 00:00:00 [id number] autoEComm erce [id number] [facility] [place] [address] 12/22/2013 00:00:00 [id number] autoEComm erce [address] [facility] [address] [place] [address] 02/07/2014 00:00:00 [id number] Mitch Womack MD Main Office [address] [facility] [address] [place] [address] 05/15/2014 13:56:41 05/15/2014 14:49:22 Obstructive sleep apnea syndrome 80188919 Noted to have history of CHRISTINA which is being treated with CPAP. Also wiht deviated septum. Difficulty tolerating the CPAP. [id number] Mitch Womack MD Main Office [address] [address] [place] [address] 07/31/2014 10:52:18 07/31/2014 11:08:05 Needs influenza immunization 633807683 [id number] Mitch Womack MD Main Office [address] [address] [place] [address] 08/07/2014 13:16:48 08/07/2014 14:21:04 Pre-surgery evaluation [id number] Dr. Coe on August 17, 2014. Anterior cervical spinal fusion. Cervical d isc disorder 093961680 Fatigue 85523937 [id number] Mitch Womack MD Main Office [address] [address] [place] [address] 08/28/2014 11:33:42 08/28/2014 12:28:29 Chronic pain syndrome 332245707 Cervical d isc disorder 936654607 [id number] Mitch Womack MD Main Office [address] [address] [place] [address] 09/11/2014 13:53:41 09/11/2014 14:35:44 Cervical disc disorder 660385229 [id number] Mitch Womack MD Main Office [address] [address] [place] [address] 10/11/2014 09:27:38 10/11/2014 10:37:11 Greater trochanteric pain syndrome 2915445 [id number] Mitch Womack MD Main Office [address] [address] [place] [address] 10/25/2014 10:44:41 10/25/2014 11:32:04 Chronic pain syndrome 635840660 Gastroesop hageal reflux disease 794042346 [id number] Mitch Womack MD Main Office [address] [address] [place] [address] 01/22/2015 09:48:59 01/22/2015 10:52:19 Chronic pain syndrome 286192924 Greater tr ochanteric pain syndrome 3573816 Acute carmen rgic reaction 513046522 [id number] Mitch Womack MD Main Office [address] [address] [place] [address] 08/08/2015 13:29:33 08/15/2015 12:40:59 [id number] Mitch Womack MD Main Office [address] [address] [place] [address] 09/18/2015 10:12:30 09/18/2015 10:55:10 Greater trochanteric pain syndrome 6479809 M70.62 Exposure t o sexually transmissible disorder 876251762 Z20.2 [id number] Mitch Womack MD Main Office [address] [address] [place] [address] 10/03/2015 09:27:44 10/03/2015 09:59:31 Greater trochanteric pain syndrome 3701766 M70.62 [id number] Mitch Womack MD Main Office [address] [address] [place] [address] 02/21/2016 15:01:01 02/21/2016 16:05:33 Adult health examination 059776303 Z00.00 Single ekaterina or depressive episode 514608202 F32.9 Acute carmen rgic reaction 404700133 T78.40XD Bee sting allergy Administra tion of diphtheria, pertussis, and tetanus vaccine 574739304 Z23 Cervical d isc disorder 747195988 M50.90 Hyperlipidemia 93574844 E78.0 Fatigue 64103599 R53.83 [id number] Mitch Womack MD Main Office [address] [address] [place] [address] 02/25/2016 15:08:20 02/25/2016 16:22:23 Puncture wound of finger 916982806 S61.231A Cervical d isc disorder 788187986 M50.90 [id number] Mitch Womack MD Main Office [address] [place] [address] 10/15/2016 13:31:16 10/15/2016 14:48:55 Needs influenza immunization 606691366 Z23 Arthropath y of knee joint 640838095 M12.862 Fatigue 26231397 R53.83 [id number] Mitch Womack MD Main Office [address] [address] [place] [address] 06/02/2017 11:01:14 06/03/2017 14:32:44 [id number] Mitch Womack MD Main Office [address] [address] [place] [address] 08/03/2017 13:36:48 08/03/2017 14:43:20 Needs influenza immunization 593487445 Z23 Chronic te nsion-type headache 819297819 G44.229 [id number] FILI Reyes Main Office [address] [address] [place] [address] 08/11/2017 10:32:48 08/11/2017 11:17:47 Right inguinal hernia 030870803 K40.90 + noticeable bulging on right, mildly tender. Hernia of abdominal wall 139686342 K43.6 Ventral hernia, has been presents for years according to patient, + tender to palpation, causing pain now. Most visible if he is flexing abd muscles/ trying to sit from a prone position. Arthropath y of knee joint 500989285 M12.861 Chronic knee pain, establishe d with [facility] but needs a referral due to new insurance. [id number] Mitch Womack MD Main Office [address] [address] [place] [address] 11/13/2017 10:53:46 11/13/2017 12:14:24 Adult health examination 364549555 Z00.00 Obstructiv e sleep apnea syndrome 51790149 G47.33 Hyperlipidemia 33255506 E78.5 Major depr essive disorder 579683714 F32.[address] Riley for psych [id number] Estrada Rahman MD Main Office [address] [address] [place] [address] 04/19/2018 10:39:33 04/19/2018 11:52:43 Iron deficiency anemia 53054010 D50.9 WIll confirm results and start iron/vitma in C. Confirm H. pylori clearance. Reassess labs in 2-3 months and investigat e further (refer back to GI) if labs are persistent ly abnormal. History of bacterial infection 7617457261 25222 Z86.19 Chronic gastritis 118966 9 K29.50 On high dose PPI. If stool is heme positive, pt will need to f/u with GI. [id number] FILI Reyes Main Office [address] [facility] [address] [place] [address] 07/09/2018 08:28:08 07/09/2018 09:20:43 Needs influenza immunization 343423244 Z23 Constipation 51327867 K5 9.09 Anemia 205891935 D64.89 will recheck labs. [id number] Lara tolliver NP Main Office [address] [facility] [address] [place] [address] 10/14/2018 13:51:11 10/14/2018 15:05:03 Frontal headache 769906595 R51 Continue with pain management for now, to see neuro, ? candidate for botox. Will use medical marijuana as needed as this provides pain relief. Consider massage, stretching . Check ESR to R/O temporal arteritits . Recommend opthalmolo gy ov, pt will make appt himself. Radicular syndrome of lower limbs 52419804 M54.10 continue with pain mgt who has been treating, will review with neurologis t at upcoming ov. [id number] Davion Melton MD Main Office [address] [facility] [address] [place] [address] 11/16/2018 09:35:17 11/16/2018 10:33:22 Adult health examination 486593154 Z00.00 HM UTD Gastroesop hageal reflux disease 114305243 K21.9 will increase med to BID to see if it helps. Chronic he adache disorder 056653795 G43.719 Having chronic daily headaches, has neuro appt next month but has been on daily headche meds before without success. He notes headache is debilitati ng and he does vape medical marijuana as needed. Anemia 385155949 D64.89 H/H normal but iron still low will recheck labs in 6 months. patient to re-start iron daily. Hyperlipidemia 23394136 E78.5 Muscle spa sm of cervical muscle of neck 2784538470 04 M62.838 chronic neck pain, hx cervical fusion. tried intensive PT but it was making sx worse. Chronic pain syndrome 37 8014555 G89.4 Chronic pain that he notes is debilitati ng. Has had multiple injections and seen pain management in the past. Suggest he contact pain management again. Arthropath y of knee joint 729927458 M12.861 Chronic knee pain, establishe d with [facility] but needs a referral due to new insurance. 2 patellofem oral replacemen ts- wont do full replacemen ts. Cervical d isc disorder 678572713 M50.90 History of spinal fusion 3184473349 9107 Z98.1 lumbar abd cervical. has chronic nerve damage and pain, left leg, left foot, headaches. Pain of hip region 51748 002 M25.551 M25.552 bilateral hip pain due to back pain, he wonders if he can get injections today but Dr. Womack is not in today. He will call pain management . [id number] Mitch Womack MD Main Office [address] [address] [place] [address] 02/04/2019 09:06:41 02/04/2019 10:00:51 Elevated blood-pressure reading without diagnosis of hypertension 204475668 R03.0 Pt. will test BP and notify us if over 140/90 range. F/u will be set up. Iron defic iency anemia 89891842 D50.9 stable labs. Last colonoscop y was unremarkab le last year. Continue Ferrous sulfate. [id number] Mitch Womack MD Main Office [address] [address] [place] [address] 04/08/2019 10:45:14 04/08/2019 12:12:13 Hepatitis C screening 465624496 Z11.59 Lumbar radiculopathy 128 506087 M54.16 Left S1 distributi on [id number] Mitch Womack MD Main Office [address] [address] [place] [address] 06/24/2019 08:48:34 06/24/2019 10:05:22 Chronic pain syndrome 649545685 G89.4 Lumbar radiculopathy 128 669837 M54.16 L5-S1 radiculopa thy, multiple back surgeries. Will start gabapentin at 300 mg at HS for 1 week and increase to 300 mg BID. F/u 1 month. PT. will be referred to Dr. Marquis for neurosurgi reba eval. [id number] Malinda eprez MD Main Office [address] [facility] [address] [place] [address] 07/06/2019 10:36:42 07/06/2019 11:15:54 Needs influenza immunization 949388677 Z23 [id number] Mtich Womack MD Main Office [address] [address] [place] [address] 08/08/2019 10:25:40 08/08/2019 11:26:35 Pain in lower limb 30013941 M79.604 M79.605 Lumbar radiculopathy 128 182793 M54.16 [id number] Mitch Womack MD Main Office [address] [address] [place] [address] 08/22/2019 15:14:54 08/22/2019 16:39:09 Cervical disc disorder 791047866 M50.90 Pt. is having evaluation restarted based [...] Pt. is in agreement with this referral. [id number] Mitch Womack MD Telehealt [address] [address] [place] [address] 11/16/2020 07:19:49 11/20/2020 14:35:47 Loss of appetite 35925002 R63.0 Fatigue 45126738 R53.83 Screening for cardiovascular system disease 204893813 Z13.6 Primary er ectile dysfunction 869428450 N52.9 Dyspnea on exertion 6084 5006 R06.09 [id number] Estrada Rahman MD Main Office [address] [facility] [address] [facility] [place] [address] 11/21/2020 14:03:52 11/21/2020 16:21:25 Adult health examination 410057358 Z00.00 Hyperlipidemia 59050698 E78.5 stable, cont med as dir Anxiety state 591453328 F41.1 see below Varicella vaccination 68 315972 Z23 History of spinal fusion 8362164828 9107 Z98.1 cervical & lumbar - seen by Dr. Marquis - rev last note 07.23 - pt c/o worsening sxs L hand and L foot - last seen by pmr 06.23 - will get second opinion c pssp Body mass index 30+ - obesity 502186034 E66.9 Z68.30 Major depr essive disorder 486111463 F32.2 scored very high on aye/phq - cont med as per psychiatri , cont counsellor bi-wkly - pt very worried about his acute on chronic musculoske letal problems as well as recent WILKINS / newly dx'd ELISABETH Attention deficit hyperactivity disorder, predominantly inattentive type 20305281 F90.0 cont stimulant as per psychiatri st Dyspnea on exertion 6084 5006 R06.09 pending stress test, will get ekg today - will give copy to pt to give to psychiatri (who had asked for it) ---- ekg c no acute changes, no sig. change from ekg 11.11.14 Iron defic iency anemia 95598989 D50.9 occ brbpr - will get gi re-eval -- meanwhile, rec otc iron supp c vit c 500mg daily, as well as colace 1 tab qd ---- ? ELISABETH contributi ng to above WILKINS [id number] Mitch Womack MD Telehealt h [address] [facility] [address] [place] [address] 12/14/2020 08:28:36 12/17/2020 10:41:29 Bipolar affective disorder, current episode depression 903705099 F31.30 Nausea and vomiting 1693 2000 R11.2 Arthropath y of knee joint 017591275 M12.862 [id number] Malinda perez MD Main Office [address] [facility] [place] [address] 12/31/2020 13:47:43 12/31/2020 14:45:30 Pre-surgery testing 526568760 Z01.89 1. Pre-Surgic al Evaluation /Surgical Clearance [...] for chronic anemia. I discussed case with property assessment monitor hematologfelicia Vides 01/01/21 who reviewed his labs and felt he can precede with procedure and be followed up after referral was placed. Anemia due to unknown mechanism 27666114 D64.9 Patient has labs pending from PCP this includes CBC will have additional labs ordered to evaluate anemia further. Addendum 01/01/21, labs reviewed, still suggesting some anemia case discussed with property assessment monitor james Vides 01/01/21 as patient has been on Iron since 2018 and still has anemia, hematrenetta chamberlain advised patient can proceed but should be followed up sometime after his surgery thus a referral was placed as he has long standing anemia with changes in RBC morphology , has been on iron since 2018, has had GI workup EGD and colonoscop y most recent in 2020 (esophagit is and hemorrhoid ). He has been on superintendent terminal PPI tx as he also has hx [...] up as he was refered by GI. [id number] Barrett Lloyd PA-C Main Office [address] [facility] [address] [place] [address] 05/09/2021 13:40:07 05/09/2021 14:24:58 Increased frequency of urination 020970250 R35.0 negative urinary dipstick makes uti less likely, unlikely bph c no nocturia, so suspect his sxs are d/t underlying constipati on - see below Constipation 74564657 K5 9.00 mild - moderate - see above - trial c mag citrate or senna x 1-2 nights to see if helps c bowel function and then improves above sxs - then resume colace as dir, stay well hydrated if no sig help then consider further w/u for both - TH visit next wk did have nl colon 3.21 [id number] Barrett Lloyd PA-C Telehealt h [address] [facility] [address] [place] [address] 05/14/2021 08:26:04 05/14/2021 15:13:03 Constipation 37606093 K59.00 no sig help senna, prog getting [...] and urine did have nl colon 3.21 [id number] Barrett Lloyd PA-C Telehealt h [address] [facility] [address] [facility] [place] [address] 05/21/2021 13:12:30 05/21/2021 16:03:30 Lower abdominal pain 80644161 R10.[address] a/p to further evaluate lower abd pain, constipati on, change in stool quality, hematochez ia Constipation 79834305 K5 9.00 rec increase miralax to bid, and if no sig bm by day then take prn 1-2 senna hs Change in stool consistency 888207198 R19.5 did have last colon 3.21, but see above - will check CT a/p for further eval Hematochezia 503172529 K 92.[address] above Hemorrhoids 14733228 K64 .9 internal and external - no sig help c otc - will give stronger steroid cream and get colorectal eval [id number] Ryan Degroot MD Main Office [address] [place] [address] 06/21/2021 09:57:43 07/18/2021 10:49:09 [id number] Davion Melton MD Main Office [address] [place] [address] 07/04/2021 10:57:49 07/04/2021 12:03:43 Needs influenza immunization 976217327 Z23 Orthostati c hypotension 34532051 I95.1 He was instructed to hold his tamsulosin and tizanidine and increase his fluid and salt intake and follow wa blood pressure. He will return in 2 weeks but will call sooner if he experience s near-synco pe or syncope. Syncope 840189068 R55 May have been secondary to meds given to him after his surgery. (tizanidin e and tamsulosin ). [id number] Davion Melton MD [facility] [address] [place] [address] 07/25/2021 12:22:18 07/25/2021 14:08:59 Acute prostatitis 49478315 N41.0 Will treat empiricall y and will refer to urology if no improvemen t. Near syncope 862014968 R 55 He has not had any further episodes after stopping the tizanidine and tamsulosin . [id number] Estrada Rahman MD Main Office [address] [place] [address] 09/04/2021 10:56:10 09/04/2021 12:26:03 Fatigue 34760545 R53.83 Iron defic iency anemia 95020685 D50.9 seen by gi and hem - cont f/u c specialist s, will recheck labs d/t worsening of fatigue Sleep apnea 79778161 G47 .30 h/o apnea > 10 yrs ago - recalls AHI 6 - will get re-eval - ? cause of his fatigue Pain of le ft knee region 8874997228 20498 M25.562 s/p arthroscop y c neos recently - now c crepitus, pt concerned - enc pt to cont f/u c neos, but consider 2nd opinion if no resolution of pt concerns Constipation 35481754 K5 9.00 better lately on miralax qd [id number] Ryan Degroot MD Main Office [address] [facility] [place] [address] 01/23/2022 13:10:53 01/27/2022 10:36:43 [id number] Ryan Degroot MD Main Office [address] [facility] [place] [address] 02/21/2022 12:54:57 02/21/2022 13:37:20 Allergic reaction to bee sting 055928425 T63.444S Greater tr ochanteric pain syndrome 1041845 M70.61 M70.62 Postoperative visit 1836 40975 Z09 Cont care as per ortho. History of left total knee replacement 9949695243 798411 Z96.652 Doing well, good mobility Fatigue 05141446 R53.83 Hyperlipidemia 82684291 E78.5 Nocturia 775630082 R35.1 Anemia due to unknown mechanism 09006399 D64.9 Patient has labs pending from PCP this includes CBC will have additional labs ordered to evaluate anemia further. Addendum 01/01/21, labs reviewed, still suggesting some anemia case discussed with property assessment monitor hematologfelicia Vides 01/01/21 as patient has been on Iron since 2018 and still has anemia, hematologi advised patient can proceed but should be followed up sometime after his surgery thus a referral was placed as he has long standing anemia with changes in RBC morphology , has been on iron since 2018, has had GI workup EGD and colonoscop y most recent in 2020 (esophagit is and hemorrhoid ). He has been on intermediate PPI tx as he also has hx [...] up as he was refered by GI. [id number] Ryan Degroot MD Main Office [address] [facility] [address] [facility] [place] [address] 03/12/2022 10:28:58 03/12/2022 11:24:02 Adult health examination 386863782 Z00.00 Patient was counseled on healthy diet, exercise and nutrition due to Body mass index is 28.9 kg/m? ? ?. Last PSADate: 09/17/12Re sult: 1.2Plan: ordered, reminded [...] discussed. Medication reconciled . Varicella vaccination 68 899689 Z23 Bipolar af fective disorder, current episode depression 492370412 F31.30 Follows therapist. Denies homicidal or suicidal Ideation. Body mass index 25-29 - overweight 362538200 E66.3 Z68.25 - Diet and exercise discussed- Encouraged to loose weight- Avoid starchy and fatty food- Encouraged use of green vegetables and fruits Overweight 507228402 E66 .3 Allergic rhinitis 993913 04 J30.9 cw to use flonase. Arthropath y of knee joint 299258469 M12.862 Hyperlipidemia 56357824 E78.5 [id number] Ryan Degroot MD Main Office [address] [facility] [address] [place] [address] 05/08/2022 10:23:08 05/10/2022 13:32:15 [id number] Ryan Degroot MD Main Office [address] [place] [address] 05/22/2022 08:52:16 05/22/2022 16:03:37 [id number] Ryan Degroot MD Main Office [address] [facility] [address] [place] [address] 06/04/2022 08:28:41 06/05/2022 10:01:08 Transition of care from emergency department to self-care 1538513892 69976 Z76.89 ED notes reviewed. Lightheadedness 83583846 8 R42 worked up in ED, suspected dehydratio n, symptoms resolved.I suspect sx multifacto rial.Given reassuring MRI finding, I do not suspect sinister pathology. Cw hydration. Questions and concerned addressed. Nausea 230797080 R11.0 EPS signs risk discussed. [id number] Estrada Rahman MD Main Office [address] [facility] [address] [place] [address] 10/21/2022 14:17:23 10/21/2022 15:12:11 Encephalomalacia 79987017 G93.89 Has history of head injury as likely explanatio n. History of cervical spine fusion 2142083847 101 Z98.1 Last MRI showed possible disease progressio n outside of hardware from previous fusion. Need to make sure this has not progressed . Dizziness 280831722 R42 Question is this is cardiogeni c vs neurogenic . Based on history and exam findings I am more concerned for neurologic process. Will rule out inner ear disease and cervical spine stenosis with imaging. If unremarkab le and episodes recur will consider cardiac assessemen t. Bilateral tinnitus 26247 26190 102 H93.13 Has ENT appt scheduled. No previous IAC imaging done. Unsteady w hen standing 898375954 R26.81 Concern for cervical spine stenosis. [id number] Ryan Degroot MD Main Office [address] [facility] [address] [place] [address] 03/24/2023 11:44:06 03/26/2023 17:40:46 [id number] Ryan Degroot MD Main Office [address] [address] [place] [address] 06/10/2023 14:59:29 06/10/2023 15:25:20 Skin lesion 48833708 L98.9 [id number] Sheri Lloyd PA-C Main Office [address] [facility] [address] [place] [address] 12/23/2023 13:00:02 12/23/2023 13:29:44 Benign prostatic hyperplasia with outflow obstruction 177522024 N40.1 recommend to see urologist due to ongoing issues with urination. Check uronalysis and reflex culture. Dysuria-fr equency syndrome 0287662 R30.0 [id number] Ryan Degroot MD Main Office [address] [facility] [address] [place] [address] 03/02/2024 13:03:18 03/02/2024 13:50:45 Adult health examination 706240139 Z00.00 Patient was counseled on healthy diet, exercise and nutrition due to Body mass index is 29.1 kg/m? ? ?. Last PSADate: 03/19/22Res ult: 2.5Plan: followed by urologist Last Colonoscop y:Date: 12/19/20Res ult: 5mm polypPlan: Per GI repeat 5yrs Vaccines:T dAP: 02/21/16Zos ter Rec: Script provided [id number] : not [id number]: 08/14/15, Likely given 2/2 to hx of etoh use.Influe nza: yearly flu encouraged Covid: encourage updated vaccineRSV : Script given. Reminder to get routine labs today Immunizati on status reviewed. Will screen based on risk factors. Regular dental and ophtho care advised as well as seat belt and sunscreen use. Distracted driving discussed. Medication reconciled . Varicella vaccination 68 904257 Z23 Bipolar af fective disorder, current episode depression 995345725 F31.30 Denies homicidal or suicidal Ideation.E ncouraged, psychother apy. Body mass index 25-29 - overweight 465583126 E66.3 Z68.25 - Diet and exercise discussed- Encouraged to loose weight- Avoid starchy and fatty food- Encouraged use of green vegetables and fruits Overweight 790690952 E66 .3 Hyperlipidemia 00749171 E78.5 Pederson's esophagus 3029 60332 K22.70 Benign pro static hyperplasia with outflow obstruction 156808949 N40.1 Iron defic iency anemia 35177192 D50.9 Prediabetes 277612060 R7 3.03 Fatigue 06368048 R53.83 Z00.00 Administra tion of viral vaccine 37204075 Z29.11 Skin lesion 28050449 L98 .9 [id number] Davion Melton MD Main Office [address] [address] [place] [address] 03/11/2024 10:34:07 03/11/2024 11:04:39 Blood in urine 40240905 R31.9 x1yr of noticing a pink hue in his urine-symp toms of urinary urgency-de nies of any dysuria, increase frequency, or trauma to the area-A1C of 6.0, eGFR of 89-will order PSA-follow s with urology; has an US of the prostate next week [id number] Ryan Degroot MD Main Office [address] [address] [place] [address] 04/29/2024 14:22:41 04/29/2024 15:37:43 Cervico-occipital neuralgia 61606677 M54.81 Headache 99646667 R51.9 Fatigue 16943694 R53.83 Z00.00 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 EKG: T wave abnormal 164 968777 R94.31 First degr ee atrioventricular block 120196241 I44.0 [id number] Ryan Degroot MD Main Office [address] [address] [place] [address] 05/10/2024 11:11:23 05/10/2024 12:07:47 Testosterone level below reference range 480657377 R89.1 Disorder of skull 923389 008 P13.1 [id number] Ryan Degroot MD Main Office [address] [address] [place] [address] 05/25/2024 09:50:48 05/25/2024 10:28:38 Pain of right shoulder joint 6535174917 1939569 M25.511 -He will use otc tylenol 1gm every 6hr as needed.-Me loxicam prn for break through pain.-Also advised otc lidocane patch.-Tx per ortho. Transition of care from emergency department to self-care 2971678895 63412 Z76.89 ED notes reviewed. [id number] Ryan Degroot MD Main Office [address] [facility] [address] [facility] [address] B[facility]S [facility] [place] [address] 07/13/2024 11:16:20 07/13/2024 12:42:07 Unsteady when walking 69538825 R26.89 Benign par oxysmal positional vertigo 541352658 H81.10 Dizziness 298396352 R42 Bilateral tinnitus 57986 02143 102 H93.13 Unsteady w hen standing 309085827 R26.81 At [facility] ed risk for falls 612689616 Z91.81 Needs infl uenza immunization 010166992 Z23 19 YEARS AND OLDER ONLY [id number] Davion Melton MD Main Office [address] [facility] [address] [place] [address] 01/25/2025 15:03:23 01/25/2025 16:02:17 Fatigue 46377196 R53.83 This is probably secondary to generalize d anxiety and depression and is not new for him. He wants to improve but he refuses meds in order to treat these problems. He also says that he is looking for a therapist but currently he is not seeing anyone. It appears that he hopes that this is a medical problem that can be easily diagnosed and then treated and not a mental health issue. Generalize d anxiety disorder 15785083 F41.1 Refuses treatment Moderate m ajor depression 987247 F32.1 Refuses treatment. Health Concerns Section Related Observation LastModified by Organization Detai ls LastModified Time None Recorded Concern Status LastModified by Organization Details LastModified Time None Recorded Advance Directives Directive Y: HCP Payers Encounter Date Sequence Insurance Name Policy Number Policy Rich Covered Member ID Rich Member ID Guarantor Name 04/29/2024 1 [facility] - DOS ON OR AFTER 2023 - ONE CARE (MEDICARE REPLACEMENT/AD VANTAGE - HMO) Gene A Archambeau [id number] Gene A Archambeau 05/10/2024 1 [facility] [facility] - DOS ON OR AFTER 2023 - ONE CARE (MEDICARE REPLACEMENT/AD VANTAGE - HMO) Gene A Archambeau [id number] Gene A Archambeau 05/25/2024 1 [facility] - DOS ON OR AFTER 2023 - ONE CARE (MEDICARE REPLACEMENT/AD VANTAGE - HMO) Gene A Archambeau [id number] Gene A Archambeau 07/13/2024 1 [facility] - DOS ON OR AFTER 2023 - ONE CARE (MEDICARE REPLACEMENT/AD VANTAGE - HMO) Gene A Archambeau [id number] Gene A Archambeau 01/25/2025 1 [facility] [employer] - DOS ON OR AFTER 2023 - ONE CARE (MEDICARE REPLACEMENT/AD VANTAGE - HMO) Gene A Archambeau [id number] Gene A Archambeau Notes Date Note Type Note Provider Name and Address Organization Details Recorded Time 04/29/2024 text/html FatigueReported bypatient.Severity:sle ep at 11, [...] was not confirmed. Ryan Degroot MD [address], [address], [facility] 05/01/2024 [...] was ordered but not completed. Hemalatha casas [facility] 05/18/2024 14:20:17 05/25/2024 text/html Emergency Depart ment Follow-Up RecordReported bypatient.Discharge Informationname of ED [facility]; emergency department discharge date: (Please enter in [...] waking up with pain. Ryan Degroot MD [facility] [address], [address], [facility] 05/25/2024 [...] a psychotherapist. He has an ENT in [place] and has had an MRI, which he reports looked good. He has discussed these issues with his ENT, who was not concerned, and his neurosurgeon has recommended vestibular therapy for this. Ryan Degroot MD [address] [address], [place], [address], [facility] 07/13/2024 19:22:41 01/25/2025 text/html Feeling tired an d exhausted all the time. Also anxious and w/o appetite. Has lost 18 lbs in the last 6 months. Has been taking care of his who had a stroke September 2023. They are but living in the same house but different suites. This is source of stress. Has low testosterone and is getting replacement from urology. It helped with his energy level at first but it is no longer helping as much so the dose was recently increased. He is now going to get injections instead. Constant abdominal pain but no changes in bowels. No vomiting. Davion Melton MD [address] [address], [place], [address], [facility] [place] 01/25/2025 18:11:35
== END 2025-03-14 10:10 | disposition home or self-care (01) ==
LOC: HO.BBR 10:09
PROVIDERS: Visit Provider Urology
DX: D75.1 Secondary polycythemia (principal)
CPT/HCPCS: 85018; 99195

== ENCOUNTER 2025-06-12 09:58 | Outpatient (REF) | payer OTHER, SELFPAY ==
--- OUTSIDE RECORDS SUMMARY | 2023-06-11 | XMS_ITS | Encounter Summary ---
Author Organization [facility] Address [address] [place] [id number] Phone Care Team Providers Care Commercial Real Estate Appraiser Name Role Phone Diego Degroot MD Primary Care Provider Encounter Details Date Type Department Care Team (Late st Contact Info) Description 06/11/2023 Hospital Encounter [facility] [address] [place] [address] Anne Marie Osorio MD, PhD [address] [place] [address] [email or web address] Social History Tobacco Use Types Packs/Day Years Used Date Smoking Tobacco: Never Smokeless Tobacco: Never Alcohol Use Standard Drinks/Week Comments Never 0 (1 standard drink = 0.6 oz pur e alcohol) SOBER 2018 Education Answer Date Recorded Are you interested in more education? Not on paola e 01/30/2023 Are you concerned about learning? Not on file 01/30/2023 No 01/30/2023 No 01/30/2023 Digital Access Answer Date Recorded No 03/03/2023 No 03/03/2023 Reliable internet access at home? Not on file 03/03/2023 Device with a working camera? Not on file Intimate Partner Violence Answer Date R ecorded Are you denied basic needs s uch as food, clothing, or medical care? No 03/27/2023 In the past 12 months have y ou been in a relationship with a person who hurts, threatens, or tries to control you? No 03/27/2023 Are you denied basic needs s uch as food, clothing, or medical care? No 03/27/2023 In the past 12 months have y ou been in a relationship with a person who hurts, threatens, or tries to control you? No 03/27/2023 Sex and Gender Information Value Date Recorded Sex Assigned at Not on file Legal Sex Male 2:00 PM EST Gender Identity Not on file Sexual Orientation Not on file documented as of this encounter Plan of Treatment Not on file documented as of this encounter Procedures Procedure Name Priority Date/Time Associated Diagnosis Comments XR HEAD OUTSIDE (NO INTERPRETATION) Routine 06/11/2023 12:00 AM EDT documented in this encounter Results * XR Head Outside (No Interpretation) (06/11/2023 12:00 AM EDT) Narrative [facility] - 07/10/2023 10:24 AM EDT This study is for PACS storage only and not for interpretation. us D Ole Osorio MD, PhD IMG OUTSIDE IMAGING W/ OUT INTERPRETATION Final Result [facility] documented in this encounter Visit Diagnoses Not on filedocumented in this encounter Care Teams Commercial Real Estate Appraiser Relationship Specialty Start Date End Date Diego Degroot MD [address] [place] [address] PCP - General Family Medicine 06/04/22 documented as of this encounter Additional Source Comments The information contained in this document represents components of the legal health record. It is not the complete legal health record.[facility]
--- OUTSIDE RECORDS SUMMARY | 2025-06-12 11:39 | XMS_ITS | Encounter Summary ---
Author Organization [facility] Address [address] [place] [address] Phone Care Team Providers Care Outside Sales Representative Insurance Name Role Phone Diego Degroot MD Primary Care Provider [phone] Encounter Details Date Type Department Care Team ([facility] Contact Info) Description 02/06/2023 Procedure Pass [facility] PERIOPERATIVE DEPT [address] [place] [phone] Social History Tobacco Use Types Packs/Day Years Used Date Smoking Tobacco: Never Smokeless Tobacco: Never Alcohol Use Standard Drinks/Week Comments Never 0 (1 standard drink = 0.6 oz pur e alcohol) SOBER 2018 Education Answer Date Recorded Are you interested in more education? Not on paola e 01/30/2023 Are you concerned about learning? Not on file 01/30/2023 No 01/30/2023 No 01/30/2023 Sex and Gender Information Value Date Recorded Sex Assigned at Not on file Legal Sex Male 2:00 PM EST Gender Identity Not on file Sexual Orientation Not on file documented as of this encounter Plan of Treatment Not on file documented as of this encounter Visit Diagnoses Not on filedocumented in this encounter Care Teams Outside Sales Representative Insurance Relationship Specialty Start Date End Date Diego Degroot MD [address] [facility] [address] [place] [address] PCP - General Family Medicine 06/04/22 documented as of this encounter Additional Source Comments The information contained in this document represents components of the legal health record. It is not the complete legal health record.[facility]
--- OUTSIDE RECORDS SUMMARY | 2025-06-12 11:39 | XMS_ITS | Encounter Summary ---
Author Organization [facility] Address [address] [facility] [address] [place] [address] Phone Care Team Providers Care Msw Name Role Phone Diego Degroot MD Primary Care Provider [phone] Encounter Details Date Type Department Care Team ([facility] Contact Info) Description 03/06/2023 Procedure Pass [facility] PERIOPERATIVE DEPT [address] [place] [phone] Social History Tobacco Use Types Packs/Day Years [...] with a working camera? Not on file Sex and Gender Information Value Date Recorded Sex Assigned at Not on file Legal Sex Male 2:00 PM EST Gender Identity Not on file Sexual Orientation Not on file documented as of this encounter Plan of Treatment Not on file documented as of this encounter Visit Diagnoses Not on filedocumented in this encounter Care Teams Msw Relationship Specialty Start Date End Date Diego Degroot MD [address] [facility] [address] [place] [phone] PCP - General Family Medicine 06/04/22 documented as of this encounter Additional Source Comments The information contained in this document represents components of the legal health record. It is not the complete legal health record.[facility]
--- OUTSIDE RECORDS SUMMARY | 2025-06-12 11:40 | XMS_ITS | Encounter Summary ---
Author Organization [facility] Address [address] [facility] [address] [place] [address] Phone Care Team Providers Care Profiler Name Role Phone Diego Degroot MD Primary Care Provider [phone] Encounter Details Date Type Department Care Team ([facility] Contact Info) Description 01/09/2023 Procedure Pass [facility] PERIOPERATIVE DEPT [address] [place] [phone] Social History Tobacco Use Types Packs/Day Years Used Date Smoking Tobacco: Never Smokeless Tobacco: Never Alcohol Use Standard Drinks/Week Comments Never 0 (1 standard drink = 0.6 oz pur e alcohol) SOBER 2017 Sex and Gender Information Value Date Recorded Sex Assigned at Not on file Legal Sex Male 2:00 PM EST Gender Identity Not on file Sexual Orientation Not on file documented as of this encounter Plan of Treatment Not on file documented as of this encounter Visit Diagnoses Not on filedocumented in this encounter Care Teams Profiler Relationship Specialty Start Date End Date Diego Degroot MD [address] [address] PCP - General Family Medicine 06/04/22 documented as of this encounter Additional Source Comments The information contained in this document represents components of the legal health record. It is not the complete legal health record.[facility]
--- OUTSIDE RECORDS SUMMARY | 2025-06-12 11:40 | XMS_ITS | Clinical Summary ---
Author Organization [facility] Address [address] [address] Phone Care Team Providers Care Electrical Parts Reconditioner Name Role Phone Diego Degroot MD Primary Care Provider [phone] Allergies Active Allergy Reactions Criticality Noted Date Comments Bee Sting Kit 11/29/2021 Bupropion Other (See Comments) High 02/07/2014 paroxysmal effect Pollen Extracts 11/29/2021 Other reaction(s): seasonal Tamsulosin Hypotension 11/29/2021 caused pt too pass out took with Tizanidine Tizanidine Hypotension High 11/29/2021 Also took Tamsulosin Venom-Honey Bee Anaphylaxis,Unknown High 06/04/2022 Bupropion Hcl 12/17/2022 Suicidal Medications EPINEPHrine 0.3 mg/0.3 mL auto-injector epinephrine 0.3 mg/0.3 mL injection, auto-injector Active fluticasone propionate (FLONASE) 50 mcg/actuation nasal spray 1 spray by Nasal route 2 (two) times a day. 10/10/19 22 Active guanFACINE (TENEX) 1 MG tablet Take 0.5 mg by mouth nightly at bedtime. Takes 1/2 tab at bedtime Active lamoTRIgine (LAMICTAL) 200 MG IMMEDIATE release tablet Take 400 mg by mouth every evening. Take 2 tabs (400 mg) every evening Active atorvastatin (LIPITOR) 20 MG tablet Take 20 mg by mouth nightly at bedtime. Active tbppozqa-aee-viomb us gluconate (CENTRUM WITH IRON) 9 mg iron/15 mL Liqd Take 15 mL by mouth daily. Active cetirizine (ZYRTEC) 10 MG tablet Take 10 mg by mouth daily. 05/05/20 22 Active polyethylene glycol (MIRALAX) 17 gram/dose powder Take 17 g by mouth nightly at bedtime. Active doxazosin (CARDURA) 1 MG tablet Take 2 mg by mouth nightly at bedtime. 01/22/20 23 Active ondansetron (ZOFRAN-ODT) 4 MG disintegrating tablet Take 1 tablet (4 mg total) by mouth every 6 (six) hours as needed. 28 tablet 1 03/18/20 23 Active acetaminophen (TYLENOL) 500 MG tablet Take 1 tablet (500 mg total) by mouth every 4 (four) hours as needed. 03/28/20 23 Active amitriptyline (ELAVIL) 10 MG tablet Take 10 mg (1 tablet) by mouth in the morning and 20 mg (2 tablets) by mouth at bedtime. 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 Gibson with planned left total knee revision arthroplasty on 01/20/22. Risk factor scores at the surgical optimization clinic are as follows. ANDERS cardiovascular risk score is 0.1% risk of myocardial infarction or cardiac arrest, intraoperatively or up to 30 day post-operatively. The patient has known mild obstructive sleep apnea, but does not tolerate CPAP. Recommend extended monitoring in PACU prior to discharge. DASI score was 39.45 points, able to achieve at least 7.59 METS. NSQIP cardiovascular risk score was 0.1% risk of cardiac complication, and RCRI score was 0.4% risk for cardiovascular event including myocardial infarction, pulmonary edema, arrhythmia, cardiac arrest or complete heart block. This reflects very low risk on the scale. Blood work from 11/29/21 shows a hemoglobin A1c of 6.3%. CBC shows H/H of 14.0/44.5 and BMP is unremarkable with a creatinine of 0.90. LFT's are unremarkable. EKG today shows normal sinus rhythm. There is no evidence of acute or prior ischemia. The patient can proceed to the intended procedure without further work-up. They have been instructed to hold all vitamins/supplements and ibuprofen x 1 week before surgery due to increased risk of bleeding. Recommended to hold topical tretinoin x 2 weeks pre-op. The patient should not wear lidocaine patch on the morning of surgery. They should have standard DVT and antibiotic prophylaxis. The patient does not have any medical conditions which would preclude a same day discharge after joint replacement surgery. The patient's pertinent medical conditions were reviewed in detail. This plan will be communicated to the Orthopedic surgeon and the PCP. Cervico-occipital neuralgia 12/05/2021 Assessment & Plan (12/05/2021 4:36 PM EST): Reports chronic/near constant/daily occipital headaches with history of cervical spinal fusion in 2014 and 2020 with at [facility]. He manages his pain with homemade THC tincture. Discussed reducing his THC intake 3-5 days pre- operatively if possible to decrease risk of post-op nausea/vomiting. Hyperlipidemia 12/05/2021 Assessment & Plan (12/05/2021 4:16 PM EST): Continue on atorvastatin 20 mg PO daily. Bipolar affective disorder, current episode depr essed 12/05/2021 Assessment & Plan (12/05/2021 4:34 PM EST): Follows closely with psychiatry, Dr. Zoltan Riley in [place]. Medically managed on lamotrigine 400 mg PO every evening. Instructed to continue this medication perioperatively. GERD (gastroesophageal reflux disease) Assessment & Plan (12/05/2021 4:22 PM EST): Patient has a remote history of peptic ulcer disease, H.Pylori infection and Pederson's esophagus. He is currently managed on omeprazole 40 mg PO every evening which he was instructed to continue throughout the perioperative period. Minimize NSAID use if possible. Iron deficiency anemia 11/29/2021 Assessment & Plan (12/05/2021 4:14 PM EST): The patient developed acute weakness/WILKINS in 11/2020, underwent work-up to include upper/lower endocscopy and was diagnosed with anemia secondary to a small lower GI bleed. He is followed by Dr.Joseph Pulliam, city surveyor at [facility], treated with iron transfusions x 2, last was done on 11/23/21 with most H/H 14.0/44.5. Denies any current WILKINS or shortness of breath, no heart palpitations, no weakness/dizziness or fainting. Denies any melena or hematochezia, no hematemesis. Symptoms resolved following iron transfusion. Recommend obtaining post-op CBC. History of alcohol abuse 11/29/2021 Assessment & Plan (12/05/2021 4:25 PM EST): Patient reports history of binge drinking and alcoholic hepatitis; has been sober x 4 years. LFT's on 11/29/21 are unremarkable. Denies any nausea/vomiting, no jaundice. Attention deficit hyperactiv ity disorder, predominantly inattentive type 11/21/2020 Assessment & Plan (12/05/2021 4:32 PM EST): Medically managed on guanfacine 0.5 mg PO nightly and modafinil 200 mg PO BID. Instructed to continue on guanfacine and modafinil the evening before surgery, but to hold his morning dose of modafinil on the day of surgery. Anxiety state 02/07/2014 Assessment & Plan (12/05/2021 4:33 PM EST): Continue on clonazepam 1 mg PO at bedtime. Obsessive-compulsive disorder 02/07/2014 Obstructive sleep apnea syndrome 12/03/2013 Assessment & Plan (12/05/2021 4:16 PM EST): Known very mild CHRISTINA, diagnosed ~10 years ago. Did not tolerate CPAP therapy. Admits to snoring and some daytime fatigue. Recommend extended monitoring in the PACU prior to discharge. Resolved Problems Problem Noted Date Diagnosed Date Resolved Date Alcohol abuse 12/05/2021 12/05/2021 Rectal hemorrhage 12/05/2021 12/05/2021 Chronic constipation 12/05/2021 022 Post-traumatic osteoarthritis of left knee 11/29/2021 12/05/2021 Pain due to knee joint prosthesis 11/29/2021 12/05/2021 Insomnia 11/29/2021 12/05/2021 Depression 11/29/2021 12/05/2021 ADHD 11/29/2021 12/05/2021 Lumbar radiculopathy 11/29/2021 022 History of lumbar spinal fusion 11/29/2021 12/05/2021 Iron deficiency anemia 11/21/202012/05 History of peptic ulcer 02/07/201412/2021 Gastroesophageal reflux disease 02/07/2014 12/05/2021 Family History Medical History Relation Comments No Known Problems Brother Pulmonary embolism Father Lung cancer Mother No Known Problems Sister Hearing loss Neg Hx Relation Status Comments Brother Alive Father (Age 42) Mother (Age 82) Sister Alive Social History Tobacco Use Types Packs/Day Years Used Date Smoking Tobacco: Never Smokeless Tobacco: Never Tobacco Cessation:Counseling Given: Not Answered Alcohol Use Standard Drinks/Week Comments Never 0 [...] on file Sexual Orientation Not on file Last Filed Vital Signs Vital Sign Reading Time Taken Comments Blood Pressure 122/77 06/30/2024 1:04 PM EDT Pulse 88 06/30/2024 1:04 PM EDT Temperature 36.6 C (97.9 F) 06/30/2024 1:04 PM EDT Respiratory Rate 16 06/30/2024 1:04 PM EDT Oxygen Saturation 95% 06/30/2024 1:04 PM EDT Inhaled Oxygen Concentration - - Weight 80.6 kg (177 lb 11.2 oz) 06/30/2024 1:04 PM EDT Height 170.2 cm (5' 7 ) 06/26/2024 8:01 AM EDT Body Mass Index 27.83 06/26/2024 8:01 AM EDT Plan of Treatment Health Maintenance Due Date Last Done Comments LIPID PANEL 1964 DEPRESSION SCREENING 1976 HEPATITIS C SCREENING 01/16/1982 HIV ONE-TIME SCREENING (18-65 YEARS) 01/16/1982 COLOGUARD 01/16/2009 COLONOSCOPY 01/16/2009 COLORECTAL CANCER SCREENING 01/16/2009 FIT TEST 01/16/2009 FOBT 01/16/2009 SIGMOIDOSCOPY 01/16/2009 VIRTUAL COLONOSCOPY 01/16/2009 ZOSTER VACCINES (1 of 2) 01/16/2014 PNEUMOCOCCAL VACCINES (50+ years) (2 of 2 - PCV) 08/14/2016 08/14/2015 INFLUENZA VACCINE (#1) 2025 , 07/24/2022, 07/04/2021, Additional history exists COVID-19 VACCINE ( season) 2025 07/01/2023, 07/24/2022, 04/21/2022, Additional history exists Adult Td,Tdap Booster 02/20/2026 02/21/2016, 010 SCREENING FOR DIABETES 03/18/2026 03/18/2023 RSV VACCINE (1 - 1-dose 75+ series) 01/16/2039 SMOKING STATUS SCREENING (Once After 26 Yrs) Completed 04/08/2023 HEPATITIS A VACCINES Aged Out No long er eligible based on patient's age to complete this topic HIB VACCINES Aged Out No longer eligi ble based on patient's age to complete this topic MENINGOCOCCAL VACCINES (ACWY) Aged Out No longer eligible based on patient's age to complete this topic MENINGOCOCCAL VACCINES (B) Aged Out N o longer eligible based on patient's age to complete this topic Medical Devices Implanted Type Area Oil Distributor Tender Device Identifier Shelf Expiration Date Model / Serial / [facility] Knee Description:B/l knees Nodata NODATA Spine Cervical Description:Fusion Nodata NODATA Spine Lumbar Knee Implant Component Size 8 Femoral Persona Lena Cement Cruciate Retaining Standard Left - [id number] Implanted:Qty: 1 on 01/20/2022 by Ortega Gibson MD at [facility] Left: Knee RUTH / DIV OF [employer] 08/04/2029 [id number] / / [id number] Mesh Titanium 0.6x70.0mm Plate Craniomaxillofa cial Matrixneuro Contour Circular Extra Rigid - [id number] Implanted:Qty: 1 on 03/13/2023 by Negrito Loera MD at [facility] Left: Cranial [employer] [id number] / / [id number] Screw Bone 1.5x4mm Ti Self Drilling Matrixneuro Pk/5ea - [id number] Implanted:Qty: 8 on 03/13/2023 by Negrito Loera MD at [facility] Right: Cranial [employer] [id number] 5 / / Kit Graft 10ml Bone Void Filler Cement Injectable Calcium Phosphate Liquid Powder Bowl Spatula Syringe Hydroset - [id number] Implanted:Qty: 1 on 03/27/2023 by Anne Marie Osorio MD, PhD at [facility] Right: Ear TAHIRA CRANIOMAXILLOFACIA L DI 02/24/2024 [id number] / / [id number] Screw Bone 1.5x4mm Ti Self Drilling Matrixneuro - [id number] Implanted:Qty: 2 on 03/27/2023 by Anne Marie Osorio MD, PhD at [facility] STANDARD Right: Ear [employer] [id number] / / Knee Implant 10mm 8 11 Component Articular Surface Persona Polyethylene Vivacite E Cruciate Retaining Fixed Lt Ef - [id number] Implanted:Qty: 1 on 01/20/2022 by Ortega Gibson MD at [facility] Left: Knee RUTH / DIV OF [facility] 06/17/2026 [id number] / / [id number] Description:Persona vivacit- e highly crosslinked polyethylene articular surface MC left 10mm height Bone Cement Antibiotic Refobacin - [id number] Implanted:Qty: 2 on 01/20/2022 by Ortega Gibson MD at [facility] Left: Knee RUTH / DIV OF [facility] 03/04/2024 [id number] / / [id number] Knee Implant 5deg Component Tibial Persona Titanium Stemmed Cemented Lt Size F - [id number] Implanted:Qty: 1 on 01/20/2022 by Ortega Gibson MD at [facility] Left: Knee RUTH / DIV OF [facility] 07/03/2031 [id number] / / [id number] Bone Cement Antibiotic Refobacin - [id number] Implanted:Qty: 2 on 05/20/2022 by Ortega Gibson MD at [facility] Right: Knee RUTH / DIV OF [facility] 06/04/2024 [id number] / / [id number] Knee Implant 5.0deg Component Tibial Nexgen Titanium Stemmed Cemented Rt Size F - [id number] Implanted:Qty: 1 on 05/20/2022 by Ortega Gibson MD at [facility] Right: Knee RUTH / DIV OF [facility] 01/05/2032 [id number] / / [id number] Knee Implant Component Size 8 Femoral Persona Lena Cement Cruciate Retaining Standard Right - [id number] Implanted:Qty: 1 on 05/20/2022 by Ortega Gibson MD at [facility] Right: Knee RUTH / DIV OF [employer] 10/29/2031 [id number] / / [id number] Knee Implant 11mm 8 Component Articular Surface Persona Polyethylene Vivacite E Cruciate Retaining Fixed Rt Ef - [id number] Implanted:Qty: 1 on 05/20/2022 by Ortega Gibson MD at [facility] Right: Knee RUTH / DIV OF [employer] 07/03/2026 [id number] / / [id number] Graft Tissue 4x12cm Med Human Alloderm Regenerative - [id number] Implanted:Qty: 1 on 03/13/2023 by Negrito Loera MD at [facility] Right: Brain [employer] 01/02/2025 [id number] / / [id number] [place] [id number] [facility] ONE CARE MEDICARE REPLACEMENT LISA BRYANT [id number] MEDICARE PART A & [place] [id number] ONE [facility] MEDICARE REPLACEMENT MEDICARE PART A & B MEDICARE PART A & B MEDICARE PART A & B ONE CARE MEDICARE REPLACEMENT [place] [id number] MEDICARE PART A & B MEDICARE PART A & B ONE CARE MEDICARE REPLACEMENT MEDICARE PART A & B ONE CARE MEDICARE REPLACEMENT MEDICARE PART A & B [facility] ONE CARE MEDICARE REPLACEMENT Advance Directives For more information, please contact: [phone] (9AM - 5PM [facility], Thursday-Thursday) Documents on File Type Date Recorded Patient Registered Nurse Supervisor Expl anation Healthcare Proxy 04/02/2023 2:30 PM * Full Code (Latest Code Status on File) Date Activated Date Inactivated Comments 03/27/2023 8:48 PM Question Answer Comments Code Status Confirmed With: Patient * Full Code Date Activated Date Inactivated Comments 03/13/2023 3:36 PM 03/27/2023 8:48 PM Question Answer Comments Code Status Confirmed With: Other (specify below ) Code Status Communicated To: Other (specify belo w) * Full Code Date Activated Date Inactivated Comments 05/20/2022 3:34 PM 03/13/2023 3:36 PM Question Answer Comments Code Status Confirmed With: Patient * Full Code Date Activated Date Inactivated Comments 05/20/2022 9:00 AM 05/20/2022 3:34 PM Question Answer Comments Code Status Confirmed With: Patient * Full Code Date Activated Date Inactivated Comments 01/20/2022 1:52 PM 05/20/2022 9:00 AM Question Answer Comments Code Status Confirmed With: Patient Care Teams Electrical Parts Reconditioner Relationship Specialty Start Date End Date Diego Degroot MD [address] [phone] PCP - General Family Medicine 06/04/22 Additional Source Comments The information contained in this document represents components of the legal health record. It is not the complete legal health record.[facility]
--- OUTSIDE RECORDS SUMMARY | 2025-06-12 11:40 | XMS_ITS | Encounter Summary ---
Author Organization [facility] Address [address] [facility] [address] [place] [address] Phone Care Team Providers Care News Wire Photo Operator Name Role Phone Diego Degroot MD Primary Care Provider Reason for Visit * Reason Comments Medication Refill Encounter Details Date Type Department Care Team ([facility] st Contact Info) Description 06/04/2024 Refill [facility] [address] 9[address], [address] [place] [address] Valarie Kaminski NP [address] [facility] [address] [place] [address] [email or web address] Medication Refill Social History Tobacco Use Types Packs/Day Years [...] on filedocumented in this encounter Care Teams News Wire Photo Operator Relationship Specialty Start Date End Date Diego Degroot MD [address] [phone] PCP - General Family Medicine 06/04/22 documented as of this encounter Additional Source Comments The information contained in this document represents components of the legal health record. It is not the complete legal health record.[facility]
--- OUTSIDE RECORDS SUMMARY | 2025-06-12 11:40 | XMS_ITS | Encounter Summary ---
Author Organization [facility] Address [address] [place] [address] Phone Care Team Providers Care Data Storage Specialist Name Role Phone Diego Degroot MD Primary Care Provider [phone] Encounter Details Date Type Department Care Team (Late st Contact Info) Description 03/12/2023 Procedure Pass [facility] [place] [address] [facility] 2nd [address], [address] [place] [address] Social History Tobacco Use Types Packs/Day Years [...] on file documented as of this encounter Functional Status * Calculated C-SSRS Risk Score (Lifetime/Recent) Answer Date of Assessment Author No Risk Indicated 03/13/2023 6:55 AM EDT Karin Torrez I RN * [place] Suicide Severity Rating Scale (Screener/Recent Self-Report) Question Answer Date of Assessment Author 1. Wish to be (Past 1 Month) No 023 6:55 AM EDT Karin Torrez I, RN 2. Non-Specific Active Suici yury Thoughts (Past 1 Month) No 03/13/2023 6:55 AM EDT Karin Torrez I , RN 6. Suicidal Behavior (Lifetime) No 3 6:55 AM EDT Karin Torrez I, RN documented as of this encounter Plan of Treatment Not on file documented as of this encounter Visit Diagnoses Not on filedocumented in this encounter Care Teams Data Storage Specialist Relationship Specialty Start Date End Date Diego Degroot MD [address] [phone] PCP - General Family Medicine 06/04/22 documented as of this encounter Additional Source Comments The information contained in this document represents components of the legal health record. It is not the complete legal health record.[facility]
--- OUTSIDE RECORDS SUMMARY | 2025-06-12 11:40 | XMS_ITS | Encounter Summary ---
Author Organization [facility] Address [address] [facility] [address] [place] [address] Phone Care Team Providers Care Analog Circuit Designer Name Role Phone Diego Degroot MD Primary Care Provider [phone] Encounter Details Date Type Department Care Team (Late st Contact Info) Description 03/27/2023 Procedure Pass [facility] MAIN PERIOP DEPT [address] [place] [id number] Social History Tobacco Use Types Packs/Day Years [...] Date of Assessment Author No Risk Indicated 03/27/2023 9:00 PM EDT Trudi Valdez RN * [place] Suicide Severity Rating Scale (Screener/Recent Self-Report) Question Answer Date of Assessment Author 1. Wish to be (Past 1 Month) No 023 9:00 PM PRIETOT Trudi Valdez RN 2. Non-Specific Active Suici yury Thoughts (Past 1 Month) No 03/27/2023 9:00 PM EDT Ana Rosa Valdez RN 6. Suicidal Behavior (Lifetime) No 3 9:00 PM EDT Trudi Valdez RN documented as of this encounter Plan of Treatment Not on file documented as of this encounter Visit Diagnoses Not on filedocumented in this encounter Care Teams Analog Circuit Designer Relationship Specialty Start Date End Date Diego Degroot MD [address] [phone] PCP - General Family Medicine 06/04/22 documented as of this encounter Additional Source Comments The information contained in this document represents components of the legal health record. It is not the complete legal health record.[facility]
--- OUTSIDE RECORDS SUMMARY | 2025-06-12 11:40 | XMS_ITS | Encounter Summary ---
Author Organization [facility] Address [address] [facility] [address] [place] [address] Phone Care Team Providers Care Residential Mortgage Manager Name Role Phone Diego Degroot MD Primary Care Provider Encounter Details Date Type Department Care Team (Late st Contact Info) Description 03/17/2023 Procedure Pass [facility] [address] [facility] [place] [address] Social History Tobacco Use Types Packs/Day Years [...] on filedocumented in this encounter Care Teams Residential Mortgage Manager Relationship Specialty Start Date End Date Diego Degroot MD [address] [facility] [address] [place] [phone] PCP - General Family Medicine 06/04/22 documented as of this encounter Additional Source Comments The information contained in this document represents components of the legal health record. It is not the complete legal health record.[facility]
--- OUTSIDE RECORDS SUMMARY | 2025-06-12 11:40 | XMS_ITS | Encounter Summary ---
Author Organization [facility] Address [address] [facility] [address] [place] [address] Phone Care Team Providers Care Massage Coordinator Name Role Phone Barrett Lloyd Primary Care Provider [phone] Barrett Lloyd Primary Care Provider [phone] Diego Degroot MD Primary Care Provider [phone] Encounter Details Date Type Department Care Team (Late st Contact Info) Description 01/20/2022 Procedure Pass [place] Admitting Dept - Virtual Department [address] [place] [address] Social History Tobacco Use Types Packs/Day Years Used Date Smoking Tobacco: Never Smokeless Tobacco: Never Alcohol Use Standard Drinks/Week Comments Not Currently 0 (1 standard drink = 0.6 oz pure alcohol) h/o ETOH abuse, sober x 4 years Sex and Gender Information Value Date Recorded Sex Assigned at Not on file Legal Sex Male 2:00 PM EST Gender Identity Not on file Sexual Orientation Not on file documented as of this encounter Functional Status * Calculated C-SSRS Risk Score (Lifetime/Recent) Answer Date of Assessment Author Moderate Risk 01/20/2022 1:00 PM EDT Purnima Campo RN * [place] Suicide Severity Rating Scale (Screener/Recent Self-Report) Question Answer Date of Assessment Author 1. Wish to be (Past 1 Month) No 022 1:00 PM EDT Purnima Hernandez, MARY JO 2. Non-Specific Active Suici yury Thoughts (Past 1 Month) No 01/20/2022 1:00 PM EDT Edward Hernandez, RN 6. Suicidal Behavior (Lifetime) Yes 2 1:00 PM EDT Purnima Hernandez RN 6. Suicidal Behavior (3 Months) No 2 1:00 PM EDT Purnima Hernandez RN documented as of this encounter Plan of Treatment Not on file documented as of this encounter Visit Diagnoses Not on filedocumented in this encounter Care Teams Massage Coordinator Relationship Specialty Start Date End Date Barrett Lloyd PA [address] [phone] PCP - General Overlock Waistline Joiner 12/05/21 05/06/22 Barrett Lloyd PA [address] [phone] PCP - General Overlock Waistline Joiner 05/07/22 06/03/22 Diego Degroot MD [address] [phone] PCP - General Family Medicine 06/04/22 documented as of this encounter Additional Source Comments The information contained in this document represents components of the legal health record. It is not the complete legal health record.[facility]
--- OUTSIDE RECORDS SUMMARY | 2025-06-12 11:40 | XMS_ITS | Encounter Summary ---
Author Organization Located [facility] Address [address] [facility] [address] [place] [address] Phone Care Team Providers Care Senior Mobile Solutions Architect Name Role Phone Diego Degroot MD Primary Care Provider [phone] Encounter Details Date Type Department Care Team (Late st Contact Info) Description 07/06/2023 Procedure Pass [facility] Imaging - MRI, [facility] [address] [place] [address] Social History Tobacco Use Types Packs/Day Years [...] on filedocumented in this encounter Care Teams Senior Mobile Solutions Architect Relationship Specialty Start Date End Date Diego Degroot MD [address] [phone] PCP - General Family Medicine 06/04/22 documented as of this encounter Additional Source Comments The information contained in this document represents components of the legal health record. It is not the complete legal health record.[facility]
--- OUTSIDE RECORDS SUMMARY | 2025-06-12 11:40 | XMS_ITS | Encounter Summary ---
Author Organization [facility] Address [address] [employer] [facility] [address] [place] [address] Phone Care Team Providers Care Commissioned Fire Officer Name Role Phone Diego Degroot MD Primary Care Provider [phone] Encounter Details Date Type Department Care Team ([facility] Contact Info) Description 03/13/2023 Procedure Pass [facility] [place] [facility] [address] [place] [address] Social History Tobacco Use Types Packs/Day Years [...] Author No Risk Indicated 03/13/2023 6:55 AM Karin Schneider RN * [place] Suicide Severity Rating Scale (Screener/Recent Self-Report) Question [...] on filedocumented in this encounter Care Teams Commissioned Fire Officer Relationship Specialty Start Date End Date Diego Degroot MD [address] [phone] PCP - General Family Medicine 06/04/22 documented as of this encounter Additional Source Comments The information contained in this document represents components of the legal health record. It is not the complete legal health record.[facility]
--- OUTSIDE RECORDS SUMMARY | 2025-06-12 11:41 | XMS_ITS | Encounter Summary ---
Author Organization [facility] Address [address] [facility] [address] [place] [address] Phone Care Team Providers Care Char House Supervisor Name Role Phone Barrett Lloyd Primary Care Provider [phone] Diego Degroot MD Primary Care Provider [phone] Encounter Details Date Type Department Care Team (Late st Contact Info) Description 05/20/2022 Procedure Pass [place] Admitting Dept - Virtual Department [address] [place] [address] Social History Tobacco Use Types Packs/Day Years [...] Date of Assessment Author No Risk Indicated 05/20/2022 6:26 PM PRIETOT Diann Lucas RN * [place] Suicide Severity Rating Scale (Screener/Recent Self-Report) Question Answer Date of Assessment Author 1. Wish to be (Past 1 Month) No 022 6:26 PM PRIETOT Diann Lucas RN 2. Non-Specific Active Suici yury Thoughts (Past 1 Month) No 05/20/2022 6:26 PM PRIETOT Neelima Lucas RN 6. Suicidal Behavior (Lifetime) No 08/16/202 2 6:26 PM EDT Diann Lucas RN documented as of this encounter Plan of Treatment Not on file documented as of this encounter Visit Diagnoses Not on filedocumented in this encounter Care Teams Char House Supervisor Relationship Specialty Start Date End Date Barrett Lloyd PA [address] [phone] PCP - General Funding Coordinator 05/07/22 06/03/22 Diego Degroot MD [address] [phone] PCP - General Family Medicine 06/04/22 documented as of this encounter Additional Source Comments The information contained in this document represents components of the legal health record. It is not the complete legal health record.[facility]
--- OUTSIDE RECORDS SUMMARY | 2025-06-12 11:41 | XMS_ITS | Encounter Summary ---
Author Organization [facility] Address [address] [facility] [address] [place] [address] Phone Care Team Providers Care Physical Testing Supervisor Name Role Phone Diego Degroot MD Primary Care Provider [phone] Encounter Details Date Type Department Care Team ([facility] st Contact Info) Description 06/22/2023 Procedure Pass [facility] [address] [facility] [address] [place] [address] Social History Tobacco Use Types Packs/Day Years [...] on filedocumented in this encounter Care Teams Physical Testing Supervisor Relationship Specialty Start Date End Date Diego Degroot MD [address] [phone] PCP - General Family Medicine 06/04/22 documented as of this encounter Additional Source Comments The information contained in this document represents components of the legal health record. It is not the complete legal health record.[facility]
--- OUTSIDE RECORDS SUMMARY | 2025-06-12 11:41 | XMS_ITS | Patient Health Record ---
Author Organization [facility] Address [address] [facility] [address] [place] [address] Support Name Relationship Address Phone JOB GALLEGOS Guarantor Unknown Reason For Referral No Information Medications Medication SIG (Take, Route, Frequency, Duration) Notes Start Date End Date Status AndroGel 75MG EXT CR ORAL QAM; Duration: -3 [facility] 05/12/2012 Active AndroGel 50MG JERMAINE External EVERY MORNING; Duration: -3 [facility] 03/15/2012 Active Unique 180 MG 1 ORAL daily; Durati on: -3 [facility] 02/20/2012 Active Adderall 30MG 1 ORAL DAILY; Durati on: -3 [facility] 02/12/2012 Active Flonase 50MCG 2 Nasal daily; Durat ion: -3 [facility] 02/20/2012 Active LaMICtal 200MG 1 ORAL daily; Durati on: -3 [facility] 02/12/2012 Active EpiPen 2-Diego 0.3 MG/0.3ML Intramuscula; Duration: -3 [facility] 02/12/2012 Active Problems Problem Type SNOMED Code ICD Code Onset Dates Problem Status W/U Status Risk Notes Problem Hyperlipidemia (14428229) Other and unspecified hyperlipidemia (272.4) Active confirmed Major Problem Depressive disorder (50533296) Depressive disorder, not elsewhere classified (311) Active confirmed Major Problem Child attention deficit disorder (disorder) (214499664) Attention deficit disorder of childhood without mention of hyperactivity (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) Active confirmed Major Problem Essential hypertension (13382791) Unspecified essential hypertension (401.9) Active confirmed Major Problem Backache (877187623) Unspecified backache (724.5) Active confirmed Diag Problem Osteoarthritis (293117598) Osteoarthrosis, unspecified whether generalized or localized, unspecified site (715.90) Active confirmed Major Problem Joint pain (27616937) Pain in joint, site unspecified (719.40) Active confirmed Diag Problem Malaise and fatigue (232942603) Other malaise and fatigue (780.79) Active confirmed Diag Problem Cough (08918385) Cough (786.2) Active confirmed Diag Problem Allergy (698964093) Allergy, unspecified not elsewhere classified (995.3) Active confirmed Diag Plan Of Treatment No Information Insurance Providers Payer Name Payer Address Payer Phone Subscriber Number Group Number Insured Name Patient Relationship to Insured Coverage Start Date Coverage End Date [facility] [address] [place] [id number] JOB BARRIOS Self - patient is the insured
== END 2025-06-12 09:59 | disposition home or self-care (01) ==
LOC: HO.BBR 09:58
PROVIDERS: Visit Provider Urology
DX: Z13.89 Encounter for screening for other disorder (principal)

== ENCOUNTER 2025-09-11 10:00 | Outpatient (REF) | payer OTHER, SELFPAY | END 2025-09-11 10:01 | disposition home or self-care (01) | LOC: HO.BBR 10:00 | PROVIDERS: Visit Provider Urology | DX: D75.1 Secondary polycythemia (principal) | CPT/HCPCS: 85018; 99195 ==